=== PATIENT | female | born 1960 | race Caucasian/White ===

== ENCOUNTER 2017-11-06 14:48 | Emergency (ER) | payer MEDICARE, SELFPAY ==
[2017-11-06 14:51] VITALS: BP 127/77; PULSE 80; RESP 20; TEMP 36.5; O2SAT 97; BMI 18.8
--- NOTE | 2017-11-06 14:54 | XR_ITS ---
XR acute abdomen series HISTORY: Severe abdominal pain with nausea ITS.REASON: chronic nausea ORDERING PHYSICIAN: Martha Tinajero MD PATIENT AGE: 57 years COMPARISON: 04/29/2015 FINDINGS: Frontal view of the chest shows hyperinflation. Suture line is present in the left lung base. Normal heart size. No lobar consolidation or collapse. Upright and supine views of the abdomen show nonspecific nonobstructive bowel gas pattern. There is mild amount colonic feces in the rectum. No urolithiasis is. There are pelvic calcifications likely related to phleboliths. IMPRESSION: COPD, nonspecific nonacute findings
--- NOTE | 2017-11-06 14:55 | HMH.EDGENADL ---
ED Disposition Clinical Impression: Hyponatremia, Muscle spasm, Alcohol abuse, Left against medical advice Disposition: Home, Self-Care Condition on Discharge: Fair Additional Instructions: I discussed with the patient the need to be admitted because of her severe hyponatremia. She refused in the presence of her nephew. Said I cannot stay in this hospital. Signed AGAINST MEDICAL ADVICE. Advised to stop drinking alcoholic beverages. Have diet that is high in salt and potassium. To return if she if she changes her mind. Verbalized understanding. Explained to her that muscle relaxants would not help this problem until the sodium was corrected, again she wanted to leave. Referrals: Dmitriy Diaz MD [Primary Care Provider] - - Critical Care Critical Care Time: No Attestation: On , the high probability of a clinically significant, sudden or life threatening deterioration of the following system(s) required my full and direct attention, intervention and personal management. The time I documented below is in addition to time spent performing reported procedures but includes the following listed in this critical care notation. Medical Decision Making - Medical Records Medical records reviewed: Yes: I reviewed the patient's medical records. Vital Signs: 11/06/17 14:51 Temperature 97.7 F Temperature Source Oral Pulse Rate [Right Ulnar] 80 Respiratory Rate 20 Blood Pressure [Right Arm] 127/77 Blood Pressure Mean [Right Arm] 93 Blood Pressure Source [Right Arm] Automatic Cuff Blood Pressure Position [Right Arm] Supine 02 Sat by Pulse Oximetry 97 Oxygen Delivery Method Room Air - Lab Data Lab Results 11/06/17 16:00: WBC 4.5 L, RBC 4.85, Hgb 15.6, Hct 48.0 H, MCV 98.9, MCH 32.1 H, MCHC 32.5, RDW 15.3, Plt Count 246, MPV 7.1 L, Neut % (Auto) 55.7, Lymph % (Auto) 33.6, [place] % (Auto) 8.3, Eos % (Auto) 1.3, Baso % (Auto) 1.1, Neut # (Auto) 2.5, Lymph # (Auto) 1.5, [place] # (Auto) 0.4, Eos # (Auto) 0.1, Baso # (Auto) 0.1 11/06/17 16:00: Sodium 121 L, Potassium 4.2, Chloride 87 L, Carbon Dioxide 28, Anion Gap 10.2, BUN 4 L, Creatinine 0.47 L, Estimated Creat Clear 95, Estimated GFR 136, Est GFR ( Amer) 164, Glucose 88, Calcium 8.3 L, Magnesium 1.5, Total Bilirubin 0.4, AST 35, ALT 30, Alkaline Phosphatase 105, Total Creatine Kinase 39, CK-MB (CK-2) 1.1, CK-MB (CK-2) Rel Index 2.8, Troponin I < 0.02, Total Protein 6.9, Albumin 3.4, Globulin 3.5 H, Albumin/Globulin Ratio 1.0 L, Lipase 314, Plasma/Serum Alcohol 126 H Result diagrams: 11/06/17 16:00 11/06/17 16:00 Orders (Tests/Meds): ED MEDICATIONS Generic Name Dose Route Start Last Admin Trade Name Freq PRN Reason Stop Dose Admin Baclofen 10 mg 11/06/17 17:00 Lioresal 10mg Tablet PO 12/06/17 16:59 QID ROBEL ORDERS Category Date Time Status Acute abdomen XR series [XR acute abdomen series] Stat Exams 11/06/17 14:54 Taken Drug Screen,Urine Stat Lab 11/06/17 15:01 Ordered Folate Stat Lab 11/06/17 16:00 Received Thiamine level [Vitamin B1] Stat Lab 11/06/17 16:00 Received Urinalysis and Microscopic Stat Lab 11/06/17 14:54 Ordered Vitamin B12 Stat Lab 11/06/17 16:00 Received ECG Request by /Samira Stat Y 11/06/17 14:54 Ordered - Radiology Data #1 Image(s): Chest, Abdomen Image Reviewed: Yes I reviewed the patient's radiology image Preliminary Findings: Normal/NAD - ECG Data Tracing #1 Normal sinus rhythm 77/min early lateralization no acute. ECG initial impression date: 11/06/17 - David Inquiry Pt receiving controlled substance: No David was queried for this patient: No General Adult HPI - General Chief complaint: PAIN Stated complaint: PAIN IN LUNGS - History of Present Illness HPI narrative: 57 years old white female with history of tobacco use and pneumothorax that required chest tube. She has chronic back pain and she is scheduled to see a pain specialist in [place]. She is to
--- NOTE | 2017-11-06 14:59 | ED_ITS ---
ED Disposition Clinical Impression: Hyponatremia, Muscle spasm, Alcohol abuse, Left against medical advice Disposition: Home, Self-Care Condition on Discharge: Fair Additional Instructions: I discussed with the patient the need to be admitted because of her severe hyponatremia. She refused in the presence of her nephew. Said I cannot stay in this hospital. Signed AGAINST MEDICAL ADVICE. Advised to stop drinking alcoholic beverages. Have diet that is high in salt and potassium. To return if she if she changes her mind. Verbalized understanding. Explained to her that muscle relaxants would not help this problem until the sodium was corrected, again she wanted to leave. Referrals: Dmitriy Diaz MD [Primary Care Provider] - - Critical Care Critical Care Time: No Attestation: On , the high probability of a clinically significant, sudden or life threatening deterioration of the following system(s) required my full and direct attention, intervention and personal management. The time I documented below is in addition to time spent performing reported procedures but includes the following listed in this critical care notation. Medical Decision Making - Medical Records Medical records reviewed: Yes: I reviewed the patient's medical records. Vital Signs: 11/06/17 14:51 Temperature 97.7 F Temperature Source Oral Pulse Rate [Right Ulnar] 80 Respiratory Rate 20 Blood Pressure [Right Arm] 127/77 Blood Pressure Mean [Right Arm] 93 Blood Pressure Source [Right Arm] Automatic Cuff Blood Pressure Position [Right Arm] Supine 02 Sat by Pulse Oximetry 97 Oxygen Delivery Method Room Air - Lab Data Lab Results 11/06/17 16:00: WBC 4.5 L, RBC 4.85, Hgb 15.6, Hct 48.0 H, MCV 98.9, MCH 32.1 H , MCHC 32.5, RDW 15.3, Plt Count 246, MPV 7.1 L, Neut % (Auto) 55.7, Lymph % ( Auto) 33.6, [place] % (Auto) 8.3, Eos % (Auto) 1.3, Baso % (Auto) 1.1, Neut # (Auto ) 2.5, Lymph # (Auto) 1.5, [place] # (Auto) 0.4, Eos # (Auto) 0.1, Baso # (Auto) 0.1 11/06/17 16:00: Sodium 121 L, Potassium 4.2, Chloride 87 L, Carbon Dioxide 28, Anion Gap 10.2, BUN 4 L, Creatinine 0.47 L, Estimated Creat Clear 95, Estimated GFR 136, Est GFR ( Amer) 164, Glucose 88, Calcium 8.3 L, Magnesium 1.5, Total Bilirubin 0.4, AST 35, ALT 30, Alkaline Phosphatase 105, Total Creatine Kinase 39, CK-MB (CK-2) 1.1, CK-MB (CK-2) Rel Index 2.8, Troponin I < 0.02, Total Protein 6.9, Albumin 3.4, Globulin 3.5 H, Albumin/Globulin Ratio 1.0 L, Lipase 314, Plasma/Serum Alcohol 126 H Result diagrams: 11/06/17 16:00 11/06/17 16:00 Orders (Tests/Meds): ED MEDICATIONS Generic Name Dose Route Start Last Admin Trade Name Freq PRN Reason Stop Dose Admin Baclofen 10 mg 11/06/17 17:00 Lioresal 10mg Tablet PO 12/06/17 16:59 QID ROBEL ORDERS Category Date Time Status Acute abdomen XR series [XR acute abdomen series] Stat Exams 11/06/17 14:54 Taken Drug Screen,Urine Stat Lab 11/06/17 15:01 Ordered Folate Stat Lab 11/06/17 16:00 Received Thiamine level [Vitamin B1] Stat Lab 11/06/17 16:00 Received Urinalysis and Microscopic Stat Lab 11/06/17 14:54 Ordered Vitamin B12 Stat Lab 11/06/17 16:00 Received ECG Request by /Samira Stat Y 11/06/17 14:54 Ordered - Radiology Data #1 Image(s): Chest, Abdomen Image Reviewed: Yes I reviewed the patient's radiology image
[2017-11-06 16:25] LABS: Basophils # 0.1 K/mm3 (0-0.2); Basophils % 1.1 % (0.1-2.0); Eosinophils # 0.1 K/mm3 (0.0-0.4); Eosinophils % 1.3 % (0.1-12.0); Hemoglobin 15.6 g/dL (12.2-16.2); Lymphocytes # 1.5 K/mm3 (0.7-4.5); Lymphocytes % 33.6 K/mm3 (10-50); Mean Corpuscular HGB Conc 32.5 g/dL (31.8-35.4); Mean Corpuscular Hemoglobin 32.1 pg (27.0-31.2); Mean Corpuscular Volume 98.9 fl (81-99); Mean Platelet Volume 7.1 fl (7.4-10.4); Monocytes # 0.4 K/mm3 (0.1-1.0); Monocytes % 8.3 % (1.7-9.3); Neutrophils # 2.5 K/mm3 (1.8-7.8); Neutrophils % 55.7 % (37.0-80.0); Platelet Count 246 K/mm3 (142-424); Red Blood Count 4.85 M/mm3 (4.20-5.40); Red Cell Distribution Width 15.3 % (11.5-17.5); White Blood Count 4.5 K/mm3 (4.8-10.8)
[2017-11-06 16:58] LABS: Alanine Aminotransferase 30 U/L (12-78); Albumin Level 3.4 gm/dL (3.4-5.0); Alkaline Phosphatase 105 U/L (46-116); Anion Gap 10.2 mEq/L (5-15); Aspartate Amino Transferase 35 U/L (15-37); Bilirubin,Total 0.4 mg/dL (0.2-1.0); Blood Urea Nitrogen 4 mg/dL (7-18); CKMB Relative Index 2.8 U/L (0-4.0); Calcium 8.3 mg/dL (8.5-10.1); Carbon Dioxide 28 mmol/L (21.0-32.0); Chloride 87 mmol/L (98-107); Creatine Kinase 39 U/L (26-192); Creatine Kinase MB 1.1 mg/ml (0.0-3.6); Creatinine Clearance Estimated 95 mL/min (0-300); Creatinine,Serum 0.47 mg/dL (0.55-1.02); Estimated Glomerular Filt Rate 136 ml/min (>60); Ethyl Alcohol 126 mg/dL (0-99); GFR (African American) 164 ML/MIN (>60); Globulin 3.5 gm/dl (1.3-3.2); Glucose 88 mg/dL (74-106); Lipase 314 u/L (73-393); Magnesium 1.5 mg/dL (1.4-2.2); Potassium 4.2 mmoL/L (3.5-5.1); Sodium 121 mmol/L (136-145); Total Protein,Serum 6.9 gm/dL (6.4-8.2); Troponin I < 0.02 ng/ml (0.00-0.06)
[2017-11-06 17:40] VITALS: BP 145/74; PULSE 87; RESP 16; TEMP 37; O2SAT 98
[2017-11-06 19:44] LABS: Amphetamine/Metha Screen,Urine Negative ng/mL (<1000); Barbiturates Screen,Urine Negative ng/mL (<200); Benzodiazepines Screen,Urine Negative ng/mL (200); Cannabinoid Screen,Urine Negative ng/mL (<50); Cocaine Screen,Urine Negative ng/g (<300); Methadone Screen,Urine Negative ng/mL (<300); Opiate Screen,Urine Negative ng/mL (<300); Phencyclidine Screen,Urine Negative ng/mL (<25)
[2017-11-06 20:17] LABS: Appearance,Urine CLEAR (Clear); Bilirubin,Urine Negative (Negative); Blood, Urine Negative (Negative); Glucose,Urine (UA) Negative (Negative); Ketones,Urine Negative (Negative); Leukocyte Esterase,Urine Negative (Negative); Microscopic, Urine URINE MICROSCOPIC (MICROSCOPIC); Nitrate,Urine POSITIVE (Negative); Protein,Urine Negative (Negative); Specific Gravity, Urine <= 1.005 (1.005-1.030); Urobilinogen,Urine 0.2 EU/dl (0.2)
[2017-11-06 20:19] LABS: Color,Urine YELLOW (Yellow)
[2017-11-06 20:24] LABS: Bacteria,Urine 4+ /lpf
[2017-11-09 11:07] LABS: Vitamin B12 470 pg/mL (232-1245)
[2017-11-09 11:08] LABS: Folate 9.6 ng/mL (>3.0)
[2017-11-10 19:22] LABS: Vitamin B1 95.2 nmol/L (66.5-200.0)
== END 2017-11-06 17:41 | disposition home or self-care (01) ==
PROVIDERS: Emergency Provider Emergency Medicine; Family Provider Emergency Medicine; PCP Emergency Medicine
DX: E87.1 Hypo-osmolality and hyponatremia (principal); M62.838 Other muscle spasm; F10.10 Alcohol abuse, uncomplicated; Z53.21 Procedure and treatment not carried out due to patient leaving prior to being seen by health care provider
CPT/HCPCS: 74021; 80053; 80305; 81001; 82550; 82553; 82607; 82746; 83690; 83735; 84425; 84484; 85025; 87086; 87088; 87186; 93005; 99283

== ENCOUNTER 2017-12-07 10:11 | Emergency (ER) | payer MEDICARE, SELFPAY ==
[2017-12-07 10:12] VITALS: BP 139/79; PULSE 83; RESP 20; TEMP 36.6; O2SAT 95; BMI 18.4
--- NOTE | 2017-12-07 10:19 | XR_ITS ---
XR hip RT 2-3V w/pelvis HISTORY: Pain following injury ITS.REASON: R hip pain r/t fall today ORDERING PHYSICIAN: Vik Fish MD PATIENT AGE: 57 years COMPARISON: None FINDINGS: There is a nondisplaced fracture oblique in nature involving the base of the greater trochanter medially. No other significant anomalies are evident. IMPRESSION: Nondisplaced transverse fracture at the base of the greater trochanter. Would consider a CT scan to Essure that there is not a component extending through the femoral neck at the base of the femoral neck.
--- NOTE | 2017-12-07 10:38 | HMH.EDANX ---
ED Disposition Clinical Impression: Acute anxiety Closed right hip fracture Qualifiers: Encounter type: initial encounter Qualified Code(s): S72.001A - Fracture of unspecified part of neck of right femur, initial encounter for closed fracture Disposition: Home, Self-Care Condition on Discharge: Fair Instructions: Anxiety Disorders Additional Instructions: advised to use walker to help with ambulation and if any new symptoms develop, return to the ED for new xrays. Also advised to followup with Dr. Fitzpatrick in 10 days for recheck Prescriptions: Ibuprofen [Ibuprofen 600mg Tab] 600 mg PO TID 30 Days #90 tab Referrals: Dmitriy Diaz MD [Primary Care Provider] - Michael Fitzpatrick MD [Staff Physician] - Time of Disposition: 15:01 - Critical Care Critical Care Time: No Attestation: On 12/07/17, the high probability of a clinically significant, sudden or life threatening deterioration of the following system(s) required my full and direct attention, intervention and personal management. The time I documented below is in addition to time spent performing reported procedures but includes the following listed in this critical care notation. Medical Decision Making - Medical Records Medical records reviewed: Yes: I reviewed the patient's medical records. Vital Signs: 12/07/17 10:12 Temperature 97.9 F Temperature Source Oral Pulse Rate [Right Brachial] 83 Respiratory Rate 20 Blood Pressure [Right Arm] 139/79 Blood Pressure Mean [Right Arm] 99 Blood Pressure Source [Right Arm] Automatic Cuff Blood Pressure Position [Right Arm] Sitting 02 Sat by Pulse Oximetry 95 Oxygen Delivery Method Room Air - Lab Data Lab results reviewed: Yes: I reviewed the patient's lab results. Lab Results 12/07/17 10:15: WBC 11.1 H, RBC 5.18, Hgb 16.6 H, Hct 51.2 H, MCV 98.8, MCH 32.0 H, MCHC 32.3, RDW 14.0, Plt Count 331, MPV 7.6, Neut % (Auto) 73.4, Lymph % (Auto) 18.1, [place] % (Auto) 7.6, Eos % (Auto) 0.3, Baso % (Auto) 0.7, Neut # (Auto) 8.2 H, Lymph # (Auto) 2.0, [place] # (Auto) 0.8, Eos # (Auto) 0.0, Baso # (Auto) 0.1 12/07/17 11:00: Sodium 116 L, Potassium 3.8, Chloride 81 L, Carbon Dioxide 28, Anion Gap 10.8, BUN 4 L, Creatinine 0.57, Estimated Creat Clear 77, Estimated GFR 109, Est GFR ( Amer) 131, Glucose 111 H, Calcium 8.7, Total Bilirubin 0.5, AST 25, ALT 35, Alkaline Phosphatase 117 H, Total Protein 7.8, Albumin 4.0, Globulin 3.8 H, Albumin/Globulin Ratio 1.1, Plasma/Serum Alcohol 0 12/07/17 11:00: Lactic Acid 1.3 12/07/17 13:25: Urine Color Yellow, Urine Appearance Clear, Urine pH 5.5, Ur Specific [place] <= 1.005, Urine Protein Negative, Urine Glucose (UA) Negative, Urine Ketones Negative, Urine Blood Negative, Urine Nitrate Negative, Urine Bilirubin Negative, Urine Urobilinogen 0.2, Ur Leukocyte Esterase Negative, Urine RBC None, Urine WBC Occasional, Ur Squamous Epith Cells None, Urine Bacteria 3+ 12/07/17 13:25: Urine Opiates Screen Positive H, Ur Barbituates Screen Negative, Ur Phencyclidine Scrn Negative, Ur Amphetamines Screen Negative, U Methamphetamines Scrn Negative, U Benzodiazepines Scrn Negative, Urine Cocaine Screen Negative, U Marijuana (THC) Screen Negative Result diagrams: 12/07/17 10:15 12/07/17 11:00 Orders (Tests/Meds): ORDERS Category Date Time Status Urine Culture Stat Micro 12/07/17 13:25 Received - Radiology Data #1 Image(s): Hip Image Reviewed: Yes I reviewed the patient's radiology results, Yes I reviewed the patient's radiology image, Yes I discussed the image results w/the radiologist, Yes I have reviewed radiologist's interpretation, Yes I reviewed the patient's radiology image w/the ED provider Preliminary Findings: Abnormal fracture at base of greater trochanter right hip - CT Data Time Received: 14:[address] Reviewed: Yes: I have reviewed the patient's CT results, I discussed the CT results w/the radiologist, I have viewed the radiologist's interpretation Findings Na
[2017-12-07 10:53] LABS: Basophils # 0.1 K/mm3 (0-0.2); Basophils % 0.7 % (0.1-2.0); Eosinophils % 0.3 % (0.1-12.0); Hematocrit 51.2 % (37.0-47.0); Hemoglobin 16.6 g/dL (12.2-16.2); Lymphocytes % 18.1 K/mm3 (10-50); Mean Corpuscular HGB Conc 32.3 g/dL (31.8-35.4); Mean Corpuscular Volume 98.8 fl (81-99); Mean Platelet Volume 7.6 fl (7.4-10.4); Monocytes # 0.8 K/mm3 (0.1-1.0); Monocytes % 7.6 % (1.7-9.3); Neutrophils # 8.2 K/mm3 (1.8-7.8); Neutrophils % 73.4 % (37.0-80.0); Platelet Count 331 K/mm3 (142-424); Red Blood Count 5.18 M/mm3 (4.20-5.40); White Blood Count 11.1 K/mm3 (4.8-10.8)
[2017-12-07 11:27] LABS: Lactic Acid 1.3 mmol/L (0.4-2.0)
[2017-12-07 11:30] LABS: Alanine Aminotransferase 35 U/L (12-78); Albumin/Globulin Ratio 1.1 (1.1-1.8); Alkaline Phosphatase 117 U/L (46-116); Anion Gap 10.8 mEq/L (5-15); Aspartate Amino Transferase 25 U/L (15-37); Bilirubin,Total 0.5 mg/dL (0.2-1.0); Blood Urea Nitrogen 4 mg/dL (7-18); Calcium 8.7 mg/dL (8.5-10.1); Carbon Dioxide 28 mmol/L (21.0-32.0); Chloride 81 mmol/L (98-107); Creatinine Clearance Estimated 77 mL/min (0-300); Creatinine,Serum 0.57 mg/dL (0.55-1.02); Estimated Glomerular Filt Rate 109 ml/min (>60); GFR (African American) 131 ML/MIN (>60); Globulin 3.8 gm/dl (1.3-3.2); Glucose 111 mg/dL (74-106); Potassium 3.8 mmoL/L (3.5-5.1); Sodium 116 mmol/L (136-145); Total Protein,Serum 7.8 gm/dL (6.4-8.2)
[2017-12-07 11:35] LABS: Ethyl Alcohol 0 mg/dL (0-99)
--- NOTE | 2017-12-07 12:48 | CT_ITS ---
CT hip RT wo con HISTORY: Fall with pain, abnormal radiograph ITS.REASON: ? fracture ORDERING PHYSICIAN: Vik Fish MD PATIENT AGE: 57 years COMPARISON: Radiograph of the same day FINDINGS: There is a nondisplaced transverse fracture involving the base of the greater trochanter. This extends through the base of the greater trochanter without displacement. There is a faint oblique linear density at the base of the femoral neck. This does not appear to represent an acute fracture. There is no evidence of dislocation. Increased soft tissue density is present along the posterior aspect of the hip joint consistent with confusion. IMPRESSION: Nondisplaced transverse fracture at the base of the greater trochanter. No definite femoral neck fracture. A thin oblique density is present at the intertrochanteric region of the left femur not felt to represent a fracture. Suggest follow-up radiograph in 7-10 days confirmation.
[2017-12-07 13:30] LABS: Microscopic, Urine URINE MICROSCOPIC (MICROSCOPIC)
[2017-12-07 13:34] LABS: Appearance,Urine CLEAR (Clear); Bilirubin,Urine Negative (Negative); Blood, Urine Negative (Negative); Color,Urine YELLOW (Yellow); Glucose,Urine (UA) Negative (Negative); Ketones,Urine Negative (Negative); Leukocyte Esterase,Urine Negative (Negative); Nitrate,Urine Negative (Negative); PH,Urine 5.5 (5.0-8.5); Protein,Urine Negative (Negative); Specific Gravity, Urine <= 1.005 (1.005-1.030); Urobilinogen,Urine 0.2 EU/dl (0.2)
[2017-12-07 13:41] LABS: Amphetamine/Metha Screen,Urine Negative ng/mL (<1000); Barbiturates Screen,Urine Negative ng/mL (<200); Benzodiazepines Screen,Urine Negative ng/mL (200); Cannabinoid Screen,Urine Negative ng/mL (<50); Cocaine Screen,Urine Negative ng/g (<300); Methadone Screen,Urine Negative ng/mL (<300); Opiate Screen,Urine Positive ng/mL (<300); Phencyclidine Screen,Urine Negative ng/mL (<25)
[2017-12-07 14:03] LABS: Bacteria,Urine 3+ /lpf; WBC,Urine Occasional #/hpf (0-3)
--- NOTE | 2017-12-07 14:30 | PC.NURSE ---
DR SAHU DISCUSSING CASE WITH DR CHERRY.
[2017-12-07 15:29] VITALS: BP 139/73; PULSE 112; RESP 20; TEMP 36.6; O2SAT 100
== END 2017-12-07 15:28 | disposition home or self-care (01) ==
PROVIDERS: Emergency Provider General Practice; Family Provider Emergency Medicine; PCP Emergency Medicine
DX: S72.001A Fracture of unspecified part of neck of right femur, initial encounter for closed fracture (principal); W01.0XXA Fall on same level from slipping, tripping and stumbling without subsequent striking against object, initial encounter; Y92.019 Unspecified place in single-family (private) house as the place of occurrence of the external cause; F10.10 Alcohol abuse, uncomplicated; F17.210 Nicotine dependence, cigarettes, uncomplicated; R06.02 Shortness of breath; E87.1 Hypo-osmolality and hyponatremia; Z79.899 Other long term (current) drug therapy
CPT/HCPCS: 73502; 73700; 80053; 80305; 81001; 83605; 85025; 87086; 87088; 87186; 99282

== ENCOUNTER → 2017-12-19 08:43 | Outpatient (CLI) | payer MEDICARE, SELFPAY ==
--- NOTE | 2017-12-19 08:49 | XR_ITS ---
XR hip RT 2-3V w/pelvis HISTORY: Follow-up right hip fracture ITS.REASON: right hip follow up from ER ORDERING PHYSICIAN: Michael Fitzpatrick MD PATIENT AGE: 57 years COMPARISON: 12-07-17 FINDINGS: Nondisplaced transverse fracture at the base of the greater trochanter once again noted on the right. This is not significant change. No evidence of dislocation or other significant anomalies. Fracture line may be slightly less distinct suggesting early healing. IMPRESSION: Nondisplaced transverse fracture base of right greater trochanter once again noted with the fracture line is somewhat less distinct and may indicate early healing.
== END ==
PROVIDERS: PCP Emergency Medicine; Visit Provider Orthopaedic Surgery
DX: S72.001A Fracture of unspecified part of neck of right femur, initial encounter for closed fracture (principal)
CPT/HCPCS: 73502

== ENCOUNTER → 2017-12-28 09:02 | Outpatient (CLI) | payer MEDICARE, SELFPAY ==
--- NOTE | 2017-12-28 09:04 | XR_ITS ---
XR hip RT 2-3V w/pelvis HISTORY: Follow-up fracture ITS.REASON: RT HIP FX ORDERING PHYSICIAN: Edwin Martinez MD PATIENT AGE: 57 years COMPARISON: 12/19/2017 FINDINGS: Nondisplaced fracture of the base of the greater trochanter once again noted transverse component is slightly less apparent suggesting healing. Cortical irregularity is once again noted base of the greater trochanter medially with femoral neck unchanged. IMPRESSION: Healing nondisplaced fracture at the base of the right greater trochanter
== END ==
PROVIDERS: PCP Emergency Medicine; Visit Provider Orthopaedic Surgery
DX: S72.001A Fracture of unspecified part of neck of right femur, initial encounter for closed fracture (principal)
CPT/HCPCS: 73502

== ENCOUNTER → 2018-01-30 12:46 | Outpatient (CLI) | payer MEDICARE, SELFPAY ==
--- NOTE | 2018-01-30 12:51 | XR_ITS ---
XR hip RT 2-3V w/pelvis HISTORY: Follow-up fracture ITS.REASON: RT hip fracture ORDERING PHYSICIAN: Edwin Martinez MD PATIENT AGE: 57 years COMPARISON: 12/28/2017 FINDINGS: Transverse fracture of the base of the greater trochanter once again noted. The fracture line somewhat less distinct and may be related to early healing. Fracture is nondisplaced. Femoral neck itself appears intact IMPRESSION: Overall no change nondisplaced transverse fracture at the base of the greater trochanter
== END ==
PROVIDERS: PCP Emergency Medicine; Visit Provider Orthopaedic Surgery
DX: S72.001A Fracture of unspecified part of neck of right femur, initial encounter for closed fracture (principal)
CPT/HCPCS: 73502

== ENCOUNTER 2018-03-14 13:47 | Inpatient (IN) ==
[2018-03-14 14:11] LABS: Basophils % 0.2 % (0.1-2.0); Eosinophils # 0.1 K/mm3 (0.0-0.4); Eosinophils % 0.8 % (0.1-12.0); Hematocrit 45.8 % (37.0-47.0); Hemoglobin 15.1 g/dL (12.2-16.2); Lymphocytes % 9.1 K/mm3 (10-50); Mean Corpuscular Hemoglobin 30.7 pg (27.0-31.2); Mean Corpuscular Volume 93.2 fl (81-99); Monocytes # 0.7 K/mm3 (0.1-1.0); Monocytes % 5.8 % (1.7-9.3); Neutrophils # 9.6 K/mm3 (1.8-7.8); Platelet Count 369 K/mm3 (142-424); Red Blood Count 4.92 M/mm3 (4.20-5.40); Red Cell Distribution Width 13.8 % (11.5-17.5); White Blood Count 11.4 K/mm3 (4.8-10.8)
[2018-03-14 14:25] LABS: Albumin Level 3.4 gm/dL (3.4-5.0); Albumin/Globulin Ratio 1.2 (1.1-1.8); Anion Gap 14.3 mEq/L (5-15); Bilirubin,Total 0.5 mg/dL (0.2-1.0); Globulin 2.9 gm/dl (1.3-3.2); Potassium 3.3 mmoL/L (3.5-5.1); Total Protein,Serum 6.3 gm/dL (6.4-8.2)
--- NOTE | 2018-03-14 15:19 | Emergency Department Note ---
ED Disposition Clinical Impression: Hyponatremia, Hypokalemia, Dehydration Change in mental status Qualifiers: Altered mental status type: unspecified Qualified Code(s): R41.82 - Altered mental status, unspecified Fall Qualifiers: Encounter type: initial encounter Qualified Code(s): W19.XXXA - Unspecified fall, initial encounter Disposition: Admitted As Inpatient Condition on Discharge: Serious Time of Disposition: 15:30 - Critical Care Critical Care Time: Yes Attestation: On 03/14/18, the high probability of a clinically significant, sudden or life threatening deterioration of the following system(s) required my full and direct attention, intervention and personal management. The time I documented below is in addition to time spent performing reported procedures but includes the following listed in this critical care notation. Total Critical Care Time: 75 Vital system(s) involved:: Metabolic Failure My critical care processes included: Assessment & monitoring of V/S, Initial and Re-exams, Data Review/Interpretation, Coordinating Care, Medication Orders and management, Documentation Medical Decision Making - Medical Records Medical records reviewed: Yes: I reviewed the patient's medical records. - David Inquiry Pt receiving controlled substance: No Vital Signs: 03/14/18 13:54 03/14/18 14:27 03/14/18 14:50 Temperature 98.1 F 98.4 F 98.6 F Temperature Source Temporal Artery Scan Oral Oral Pulse Rate [Right Brachial] 112 H 95 H 87 Respiratory Rate 18 18 16 Blood Pressure [Right Arm] 156/88 154/87 Blood Pressure Mean [Right Arm] 110 109 Blood Pressure Source [Right Arm] Automatic Cuff Automatic Cuff Blood Pressure Position [Right Arm] Sitting Sitting 02 Sat by Pulse Oximetry 98 94 L 95 Oxygen Delivery Method Room Air Room Air Room Air - Lab Data Lab results reviewed: Yes: I reviewed the patient's lab results. Lab Results 03/14/18 14:00: WBC 11.4 H, RBC 4.92, Hgb 15.1, Hct 45.8, MCV 93.2, MCH 30.7, MCHC 33.0, RDW 13.8, Plt Count 369, MPV 7.0 L, Neut % (Auto) 84.0 H, Lymph % ( Auto) 9.1 L, [place] % (Auto) 5.8, Eos % (Auto) 0.8, Baso % (Auto) 0.2, Neut # ( Auto) 9.6 H, Lymph # (Auto) 1.0, [place] # (Auto) 0.7, Eos # (Auto) 0.1, Baso # ( Auto) 0.0 03/14/18 14:00: Sodium 118 L, Potassium 3.3 L, Chloride 79 L, Carbon Dioxide 28 , Anion Gap 14.3, BUN 5 L, Creatinine 0.47 L, Estimated Creat Clear 88, Estimated GFR 136, Est GFR ( Amer) 164, Glucose 130 H, Calcium 9.0, Total Bilirubin 0.5, AST 23, ALT 26, Alkaline Phosphatase 102, Total Protein 6.3 L, Albumin 3.4, Globulin 2.9, Albumin/Globulin Ratio 1.2 Result diagrams: 03/14/18 14:00 03/14/18 14:00 Orders (Tests/Meds): ED MEDICATIONS Generic Name Dose Route Start Last Admin Trade Name Freq PRN Reason Stop Dose Admin Citalopram Hydrobromide 20 mg 03/14/18 16:24 Celexa 40mg Tablet PO 04/13/18 16:23 DAILY ROBEL Gabapentin 400 mg 03/14/18 16:24 Neurontin 100mg Capsule PO 04/13/18 16:23 DAILY ROBEL Sodium Chloride 1,000 mls @ 75 mls/hr 03/14/18 16:45 Sod Chlor 0.9% 1000ml Bag IV 04/13/18 16:44 .[id number] ROBEL Lorazepam 0.5 mg 03/14/18 16:24 Ativan 2mg/Ml Vial IV 04/13/18 15:44 Q4H PRN Anxiety Ondansetron HCl 4 mg 03/14/18 16:34 Zofran 4mg/2ml Vial IV 04/13/18 16:33 Q6HP PRN Nausea Sodium Chloride 2 ml 03/14/18 16:24 Saline Flush 10ml Syringe IV 04/13/18 15:38 NEEDED PRN to Dilute Lorazepam inj Sodium Chloride 10 ml 03/14/18 16:34 Saline Flush 10ml Syringe IV 04/13/18 16:33 NEEDED PRN Maintain IV Site Discontinued Medications Generic Name Dose Route Start Last Admin Trade Name Freq PRN Reason Stop Dose Admin Sodium Chloride 1,000 mls @ 999 mls/hr 03/14/18 14:00 03/14/18 14:45 Sod Chlor 0.9% 1000ml Bag IV 03/14/18 15:00 999 mls/hr .Q1H1M ROBEL Administration Lorazepam 0.5 mg 03/14/18 15:39 Ativan 2mg/Ml Vial IV 04/13/18 15:44 Q4H PRN Anxiety Ondansetron HCl 4 mg 03/14/18 14:38 03/14/18 14:45 Zofran 4mg/2ml Vial IV 03/14/18 14:39 4 mg ONCE ONE Administration Oxazepam 30 mg 03/14/18 15:34 03/14/18 15:50 Serax 15mg Capsule PO 03/14/18 15:35 30 mg ONCE ONE Administration Sodium Chloride 2 ml 03/14/18 15:39 Saline Flush 10ml Syringe IV 04/13/18 15:38 NEEDED PRN to Dilute Lorazepam inj ORDERS Category Date Time Status Consult to Case Management [CONS] Routine Cons 03/14/18 16:24 Active Osmolality Stat Lab 03/14/18 15:35 Ordered UDS [Drug Screen,Urine] Stat Lab 03/14/18 13:59 Ordered Urinalysis and Microscopic Stat Lab 03/14/18 13:59 Ordered - Physician Consults Physician Consulted: Dr Valero Time: 15:45 Reason -: Admission, Pt condition Comment/Response: Advise of patient's presentation, findings, agreeable with hospitalization. Additional Consult: Toya Felton Time: 15:50 Reason -: Admission, Pt condition Comment/Response: Advise of patient presentation, findings, agreeable with admission. We will also consult care management for hospice. - Reevaluation(s) Time: 16:00 Reevaluation #1: Patient remains shaking, tremulous, requiring assistance in order to ambulate to the bathroom. Decision made to hospitalize patient, due to her hyponatremia and mental status change. Nausea/Vomiting/Diarrhea HPI - General Chief complaint: Nausea/Vomiting/Diarrhea Stated complaint: anxiety attack not eating Time Seen by Provider: 03/14/18 15:30 Mode of Arrival: Wheelchair Limitations: No Limitations Description of Symptoms (Recalled from ER Triage Doc. by RN): "i want to be admitted for observation" with intractible n/v/d - History of Present Illness HPI Narrative: This is a 57-year-old female patient brought to the emergency room by her sister will multiple and vague complaints, including nausea vomiting, poor appetite, inability to hold on any solid food or liquids over the past 4-5 days , lethargy, anxiety/confusion. Patient was seen here just a few days ago after a trip and fall accident, on her way to [place]. The [employer] otr van cdl truck driver returned that was called to drive her to the pain clinic in [place] brought her back to the emergency room, for evaluation. At the time patient appeared stable, and she was asking for refills for her anxiety medications and narcotics. Upon release from the emergency room she was instructed to follow-up with the pain clinic as soon as possible. Patient is advising me today that she has an appointment with Dr. Diaz tomorrow who wants to refer her to hospice. Her sister advised that patient is rarely getting out of the house, and that her health has been steadily declining, can no longer help her or take care of her. MD complaint: nausea, vomiting, diarrhea Onset (ago): day(s) (5) Description of Vomiting: food contents Associated Abdominal Pain: No Severity: moderate Severity scale (1-10): 4 Quality: dull Consistency: intermittent Relieving factors: vomiting Exacerbating factors: eating Associated symptoms: malaise, nausea/vomiting - Related Data Home Medications Medication Instructions Recorded Confirmed gabapentin 400 mg capsule 1 tab PO DAILY 30 Days #120 12/19/17 hydrocodone 7.5 mg-acetaminophen 1 tab PO DAILYP PRN 30 Days #90 12/19/17 325 mg tablet Previous Rx's Medication Instructions Recorded escitalopram 20 mg tablet 20 mg PO DAILY 90 Days #90 tab 01/01/18 hydroxyzine pamoate 25 mg capsule 25 mg PO TID 90 Days #270 cap 01/01/18 melatonin 3 mg tablet 6 mg PO HS PRN #60 tab 01/30/18 Allergies Allergy/AdvReac Type Severity Reaction Status Date / Time NSAIDS (Non-Steroidal Allergy Unknown HURTS Verified 12/28/17 10:29 Anti-Inflamma STOMACH [facility] History I have reviewed the patient's past medical history: Yes Medical History: Reports:: Anxiety Denies:: Cancer, Diabetes Mellitus Type 1, Diabetes Mellitus Type 2, MRSA Other Medical History: Reports: Arthritis, Fibromyalgia Other Surgeries: Yes: Hysterectomy-Total Amputation: No Fractures: Yes Comment: Thorocotomy - Social History Educational Level: Completed High School Smoking Status: Current every day smoker Tobacco Type: cigarettes Alcohol Intake: never Alcohol Intake Frequency:: 0-2 drinks per day - Psychiatric History Expresses thoughts of harming self/others: None Suicide Plan Description: No Plan Pschychiatric History:: Reports:: Anxiety Family Hx:: Heart Attack ROS Obtained: Yes All systems reviewed & no additional complaints, Yes Systems reviewed as appropriate & no additional complaints - Constitutional Constitutional: Reports fatigue, Reports frequent falls, Reports lethargy, Reports malaise - Gastrointestinal Gastrointestingal: Reports: system reviewed and no additional complaints, except as docu, as per HPI, nausea, vomiting Physical Exam - General General appearance: alert, anxious, lethargic, in distress (mild), other ( tremors) - Head Head exam: atraumatic, normocephalic, normal inspection - Eye Eye exam: Present: normal appearance, PERRL, EOMI, other (Bilateral cataracts) - Neck Neck exam: Present: normal inspection, full ROM, trachea midline. Absent: meningismus, lymphadenopathy - Chest Chest inspection: Present: normal inspection, symmetric chest wall rise. Absent : tenderness - Respiratory Respiratory exam: Present: normal lung sounds bilaterally. Absent: respiratory distress - Cardiovascular Cardiovascular exam: Present: regular rate, normal rhythm. Absent: JVD - Abdominal Exam Abdominal exam: Present: soft, normal bowel sounds. Absent: distention, tenderness, guarding - Extremities Exam Extremities exam: Present: normal inspection, full ROM, normal capillary refill. Absent: calf tenderness - Back Exam Back exam: Present: normal inspection. Absent: tenderness - Neurological Exam Neurological exam: Present: alert, oriented X3, CN II-XII intact, other (Tremors ) - Psychiatric Psychiatric exam: Present: depressed, anxious, flat affect - Skin Skin exam: Present: warm, dry, normal color, other (Abrasions right upper lip)
--- NOTE | 2018-03-15 07:30 | Pharmacy Consult Notes ---
[facility] Pharmacy VTE Monitoring - Patient Demographics Admission date: 03/14/18 Report Date: 03/15/18 Time: 07:29 Allergies/Adverse Reactions: Patient Allergies NSAIDS (Non-Steroidal Anti-Inflamma Allergy (Unknown, Verified 12/28/17 10:29) HURTS STOMACH Height: 1.57 m Weight: 44.452 kg Patient Problems: Current Active Problems Hyponatremia (Acute) Change in mental status (Acute) Fall (Acute) Hypokalemia (Acute) Dehydration (Acute) - VTE Risk Labs: VTE Related Lab Results Hgb 15.1 g/dL (12.2-16.2) 03/14/18 14:00 Hct 45.8 % (37.0-47.0) 03/14/18 14:00 Plt Count 369 K/mm3 (142-424) 03/14/18 14:00 BUN 5 mg/dL (7-18) L 03/14/18 14:00 Creatinine 0.47 mg/dL (0.55-1.02) L 03/14/18 14:00 Estimated Creat Clear 88 mL/min (0-300) 03/14/18 14:00 VTE Score: 1 VTE Risk Level: Very Low Risk - Prophylaxis VTE Prophylaxis Ordered?: Yes Types of VTE Prophylaxis: TEDS Knee High Location of Applied Device: Bilateral Lower Extremeties - VTE Diagnosis Confirmed Treatment or plan recommended: Continue Current Treatment
[2018-03-15 08:33] LABS: Microscopic, Urine URINE MICROSCOPIC (MICROSCOPIC)
--- NOTE | 2018-03-15 08:36 | History & Physical Report ---
*Admission Date: 03/14/18 *Chief complaint: weakness *History of present illness: 57-year-old female patient brought to the emergency room by her sister will multiple and vague complaints, including nausea vomiting, poor appetite, inability to hold on any solid food or liquids over the past 4-5 days , lethargy, anxiety/confusion. Patient was seen in er s/p fall. The [employer] pedicab driver returned that was called to drive her to the pain clinic in [place] brought her back to the emergency room, for evaluation. At the time patient appeared stable, and she was asking for refills for her anxiety medications and narcotics. Upon release from the emergency room a few days ago she was instructed to follow-up with the pain clinic as soon as possible. Patient states that she has an appointment with Dr. Diaz today because she wants a to refer her to hospice. Her sister advised that patient is rarely getting out of the house, and that her health has been steadily declining, can no longer help her or take care of her.Pt admitted for low NA and labs monitored. [facility] History I have reviewed the patient's past medical history: Yes Medical History: Reports:: Anxiety, Hypertension Denies:: Cancer, Diabetes Mellitus Type 1, Diabetes Mellitus Type 2, MRSA Other Medical History: Reports: Arthritis, Fibromyalgia Other Surgeries: Yes: Hysterectomy-Total Amputation: No Fractures: Yes - *Social History Educational Level: Completed College Smoking Status: Current every day smoker Tobacco Type: cigarettes Alcohol Intake: current Alcohol Intake Frequency:: a few times a week Occupational Status: disabled Housing: house Household Members: spouse - Psychiatric History Expresses thoughts of harming self/others: None Suicide Plan Description: No Plan Pschychiatric History:: Reports:: Anxiety *Family Hx:: Heart Attack Review of Systems - Constitutional Reports malaise, Reports weakness, Reports weight loss, Denies body ache(s), Denies headache(s) - Eyes Denies change in vision - ENT Denies neck pain - *Cardiovascular Denies chest pain with activity - *Respiratory Denies cough, Denies shortness of breath - *Gastrointestinal Reports nausea, Reports vomiting, Denies change in bowel habits - *Genitourinary Denies urinary urgency - *Musculoskeletal Denies decreased muscle mass - Integumentary/Breasts Denies change in hair, Denies rash - *Neurologic Reports frequent falls, Denies abnormal movements - Psychiatric Reports anxiety - Endocrine Denies flushing - Hematologic/Lymphatic Denies enlarged lymph nodes Meds Home Medications Medication Instructions Recorded Confirmed Type gabapentin 400 mg capsule 1 tab PO DAILY 30 Days #120 12/19/17 03/14/18 History hydrocodone 7.5 mg-acetaminophen 1 tab PO DAILYP PRN 30 Days #90 12/19/17 History 325 mg tablet Ibuprofen [Ibuprofen 600mg Tab] 600 mg PO TIDP PRN 03/15/18 03/15/18 History Allergies Allergy/AdvReac Type Severity Reaction Status Date / Time NSAIDS (Non-Steroidal Allergy Unknown HURTS Verified 12/28/17 10:29 Anti-Inflamma STOMACH Exam Vital signs and Labs for Last 24 Hours: Temp Pulse Resp BP Pulse Ox 98.4 F 122 H 18 144/83 90 L 03/15/18 08:00 03/15/18 08:00 03/15/18 08:00 03/15/18 08:00 03/15/18 08:00 Laboratory Results - last 24 hr 03/14/18 14:00: WBC 11.4 H, RBC 4.92, Hgb 15.1, Hct 45.8, MCV 93.2, MCH 30.7, MCHC 33.0, RDW 13.8, Plt Count 369, MPV 7.0 L, Neut % (Auto) 84.0 H, Lymph % ( Auto) 9.1 L, [place] % (Auto) 5.8, Eos % (Auto) 0.8, Baso % (Auto) 0.2, Neut # ( Auto) 9.6 H, Lymph # (Auto) 1.0, [place] # (Auto) 0.7, Eos # (Auto) 0.1, Baso # ( Auto) 0.0 03/14/18 14:00: Sodium 118 L, Potassium 3.3 L, Chloride 79 L, Carbon Dioxide 28 , Anion Gap 14.3, BUN 5 L, Creatinine 0.47 L, Estimated Creat Clear 88, Estimated GFR 136, Est GFR ( Amer) 164, Glucose 130 H, Calcium 9.0, Total Bilirubin 0.5, AST 23, ALT 26, Alkaline Phosphatase 102, Total Protein 6.3 L, Albumin 3.4, Globulin 2.9, Albumin/Globulin Ratio 1.2 I & O for Last 24 hours: Intake & Output 03/12/18 03/13/18 03/14/18 03/15/18 11:59 11:59 11:59 11:59 Intake Total 1380 / 1380 Balance 1380 / 1380 Weight 98 lb - Constitutional no acute distress - *Routine HEENT Exam Head: Present: normocephalic Eye: Present: PERRL ENT: Present: mucous membranes moist - *Routine Neck Exam Present: supple, full ROM - *Routine Respiratory Exam Present: wheezes - *Routine Cardiovascular Exam Present: RRR - *Routine Abdominal Exam Present: soft, normoactive bowel sounds - *Routine Extremities Exam Present: full ROM - *Routine Skin Exam Present: intact - *Routine Neurological Exam Present: alert, oriented X3, CN II-XII intact - Routine Psychiatric Exam Present: normal affect, normal thought process H&P: Result - Labs Labs: Short CBC 03/14/18 Range/Units 14:00 WBC 11.4 H (4.8-10.8) K/mm3 Hgb 15.1 (12.2-16.2) g/dL Hct 45.8 (37.0-47.0) % Plt Count 369 (142-424) K/mm3 BMP 03/14/18 14:00 Sodium 118 L Potassium 3.3 L Chloride 79 L Carbon Dioxide 28 BUN 5 L Creatinine 0.47 L Glucose 130 H Calcium 9.0 Liver Function 03/14/18 Range/Units 14:00 Total Bilirubin 0.5 (0.2-1.0) mg/dL AST 23 (15-37) U/L ALT 26 (12-78) U/L Alkaline Phosphatase 102 (46-116) U/L Albumin 3.4 (3.4-5.0) gm/dL Assessment and Plan - Assessment and plan all Dx Assessment and Plan for all problems:: Rounded with ora all orders per ora
[2018-03-15 08:39] LABS: Appearance,Urine CLOUDY (Clear); Bilirubin,Urine Negative (Negative); Blood, Urine Negative (Negative); Color,Urine YELLOW (Yellow); Glucose,Urine (UA) Negative (Negative); Ketones,Urine Negative (Negative); Leukocyte Esterase,Urine 1+ (Negative); PH,Urine 5.5 (5.0-8.5); Protein,Urine Negative (Negative); Specific Gravity, Urine <= 1.005 (1.005-1.030); Urobilinogen,Urine 0.2 EU/dl (0.2)
[2018-03-15 08:47] LABS: Amphetamine/Metha Screen,Urine Negative ng/mL (<1000); Barbiturates Screen,Urine Negative ng/mL (<200); Benzodiazepines Screen,Urine Positive ng/mL (200); Cannabinoid Screen,Urine Negative ng/mL (<50); Cocaine Screen,Urine Negative ng/g (<300); Methadone Screen,Urine Negative ng/mL (<300); Opiate Screen,Urine Negative ng/mL (<300); Phencyclidine Screen,Urine Negative ng/mL (<25)
[2018-03-15 08:51] LABS: Anion Gap 8.7 mEq/L (5-15); Potassium 3.7 mmoL/L (3.5-5.1)
[2018-03-15 08:53] LABS: Bacteria,Urine 4+ /lpf; Transitional Epi Cells,Urine OCC #/lpf (0-3)
[2018-03-16 07:25] LABS: Basophils % 0.6 % (0.1-2.0); Eosinophils # 0.1 K/mm3 (0.0-0.4); Eosinophils % 1.4 % (0.1-12.0); Hematocrit 39.2 % (37.0-47.0); Hemoglobin 12.7 g/dL (12.2-16.2); Lymphocytes # 1.7 K/mm3 (0.7-4.5); Lymphocytes % 27.3 K/mm3 (10-50); Mean Corpuscular HGB Conc 32.3 g/dL (31.8-35.4); Mean Corpuscular Volume 95.8 fl (81-99); Mean Platelet Volume 6.8 fl (7.4-10.4); Monocytes # 0.4 K/mm3 (0.1-1.0); Monocytes % 6.1 % (1.7-9.3); Neutrophils # 3.9 K/mm3 (1.8-7.8); Neutrophils % 64.7 % (37.0-80.0); Platelet Count 284 K/mm3 (142-424); Red Blood Count 4.09 M/mm3 (4.20-5.40); Red Cell Distribution Width 13.8 % (11.5-17.5); White Blood Count 6.1 K/mm3 (4.8-10.8)
[2018-03-16 07:44] LABS: Albumin Level 2.8 gm/dL (3.4-5.0); Albumin/Globulin Ratio 1.1 (1.1-1.8); Anion Gap 10.4 mEq/L (5-15); Bilirubin,Total 0.4 mg/dL (0.2-1.0); Calcium 7.9 mg/dL (8.5-10.1); Globulin 2.5 gm/dl (1.3-3.2); Potassium 3.4 mmoL/L (3.5-5.1); Thyroid Stimulating Hormone 1.12 uIU/ml (0.358-3.740); Total Protein,Serum 5.3 gm/dL (6.4-8.2)
--- NOTE | 2018-03-16 09:22 | Discharge Summary ---
General - General Admission date:: 03/14/18 Discharge date: 03/16/18 HPI HPI: 57-year-old female patient brought to the emergency room by her sister will multiple and vague complaints, including nausea vomiting, poor appetite, inability to hold on any solid food or liquids over the past 4-5 days , lethargy, anxiety/confusion. Patient was seen in er s/p fall. The [employer] utility driver returned that was called to drive her to the pain clinic in [place] brought her back to the emergency room, for evaluation. At the time patient appeared stable, and she was asking for refills for her anxiety medications and narcotics. Upon release from the emergency room a few days ago she was instructed to follow-up with the pain clinic as soon as possible. Patient states that she has an appointment with Dr. Diaz today because she wants a to refer her to hospice. Her sister advised that patient is rarely getting out of the house, and that her health has been steadily declining, can no longer help her or take care of her.Pt admitted for low NA and labs monitored. Hospital Course Hospital Course: [id number] sodium in the diet, patient received IV fluids while here. Anxiety-started patient on low-dose antianxiety medication, low potassium-oral potassium. Today patient wishes to be discharged home long discussion with patient on needing to go to a half-way if she is unable to care for herself she states she is okay to go home with home health and would like to try that before being placed in a half-way. Patient states her anxiety and panic attacks make it hard for her to perform her ADLs. Will start back on low-dose antianxiety medicine and monitor closely in the office. Patient will be seen Sunday at 10: 00 by Kathryn. Long discussion with patient on proper ways to take her medication. Discontinue hydrocodone, patient states she is weaning herself off. Instructed patient to increase sodium in her diet and eat potassium rich foods. Objective Vital signs: Temp Pulse Resp BP Pulse Ox 98.5 F 88 18 156/81 96 03/16/18 08:00 03/16/18 08:00 03/16/18 08:00 03/16/18 08:00 03/16/18 08:00 no acute distress - *Routine HEENT Exam Head: Present: normocephalic Eye: Present: PERRL ENT: Present: mucous membranes moist - *Routine Neck Exam Present: supple, full ROM - *Routine Respiratory Exam Present: CTA bilaterally - *Routine Cardiovascular Exam Present: RRR - *Routine Abdominal Exam Present: soft, normoactive bowel sounds - *Routine Extremities Exam Present: full ROM - *Routine Skin Exam Present: intact - *Routine Neurological Exam Present: alert, oriented X3, CN II-XII intact - Routine Psychiatric Exam Present: normal affect, normal thought process Results Labs on day of discharge: Labs from last 24 hours 03/16/18 03/16/18 03/15/18 07:10 07:10 08:10 WBC 6.1 D RBC 4.09 L Hgb 12.7 Hct 39.2 MCV 95.8 MCH 31.0 MCHC 32.3 RDW 13.8 Plt Count 284 MPV 6.8 L Neut % (Auto) 64.7 Lymph % (Auto) 27.3 [place] % (Auto) 6.1 Eos % (Auto) 1.4 Baso % (Auto) 0.6 Neut # (Auto) 3.9 Lymph # (Auto) 1.7 [place] # (Auto) 0.4 Eos # (Auto) 0.1 Baso # (Auto) 0.0 Sodium 126 L Potassium 3.4 L Chloride 91 L Carbon Dioxide 28 Anion Gap 10.4 BUN 3 L Creatinine 0.38 L D Estimated Creat Clear 112 Estimated GFR 173 Est GFR ( Amer) 210 D Glucose 96 D Calcium 7.9 L Total Bilirubin 0.4 AST 25 ALT 25 Alkaline Phosphatase 81 Total Protein 5.3 L Albumin 2.8 L Globulin 2.5 Albumin/Globulin Ratio 1.1 TSH 1.12 Free T4 1.00 Urine Color Yellow Urine Appearance Cloudy Urine pH 5.5 Ur Specific [place] <= 1.005 Urine Protein Negative Urine Glucose (UA) Negative Urine Ketones Negative Urine Blood Negative Urine Nitrate Positive Urine Bilirubin Negative Urine Urobilinogen 0.2 Ur Leukocyte Esterase 1+ A Urine RBC None Urine WBC 3-5 Ur Squamous Epith Cells 10-20 Ur Transition Epith Cell Occ Urine Bacteria 4+ Preliminary micro results at discharge 03/15/18 08:10 Urine Culture - Preliminary Urine,Clean Catch Gram Negative Rods - Additional Comments Dr. Diaz rounded earlier,all orders per Emily Hernandez is unavailable at this time Discharge Plan - Patient Discharge Instructions ACTIVITY: Continue current activity DIET: continue same diet, other Additional Instructions: encourged to eat high sodium and potassium rich foods - Follow up Plan Follow up with: Kathryn Degroot APRN [Nurse Practitioner] - 03/19/18 Disposition: Home Health Service Home Medications: Home Medications Medication Instructions Recorded Confirmed Type gabapentin 400 mg capsule 1 tab PO QID 30 Days #120 12/19/17 03/15/18 History hydrocodone 7.5 mg-acetaminophen 1 tab PO Q6H 30 Days #90 12/19/17 03/15/18 History 325 mg tablet Ibuprofen [Ibuprofen 600mg Tab] 600 mg PO TIDP PRN 03/15/18 03/15/18 History Prescriptions/Medication Reconciliation: New ALPRAZolam [Xanax 0.25mg tab] 0.25 mg PO BIDP PRN 3 Days #6 tab PRN Reason: Anxiety Continue escitalopram 20 mg tablet 20 mg PO DAILY 90 Days #90 tab hydroxyzine pamoate 25 mg capsule 25 mg PO TID 90 Days #270 cap Ibuprofen [Ibuprofen 600mg Tab] 600 mg PO TIDP PRN PRN Reason: PAIN Discontinued gabapentin 400 mg capsule 1 tab PO QID 30 Days #120 hydrocodone 7.5 mg-acetaminophen 325 mg tablet 1 tab PO Q6H 30 Days #90 melatonin 3 mg tablet 6 mg PO HS PRN #60 tab PRN Reason: sleep
== END 2018-03-16 10:25 | disposition home health service (06) ==
LOC: ER 13:47 → 2ND 16:06
PROVIDERS: ADMIT Family Medicine; ATTEND Emergency Medicine
CPT/HCPCS: 36415; 71010; 71045; 80048; 80053; 80305; 81001; 83930; 83935; 84439; 84443; 85025; 87086; 87088; 87186; 96365; 96375; 97163; 99281; 99284; J2405

== ENCOUNTER → 2018-03-19 11:20 | Outpatient (REF) | payer MEDICARE, SELFPAY ==
[2018-03-19 14:42] LABS: Amphetamine/Metha Screen,Urine Negative ng/mL (<1000); Barbiturates Screen,Urine Negative ng/mL (<200); Benzodiazepines Screen,Urine Positive ng/mL (200); Cannabinoid Screen,Urine Negative ng/mL (<50); Cocaine Screen,Urine Negative ng/g (<300); Methadone Screen,Urine Negative ng/mL (<300); Opiate Screen,Urine Negative ng/mL (<300); Phencyclidine Screen,Urine Negative ng/mL (<25)
== END ==
LOC: LAB 11:20
PROVIDERS: Visit Provider Nurse Practitioner Family
DX: G89.29 Other chronic pain (principal)
CPT/HCPCS: 80305

== ENCOUNTER 2018-03-30 13:26 | Observation (INO) ==
--- NOTE | 2018-03-30 13:51 | Emergency Department Note ---
ED Disposition Clinical Impression: Hyponatremia, Alcohol abuse Disposition: Admitted as Observation Condition on Discharge: Fair Instructions: Anxiety Disorders, Anxiety and Panic Attacks (Alternative Therapy ) Referrals: Dmitriy Diaz MD [Primary Care Provider] - Time of Disposition: 15:49 - Critical Care Critical Care Time: No Attestation: On 03/30/18, the high probability of a clinically significant, sudden or life threatening deterioration of the following system(s) required my full and direct attention, intervention and personal management. The time I documented below is in addition to time spent performing reported procedures but includes the following listed in this critical care notation. Medical Decision Making - Medical Records Medical records reviewed: Yes: I reviewed the patient's medical records. - David Inquiry Pt receiving controlled substance: Yes David was queried for this patient: Yes Reference #:: [id number] Risks and benefits of using a controlled substance: were discussed with pt by me Vital Signs: 03/30/18 13:26 03/30/18 14:24 Temperature 98.5 F Temperature Source Oral Pulse Rate [Right Brachial] 66 70 Respiratory Rate 22 22 Blood Pressure [Right Arm] 113/75 126/53 Blood Pressure Mean [Right Arm] 87 77 Blood Pressure Source [Right Arm] Automatic Cuff Automatic Cuff Blood Pressure Position [Right Arm] Sitting Sitting 02 Sat by Pulse Oximetry 96 97 Oxygen Delivery Method Room Air Room Air - Lab Data Lab results reviewed: Yes: I reviewed the patient's lab results. Lab Results 03/30/18 14:00: WBC 9.0, RBC 3.94 L, Hgb 14.0, Hct 37.2, MCV 94.5, MCH 35.4 H, MCHC 37.5 H, RDW 14.1, Plt Count 336, MPV 6.6 L, Neut % (Auto) 63.2, Lymph % ( Auto) 31.1, [place] % (Auto) 4.4, Eos % (Auto) 0.5, Baso % (Auto) 0.8, Neut # (Auto ) 5.7, Lymph # (Auto) 2.8, [place] # (Auto) 0.4, Eos # (Auto) 0.1, Baso # (Auto) 0.1 03/30/18 14:00: Sodium 118 L, Potassium 4.2, Chloride 85 L, Carbon Dioxide 25, Anion Gap 12.2, BUN 5 L, Creatinine 0.57, Estimated Creat Clear 76, Estimated GFR 109, Est GFR ( Amer) 131, Glucose 91, Calcium 8.6, Total Bilirubin 0.3, AST 21, ALT 23, Alkaline Phosphatase 81, Total Protein 6.9 D, Albumin 3.7 , Globulin 3.2, Albumin/Globulin Ratio 1.2, TSH 1.74 D, Free T4 Index 3.0 L, Thyroxine (T4) 8.6, T3 Uptake 35, Plasma/Serum Alcohol 102 H 03/30/18 14:00: Lactic Acid 1.8 03/30/18 14:45: Urine Color Yellow, Urine Appearance Sl cloudy, Urine pH 5.5, Ur Specific [place] 1.010, Urine Protein Negative, Urine Glucose (UA) Negative, Urine Ketones Negative, Urine Blood Negative, Urine Nitrate Negative, Urine Bilirubin Negative, Urine Urobilinogen 0.2, Ur Leukocyte Esterase Negative, Urine WBC 3-5, Ur Squamous Epith Cells 3-5, Urine Bacteria 4+ 03/30/18 14:45: Urine Opiates Screen Negative, Ur Barbituates Screen Negative, Ur Phencyclidine Scrn Negative, Ur Amphetamines Screen Negative, U Methamphetamines Scrn Negative, U Benzodiazepines Scrn Negative, Urine Cocaine Screen Negative, U Marijuana (THC) Screen Negative Result diagrams: 03/30/18 14:00 03/30/18 14:00 Orders (Tests/Meds): ORDERS Category Date Time Status Urine Culture Stat Micro 03/30/18 14:45 Received - Radiology Data #1 Image(s): Chest Image Reviewed: Yes I reviewed the patient's radiology results, Yes I reviewed the patient's radiology image severe COPD - CT Data CT Scan: Head Time Received: 15:[address] Reviewed: Yes: I have reviewed the patient's CT results, I discussed the CT results w/the radiologist, I have viewed the radiologist's interpretation Preliminary Findings: Normal/NAD Anxiety HPI - General Chief Complaint: Anxiety Stated Complaint: anxiety Time Seen by Provider: 03/30/18 13:33 Mode of Arrival: EMS Limitations: No Limitations Description of Symptoms (Recalled from ER Triage Doc. by RN): Pt reports "I've got to have something for my anxiety". Pt smells of ETOH, reports she has drank 2 beers today. Reports she has not been sleeping - History of Present Illness HPI narrative: Pt comes to the ED with history of severe anxiety since about 2008. At that time she had what sounds like some sort of eating disorder as well. She also has history of COPD and still smokes about s1/2 ppd, has history of chronic pain and has seen a Psychiatrist and a Neurologist as well. She does smell of ETOH and admits to drinking some beer today but she is rambling from one thought process to another and is moving all over the bed too. She goes to a pain clinic but says the pain medicine does not do anything for her and she says she used to do well when she took Xanax 1 mg TID and now is on Xanax 0.25 mg BID and it does not help her at all. MD complaint: anxiety, heart racing, shortness of breath - Related Data Home Medications: Home Medications Medication Instructions Recorded Confirmed Melatonin 3 mg PO HS 03/25/18 03/25/18 Previous Rx's Medication Instructions Recorded escitalopram 20 mg tablet 20 mg PO DAILY 90 Days #90 tab 01/01/18 hydroxyzine pamoate 25 mg capsule 25 mg PO TID 90 Days #270 cap 01/01/18 Allergies/Adverse Reactions: Allergies Allergy/AdvReac Type Severity Reaction Status Date / Time NSAIDS (Non-Steroidal Allergy Unknown HURTS Verified 03/30/18 13:35 Anti-Inflamma STOMACH [facility] History I have reviewed the patient's past medical history: Yes Medical History: Reports:: Anxiety, Hypertension Denies:: Cancer, Diabetes Mellitus Type 1, Diabetes Mellitus Type 2, MRSA Other Medical History: Reports: Arthritis, Fibromyalgia Other Surgeries: Yes: Hysterectomy-Total Amputation: No Fractures: Yes Comment: Thorocotomy - Social History Smoking Status: Current every day smoker Tobacco Type: cigarettes # Packs/Day (cigarettes): 1 Alcohol Intake: current Alcohol Intake Frequency:: 0-2 drinks per day Substance Use Type: denies use Occupational Status: retired Housing: house Household Members: spouse - Psychiatric History Expresses thoughts of harming self/others: None Suicide Plan Description: No Plan Pschychiatric History:: Reports:: Anxiety Family Hx:: Heart Attack ROS Obtained: Yes All systems reviewed & no additional complaints Physical Exam - General General appearance: alert, anxious - Head Head exam: atraumatic - Eye Eye exam: Present: normal appearance - ENT ENT exam: Present: normal exam - Neck Neck exam: Present: normal inspection - Respiratory Respiratory exam: Present: normal lung sounds bilaterally - Cardiovascular Cardiovascular exam: Present: regular rate, tachycardia - Abdominal Exam Abdominal exam: Present: soft - Back Exam Back exam: Present: normal inspection - Neurological Exam Neurological exam: Present: alert, oriented X3, other (very agitated and ? Psychomotor activity is extreme) - Psychiatric Psychiatric exam: Present: agitated, anxious
[2018-03-30 14:16] LABS: Basophils # 0.1 K/mm3 (0-0.2); Basophils % 0.8 % (0.1-2.0); Eosinophils # 0.1 K/mm3 (0.0-0.4); Eosinophils % 0.5 % (0.1-12.0); Hematocrit 37.2 % (37.0-47.0); Lymphocytes # 2.8 K/mm3 (0.7-4.5); Lymphocytes % 31.1 K/mm3 (10-50); Mean Corpuscular HGB Conc 37.5 g/dL (31.8-35.4); Mean Corpuscular Hemoglobin 35.4 pg (27.0-31.2); Mean Corpuscular Volume 94.5 fl (81-99); Mean Platelet Volume 6.6 fl (7.4-10.4); Monocytes # 0.4 K/mm3 (0.1-1.0); Monocytes % 4.4 % (1.7-9.3); Neutrophils # 5.7 K/mm3 (1.8-7.8); Neutrophils % 63.2 % (37.0-80.0); Platelet Count 336 K/mm3 (142-424); Red Blood Count 3.94 M/mm3 (4.20-5.40); Red Cell Distribution Width 14.1 % (11.5-17.5)
[2018-03-30 14:31] LABS: Albumin Level 3.7 gm/dL (3.4-5.0); Albumin/Globulin Ratio 1.2 (1.1-1.8); Anion Gap 12.2 mEq/L (5-15); Bilirubin,Total 0.3 mg/dL (0.2-1.0); Calcium 8.6 mg/dL (8.5-10.1); Globulin 3.2 gm/dl (1.3-3.2); Potassium 4.2 mmoL/L (3.5-5.1); T4 (Thyroxine) 8.6 ug/dl (4.7-13.3); Thyroid Stimulating Hormone 1.74 uIU/ml (0.358-3.740); Total Protein,Serum 6.9 gm/dL (6.4-8.2)
[2018-03-30 14:52] LABS: Microscopic, Urine URINE MICROSCOPIC (MICROSCOPIC)
[2018-03-30 14:53] LABS: Appearance,Urine SL CLOUDY (Clear); Bilirubin,Urine Negative (Negative); Blood, Urine Negative (Negative); Color,Urine YELLOW (Yellow); Glucose,Urine (UA) Negative (Negative); Ketones,Urine Negative (Negative); Leukocyte Esterase,Urine Negative (Negative); PH,Urine 5.5 (5.0-8.5); Protein,Urine Negative (Negative); Urobilinogen,Urine 0.2 EU/dl (0.2)
[2018-03-30 15:01] LABS: Bacteria,Urine 4+ /lpf
[2018-03-30 15:02] LABS: Amphetamine/Metha Screen,Urine Negative ng/mL (<1000); Barbiturates Screen,Urine Negative ng/mL (<200); Benzodiazepines Screen,Urine Negative ng/mL (200); Cannabinoid Screen,Urine Negative ng/mL (<50); Cocaine Screen,Urine Negative ng/g (<300); Methadone Screen,Urine Negative ng/mL (<300); Opiate Screen,Urine Negative ng/mL (<300); Phencyclidine Screen,Urine Negative ng/mL (<25)
--- NOTE | 2018-03-30 20:51 | History & Physical Report ---
*Admission Date: 03/30/18 *Chief complaint: Weakness and anxiety *History of present illness: 57-year-old white female with long history of depression, anxiety and history of hyponatremia, previously admitted at [facility]. She has recently had problems with increased anxiety, has been on tapering doses of Xanax but this has been going poorly. Came to the emergency department with significant fatigue and anxiety symptoms. Was found to have significant hyponatremia as well as alcohol intoxication with high serum alcohol level. She informs me that she had 2 servings of beer at her lunch today before admission but denies daily drinking. Regardless she was admitted to hospital for IV fluids and further diagnostic testing. [facility] History I have reviewed the patient's past medical history: Yes Medical History: Reports:: Anxiety, Hypertension Denies:: Cancer, Diabetes Mellitus Type 1, Diabetes Mellitus Type 2, MRSA Other Medical History: Reports: Arthritis, Fibromyalgia Other Surgeries: Yes: Hysterectomy-Total, Other (thoroctomy) Amputation: No Fractures: Yes - *Social History Smoking Status: Current every day smoker Tobacco Type: cigarettes # Packs/Day (cigarettes): 1 #Yrs smoked (if former smoker): 30 Alcohol Intake: current Alcohol Intake Frequency:: 3 or more drinks per day Substance Use Type: denies use Occupational Status: retired Housing: house Household Members: spouse - Psychiatric History Expresses thoughts of harming self/others: None Suicide Plan Description: No Plan Pschychiatric History:: Reports:: Anxiety *Family Hx:: Heart Attack Review of Systems - Review of Systems Review of systems:: pertinent systems reviewed and negative unless documented below Patient denies chest pain or shortness of air, states that she is feeling better than she did when she came in. Otherwise is really unwilling to volunteer for further details of her symptoms. Meds Home Medications Medication Instructions Recorded Confirmed Type Melatonin 3 mg PO HS 03/25/18 03/30/18 History Allergies Allergy/AdvReac Type Severity Reaction Status Date / Time NSAIDS (Non-Steroidal Allergy Unknown HURTS Verified 03/30/18 13:35 Anti-Inflamma STOMACH Exam Vital signs and Labs for Last 24 Hours: Temp Pulse Resp BP Pulse Ox 98.3 F 79 26 H 140/68 93 L 03/30/18 19:56 03/30/18 19:56 03/30/18 19:56 03/30/18 19:56 03/30/18 19:56 Laboratory Results - last 24 hr 03/30/18 14:00: WBC 9.0, RBC 3.94 L, Hgb 14.0, Hct 37.2, MCV 94.5, MCH 35.4 H, MCHC 37.5 H, RDW 14.1, Plt Count 336, MPV 6.6 L, Neut % (Auto) 63.2, Lymph % ( Auto) 31.1, [place] % (Auto) 4.4, Eos % (Auto) 0.5, Baso % (Auto) 0.8, Neut # (Auto ) 5.7, Lymph # (Auto) 2.8, [place] # (Auto) 0.4, Eos # (Auto) 0.1, Baso # (Auto) 0.1 03/30/18 14:00: Sodium 118 L, Potassium 4.2, Chloride 85 L, Carbon Dioxide 25, Anion Gap 12.2, BUN 5 L, Creatinine 0.57, Estimated Creat Clear 76, Estimated GFR 109, Est GFR ( Amer) 131, Glucose 91, Calcium 8.6, Total Bilirubin 0.3, AST 21, ALT 23, Alkaline Phosphatase 81, Total Protein 6.9 D, Albumin 3.7 , Globulin 3.2, Albumin/Globulin Ratio 1.2, TSH 1.74 D, Free T4 Index 3.0 L, Thyroxine (T4) 8.6, T3 Uptake 35, Plasma/Serum Alcohol 102 H 03/30/18 14:00: Lactic Acid 1.8 03/30/18 14:00: Uric Acid 4.0 03/30/18 14:45: Urine Color Yellow, Urine Appearance Sl cloudy, Urine pH 5.5, Ur Specific [place] 1.010, Urine Protein Negative, Urine Glucose (UA) Negative, Urine Ketones Negative, Urine Blood Negative, Urine Nitrate Negative, Urine Bilirubin Negative, Urine Urobilinogen 0.2, Ur Leukocyte Esterase Negative, Urine WBC 3-5, Ur Squamous Epith Cells 3-5, Urine Bacteria 4+ 03/30/18 14:45: Urine Opiates Screen Negative, Ur Barbituates Screen Negative, Ur Phencyclidine Scrn Negative, Ur Amphetamines Screen Negative, U Methamphetamines Scrn Negative, U Benzodiazepines Scrn Negative, Urine Cocaine Screen Negative, U Marijuana (THC) Screen Negative I & O for Last 24 hours: Intake & Output 03/28/18 03/29/18 03/30/18 03/31/18 11:59 11:59 11:59 11:59 Intake Total 778 / 778 Balance 778 / 778 Weight 104 lb 15.993 oz Narrative: Patient is awake. No cranial nerve deficits. Heart rate regular. Lungs have smoker's rhonchi but otherwise clear. Abdomen soft, appears older than her stated age. Very dry skin. Poor dentition. Able to move all of her extremities. H&P: Result - Labs Labs: Short CBC 03/30/18 Range/Units 14:00 WBC 9.0 (4.8-10.8) K/mm3 Hgb 14.0 (12.2-16.2) g/dL Hct 37.2 (37.0-47.0) % Plt Count 336 (142-424) K/mm3 BMP 03/30/18 14:00 Sodium 118 L Potassium 4.2 Chloride 85 L Carbon Dioxide 25 BUN 5 L Creatinine 0.57 Glucose 91 Calcium 8.6 Liver Function 03/30/18 Range/Units 14:00 Total Bilirubin 0.3 (0.2-1.0) mg/dL AST 21 (15-37) U/L ALT 23 (12-78) U/L Alkaline Phosphatase 81 (46-116) U/L Albumin 3.7 (3.4-5.0) gm/dL Urine 03/30/18 Range/Units 14:45 Urine Color Yellow (Yellow) Urine Appearance Sl cloudy (Clear) Urine pH 5.5 (5.0-8.5) Ur Specific [place] 1.010 (1.005-1.030) Urine Protein Negative (Negative) Urine Glucose (UA) Negative (Negative) Assessment and Plan (1) Alcohol abuse Current visit: Yes Status: Acute Category: Social Hx Code(s): F10.10 - Alcohol abuse, uncomplicated (2) Hyponatremia Current visit: Yes Status: Acute Category: Medical Code(s): E87.1 - Hypo- osmolality and hyponatremia Multiple possible etiologies for hyponatremia including dehydration, also patient has a history of taking Lexapro although it is not in her current medication list. SSRIs have been known to cause hyponatremia. Hold this for now. (3) Acute anxiety Current visit: No Status: Acute Category: Medical Code(s): F41.9 - Anxiety disorder, unspecified (4) Dehydration Current visit: No Status: Acute Category: Medical Code(s): E86.0 - Dehydration (5) Urinary tract infection Current visit: Yes Status: Acute Category: Medical Code(s): N39.0 - Urinary tract infection, site not specified Positive bacteria in urinalysis. Cover with ceftriaxone. Check culture - Assessment and plan all Dx Assessment and Plan for all problems:: Patient feels better after fluids and rally pack. Follow repeat sodium level tonight and tomorrow morning. Patient on alcohol withdrawal protocol. Anticipate discharge when sodium levels are improving.
[2018-03-30 21:22] LABS: Anion Gap 9.7 mEq/L (5-15); Potassium 3.7 mmoL/L (3.5-5.1)
[2018-03-30 21:48] LABS: Calcium 7.2 mg/dL (8.5-10.1)
[2018-03-31 07:23] LABS: Albumin Level 2.7 gm/dL (3.4-5.0); Albumin/Globulin Ratio 1.1 (1.1-1.8); Anion Gap 14.4 mEq/L (5-15); Bilirubin,Total 0.4 mg/dL (0.2-1.0); Calcium 7.3 mg/dL (8.5-10.1); Globulin 2.5 gm/dl (1.3-3.2); Potassium 3.4 mmoL/L (3.5-5.1); Total Protein,Serum 5.2 gm/dL (6.4-8.2)
--- NOTE | 2018-03-31 14:30 | Pharmacy Consult Notes ---
[facility] Pharmacy VTE Monitoring - Patient Demographics Admission date: 03/31/18 Report Date: 03/31/18 Time: 14:30 Allergies/Adverse Reactions: Patient Allergies NSAIDS (Non-Steroidal Anti-Inflamma Allergy (Unknown, Verified 03/30/18 13:35) HURTS STOMACH Height: 1.57 m Weight: 47.627 kg Patient Problems: Current Active Problems Hyponatremia (Acute) Alcohol abuse (Acute) Urinary tract infection (Acute) - VTE Risk Labs: VTE Related Lab Results Hgb 14.0 g/dL (12.2-16.2) 03/30/18 14:00 Hct 37.2 % (37.0-47.0) 03/30/18 14:00 Plt Count 336 K/mm3 (142-424) 03/30/18 14:00 BUN 6 mg/dL (7-18) L 03/31/18 07:00 Creatinine 0.36 mg/dL (0.55-1.02) L 03/31/18 07:00 Estimated Creat Clear 127 mL/min (0-300) 03/31/18 07:00 Was VTE Risk Assessment Performed: Yes VTE Score: 3 VTE Risk Level: Low Risk - Prophylaxis Location of Applied Device: Bilateral Lower Extremeties - VTE Diagnosis Confirmed Comment: DREW CABRERA ORDERED
[2018-03-31 15:38] VITALS: BP 129/66
--- NOTE | 2018-03-31 16:38 | Discharge Summary ---
General - General Admission date:: 03/30/18 Discharge date: 03/31/18 HPI HPI: 57-year-old white female with long history of depression, anxiety and history of hyponatremia, previously admitted at [facility]. She has recently had problems with increased anxiety, has been on tapering doses of Xanax but this has been going poorly. Came to the emergency department with significant fatigue and anxiety symptoms. Was found to have significant hyponatremia as well as alcohol intoxication with high serum alcohol level. She informs me that she had 2 servings of beer at her lunch today before admission but denies daily drinking. Regardless she was admitted to hospital for IV fluids and further diagnostic testing. Hospital Course Hospital Course: She was admitted, she was given IV fluids. Home medications were held. Her sodium improved very nicely. Up to 136 this morning. Apparently she takes an SSRI at home. She has a long history of anxiety disorder and recently has been on Xanax and other substances. This afternoon she was doing much better, alert, awake. Somewhat anxious but better than baseline according to her. She will be discharged home. She is already scheduled appointment as a new patient in my office. I have informed her we will not do benzodiazepines given her alcohol history. Plan will be to do BuSpar. Close follow-up tomorrow. Objective Vital signs: Temp Pulse Resp BP Pulse Ox 97.0 F L 84 18 129/66 90 L 03/31/18 15:37 03/31/18 15:37 03/31/18 15:37 03/31/18 15:37 03/31/18 15:37 Narrative: Alert, vital signs normal, heart rate regular. Abdomen soft. No edema. Results Labs on day of discharge: Labs from last 24 hours 03/31/18 03/30/18 03/30/18 07:00 21:05 14:45 Sodium 136 128 L Potassium 3.4 L 3.7 Chloride 101 98 Carbon Dioxide 24 24 Anion Gap 14.4 9.7 BUN 6 L 6 L Creatinine 0.36 L 0.33 L D Estimated Creat Clear 127 138 Estimated GFR 184 204 Est GFR ( Amer) 223 247 D Glucose 66 L 82 Uric Acid Calcium 7.3 L 7.2 L D Total Bilirubin 0.4 AST 16 ALT 15 D Alkaline Phosphatase 64 Total Protein 5.2 L Albumin 2.7 L D Globulin 2.5 Albumin/Globulin Ratio 1.1 Urine Color Yellow Urine Appearance Sl cloudy Urine pH 5.5 Ur Specific [place] 1.010 Urine Protein Negative Urine Glucose (UA) Negative Urine Ketones Negative Urine Blood Negative Urine Nitrate Negative Urine Bilirubin Negative Urine Urobilinogen 0.2 Ur Leukocyte Esterase Negative Urine WBC 3-5 Ur Squamous Epith Cells 3-5 Urine Bacteria 4+ 03/30/18 14:00 Sodium Potassium Chloride Carbon Dioxide Anion Gap BUN Creatinine Estimated Creat Clear Estimated GFR Est GFR ( Amer) Glucose Uric Acid 4.0 Calcium Total Bilirubin AST ALT Alkaline Phosphatase Total Protein Albumin Globulin Albumin/Globulin Ratio Urine Color Urine Appearance Urine pH Ur Specific [place] Urine Protein Urine Glucose (UA) Urine Ketones Urine Blood Urine Nitrate Urine Bilirubin Urine Urobilinogen Ur Leukocyte Esterase Urine WBC Ur Squamous Epith Cells Urine Bacteria Preliminary micro results at discharge 03/30/18 14:45 Urine Culture - Preliminary Urine,Clean Catch Gram Negative Rods DS: Diagnosis - Discharge Diagnosis (1) Alcohol abuse Status: Acute (2) Hyponatremia Status: Acute (3) Acute anxiety Status: Acute (4) Dehydration Status: Acute (5) Urinary tract infection Status: Acute Discharge Plan - Patient Discharge Instructions ACTIVITY: Continue current activity DIET: continue same diet - Follow up Plan Follow up with: Zari Cooley APRN [Nurse Practitioner] - 1 day Disposition: Home, Self-Mcc Medications: Home Medications Medication Instructions Recorded Confirmed Type Melatonin 3 mg PO HS 03/25/18 03/30/18 History Prescriptions/Medication Reconciliation: New Buspirone HCl [Buspar 10mg tablet] 10 mg PO TID PRN #30 tab PRN Reason: Anxiety Continue hydroxyzine pamoate 25 mg capsule 25 mg PO TID 90 Days #270 cap Melatonin 3 mg PO HS Discontinued escitalopram 20 mg tablet 20 mg PO DAILY 90 Days #90 tab
== END 2018-03-31 17:50 | disposition home or self-care (01) ==
LOC: ER 13:26 → 2ND 13:26 → OBSVTOIN 16:06 → INTOOBSV 16:55 → 2ND 17:00
PROVIDERS: ADMIT Internal Medicine Adolescent Medicine; ATTEND Internal Medicine Adolescent Medicine
CPT/HCPCS: 36415; 70450; 80048; 80053; 80305; 81001; 82533; 83605; 83930; 83935; 84436; 84443; 84479; 84550; 85025; 87086; 87088; 87186; 96365; 99284; G0378

== ENCOUNTER 2018-08-27 11:28 | Observation (INO) ==
[2018-08-27 11:52] LABS: Basophils % 0.5 % (0.1-2.0); Eosinophils # 0.1 K/mm3 (0.0-0.4); Eosinophils % 0.9 % (0.1-12.0); Hematocrit 43.3 % (37.0-47.0); Hemoglobin 14.2 g/dL (12.2-16.2); Lymphocytes # 2.5 K/mm3 (0.7-4.5); Mean Corpuscular HGB Conc 32.9 g/dL (31.8-35.4); Mean Corpuscular Hemoglobin 31.4 pg (27.0-31.2); Mean Corpuscular Volume 95.3 fl (81-99); Mean Platelet Volume 7.3 fl (7.4-10.4); Monocytes # 0.5 K/mm3 (0.1-1.0); Monocytes % 6.5 % (1.7-9.3); Neutrophils # 4.2 K/mm3 (1.8-7.8); Platelet Count 370 K/mm3 (142-424); Red Blood Count 4.54 M/mm3 (4.20-5.40); Red Cell Distribution Width 17.9 % (11.5-17.5); White Blood Count 7.2 K/mm3 (4.8-10.8)
[2018-08-27 12:21] LABS: Albumin Level 3.8 gm/dL (3.4-5.0); Albumin/Globulin Ratio 1.1 (1.1-1.8); Anion Gap 14.8 mEq/L (5-15); Bilirubin,Total 0.3 mg/dL (0.2-1.0); Calcium 9.6 mg/dL (8.5-10.1); Globulin 3.5 gm/dl (1.3-3.2); Potassium 4.8 mmoL/L (3.5-5.1); Total Protein,Serum 7.3 gm/dL (6.4-8.2)
--- NOTE | 2018-08-27 12:26 | Emergency Department Note ---
ED Disposition Instructions: DI for Nausea -- Adult, DI for Nausea -- Child, DI for Diarrhea and Traveler's Diarrhea -- Adult, DI for Diarrhea and Traveler's Diarrhea -- Child Referrals: Luis Valero MD [Primary Care Provider] - Attestation: On 08/27/18, the high probability of a clinically significant, sudden or life threatening deterioration of the following system(s) required my full and direct attention, intervention and personal management. The time I documented below is in addition to time spent performing reported procedures but includes the following listed in this critical care notation. Medical Decision Making Vital Signs: 08/27/18 11:32 08/27/18 11:41 08/27/18 12:00 Temperature 97.7 F Temperature Source Oral Pulse Rate [Right Brachial] 114 H 113 H 101 H Respiratory Rate 20 20 Blood Pressure [Right Arm] 115/74 115/74 122/70 Blood Pressure Mean [Right Arm] 87 87 87 Blood Pressure Source [Right Arm] Automatic Cuff Automatic Cuff Automatic Cuff Blood Pressure Position [Right Arm] Sitting Sitting Sitting 02 Sat by Pulse Oximetry 96 96 98 Oxygen Delivery Method Room Air Room Air Room Air - Lab Data Lab Results 08/27/18 11:35: WBC 7.2, RBC 4.54, Hgb 14.2, Hct 43.3, MCV 95.3, MCH 31.4 H, MCHC 32.9, RDW 17.9 H, Plt Count 370, MPV 7.3 L, Neut % (Auto) 58.0, Lymph % (Auto) 34.0, [place] % (Auto) 6.5, Eos % (Auto) 0.9, Baso % (Auto) 0.5, Neut # (Auto) 4.2, Lymph # (Auto) 2.5, [place] # (Auto) 0.5, Eos # (Auto) 0.1, Baso # (Auto) 0.0 08/27/18 11:35: Lipase 165 08/27/18 11:45: Stool Occult Blood Negative 08/27/18 : Sodium 116 L, Potassium 4.8, Chloride 82 L, Carbon Dioxide 24, Anion Gap 14.8, BUN 19 H, Creatinine 0.78, Estimated Creat Clear 51, Estimated GFR 75, Est GFR ( Amer) 91, Glucose 110 H, Calcium 9.6, Total Bilirubin 0.3, AST 21, ALT 25, Alkaline Phosphatase 110, Total Protein 7.3, Albumin 3.8, Globulin 3.5 H, Albumin/Globulin Ratio 1.1 Result diagrams: 08/27/18 11:35 08/27/18 Unknown Orders (Tests/Meds): ED MEDICATIONS Discontinued Medications Generic Name Dose Route Start Last Admin Trade Name Freq PRN Reason Stop Dose Admin Ondansetron HCl 4 mg 08/27/18 11:44 08/27/18 11:51 Zofran 4mg/2ml Vial IV 08/27/18 11:45 4 mg ONCE ONE Administration ORDERS Category Date Time Status Activated Partial Thrombo Time Stat Lab 08/27/18 11:54 Ordered Occult Blood,Stool Stat Lab 08/27/18 11:45 Ordered PT/INR [Prothrombin Time INR] Stat Lab 08/27/18 11:54 Ordered General Adult HPI - General Chief complaint: Nausea/Vomiting/Diarrhea Stated complaint: C/O NAUSEA/VOMITING Mode of Arrival: EMS Source of Information: Patient Limitations: No Limitations Description of Symptoms (Recalled from ER Triage Doc. by RN): C/O NAUSEA OF AM AND VOMITING OFF AND ON FOR 5 MONTHS. VOMITING BLOOD PER PATIENT REPORT - History of Present Illness HPI narrative: Patient says she has had nausea and vomiting for several years also has diffuse pain all over for many years that she was throwing up more today noticed some dark stool might have thrown up blood but per EMS report it was all food is 5 pounds over the last year and she has had a sac for vomiting he did not do much good no fever, no dysuria Location: abdomen Radiation: other (Hurts all over) Consistency: constant Relieving factors: none Exacerbating factors: none Associated symptoms: denies other symptoms, malaise, nausea/vomiting. negative: shortness of breath Treatments prior to arrival: none - Related Data Home Medications Medication Instructions Recorded Confirmed Melatonin 3 mg PO HS 03/25/18 03/30/18 Previous Rx's Medication Instructions Recorded Buspirone HCl [Buspar 10mg tablet] 10 mg PO TID PRN #30 tab 03/31/18 Doxycycline Monohydrate 100 mg PO Q12 #14 cap 04/02/18 [Doxycycline 100mg Capsule] hydrOXYzine HCl [Hydroxyzine HCl] 10 mg PO Q8HP PRN #21 solution 04/02/18 Ondansetron HCl [Zofran 4mg Tab] 4 mg PO TID #30 tab 06/03/18 Allergies Allergy/AdvReac Type Severity Reaction Status Date / Time NSAIDS (Non-Steroidal Allergy Unknown HURTS Verified 03/30/18 13:35 Anti-Inflamma STOMACH [facility] History I have reviewed the patient's past medical history: Yes Medical History: Reports:: Anxiety, Hypertension Denies:: Cancer, Diabetes Mellitus Type 1, Diabetes Mellitus Type 2, MRSA Other Medical History: Reports: Arthritis, Fibromyalgia Other Surgeries: Yes: Hysterectomy-Total, Other (thoroctomy) Amputation: No Fractures: Yes Comment: Thorocotomy - Social History Smoking Status: Current every day smoker Tobacco Type: cigarettes # Packs/Day (cigarettes): 1 #Yrs smoked (if former smoker): 30 Alcohol Intake: current Alcohol Intake Frequency:: 3 or more drinks per day Substance Use Type: denies use Occupational Status: retired Housing: house Household Members: spouse - Psychiatric History Expresses thoughts of harming self/others: None Suicide Plan Description: No Plan Pschychiatric History:: Reports:: Anxiety Family Hx:: Heart Attack ROS Obtained: Yes All systems reviewed & no additional complaints - Constitutional Constitutional: Reports body ache, Reports malaise - Eyes Eyes: Reports system reviewed and no additional complaints, except as docu - ENT Ears, Nose, Mouth, and Throat: Reports system reviewed and no additional complaints, except as docu - Cardiovascular Cardiovascular: Reports system reviewed and no additional complaints, except as docu - Respiratory Respiratory: Yes system reviewed and no additional complaints, except as docu - Gastrointestinal Gastrointestingal: Reports: bloating, loose stools, black, tarry stools, nausea, vomiting - Genitourinary Female Genitourinary: Reports system reviewed and no additional complaints, except as docu - Musculoskeletal Musculoskeletal: Reports joint pain, Reports back pain, Reports joint stiffness, Reports muscle cramps, Reports muscle aches, Reports neck pain - Integumentary/Breasts Skin/Breast: Reports system reviewed and no additional complaints, except as docu - Neurologic Neurologic: Reports weakness - Endocrine Endocrine: Reports system reviewed and no additional complaints, except as docu Physical Exam - General General appearance: alert, in no apparent distress - Head Head exam: atraumatic, normocephalic, normal inspection - Eye Eye exam: Present: normal appearance, PERRL, EOMI. Absent: scleral icterus, conjunctival redness, jaundice, conjunctival injection, nystagmus, miosis, mydriasis - ENT ENT exam: Present: normal exam, normal oropharynx, mucous membranes moist - Neck Neck exam: Present: normal inspection, full ROM. Absent: tenderness, meningismus, lymphadenopathy, thyromegaly - Respiratory Respiratory exam: Present: normal lung sounds bilaterally. Absent: respiratory distress - Cardiovascular Cardiovascular exam: Present: regular rate, normal rhythm. Absent: normal heart sounds - Abdominal Exam Abdominal exam: Present: soft, normal bowel sounds. Absent: distention, tenderness, guarding, rebound, rigidity, organomegaly - Extremities Exam Extremities exam: Present: normal inspection, full ROM, normal capillary refill. Absent: tenderness, pedal edema, joint swelling, calf tenderness - Back Exam Back exam: Present: normal inspection, full ROM. Absent: tenderness - Neurological Exam Neurological exam: Present: alert, oriented X3, CN II-XII intact. Absent: motor sensory deficit - Psychiatric Psychiatric exam: Present: anxious - Skin Skin exam: Present: warm, intact, normal color. Absent: cyanosis, diaphoresis - Lymphatic Lymphatic Findings: no adenopathy
[2018-08-27 12:34] LABS: Activated Partial Thrombo Time 33.2 seconds (23.6-34.0); INR 0.94 (0.9-1.1); Prothrombin Time 9.7 seconds (9.4-11.8)
--- NOTE | 2018-08-27 16:28 | History & Physical Report ---
*Admission Date: 08/27/18 *Chief complaint: Pain/vomiting/anxiety/weakness *History of present illness: 58-year-old female with cardiomyopathy, bipolar disorder, COPD and history of hyponatremia with an admission at the [facility] in July 2018 presented to the emergency department with multiple, seemingly unrelated complaints. When questioned as to the reason for her visit the patient tells me she was having pain all over. Primarily pain occurs in the upper chest. She had vomited this morning about an hour after eating yogurt for breakfast. She also had 2-3 small loose black/green stools. She did not have any fevers or chills. She denies any significant shortness of breath. On evaluation in the emergency department the only significant finding was a sodium level of 116. 4 weeks ago patient sodium was 123 on labs in my office. When she was admitted to in July her sodium ranged from 123-136. She was treated with both normal saline and hypotonic saline while hospitalized [facility] History I have reviewed the patient's past medical history: Yes Medical History: Reports:: Anxiety, Congenital Heart Disease, Hypertension Denies:: Cancer, Diabetes Mellitus Type 1, Diabetes Mellitus Type 2, MRSA Other Medical History: Reports: Arthritis, Fibromyalgia Other Surgeries: Yes: Hysterectomy-Total, Other (thoroctomy) Amputation: No Fractures: Yes - *Social History Educational Level: Completed Graduate School Smoking Status: Current every day smoker Tobacco Type: cigarettes # Packs/Day (cigarettes): 1 #Yrs smoked (if former smoker): 40 Alcohol Intake: former Alcohol Intake Frequency:: a few times a week Substance Use Type: denies use Occupational Status: retired Housing: house Household Members: spouse - Psychiatric History Expresses thoughts of harming self/others: None Suicide Plan Description: No Plan Pschychiatric History:: Reports:: Anxiety *Family Hx:: Heart Attack Review of Systems - Review of Systems Review of systems:: pertinent systems reviewed and negative unless documented below - Constitutional Reports body ache(s), Denies chills - *Cardiovascular Reports shortness of breath with activity, Denies chest pain, Denies chest pain at rest, Denies chest pain with activity - *Respiratory Reports chest congestion, Reports cough, Reports shortness of breath, Reports shortness of breath with activity, Denies change in phlegm color, Denies exces sive phlegm production, Denies coughing up blood - *Gastrointestinal Reports vomiting, Denies abdominal pain, Denies belching, Denies bloating - *Musculoskeletal Reports joint pain, Denies abnormal walking - *Neurologic Reports weakness Meds Home Medications Medication Instructions Recorded Confirmed Type Methocarbamol [Methocarbamol 750mg 750 mg PO DAILY 08/27/18 08/27/18 History Tab] RX: Albuterol Sulfate [Albuterol 2 puffs PO Q4H PRN 08/27/18 08/27/18 History HFA Inhaler] RX: Famotidine [Pepcid 20mg Tablet] 20 mg PO BID 08/27/18 08/27/18 History RX: Furosemide [Furosemide 20mg 20 mg PO DAILY 08/27/18 08/27/18 History Tab] RX: Lisinopril [Lisinopril 5mg 5 mg PO DAILY 08/27/18 08/27/18 History Tablet] RX: Metoprolol Succinate 25 mg PO DAILY 08/27/18 08/27/18 History Spironolactone 25 mg PO DAILY 08/27/18 08/27/18 History hydrOXYzine HCl [Hydroxyzine HCl] 25 mg PO Q8H PRN 08/27/18 08/27/18 History Allergies Allergy/AdvReac Type Severity Reaction Status Date / Time NSAIDS (Non-Steroidal Allergy Unknown HURTS Verified 03/30/18 13:35 Anti-Inflamma STOMACH Exam Vital signs and Labs for Last 24 Hours: Temp Pulse Resp BP Pulse Ox 97.7 F 83 15 115/64 97 08/27/18 15:48 08/27/18 15:48 08/27/18 15:48 08/27/18 15:48 08/27/18 15:48 Laboratory Results - last 24 hr 08/27/18 11:35: WBC 7.2, RBC 4.54, Hgb 14.2, Hct 43.3, MCV 95.3, MCH 31.4 H, MCHC 32.9, RDW 17.9 H, Plt Count 370, MPV 7.3 L, Neut % (Auto) 58.0, Lymph % (Auto) 34.0, [place] % (Auto) 6.5, Eos % (Auto) 0.9, Baso % (Auto) 0.5, Neut # (Auto) 4.2, Lymph # (Auto) 2.5, [place] # (Auto) 0.5, Eos # (Auto) 0.1, Baso # (Auto) 0.0 08/27/18 11:35: Lipase 165 08/27/18 11:45: Stool Occult Blood Negative 08/27/18 12:20: PT 9.7, INR 0.94, APTT 33.2 08/27/18 : Sodium 116 L, Potassium 4.8, Chloride 82 L, Carbon Dioxide 24, Anion Gap 14.8, BUN 19 H, Creatinine 0.78, Estimated Creat Clear 51, Estimated GFR 75, Est GFR ( Amer) 91, Glucose 110 H, Calcium 9.6, Total Bilirubin 0.3, AST 21, ALT 25, Alkaline Phosphatase 110, Total Protein 7.3, Albumin 3.8, Globulin 3.5 H, Albumin/Globulin Ratio 1.1 I & O for Last 24 hours: Intake & Output 08/25/18 08/26/18 08/27/18 08/28/18 11:59 11:59 11:59 11:59 Intake Total 420 / 420 Balance 420 / 420 Weight 93 lb 93 lb Narrative: It is awake and alert sitting up in bed. She is quite talkative. HEENT exam is grossly normal. The oropharynx is moist. The lungs have some coarse rhonchi bilaterally. No rales are heard. Heart has a regular rate and rhythm. Abdomen is soft. Extremities did not have any edema. Neurologically her speech is pressured and she has a short attention span Assessment and Plan (1) Chronic anxiety Current visit: Yes Status: Acute Category: Medical Code(s): F41.9 - Anxiety disorder, unspecified (2) Recurrent vomiting Current visit: Yes Status: Acute Category: Medical Code(s): R11.10 - Vomiting, unspecified (3) Chronic left ventricular systolic dysfunction Current visit: Yes Status: Acute Category: Medical Code(s): I51.9 - Heart disease, unspecified (4) COPD (chronic obstructive pulmonary disease) Current visit: Yes Status: Acute Category: Medical Code(s): J44.9 - Chronic obstructive pulmonary disease, unspecified (5) Hyponatremia Current visit: Yes Status: Acute Category: Medical Code(s): E87.1 - Hypo- osmolality and hyponatremia (6) Chronic pain Current visit: No Status: Acute Qualifiers: Chronic pain type: other chronic pain Qualified Code(s): G89.29 - Other chronic pain Category: Medical Code(s): G89.29 - Other chronic pain - Assessment and plan all Dx Assessment and Plan for all problems:: I believe her hyponatremia may be related to her diuretics. When reviewing records from the [facility] patient's hyponatremia improved when diuretics were held but because of her cardiomyopathy with an ejection fraction of 20-30% her diuretics were restarted at discharge. I suspect patient's sodium ranges somewhere between the mid 120s to low 130s on average day. Her sodium of 116 is lower than normal. She remains asymptomatic from this. She has been admitted and placed on normal saline and a repeat BMP has been ordered for 6 PM. Adjustments will be made after that. Patient has a long history of bipolar disorder and anxiety. She perseverates on a need for benzodiazepine which she has been on in the past and she believe overall benefits her health. While hospitalized she will be given Xanax 1 mg 3 times daily. Spironolactone and Lasix will be held. Lisinopril and metoprolol extended release will be continued. Repeat BMP in the a.m. as well
[2018-08-27 18:41] LABS: Anion Gap 10.9 mEq/L (5-15); Potassium 3.9 mmoL/L (3.5-5.1)
[2018-08-27 19:09] LABS: Calcium 8.3 mg/dL (8.5-10.1)
--- NOTE | 2018-08-27 19:20 | Pharmacy Consult Notes ---
[facility] Pharmacy VTE Monitoring - Patient Demographics Admission date: 08/27/18 Report Date: 08/27/18 Time: 19:20 Allergies/Adverse Reactions: Patient Allergies NSAIDS (Non-Steroidal Anti-Inflamma Allergy (Unknown, Verified 03/30/18 13:35) HURTS STOMACH Height: 1.59 m Weight: 42.184 kg Patient Problems: Current Active Problems Hyponatremia (Acute) Chronic anxiety (Acute) Recurrent vomiting (Acute) Chronic left ventricular systolic dysfunction (Acute) COPD (chronic obstructive pulmonary disease) (Acute) - VTE Risk Labs: VTE Related Lab Results Hgb 14.2 g/dL (12.2-16.2) 08/27/18 11:35 Hct 43.3 % (37.0-47.0) 08/27/18 11:35 Plt Count 370 K/mm3 (142-424) 08/27/18 11:35 PT 9.7 seconds (9.4-11.8) 08/27/18 12:20 INR 0.94 (0.9-1.1) 08/27/18 12:20 APTT 33.2 seconds (23.6-34.0) 08/27/18 12:20 BUN 19 mg/dL (7-18) H 08/27/18 Unknown Creatinine 0.78 mg/dL (0.55-1.02) 08/27/18 Unknown Estimated Creat Clear 51 mL/min (50-200) 08/27/18 Unknown Was VTE Risk Assessment Performed: Yes VTE Score: 4 VTE Risk Level: Low Risk Clinical Trial Participant: No - Prophylaxis VTE Prophylaxis Ordered?: Yes Types of VTE Prophylaxis: TEDS Knee High
[2018-08-28 06:52] LABS: Anion Gap 10.9 mEq/L (5-15); Calcium 8.2 mg/dL (8.5-10.1); Potassium 3.9 mmoL/L (3.5-5.1)
--- NOTE | 2018-08-28 07:18 | Discharge Summary ---
General - General Admission date:: 08/27/18 Discharge date: 08/28/18 HPI HPI: 58-year-old female with cardiomyopathy, bipolar disorder, COPD and history of hyponatremia with an admission at the [facility] in July 2018 presented to the emergency department with multiple, seemingly unrelated complaints. When questioned as to the reason for her visit the patient tells me she was having pain all over. Primarily pain occurs in the upper chest. She had vomited this morning about an hour after eating yogurt for breakfast. She also had 2-3 small loose black/green stools. She did not have any fevers or chills. She denies any significant shortness of breath. On evaluation in the emergency department the only significant finding was a sodium level of 116. 4 weeks ago patient sodium was 123 on labs in my office. When she was admitted to in July her sodium ranged from 123-136. She was treated with both normal saline and hypotonic saline while hospitalized Hospital Course Hospital Course: Patient was admitted and placed on normal saline. Repeat sodium on the evening of admission was unchanged at 116. By the following morning sodium had risen to 123 which was the same sodium level she had 4 weeks ago. Patient was lucid and oriented. She did not have any neurologic symptoms from her hyponatremia. I suspect spironolactone may be the source of her hyponatremia and this will be discontinued along with her Lasix. Patient will be placed on Entresto for her cardiomyopathy. Patient will be placed on Spiriva for her underlying COPD. Patient was discharged home and will follow up with me in 48 hours. Objective Vital signs: Temp Pulse Resp BP Pulse Ox 97.6 F 99 H 17 117/66 95 08/28/18 04:00 08/28/18 04:00 08/28/18 04:00 08/28/18 04:00 08/28/18 04:00 Results Labs on day of discharge: Labs from last 24 hours 08/28/18 08/27/18 08/27/18 06:10 Unknown 18:16 WBC RBC Hgb Hct MCV MCH MCHC RDW Plt Count MPV Neut % (Auto) Lymph % (Auto) [place] % (Auto) Eos % (Auto) Baso % (Auto) Neut # (Auto) Lymph # (Auto) [place] # (Auto) Eos # (Auto) Baso # (Auto) PT INR APTT Sodium 123 L 116 L 116 L Potassium 3.9 4.8 3.9 Chloride 90 L 82 L 83 L Carbon Dioxide 26 24 26 Anion Gap 10.9 14.8 10.9 BUN 10 D 19 H 15 Creatinine 0.54 L D 0.78 0.70 Estimated Creat Clear 74 51 57 Estimated GFR 115 75 85 Est GFR ( Amer) 139 D 91 103 Glucose 94 D 110 H 205 H D Calcium 8.2 L 9.6 8.3 L D Total Bilirubin 0.3 AST 21 ALT 25 Alkaline Phosphatase 110 Total Protein 7.3 Albumin 3.8 Globulin 3.5 H Albumin/Globulin Ratio 1.1 Lipase Stool Occult Blood 08/27/18 08/27/18 08/27/18 12:20 11:45 11:35 WBC RBC Hgb Hct MCV MCH MCHC RDW Plt Count MPV Neut % (Auto) Lymph % (Auto) [place] % (Auto) Eos % (Auto) Baso % (Auto) Neut # (Auto) Lymph # (Auto) [place] # (Auto) Eos # (Auto) Baso # (Auto) PT 9.7 INR 0.94 APTT 33.2 Sodium Potassium Chloride Carbon Dioxide Anion Gap BUN Creatinine Estimated Creat Clear Estimated GFR Est GFR ( Amer) Glucose Calcium Total Bilirubin AST ALT Alkaline Phosphatase Total Protein Albumin Globulin Albumin/Globulin Ratio Lipase 165 Stool Occult Blood Negative 08/27/18 11:35 WBC 7.2 RBC 4.54 Hgb 14.2 Hct 43.3 MCV 95.3 MCH 31.4 H MCHC 32.9 RDW 17.9 H Plt Count 370 MPV 7.3 L Neut % (Auto) 58.0 Lymph % (Auto) 34.0 [place] % (Auto) 6.5 Eos % (Auto) 0.9 Baso % (Auto) 0.5 Neut # (Auto) 4.2 Lymph # (Auto) 2.5 [place] # (Auto) 0.5 Eos # (Auto) 0.1 Baso # (Auto) 0.0 PT INR APTT Sodium Potassium Chloride Carbon Dioxide Anion Gap BUN Creatinine Estimated Creat Clear Estimated GFR Est GFR ( Amer) Glucose Calcium Total Bilirubin AST ALT Alkaline Phosphatase Total Protein Albumin Globulin Albumin/Globulin Ratio Lipase Stool Occult Blood DS: Diagnosis - Discharge Diagnosis (1) Hyponatremia Status: Acute (2) Chronic anxiety Status: Acute (3) Recurrent vomiting Status: Acute (4) Chronic left ventricular systolic dysfunction Status: Acute (5) COPD (chronic obstructive pulmonary disease) Status: Acute (6) Chronic pain Status: Acute Discharge Plan - Patient Discharge Instructions ACTIVITY: Continue current activity DIET: continue same diet Patient Instructions: DI for Hyponatremia - Follow up Plan Follow up with: Luis Valero MD [Primary Care Provider] - 2 days Disposition: Home, Self-Usp Medications: Home Medications Medication Instructions Recorded Confirmed Type Albuterol Sulfate [Albuterol HFA 2 puffs PO Q4HP PRN 08/27/18 08/27/18 History Inhaler] Famotidine [Pepcid 20mg Tablet] 20 mg PO BID 08/27/18 08/27/18 History Furosemide [Furosemide 20mg Tab] 20 mg PO DAILY 08/27/18 08/27/18 History Lisinopril [Lisinopril 5mg Tablet] 5 mg PO DAILY 08/27/18 08/27/18 History Methocarbamol [Methocarbamol 750mg 750 mg PO DAILY 08/27/18 08/27/18 History Tab] Metoprolol Succinate 25 mg PO DAILY 08/27/18 08/27/18 History PARoxetine HCl [Paxil 20mg Tablet] 20 mg PO DAILY 08/27/18 08/27/18 History Spironolactone 25 mg PO DAILY 08/27/18 08/27/18 History hydrOXYzine HCl [Hydroxyzine HCl] 25 mg PO Q8H PRN 08/27/18 08/27/18 History Prescriptions/Medication Reconciliation: New ALPRAZolam [Xanax 1mg tab] 1 mg PO TIDP PRN #6 tab PRN Reason: Anxiety Tiotropium [place] [Spiriva Respimat] 4 gm IH DAILY #1 mist.inhal Quetiapine Fumarate [Seroquel] 25 mg PO HS #30 tablet Sacubitril/Valsartan [Entresto 49 mg-51 mg Tablet] 1 each PO DAILY #14 tablet Continue Methocarbamol [Methocarbamol 750mg Tab] 750 mg PO DAILY Metoprolol Succinate 25 mg PO DAILY Famotidine [Pepcid 20mg Tablet] 20 mg PO BID Albuterol Sulfate [Albuterol HFA Inhaler] 2 puffs PO Q4HP PRN PRN Reason: Shortness Of Breath hydrOXYzine HCl [Hydroxyzine HCl] 25 mg PO Q8H PRN PRN Reason: Anxiety PARoxetine HCl [Paxil 20mg Tablet] 20 mg PO DAILY Discontinued Spironolactone 25 mg PO DAILY Lisinopril [Lisinopril 5mg Tablet] 5 mg PO DAILY Furosemide [Furosemide 20mg Tab] 20 mg PO DAILY
== END 2018-08-28 08:45 | disposition home or self-care (01) ==
LOC: ER 11:28 → 2ND 13:21 → INTOOBSV 13:21 → 2ND 14:00
PROVIDERS: ADMIT Family Medicine; ATTEND Family Medicine

== ENCOUNTER → 2018-10-09 09:04 | Outpatient (CLI) | payer MEDICARE, SELFPAY ==
[2018-10-09 10:07] VITALS: BP 115/70; BP 138/85; PULSE 77; PULSE 85; RESP 18; RESP 20; O2SAT 94; O2SAT 97
== END ==
PROVIDERS: PCP Family Medicine; Visit Provider Family Medicine
DX: R09.02 Hypoxemia (principal); I50.9 Heart failure, unspecified
CPT/HCPCS: 94618

== ENCOUNTER 2018-11-04 11:16 | Observation (INO) ==
[2018-11-04 11:54] LABS: Basophils % 0.7 % (0.1-2.0); Eosinophils # 0.1 K/mm3 (0.0-0.4); Eosinophils % 1.4 % (0.1-12.0); Hematocrit 41.7 % (37.0-47.0); Lymphocytes # 2.6 K/mm3 (0.7-4.5); Lymphocytes % 43.5 % (10-50); Mean Corpuscular HGB Conc 31.2 g/dL (31.8-35.4); Mean Corpuscular Hemoglobin 35.5 pg (27.0-31.2); Mean Corpuscular Volume 113.7 fl (81-99); Mean Platelet Volume 7.3 fl (7.4-10.4); Monocytes # 0.3 K/mm3 (0.1-1.0); Monocytes % 5.4 % (1.7-9.3); Neutrophils % 49.1 % (37.0-80.0); Platelet Count 274 K/mm3 (142-424); Red Blood Count 3.66 M/mm3 (4.20-5.40); Red Cell Distribution Width 17.9 % (11.5-17.5); White Blood Count 6.1 K/mm3 (4.8-10.8)
[2018-11-04 12:04] LABS: Albumin Level 3.6 gm/dL (3.4-5.0); Albumin/Globulin Ratio 1.1 (1.1-1.8); Anion Gap 14.2 mEq/L (5-15); Bilirubin,Total 0.4 mg/dL (0.2-1.0); Calcium 9.2 mg/dL (8.5-10.1); Globulin 3.4 gm/dl (1.3-3.2); Potassium 4.2 mmoL/L (3.5-5.1)
--- NOTE | 2018-11-04 16:04 | Emergency Department Note ---
ED Disposition Clinical Impression: Alcohol withdrawal delirium, Benzodiazepine (tranquilizer) overdose, Hyponatremia, Dehydration, Benzodiazepine abuse, Chronic anxiety Disposition: Home, Self-Care Condition on Discharge: Fair Referrals: Provider,Referral, [Primary Care Provider] - Time of Disposition: 16:20 - Critical Care Critical Care Time: No Attestation: On 11/04/18, the high probability of a clinically significant, sudden or life threatening deterioration of the following system(s) required my full and direct attention, intervention and personal management. The time I documented below is in addition to time spent performing reported procedures but includes the following listed in this critical care notation. Medical Decision Making - Medical Records Medical records reviewed: Yes: I reviewed the patient's medical records. - David Inquiry Pt receiving controlled substance: No David was queried for this patient: No Vital Signs: 11/04/18 11:17 11/04/18 12:12 11/04/18 14:00 Temperature 98.4 F Temperature Source Oral Pulse Rate [Left] 75 71 70 Respiratory Rate 18 Blood Pressure [Right Arm] 130/60 108/62 L 130/67 Blood Pressure Mean [Right Arm] 83 77 88 Blood Pressure Source [Right Arm] Automatic Cuff Automatic Cuff Automatic Cuff Blood Pressure Position [Right Arm] Supine Supine Supine 02 Sat by Pulse Oximetry 96 99 92 L Oxygen Delivery Method Room Air Room Air Room Air 11/04/18 14:49 11/04/18 15:09 Temperature Temperature Source Pulse Rate [Left] 70 65 Respiratory Rate Blood Pressure [Right Arm] 105/62 L 102/60 L Blood Pressure Mean [Right Arm] 76 74 Blood Pressure Source [Right Arm] Automatic Cuff Automatic Cuff Blood Pressure Position [Right Arm] Sitting Supine 02 Sat by Pulse Oximetry 92 L 96 Oxygen Delivery Method Room Air Room Air - Lab Data Lab results reviewed: Yes: I reviewed the patient's lab results. Lab Results 11/04/18 11:49: WBC 6.1, RBC 3.66 L, Hgb 13.0, Hct 41.7, MCV 113.7 H, MCH 35.5 H , MCHC 31.2 L, RDW 17.9 H, Plt Count 274, MPV 7.3 L, Neut % (Auto) 49.1, Lymph % (Auto) 43.5, [place] % (Auto) 5.4, Eos % (Auto) 1.4, Baso % (Auto) 0.7, Neut # (Auto) 3.0, Lymph # (Auto) 2.6, [place] # (Auto) 0.3, Eos # (Auto) 0.1, Baso # (Auto) 0.0 11/04/18 11:49: Sodium 131 L, Potassium 4.2, Chloride 97 L, Carbon Dioxide 24, Anion Gap 14.2, BUN 11, Creatinine 0.91, Estimated Creat Clear 82, Estimated GFR 63, Est GFR ( Amer) 76, Glucose 99, Calcium 9.2, Total Bilirubin 0.4, AST 40 H, ALT 33, Alkaline Phosphatase 103, Total Protein 7.0, Albumin 3.6, Globulin 3.4 H, Albumin/Globulin Ratio 1.1, Plasma/Serum Alcohol 6 Result diagrams: 11/04/18 11:49 11/04/18 11:49 Orders (Tests/Meds): ED MEDICATIONS Generic Name Dose Route Start Last Admin Trade Name Freq PRN Reason Stop Dose Admin Lactated Ringer's 1,000 mls @ 999 mls/hr 11/04/18 15:15 11/04/18 15:08 Lactated Ringer's 1000 Ml Bag IV 11/04/18 16:15 999 mls/hr .Q1H1M ROBEL Administration Discontinued Medications Generic Name Dose Route Start Last Admin Trade Name Freq PRN Reason Stop Dose Admin Diphenhydramine HCl 25 mg 11/04/18 11:45 11/04/18 11:51 Benadryl 50mg/1ml Vial IV 11/04/18 11:46 25 mg ONCE ONE Administration Folic Acid 1 mg 11/04/18 11:45 11/04/18 11:54 Folic Acid 1mg Tablet PO 11/04/18 11:46 1 mg ONCE ONE Administration Haloperidol Lactate 5 mg 11/04/18 11:44 11/04/18 11:52 Haldol 5mg/Ml Vial IM 11/04/18 11:45 5 mg ONCE ONE Administration Multivitamins 10 ml/ Thiamine 1,016 mls @ 508 mls/hr 11/04/18 11:45 11/04/18 11:53 HCl 200 mg/ Magnesium Sulfate IV 11/04/18 13:44 508 mls/hr 2 gm/ Lactated Ringer's .Q2H ROBEL Administration Medical Decision Narrative: Patient appears somewhat dehydrated and overdosed on benzodiazepines alcohol level 6 she is going to be treated with multivitamins thiamine and folic acid she will be hydrated and observed. Patient was given 5 mg of Haldol and 25 mill grams of Benadryl as she would not remain in her bed and there was a risk of falling while being treated. At 1600 hrs. patient is significantly improved receiving almost 2000 cc of fluid including multivitamins family was called and she will be discharged home General Adult HPI - General Chief complaint: Alcohol Stated complaint: ETOH, possible xanax OD Time Seen by Provider: 11/04/18 11:20 Mode of Arrival: EMS Limitations: No Limitations Description of Symptoms (Recalled from ER Triage Doc. by RN): ETOH, possible overdose on Xanax - History of Present Illness HPI narrative: Patient well-known to this emergency room with history of alcohol and benzodiazepine abuse has been brought by ambulance after social work did a home visit and found the patient intoxicated and confused. Patient arrives awake but somewhat slurring speech oral mucosa dry no acute complaints - Related Data Home Medications Medication Instructions Recorded Confirmed RX: Albuterol Sulfate [Albuterol 2 puffs PO Q4HP PRN 08/27/18 08/27/18 HFA Inhaler] RX: Famotidine [Pepcid 20mg Tablet] 20 mg PO BID 08/27/18 08/27/18 RX: Methocarbamol [Methocarbamol 750 mg PO DAILY 08/27/18 08/27/18 750mg Tab] RX: Metoprolol Succinate 25 mg PO DAILY 08/27/18 08/27/18 RX: PARoxetine HCl [Paxil 20mg 20 mg PO DAILY 08/27/18 08/27/18 Tablet] RX: hydrOXYzine HCl [Hydroxyzine 25 mg PO Q8H PRN 08/27/18 08/27/18 HCl] Previous Rx's Medication Instructions Recorded Quetiapine Fumarate [Seroquel] 25 mg PO HS #30 tablet 08/28/18 RX: ALPRAZolam [Xanax 1mg tab] 1 mg PO TIDP PRN #6 tab 08/28/18 Sacubitril/Valsartan [Entresto 49 1 each PO DAILY #14 tablet 08/28/18 mg-51 mg Tablet] Tiotropium [place] [Spiriva 4 gm IH DAILY #1 mist.inhal 08/28/18 Respimat] Allergies Allergy/AdvReac Type Severity Reaction Status Date / Time NSAIDS (Non-Steroidal Allergy Unknown HURTS Verified 03/30/18 13:35 Anti-Inflamma STOMACH [facility] History - Hepatitis A Screen Drug use history?: No High risk sexual behaviors?: No History of sexually transmitted infection?: No Currently employed?: No Childcare worker?: No Do you have indoor plumbing?: Yes Do you have electricity?: Yes Attestation statement:: This patient has been screened for Hepatitis A risk factors. I have reviewed the patient's past medical history: Yes Medical History: Reports:: Anxiety, Congenital Heart Disease, Hypertension Denies:: Cancer, Diabetes Mellitus Type 1, Diabetes Mellitus Type 2, MRSA Other Medical History: Reports: Arthritis, Fibromyalgia Other Surgeries: Yes: Hysterectomy-Total, Other (thoroctomy) Amputation: No Fractures: Yes Comment: Thorocotomy - Social History Smoking Status: Current every day smoker Tobacco Type: cigarettes # Packs/Day (cigarettes): 1 #Yrs smoked (if former smoker): 40 Alcohol Intake: current Alcohol Intake Frequency:: 3 or more drinks per day Substance Use Type: denies use Occupational Status: retired Housing: house Household Members: spouse - Psychiatric History Expresses thoughts of harming self/others: None Suicide Plan Description: No Plan Pschychiatric History:: Reports:: Anxiety Family Hx:: Heart Attack ROS Obtained: Yes All systems reviewed & no additional complaints Patient states she has a history of anxiety was found with a bunch of Xanax around her bedside by EMS Physical Exam - General General appearance: in no apparent distress, appears intoxicated - Head Head exam: atraumatic, normocephalic, normal inspection - Eye Eye exam: Present: normal appearance, PERRL, EOMI - ENT ENT exam: Present: normal exam, normal oropharynx, TM's normal bilaterally, normal external ear exam. Absent: mucous membranes moist (oral mucosa dry) - Neck Neck exam: Present: normal inspection, full ROM, trachea midline. Absent: meningismus, lymphadenopathy - Chest Chest inspection: Present: normal inspection, symmetric chest wall rise. Absent: tenderness - Respiratory Respiratory exam: Present: normal lung sounds bilaterally. Absent: respiratory distress - Cardiovascular Cardiovascular exam: Present: regular rate, normal rhythm. Absent: JVD - Abdominal Exam Abdominal exam: Present: soft, normal bowel sounds. Absent: distention, tenderness, guarding - Extremities Exam Extremities exam: Present: normal inspection, full ROM, normal capillary refill. Absent: calf tenderness - Back Exam Back exam: Present: normal inspection. Absent: tenderness - Neurological Exam Neurological exam: Present: alert, oriented X3 - Psychiatric Psychiatric exam: Present: normal affect, normal mood - Skin Skin exam: Present: warm, dry, intact, normal color - Lymphatic Lymphatic Findings: no adenopathy
--- NOTE | 2018-11-04 17:49 | History & Physical Report ---
*Admission Date: 11/04/18 *Chief complaint: Confusion *History of present illness: 58-year-old female brought to the emergency department by EMS after she was found confused at home by a visiting social group worker. This part of the history is taken from the ER note. 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 She contacted my office trying to get assistance with this task. At some point during the day she was visited at home by someone who found the patient to be confused and having an altered level of consciousness. EMS was contacted and patient was bro ught to the emergency department. Please see ER note for further details. Patient was hydrated in the ER and there was discussion about her returning home. I happened to be in the hospital and was contacted in regards to the patient and as I am her primary care provider I assessed her in the emergency department. Patient's level of consciousness was depressed compared to baseline. It was suspected that she had either overdosed on some of her alprazolam or had been drinking alcohol. Patient could not confirm nor could she deny overdose as a possibility. Her thought processes were very di sorganized and patient could not tell me how she arrived at the emergency department from home. On her exam I felt like she has some right basilar rales and while the patient denies vomiting I am spacious of pneumonia. Patient will be admitted for observation and be given IV clindamycin overnight. She is already been given IV fluids in the emergency department and patient does have depressed left ventricular systolic dysfunction with an EF of 25-30% found on echocardiogram at an admission at the [facility] in June. [facility] History I have reviewed the patient's past medical history: Yes Medical History: Reports:: Anxiety, Congestive Heart Failure, Congenital Heart Disease, Hypertension Denies:: Cancer, Diabetes Mellitus Type 1, Diabetes Mellitus Type 2, MRSA Have you ever received a pneumonia vaccine?: No Have you received a flu vaccine this season?: No Other Medical History: Reports: Arthritis, Fibromyalgia Other Surgeries: Yes: Hysterectomy-Total, Other (thoroctomy) Amputation: No Fractures: Yes - *Social History Smoking Status: Current every day smoker Tobacco Type: cigarettes # Packs/Day (cigarettes): 1 #Yrs smoked (if former smoker): 40 Alcohol Intake: current Alcohol Intake Frequency:: 3 or more drinks per day Substance Use Type: denies use Occupational Status: retired Housing: house Household Members: spouse Travel in the last 8 weeks: None - Psychiatric History Expresses thoughts of harming self/others: None Suicide Plan Description: No Plan Pschychiatric History:: Reports:: Anxiety *Family Hx:: Heart Attack Review of Systems - Review of Systems Review of systems:: pertinent systems reviewed and negative unless documented below - Constitutional Denies body ache(s), Denies chills - *Cardiovascular Denies chest pain, Denies chest pain at rest - *Respiratory Denies change in phlegm color, Denies chest congestion, Denies cough, Denies shortness of breath - *Gastrointestinal Denies abdominal pain, Denies belching Meds Home Medications Medication Instructions Recorded Confirmed Type Albuterol Sulfate [Albuterol HFA 2 puffs PO Q4HP PRN 08/27/18 08/27/18 History Inhaler] Famotidine [Pepcid 20mg Tablet] 20 mg PO BID 08/27/18 08/27/18 History Methocarbamol [Methocarbamol 750mg 750 mg PO DAILY 08/27/18 08/27/18 History Tab] Metoprolol Succinate 25 mg PO DAILY 08/27/18 08/27/18 History PARoxetine HCl [Paxil 20mg Tablet] 20 mg PO DAILY 08/27/18 08/27/18 History hydrOXYzine HCl [Hydroxyzine HCl] 25 mg PO Q8H PRN 08/27/18 08/27/18 History ALPRAZolam [Xanax 1mg tab] 1 mg PO TIDP PRN #6 tab 08/28/18 Rx Quetiapine Fumarate [Seroquel] 25 mg PO HS #30 tablet 08/28/18 Rx Sacubitril/Valsartan [Entresto 49 1 each PO DAILY #14 tablet 08/28/18 Rx mg-51 mg Tablet] Tiotropium [place] [Spiriva 4 gm IH DAILY #1 mist.inhal 08/28/18 Rx Respimat] Allergies Allergy/AdvReac Type Severity Reaction Status Date / Time NSAIDS (Non-Steroidal Allergy Unknown HURTS Verified 03/30/18 13:35 Anti-Inflamma STOMACH Exam Vital signs and Labs for Last 24 Hours: Temp Pulse Resp BP Pulse Ox 98.4 F 100 H 20 170/102 H 94 L 11/04/18 11:17 11/04/18 17:00 11/04/18 17:00 11/04/18 17:00 11/04/18 17:00 Laboratory Results - last 24 hr 11/04/18 11:49: WBC 6.1, RBC 3.66 L, Hgb 13.0, Hct 41.7, MCV 113.7 H, MCH 35.5 H , MCHC 31.2 L, RDW 17.9 H, Plt Count 274, MPV 7.3 L, Neut % (Auto) 49.1, Lymph % (Auto) 43.5, [place] % (Auto) 5.4, Eos % (Auto) 1.4, Baso % (Auto) 0.7, Neut # (Auto) 3.0, Lymph # (Auto) 2.6, [place] # (Auto) 0.3, Eos # (Auto) 0.1, Baso # (Auto) 0.0 11/04/18 11:49: Sodium 131 L, Potassium 4.2, Chloride 97 L, Carbon Dioxide 24, Anion Gap 14.2, BUN 11, Creatinine 0.91, Estimated Creat Clear 82, Estimated GFR 63, Est GFR ( Amer) 76, Glucose 99, Calcium 9.2, Total Bilirubin 0.4, AST 40 H, ALT 33, Alkaline Phosphatase 103, Total Protein 7.0, Albumin 3.6, Globulin 3.4 H, Albumin/Globulin Ratio 1.1, Plasma/Serum Alcohol 6 I & O for Last 24 hours: Intake & Output 11/02/18 11/03/18 11/04/18 11/05/18 11:59 11:59 11:59 11:59 Weight 175 lb Narrative: Patient is laying in bed. She does make eye contact and her speech is clear. Thought processes are disorganized and patient's level of consciousness is depressed compared to baseline. Usually the patient is quite animated with pressured speech. The oropharynx is moist at this time. The neck is without carotid bruits. Lungs have right basilar rales. The heart has a regular rate and rhythm. Abdomen is soft, nontender, nondistended. Extremities did not have any edema Assessment and Plan (1) Benzodiazepine (tranquilizer) overdose Current visit: Yes Status: Acute Category: Medical Code(s): T42.4X1A - Poisoning by benzodiazepines, accidental (unintentional), initial encounter (2) Chronic anxiety Current visit: Yes Status: Acute Category: Medical Code(s): F41.9 - Anxiety disorder, unspecified (3) Alcoholism Current visit: No Status: Acute Category: Medical Code(s): F10.20 - Alcohol dependence, uncomplicated (4) Chronic left ventricular systolic dysfunction Current visit: No Status: Acute Category: Medical Code(s): I51.9 - Heart disease, unspecified (5) Aspiration pneumonia Current visit: Yes Status: Suspected Qualifiers: Aspiration pneumonia type: due to vomit Laterality: right Lung location: lower lobe of lung Qualified Code(s): J69.0 - Pneumonitis due to inhalation of food and vomit Category: Medical Code(s): J69.0 - Pneumonitis due to inhalation of food and vomit - Assessment and plan all Dx Assessment and Plan for all problems:: 1. Admit for observation. The patient's depressed level of consciousness is likely due to illicit substance use such as alcohol or inappropriate use of her alprazolam. Nursing staff in the emergency department reported to me that patient admitted to taking for 5 extra Xanax. Patient would not confirm that with me. She could not recall when her last drink of alcohol was either 2. Patient will have a 2 view chest x-ray and will be started on IV clindamycin for possible aspiration 3. During overnight admission patient will not have any benzodiazepines ordered. Zofran will be ordered for nausea. Patient's essential home medicines such as her metoprolol ER and Entresto can be held until the morning
--- NOTE | 2018-11-05 07:05 | Discharge Summary ---
General - General Admission date:: 11/04/18 Discharge date: 11/05/18 HPI HPI: 58-year-old female brought to the emergency department by EMS after she was found confused at home by a visiting social professionals. This part of the history is taken from the ER note. 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 She contacted my office trying to get assistance with this task. At some point during the day she was visited at home by someone who found the patient to be confused and having an altered level of consciousness. EMS was contacted and patient was brought to the emergency department. Please see ER note for further details. Patient was hydrated in the ER and there was discussion about her returning home. I happened to be in the hospital and was contacted in regards to the patient and as I am her primary care provider I assessed her in the emergency department. Patient's level of consciousness was depressed compared to baseline. It was suspected that she had either overdosed on some of her alprazolam or had been drinking alcohol. Patient could not confirm nor could she deny overdose as a possibility. Her thought processes were very disorganized and patient could not tell me how she arrived at the emergency department from home. On her exam I felt like she has some right basilar rales and while the patient denies vomiting I am spacious of pneumonia. Patient will be admitted for observation and be given IV clindamycin overnight. She is already been given IV fluids in the emergency department and patient does have depressed left ventricular systolic dysfunction with an EF of 25-30% found on echocardiogram at an admission at the [facility] in June. Hospital Course Hospital Course: Patient was admitted overnight for observation. She was consistently oriented to person and could be reoriented to place and time. By the following morning (November 05) patient's mental status had returned to her baseline. She still can provide additional history on how she actually ended up at the emergency department. Her exam had improved and rales that were present at the right base had resolved. Patient was discharged to home and she will up in my office as previously scheduled. Objective Vital signs: Temp Pulse Resp BP Pulse Ox 98.2 F 67 18 109/57 L 95 11/05/18 04:00 11/05/18 04:00 11/05/18 04:00 11/05/18 04:00 11/05/18 04:00 Results Labs on day of discharge: Labs from last 24 hours 11/04/18 11/04/18 11:49 11:49 WBC 6.1 RBC 3.66 L Hgb 13.0 Hct 41.7 MCV 113.7 H MCH 35.5 H MCHC 31.2 L RDW 17.9 H Plt Count 274 MPV 7.3 L Neut % (Auto) 49.1 Lymph % (Auto) 43.5 [place] % (Auto) 5.4 Eos % (Auto) 1.4 Baso % (Auto) 0.7 Neut # (Auto) 3.0 Lymph # (Auto) 2.6 [place] # (Auto) 0.3 Eos # (Auto) 0.1 Baso # (Auto) 0.0 Sodium 131 L Potassium 4.2 Chloride 97 L Carbon Dioxide 24 Anion Gap 14.2 BUN 11 Creatinine 0.91 Estimated Creat Clear 82 Estimated GFR 63 Est GFR ( Amer) 76 Glucose 99 Calcium 9.2 Total Bilirubin 0.4 AST 40 H ALT 33 Alkaline Phosphatase 103 Total Protein 7.0 Albumin 3.6 Globulin 3.4 H Albumin/Globulin Ratio 1.1 Plasma/Serum Alcohol 6 DS: Diagnosis - Discharge Diagnosis (1) Benzodiazepine (tranquilizer) overdose Status: Acute (2) Chronic anxiety Status: Acute (3) Alcoholism Status: Acute (4) Chronic left ventricular systolic dysfunction Status: Acute (5) Aspiration pneumonia Status: Ruled-out Discharge Plan - Patient Discharge Instructions ACTIVITY: Continue current activity DIET: continue same diet - Follow up Plan Follow up with: Luis Valero MD [Primary Care Provider] - Disposition: Home, Self-Fdc Medications: Home Medications Medication Instructions Recorded Confirmed Type Albuterol Sulfate [Albuterol HFA 2 puffs PO Q4HP PRN 08/27/18 08/27/18 History Inhaler] Famotidine [Pepcid 20mg Tablet] 20 mg PO BID 08/27/18 08/27/18 History Methocarbamol [Methocarbamol 750mg 750 mg PO DAILY 08/27/18 08/27/18 History Tab] Metoprolol Succinate 25 mg PO DAILY 08/27/18 08/27/18 History PARoxetine HCl [Paxil 20mg Tablet] 20 mg PO DAILY 08/27/18 08/27/18 History hydrOXYzine HCl [Hydroxyzine HCl] 25 mg PO Q8H PRN 08/27/18 08/27/18 History ALPRAZolam [Xanax 1mg tab] 1 mg PO TIDP PRN #6 tab 08/28/18 Rx Quetiapine Fumarate [Seroquel] 25 mg PO HS #30 tablet 08/28/18 Rx Sacubitril/Valsartan [Entresto 49 1 each PO DAILY #14 tablet 08/28/18 Rx mg-51 mg Tablet] Tiotropium [place] [Spiriva 4 gm IH DAILY #1 mist.inhal 08/28/18 Rx Respimat] Prescriptions/Medication Reconciliation: Continue Methocarbamol [Methocarbamol 750mg Tab] 750 mg PO DAILY Metoprolol Succinate 25 mg PO DAILY Famotidine [Pepcid 20mg Tablet] 20 mg PO BID Albuterol Sulfate [Albuterol HFA Inhaler] 2 puffs PO Q4HP PRN PRN Reason: Shortness Of Breath hydrOXYzine HCl [Hydroxyzine HCl] 25 mg PO Q8H PRN PRN Reason: Anxiety ALPRAZolam [Xanax 1mg tab] 1 mg PO TIDP PRN #6 tab PRN Reason: Anxiety Tiotropium [place] [Spiriva Respimat] 4 gm IH DAILY #1 mist.inhal Quetiapine Fumarate [Seroquel] 25 mg PO HS #30 tablet PARoxetine HCl [Paxil 20mg Tablet] 20 mg PO DAILY Sacubitril/Valsartan [Entresto 49 mg-51 mg Tablet] 1 each PO DAILY #14 tablet
--- NOTE | 2018-11-05 07:25 | Pharmacy Consult Notes ---
[facility] Pharmacy VTE Monitoring - Patient Demographics Admission date: 11/04/18 Report Date: 11/05/18 Time: 07:25 Allergies/Adverse Reactions: Patient Allergies NSAIDS (Non-Steroidal Anti-Inflamma Allergy (Unknown, Verified 03/30/18 13:35) HURTS STOMACH Height: 1.6 m Weight: 47.826 kg Patient Problems: Current Active Problems Dehydration (Acute) Benzodiazepine abuse (Acute) Hyponatremia (Acute) Chronic anxiety (Acute) Alcohol withdrawal delirium (Acute) Benzodiazepine (tranquilizer) overdose (Acute) - VTE Risk Labs: VTE Related Lab Results Hgb 13.0 g/dL (12.2-16.2) 11/04/18 11:49 Hct 41.7 % (37.0-47.0) 11/04/18 11:49 Plt Count 274 K/mm3 (142-424) 11/04/18 11:49 BUN 11 mg/dL (7-18) 11/04/18 11:49 Creatinine 0.91 mg/dL (0.55-1.02) 11/04/18 11:49 Estimated Creat Clear 82 mL/min (50-200) 11/04/18 11:49 Was VTE Risk Assessment Performed: Yes VTE Score: 3 VTE Risk Level: Low Risk Clinical Trial Participant: No - Prophylaxis VTE Prophylaxis Ordered?: Yes Types of VTE Prophylaxis: TEDS Knee High
== END 2018-11-05 09:50 | disposition home or self-care (01) ==
LOC: ER 11:16 → 2ND 11:16
PROVIDERS: ADMIT Family Medicine; ATTEND Family Medicine
CPT/HCPCS: 70450; 80053; 85025; 96365; 96367; 96372; 96375; 99283; G0378

== ENCOUNTER → 2019-02-10 10:24 | Outpatient (CLI) | payer MEDICARE, SELFPAY ==
--- NOTE | 2019-02-10 10:28 | XR_ITS ---
XR DEXA axial skeleton HISTORY: ITS.REASON: POST MENOPAUSAL ORDERING PHYSICIAN: Luis Valero MD PATIENT AGE: 58 years COMPARISON: None FINDINGS: The BMD measured at the AP Spine L1-L4 is 0.506 g/cm squared with a T score of -5.6. This is considered Osteoporotic according to the World Health Organization criteria. Fracture risk is High. Treatment is advised. The mean density has a T score of -4.1 IMPRESSION: Osteoporosis with high fracture risk. Treatment is advised. Suggest follow-up exam in one year
--- NOTE | 2019-02-10 10:49 | MR_ITS ---
MR cervical spine wo con, MR 3-d myelogram/MRCP HISTORY: Neck and back pain X years. Pain getting worse. Bilateral arm, legs, and feet numbness. Pain anterior chest. ITS.REASON: CERVICALGIA ORDERING PHYSICIAN: Luis Valero MD PATIENT AGE: 58 years Comparison: MRI 09/14/16 TECHNIQUE: Standard multiplanar multiecho sequences are performed without contrast. 3-D MIP and myelographic images are also rendered and reviewed FINDINGS: Motion artifact is present on axial images with degraded fine detail. Normal alignment. Craniocervical junction has an unremarkable appearance.. C2-C3: Unremarkable. C3-C4: Unremarkable. C4-C5: Degenerative disc disease with mild bulging disc slightly eccentric toward the right causing right lateral recess and foraminal narrowing. Canal narrowing noted at 10 mm. C5-C6: Degenerative disc disease with bulging disc with bilateral foraminal narrowing and canal stenosis of 10 mm. There is minimal flattening of the cord anteriorly. C6-C7: Degenerative disc disease with mild concentric bulging disc. C7-T1: Unremarkable. T1-T2: Unremarkable. Severe wedge compression changes are present at T4 and had increased since the previous exam with greater than 50% wedge compression changes anteriorly. Severe wedge compression changes are present at T5 which have developed in the interval with nearly complete collapse of the mid and anterior aspect of T5 suggesting vertebra plana. This has developed since the previous exam. Kyphosis is present at the T4-T5 level with narrowing of the canal at approximately 9 mm in minimal indentation upon the cord anteriorly. IMPRESSION: 1. C4-C5: Degenerative disc disease with mild bulging disc slightly eccentric toward the right causing right lateral recess and foraminal narrowing. Canal narrowing noted at 10 mm. 2. C5-C6: Degenerative disc disease with bulging disc with bilateral foraminal narrowing and canal stenosis of 10 mm. There is minimal flattening of the cord anteriorly. 3. Severe wedge compression changes are present at T4 and had increased since the previous exam with greater than 50% wedge compression changes anteriorly. 4. Severe wedge compression changes are present at T5 which have developed in the interval with nearly complete collapse of the mid and anterior aspect of T5 suggesting vertebra plana. This has developed since the previous exam. Kyphosis is present at the T4-T5 level with narrowing of the canal at approximately 9 mm with minimal indentation upon the cord anteriorly.
== END ==
PROVIDERS: PCP Family Medicine; Visit Provider Family Medicine
DX: Z78.0 Asymptomatic menopausal state (principal); M54.2 Cervicalgia
CPT/HCPCS: 72141; 76376; 77080

== ENCOUNTER → 2019-09-09 12:55 | Outpatient (CLI) | payer MEDICARE, SELFPAY ==
--- NOTE | 2019-09-09 12:56 | CT_ITS ---
PROCEDURE: CT LUNG SCREENING CLINICAL INDICATION: CURRENT TOBACCO USE Forty pack-year smoking history, asymptomatic for lung cancer COMPARISON: CXR2V XR chest 2V from 04/02/2018 TECHNIQUE: The exam was performed on a GE Light Speed [address] scanner using 2.90 mGy CTDI. A low dose helical CT CHEST was performed on a multi-detector scanner. All CT scans at the facility use one or more dose reduction, viz: automated exposure control, ma/kV adjustment per patient size (including targeted exams where dose is matched to indication, i.e. head), or iterative reconstruction technique. The LDCT was performed in a facility that meets the criteria for the screening program. Data regarding this exam was submitted to ACR which is an approved registry. The order for this exam indicates that it came as a result of a lung cancer screening counseling shard decision-making visit that included all the elements required of such a visit including smoking cessation. The radiologist interpreting this exam meets the CMS criteria for the LDCT lung cancer screening program. The exam is reported using the Lung-RADS classification scale and reported to the ACR registry. NOTE: This study was performed for the specific purposes of lung cancer screening and is not an alternative to diagnostic chest CT. RADIATION DOSE: CTDI vol(CT dose Index-volume) = 2.90mG DLP (Dose Length Product) = 101.60 mGcm FINDINGS: Changes of COPD with some mild scarring. Postsurgical changes are present in the left lung base posteriorly a suture line at that area. There is some minimal scarring in the left lung base laterally. There is a 5 mm irregular opacity in the right middle lobe laterally in the subpleural region. This is nonspecific and six-month follow-up is suggested. May be due to an area of scarring. Margins are however slightly irregular. OTHER FINDINGS: The a severe compression fracture involves the T5 vertebral body with loss of height greater than 50 percent with vertebra plana. There is minimal retropulsion of the mid aspect of the vertebral body of 3 mm. In addition, there is moderate to severe wedge compression changes involving the anterior aspect of T4 with greater than 50 percent compression fracture of the anterior aspect of T4. These findings were present on a previous MRI of the cervical spine of 02/10/2019. Upper abdominal images demonstrates a hyperdense right renal nodule at 1.8 cm. Ultrasound is suggested to determine if this is a hyperdense cyst or solid nodule. The average density is at 72 Hounsfield units. IMPRESSION: Lung rads category 3 probably benign findings regarding right middle lobe nodule. Recommend six-month CT chest follow-up without and with contrast. Indeterminate hyperdense right renal nodule. Recommend ultrasound to determine if this is a cystic or solid lesion Dictated by: Gildardo Orlando MD 09/10/2019 07:01 Electronically signed by Gildardo Orlando MD in [place] 09/17/2019 09:57
== END ==
PROVIDERS: PCP Family Medicine; Visit Provider Family Medicine
DX: Z87.891 Personal history of nicotine dependence (principal); Z12.2 Encounter for screening for malignant neoplasm of respiratory organs

== ENCOUNTER 2020-01-19 12:03 | Emergency (ER) | payer MEDICARE, SELFPAY ==
[2020-01-19 12:04] VITALS: BP 117/81; PULSE 100; RESP 24; TEMP 36.7; O2SAT 97; BMI 24.0
--- NOTE | 2020-01-19 12:11 | XR_ITS ---
PROCEDURE: XR RIBS RT 2V CLINICAL INDICATION: FALL Posttraumatic pain, right-sided rib and chest pain following injury COMPARISON: CXR2V XR chest 2V from 04/02/2018 CT LUNG SCREENING from 09/09/2019 FINDINGS: Unremarkable cardiovascular structures. Suture line is present in the left lung base. There are multiple old right-sided rib fractures involving the right 7th 8th 9th and 10th ribs. Minimally displaced fracture involves the right 10th rib laterally which appears more acute and was not present on a previous chest CT. There is no evidence of pneumothorax. There are old left-sided rib fractures as well. There is a 8 mm parenchymal opacity in the left upper lobe and may correspond to a old rib fracture. IMPRESSION: Multiple old bilateral rib fractures with an acute mildly displaced appearing right 10th rib fracture Dictated by: Gildardo Orlando MD 01/19/2020 13:03 Electronically signed by Gildardo Orlando MD in [facility] 01/19/2020 13:03
--- NOTE | 2020-01-19 12:14 | XR_ITS ---
PROCEDURE: XR HIP RT 2-3V W/PELVIS CLINICAL INDICATION: FALL Posttraumatic pain COMPARISON: HIPCMRT XR hip RT 2-3V w/pelvis from 01/30/2018 FINDINGS: There is an old fracture of the greater trochanter of the right hip. On the frog-leg view there is a faint lucency in the lower inner trochanteric region which could be due to a nondisplaced fracture. Consider CT for further evaluation. No other significant anomalies are evident. IMPRESSION: Possible nondisplaced intertrochanteric fracture. Consider CT for further evaluation Dictated by: Gildardo Orlando MD 01/19/2020 13:05 Electronically signed by Gildardo Orlando MD in [place] 01/19/2020 13:05
--- NOTE | 2020-01-19 12:14 | XR_ITS ---
PROCEDURE: XR LUMBAR SPINE 2-3V CLINICAL INDICATION: FALL Posttraumatic pain COMPARISON: LS5 LUMBAR SPINE 5 VIEWS from 01/01/2015 FINDINGS: There is normal alignment. No acute fractures evident. Old minimal wedge changes are present at, L4, L2, and T11.. There is generalized vascular calcification. IMPRESSION: No acute finding. Old mild compressive changes of T11, L2, and L4 Dictated by: Gildardo Orlando MD 01/19/2020 13:07 Electronically signed by Gildardo Orlando MD in [place] 01/19/2020 13:07
[2020-01-19 12:15] VITALS: BP 117/81; PULSE 100; RESP 24; TEMP 36.7; O2SAT 97; BMI 24.2
--- NOTE | 2020-01-19 12:22 | HMH.EDUTC ---
[facility] – [place] Disposition Clinical Impression: Fall Qualifiers: Encounter type: initial encounter Qualified Code(s): W19.XXXA - Unspecified fall, initial encounter Rib fracture Qualifiers: Encounter type: initial encounter Rib fracture type: single rib Fracture type: closed Laterality: right Qualified Code(s): S22.31XA - Fracture of one rib, right side, initial encounter for closed fracture Hip injury Qualifiers: Encounter type: initial encounter Laterality: right Qualified Code(s): S79.911A - Unspecified injury of right hip, initial encounter Disposition: Still a Patient Condition on Discharge: Good Referrals: Luis Valero MD [Primary Care Provider] - As needed Medical Decision Making - David Inquiry Pt receiving controlled substance: No David was queried for this patient: No Vital Signs: 01/19/20 12:04 01/19/20 12:15 Temperature 98.1 F 98.1 F Temperature Source Oral Oral Pulse Rate [Left Radial] 100 H 100 H Respiratory Rate 24 24 Blood Pressure [Right Arm] 117/81 117/81 Blood Pressure Mean [Right Arm] 93 93 Blood Pressure Source [Right Arm] Automatic Cuff Automatic Cuff Blood Pressure Position [Right Arm] Sitting Sitting 02 Sat by Pulse Oximetry 97 97 Oxygen Delivery Method Room Air Room Air Orders (Tests/Meds): ORDERS Category Date Time Status CT hip RT wo con Stat Cat Scan 01/19/20 13:20 Ordered - Radiology Data #1 Image(s): Other (Right ribs/with chest) Image Reviewed: Yes I have reviewed radiologist's interpretation IMPRESSION: Multiple old bilateral rib fractures with an acute mildly displaced appearing right 10th rib fracture #2 Image(s): Hip Image Reviewed: Yes I have reviewed radiologist's interpretation IMPRESSION: Possible nondisplaced intertrochanteric fracture. Consider CT for further evaluation #3 Image(s): L-Spine Image Reviewed: Yes I have reviewed radiologist's interpretation IMPRESSION: No acute finding. Old mild compressive changes of T11, L2, and L4 - Reevaluation(s) Time: 13:23 Reevaluation #1: Radiologist read xray and read hip as possible nondisplaced intertrochanteric fracture and recommended ct scan for further examination and evaluation. CT not done in [facility] therefore patient to be transferred to ED for further evaluation and treatment, Called ER physician unavailable at this time to take report, report given to Tasneem JEAN and patient was placed in bed 11 for further testing and evaluation via wheelchair [facility] [place] HPI - General Stated complaint: AO [id number] ride side rib pain,home fall Time Seen by Provider: 01/19/20 12:22 Mode of Arrival: Ambulatory Source of Information: Patient Limitations: No Limitations Description of Symptoms (Recalled from Triage Doc. by RN): PATIENT STATES SHE FELL AT HOME ON SUNDAY. SHE DENIES HITTING HER HEAD OR LOC. C/O PAIN TO RIGHT RIB AREA THAT RADIATES DOWN TO LUMBAR AREA HEENT Symptoms (Recalled from RN notes): No Resp Symptoms (Recalled from RN notes): No Skin Symptoms (Recalled from RN notes): No MS Symptoms (Recalled from RN notes): Yes Functional Status (Recalled from RN notes): WNL - History of Present Illness Provider Complaint: Patient states that she was getting up in the middle of the night on when she got her feet tangled and fell and hit her right side on a table and landed on a walker on her right side. States that she has been having pain in her right ribs, right hip and lower back area. State that she has chronic back pain and it has made it worse where she is trying to keep from moving so much because of rib pain. States that pain seems to start in her right ribs/lower back and goes into her hip and hurts when she walks. States that she has been able to ambulate but it hurts Denies hitting her head denies LOC State that pain is worse at times with movement or deep breath States that she spoke with her PCP and they told her she needed to come in and get checked. States that she is an
--- NOTE | 2020-01-19 13:19 | PC.NURSE ---
PATIENT SENT TO ER PER ARTEMIO BENZ APRN FOR CT OF RIGHT HIP RECOMMENDED BY RADIOLOGIST
--- NOTE | 2020-01-19 13:20 | CT_ITS ---
PROCEDURE: CT HIP RT WO CON CLINICAL HISTORY: fall Posttraumatic pain, possible fracture noted on radiograph. COMPARISON: ABDPELW/O CT ABD PELVIS W/O CONTRAST from 03/29/[address] hip RT wo con from 12/07/2017 TECHNIQUE: Axial images obtained with sagittal and coronal reformats. All CT scans at the facility use one or more dose reduction, viz: automated exposure control, ma/kV adjustment per patient size (including targeted exams where dose is matched to indication, i.e. head), or iterative reconstruction technique. FINDINGS: No acute fractures evident. The faint lucency noted in the intertrochanteric region on the radiograph is not duplicated on the CT scan there is an old fracture at the base of the greater trochanter. There is some mild haziness of the soft tissues in the posterior hip and may be due to mild soft tissue contusion. IMPRESSION: No acute fracture. Dictated by: Gildardo Orlando MD 01/19/2020 13:58 Electronically signed by Gildardo Orlando MD in [place] 01/19/2020 13:58
--- NOTE | 2020-01-19 13:40 | PC.NURSE ---
PT TO RAD
--- NOTE | 2020-01-19 13:45 | HMH.EDGENADL ---
ED Disposition Clinical Impression: Fall Qualifiers: Encounter type: initial encounter Qualified Code(s): W19.XXXA - Unspecified fall, initial encounter Rib fracture Qualifiers: Encounter type: initial encounter Rib fracture type: single rib Fracture type: closed Laterality: right Qualified Code(s): S22.31XA - Fracture of one rib, right side, initial encounter for closed fracture Hip injury Qualifiers: Encounter type: initial encounter Laterality: right Qualified Code(s): S79.911A - Unspecified injury of right hip, initial encounter Disposition: Home, Self-Care Condition on Discharge: Good Instructions: DI for Rib Fracture, How to Prevent Falls Additional Instructions: You have been evaluated for fall, diagnosed with a right-sided rib fracture. Please use your incentive spirometer every 2 hours while at home to prevent pneumonia. Take Tylenol and ibuprofen for pain. Follow-up with your primary care doctor 1 to 2 days for symptom recheck. Use care when standing and walking, use your cane or walker. Return to the emergency department if you have any new or worsening symptoms, pain, cough, fever, other concerns Referrals: Luis Valero MD [Primary Care Provider] - As needed Time of Disposition: 14:18 - Critical Care Critical Care Time: No Attestation: On 01/19/20, the high probability of a clinically significant, sudden or life threatening deterioration of the following system(s) required my full and direct attention, intervention and personal management. The time I documented below is in addition to time spent performing reported procedures but includes the following listed in this critical care notation. Medical Decision Making - David Inquiry Pt receiving controlled substance: No Vital Signs: 01/19/20 12:04 01/19/20 12:15 Temperature 98.1 F 98.1 F Temperature Source Oral Oral Pulse Rate [Left Radial] 100 H 100 H Respiratory Rate 24 24 Blood Pressure [Right Arm] 117/81 117/81 Blood Pressure Mean [Right Arm] 93 93 Blood Pressure Source [Right Arm] Automatic Cuff Automatic Cuff Blood Pressure Position [Right Arm] Sitting Sitting 02 Sat by Pulse Oximetry 97 97 Oxygen Delivery Method Room Air Room Air - CT Data CT Scan: Pelvis Time Received: 14:[address] Reviewed: Yes: I have reviewed the patient's CT results, I have viewed the radiologist's interpretation Findings Narrative: FINDINGS: No acute fractures evident. The faint lucency noted in the intertrochanteric region on the radiograph is not duplicated on the CT scan there is an old fracture at the base of the greater trochanter. There is some mild haziness of the soft tissues in the posterior hip and may be due to mild soft tissue contusion. IMPRESSION: No acute fracture Medical Decision Narrative: In summary this is a 59-year-old female presenting to the emergency department with right flank pain and right hip pain after a fall 3 days ago. Patient is in no acute distress on arrival to the emergency department. She is resting comfortably in bed. Differential diagnoses for hip pain include renal neck fracture, femur fracture, pelvic fracture, contusion, soft tissue injury, sprain, strain. Plan to obtain CT scan of the pelvis and reassess. CT scan of the pelvis does not show a fracture, specifically no intertrochanteric femur fracture. Patient has been ambulating at home. I believe she is stable to continue walking at this time. She has one 10th rib fracture from her fall 4 days ago. No new or acute findings. Patient recommended to take Tylenol and ibuprofen for pain. Patient was given an incentive spirometer. Stable for discharge. General Adult HPI - General Chief complaint: Fall Stated complaint: AO [phone] ride side rib pain,home fall Time Seen by Provider: 01/19/20 12:22 Mode of Arrival: Ambulatory Source of Information: Patient Limitations: No Limitations Description of Symptoms (Recalled from ER Triage Doc. by RN): NORA
[2020-01-19 14:26] VITALS: BP 117/81; PULSE 100; RESP 24; TEMP 36.7; O2SAT 97
== END 2020-01-19 14:27 | disposition home or self-care (01) ==
LOC: UTC 13:13 → ER 13:15
PROVIDERS: Emergency Provider Emergency Medicine; PCP Family Medicine
DX: S22.31XA Fracture of one rib, right side, initial encounter for closed fracture (principal); S79.911A Unspecified injury of right hip, initial encounter; M54.5 Low back pain; W19.XXXA Unspecified fall, initial encounter; Z79.51 Long term (current) use of inhaled steroids; Z79.899 Other long term (current) drug therapy; Z88.6 Allergy status to analgesic agent; F41.9 Anxiety disorder, unspecified; I10 Essential (primary) hypertension; I50.9 Heart failure, unspecified; M19.90 Unspecified osteoarthritis, unspecified site; M79.7 Fibromyalgia; Z72.0 Tobacco use
CPT/HCPCS: 71100; 72100; 73502; 73700; 99282

== ENCOUNTER 2020-01-20 20:10 | Emergency (ER) | payer MEDICARE, SELFPAY ==
--- NOTE | 2020-01-20 20:08 | ECG_ITS ---
APPROVED REPORT Exam: Resting ECG HR:133 bpm ECG Measurements Heart Rate 133 AXES ND 144 P 71 QRSd 64 QRS 68 QT 274 T 77 QTc 407 <Conclusion> Sinus tachycardia Poor R wave progression and early repolarization changes as previously noted Abnormal ECG Electronically signed by : Luis Plummer, 01/23/2020 08:07:49
[2020-01-20 20:13] VITALS: BMI 18.3
--- NOTE | 2020-01-20 20:13 | XR_ITS ---
PROCEDURE: XR CHEST 2V CLINICAL HISTORY: right side chest pain, fall with injury and pain Right-sided chest pain with shortness of breath, smoker COMPARISON: CXR1 CHEST-PORTABLE from 08/15/2017 CXR1VP XR chest portable from 03/14/2018 CXR2V XR chest 2V from 04/02/2018 CT CHEST WO CON from 01/20/2020 FINDINGS: The heart size is smaller than expected which may be seen with COPD. COPD with chronic interstitial changes. There are postsurgical changes in the left lung base with pleural thickening. No lobar consolidation or collapse. There are old bilateral rib fractures. Nondisplaced fractures are present involving the right 10th and 11th rib which are seen on the CT but are below limits of resolution on the radiograph. No evidence of pneumothorax. There are compression deformities of T5 and T4 not readily apparent on the previous radiograph. IMPRESSION: COPD with chronic changes with old bilateral rib fractures and nondisplaced fractures of the right 10th and 11th ribs Compression fractures of T5 and T4. MRI or CT may provide further evaluation. Dictated by: Gildardo Orlando MD 01/21/2020 05:48 Electronically signed by Gildardo Orlando MD in [place] 01/21/2020 05:48
[2020-01-20 20:15] VITALS: BP 152/65; PULSE 138; RESP 22; TEMP 36.9; O2SAT 93; BMI 18.3
--- NOTE | 2020-01-20 20:17 | PC.NURSE ---
RT at the bedside to obtain ABG
[2020-01-20 20:25] LABS: Basophils # 0.1 K/mm3 (0-0.2); Basophils % 1.4 % (0.1-2.0); Eosinophils % 0.5 % (0.1-12.0); Hematocrit 47.1 % (37.0-47.0); Hemoglobin 14.8 g/dL (12.2-16.2); Mean Corpuscular HGB Conc 31.4 g/dL (31.8-35.4); Mean Corpuscular Hemoglobin 31.1 pg (27.0-31.2); Mean Platelet Volume 7.1 fl (7.4-10.4); Monocytes # 0.3 K/mm3 (0.1-1.0); Monocytes % 4.3 % (1.7-9.3); Neutrophils # 3.4 K/mm3 (1.8-7.8); Neutrophils % 42.9 % (37.0-80.0); Platelet Count 449 K/mm3 (142-424); Red Blood Count 4.76 M/mm3 (4.20-5.40); Red Cell Distribution Width 14.7 % (11.5-17.5); White Blood Count 7.9 K/mm3 (4.8-10.8)
[2020-01-20 20:27] LABS: Chloride 94 mmol/L (98-107); Potassium 4.4 mmoL/L (3.5-5.1); Sodium 127 mmol/L (136-145)
[2020-01-20 20:29] LABS: Alanine Aminotransferase 14 U/L (12-78); Alkaline Phosphatase 66 U/L (38-126); Aspartate Amino Transferase 37 U/L (14-36); Bilirubin,Total 0.3 mg/dl (0.2-1.3); Blood Urea Nitrogen 10 mg/dl (7-17); Creatinine Clearance Estimated 42 mL/min (50-200); Estimated Glomerular Filt Rate 162 ml/min (>60); GFR (African American) 196 ML/MIN (>60)
[2020-01-20 20:30] LABS: Albumin Level 4.2 g/dl (3.5-5.0); Albumin/Globulin Ratio 1.6 (1.1-1.8); Anion Gap 15.4 mEq/L (5-15); Calcium 8.8 mg/dl (8.4-10.2); Carbon Dioxide 22 mmol/L (22.0-30.0); Globulin 2.6 g/dL (1.3-3.2); Glucose 115 mg/dl (74-100); Total Protein,Serum 6.8 g/dl (6.3-8.2)
[2020-01-20 20:31] LABS: MANUAL DIFFERENTIAL MANUAL DIFFERENTIAL (MANUAL DIFF)
[2020-01-20 20:33] LABS: ABG Base Excess -3.1 mmol/L (-2.4-2.3); ABG HCO3 22.4 mmhg (22.0-26.0); ABG Oxygen Saturation 97 % (90-100); ABG PCO2 41.1 mmhg (35.0-45.0); ABG PH 7.36 mmol/L (7.35-7.45); ABG PO2 95.3 mmhg (80-100); ABG TCO2 23.7 mmhg (23-27)
[2020-01-20 20:35] LABS: Source Right Brachial
--- NOTE | 2020-01-20 20:42 | PC.NURSE ---
pt to xray via stretcher per rad staff
[2020-01-20 20:43] LABS: Troponin I < 0.01 ng/ml (0.00-0.034)
--- NOTE | 2020-01-20 20:55 | HMH.EDSOB ---
ED Disposition Clinical Impression: Acute exacerbation of chronic obstructive airways disease, Low body mass index (BMI) Rib fracture Qualifiers: Encounter type: subsequent encounter Rib fracture type: multiple ribs Fracture type: closed Laterality: right Fracture healing: with routine healing Qualified Code(s): S22.41XD - Multiple fractures of ribs, right side, subsequent encounter for fracture with routine healing Disposition: Home, Self-Care Condition on Discharge: Good Instructions: DI for Chronic Obstructive Pulmonary Disease Additional Instructions: see pcp for follow up Referrals: Luis Valero MD [Primary Care Provider] - - Critical Care Critical Care Time: No Attestation: On 01/20/20, the high probability of a clinically significant, sudden or life threatening deterioration of the following system(s) required my full and direct attention, intervention and personal management. The time I documented below is in addition to time spent performing reported procedures but includes the following listed in this critical care notation. Medical Decision Making - Medical Records Medical records reviewed: Yes: I reviewed the patient's medical records. - David Inquiry Pt receiving controlled substance: No Vital Signs: 01/20/20 20:15 01/20/20 21:53 Temperature 98.4 F Temperature Source Oral Pulse Rate [Right Brachial] 138 H 115 H Respiratory Rate 22 20 Blood Pressure [Right Arm] 152/65 H 140/62 Blood Pressure Mean [Right Arm] 94 88 Blood Pressure Source [Right Arm] Automatic Cuff Blood Pressure Position [Right Arm] Sitting 02 Sat by Pulse Oximetry 93 L 95 Oxygen Delivery Method Room Air Nasal Cannula Oxygen Flow Rate (LPM) 2 - Lab Data Lab results reviewed: Yes: I reviewed the patient's lab results. Lab Results 01/20/20 20:12: WBC 7.9, RBC 4.76, Hgb 14.8, Hct 47.1 H, MCV 99.0, MCH 31.1, MCHC 31.4 L, RDW 14.7, Plt Count 449 H, MPV 7.1 L, Neut % (Auto) 42.9, Lymph % (Auto) 51.0 H, Coal % (Auto) 4.3, Eos % (Auto) 0.5, Baso % (Auto) 1.4, Neut # (Auto) 3.4, Lymph # (Auto) 4.0, Coal # (Auto) 0.3, Eos # (Auto) 0.0, Baso # (Auto) 0.1, Total Counted 100, Neutrophils % (Manual) 35 L, Lymphocytes % (Manual) 62 H, Monocytes % (Manual) 2, Basophils % (Manual) 1.0, Platelet Estimate Normal, Macrocytosis 1+, Target Cells 1+ 01/20/20 20:12: Sodium 127 L, Potassium 4.4, Chloride 94 L, Carbon Dioxide 22, Anion Gap 15.4 H, BUN 10, Creatinine 0.40 L, Estimated Creat Clear 42, Estimated GFR 162, Est GFR ( Amer) 196, Glucose 115 H, Calcium 8.8, Total Bilirubin 0.3, AST 37 H, ALT 14, Alkaline Phosphatase 66, Troponin I < 0.01, Total Protein 6.8, Albumin 4.2, Globulin 2.6, Albumin/Globulin Ratio 1.6 01/20/20 20:18: Influenza Type A Ag Negative, Influenza Type B Ag Negative 01/20/20 20:27: Specimen Source Right brachial, ABG pH 7.36, ABG pCO2 41.1, ABG pO2 95.3, ABG HCO3 22.4, ABG Total CO2 23.7, ABG O2 Saturation 97, ABG Base Excess -3.1 L Result diagrams: 01/20/20 20:12 01/20/20 20:12 Orders (Tests/Meds): ED MEDICATIONS Discontinued Medications Generic Name Dose Route Start Last Admin Trade Name Freq PRN Reason Stop Dose Admin Methylprednisolone Sodium Succinate 125 mg 01/20/20 21:12 01/20/20 21:13 Solu-Medrol 125mg/2ml Vial IV 01/20/20 21:13 125 mg ONCE ONE Administration ORDERS Category Date Time Status CT chest wo con Stat Cat Scan 01/20/20 21:09 Taken Chest XR 2 view (NOT portable) [XR chest 2V] Stat Exams 01/20/20 20:13 Taken Troponin I Q3H Lab 01/20/20 23:15 Ordered Troponin I Q3H Lab 01/21/20 02:15 Ordered - Radiology Data #1 Image(s): Chest Image Reviewed: Yes I reviewed the patient's radiology image Preliminary Findings: Abnormal (copd) - CT Data CT Scan: Chest Time Received: 22:[address] Reviewed: Yes: I have viewed the radiologist's interpretation Preliminary Findings: Abnormal (copd/rib fx ) - ECG Data Tracing #1 Arrhythmias present: sinus ta
--- NOTE | 2020-01-20 21:07 | PC.NURSE ---
with patients permission, was updated about patients condition.
--- NOTE | 2020-01-20 21:09 | CT_ITS ---
PROCEDURE: CT CHEST WO CON CLINICAL INDICATION: SOB Shortness of breath, right rib pain, rib fractures, injury with pain, COMPARISON: CXR2V XR chest 2V from 04/02/2018 CT LUNG SCREENING from 09/09/2019 XR RIBS RT 2V from 01/19/2020 TECHNIQUE: Axial images obtained with sagittal and coronal reformats. All CT scans at the facility use one or more dose reduction, viz: automated exposure control, ma/kV adjustment per patient size (including targeted exams where dose is matched to indication, i.e. head), or iterative reconstruction technique. FINDINGS: HEART AND MEDIASTINAL STRUCTURES: The heart appears small which may be seen with COPD. No mediastinal or hilar mass. LUNGS AND PLEURAL SPACES: COPD. Atelectatic changes are present in the lung bases with postsurgical changes in the left lower lobe. There is mild diffuse bronchial thickening. There are a few subcentimeter opacities which are nonspecific including a subpleural opacity in the left lung base laterally image 63 at 5 mm, subpleural opacity left lung base laterally image 56 at 6 mm, 3 mm opacity left lower lobe posteriorly image 38, nonspecific small fissural nodules, and a subpleural linear opacity in the right middle lobe at 5 mm. No effusions. BONY STRUCTURES: Recent right 10th and 11th rib fracture posteriorly multiple old bilateral rib fractures. There is severe wedge deformity of T5 with mild retropulsion of the posterior fracture fragments by 3-4 mm. Greater than 50 percent wedge compression fracture involves T4. There is also mild wedging of T6, T7, T10, and T11. These are age indeterminate. There wedge deformity at T4 and T5 has developed or progressed since older radiograph of 04/02/2018 UPPER ABDOMEN: There is a hyperdense nodule in the right kidney superiorly measuring 17 mm. Consider nonemergent ultrasound for further evaluation. ADDITIONAL FINDINGS: No other significant abnormalities. IMPRESSION: 1. Acute appearing 10th and 11th rib fractures on the right with multiple additional chronic bilateral rib fractures. 2. Severe wedge compression changes of T5 and moderate to severe wedge compression changes of T4 new or worsening compared to 04/02/2018 with other less severe compression changes also noted. Consider MRI of the thoracic spine for more thorough evaluation and to better date the fractures and evaluate for cord impingement as there is some mild retropulsion at T5. 3. COPD with small bilateral parenchymal opacities. Recommend six-month follow-up with CT chest with contrast. 4. Hyperdense right renal nodule. Suggest ultrasound for further evaluation Dictated by: Gildardo Orlando MD 01/21/2020 06:22 Electronically signed by Gildardo Orlando MD in [facility] 01/21/2020 06:22
--- NOTE | 2020-01-20 21:20 | PC.NURSE ---
pt back to rad for ct
--- NOTE | 2020-01-20 21:33 | PC.NURSE ---
pt back from radiology
[2020-01-20 21:53] VITALS: BP 140/62; PULSE 115; RESP 20; O2SAT 95
[2020-01-20 21:53] LABS: Lymphocytes % 62 % (10-50); Macrocytosis 1+; Monocytes % 2 % (2-9); Neutrophils % 35 % (42-76); Platelet Estimate Normal; Target Cells 1+; Total Cells Counted 100
--- NOTE | 2020-01-20 22:29 | PC.NURSE ---
per patient request, pt's friend renata was contacted to pick pt up from the hospital.
[2020-01-20 22:43] VITALS: BP 123/90; PULSE 118; RESP 20; O2SAT 93
[2020-01-20 22:59] VITALS: BP 123/90; PULSE 118; RESP 20; TEMP 36.9; O2SAT 93
== END 2020-01-20 23:01 | disposition home or self-care (01) ==
PROVIDERS: Emergency Provider Emergency Medicine; PCP Family Medicine
DX: J44.1 Chronic obstructive pulmonary disease with (acute) exacerbation (principal); S22.41XA Multiple fractures of ribs, right side, initial encounter for closed fracture; W01.0XXA Fall on same level from slipping, tripping and stumbling without subsequent striking against object, initial encounter; Y92.019 Unspecified place in single-family (private) house as the place of occurrence of the external cause; F41.9 Anxiety disorder, unspecified; Z68.1 Body mass index [BMI] 19.9 or less, adult
CPT/HCPCS: 71046; 71250; 80053; 82803; 84484; 85007; 85025; 87275; 87276; 93005; 96374; 99284

== ENCOUNTER 2020-08-14 14:08 | Observation (INO) | payer MEDICARE, SELFPAY ==
[2020-08-14] VITALS (7 sets, daily range): BP systolic 89–123; BP diastolic 56–71; PULSE 91–121; RESP 14–22; TEMP 36.4–36.6; O2SAT 95–100; BMI 16.9; BMI 18.3
--- NOTE | 2020-08-14 14:02 | ECG_ITS ---
APPROVED REPORT Exam: Resting ECG HR:95 bpm ECG Measurements Heart Rate 95 AXES SC 156 P 65 QRSd 70 QRS 65 QT 324 T 74 QTc 407 Conclusion Normal sinus rhythm Early Repolarization,otherwise a normal ECG Electronically signed by : Ozzie Cuadra, 08/15/2020 16:59:11
--- NOTE | 2020-08-14 14:13 | XR_ITS ---
PROCEDURE: XR CHEST PORTABLE CLINICAL HISTORY: CHEST PAIN COMPARISON: CR CXR1VP XR chest portable from 03/14/2018 CR CXR2V XR chest 2V from 04/02/2018 CR XR CHEST 2V from 01/20/[address] CHEST WO CON from 01/20/2020 FINDINGS: The cardiomediastinal silhouette and pulmonary vascularity are within normal limits. There is COPD changes. Suture line is present in the left lung base. There is a nodular opacity overlying the right lower lobe and may be due to nipple shadow. No acute bony abnormalities. IMPRESSION: COPD with chronic changes with right lower lobe nodule versus nipple shadow Dictated by: Gildardo Orlando MD 08/14/2020 17:50 Gildardo Orlando MD in [facility] 08/14/2020 17:50
[2020-08-14 14:27] LABS: Chloride 88 mmol/L (98-107); Potassium 3.8 mmoL/L (3.5-5.1); Sodium 118 mmol/L (136-145)
[2020-08-14 14:30] LABS: Anion Gap 19.8 mEq/L (5-15); Blood Urea Nitrogen 16 mg/dl (7-17); Carbon Dioxide 14 mmol/L (22.0-30.0); Creatinine Clearance Estimated 38 mL/min (50-200); Estimated Glomerular Filt Rate 85 ml/min (>60); GFR (African American) 103 ML/MIN (>60)
[2020-08-14 14:31] LABS: Calcium 8.3 mg/dl (8.4-10.2); Glucose 129 mg/dl (74-100)
[2020-08-14 14:40] LABS: Basophils # 0.1 K/mm3 (0-0.2); Basophils % 1.2 % (0.1-2.0); Eosinophils % 0.5 % (0.1-12.0); Hematocrit 37.1 % (37.0-47.0); Hemoglobin 11.8 g/dL (12.2-16.2); Lymphocytes # 2.8 K/mm3 (0.7-4.5); Mean Corpuscular HGB Conc 31.9 g/dL (31.8-35.4); Mean Corpuscular Hemoglobin 32.8 pg (27.0-31.2); Monocytes # 0.2 K/mm3 (0.1-1.0); Monocytes % 2.9 % (1.7-9.3); Neutrophils # 3.1 K/mm3 (1.8-7.8); Neutrophils % 50.4 % (37.0-80.0); Platelet Count 468 K/mm3 (142-424); Red Cell Distribution Width 14.7 % (11.5-17.5); White Blood Count 6.2 K/mm3 (4.8-10.8)
[2020-08-14 14:43] LABS: Troponin I < 0.01 ng/ml (0.00-0.034)
[2020-08-14 15:30] LABS: D-Dimer < 0.25 ug/mL (0.15-8.0)
--- NOTE | 2020-08-14 16:04 | CT_ITS ---
PROCEDURE: CT CHEST WO CON Referring Doctor: Josesito Hines Patient Age:60Y CLINICAL INDICATION: chest pain short of breath. Smoker. Centralized chest pain COMPARISON: CT ABDPELW/O CT ABD PELVIS W/O CONTRAST from 03/29/2015 US ABD US ABD(COMPLETE-MULTI ORGANS from 04/02/[address] LUNG SCREENING from 09/09/[address] CHEST WO CON from 01/20/2020 TECHNIQUE: No IV contrast Helical axial images obtained with sagittal and coronal reformats. All CT scans at the facility use one or more dose reduction, viz: automated exposure control, ma/kV adjustment per patient size (including targeted exams where dose is matched to indication, i.e. head), or iterative reconstruction technique. FINDINGS: LUNGS:Underlying hyperexpansion is and emphysematous changes upper lobe predominately centrilobar emphysema both lungs. Linear opacities throughout both lungs likely reflecting scarring and/or subsegmental atelectasis.. Postsurgical changes posterior sulcus left base with suture/staple line here. Just less than 5 mm linear opacity on mL laterally subpleural region which was seen on previous screening CT chest.. Rather linear appearance favors related to scarring. In either case is stable in can be followed. As a small subpleural rather linear density at the left base axial image 63 which is stable-and most likely due to scarring as well. No new pulmonary findings or masses. No active disease HEART: .. Normal heart size. No pericardial effusion. MEDIASTINAL AND HILAR STRUCTURES: No mediastinal or hilar mass evident. No dominant adenopathy.. Minimal calcification of tracheobronchial tree at hilar regions with perhaps some small calcified hilar nodes A question perhaps some mild wall thickening the distal esophagus but nonspecific but could reflect esophagitis but PULMONARY ARTERIES: Normal caliber and unremarkable on this noncontrast study AORTA: Normal caliber no significant findings noncontrast study. Minimal atherosclerotic calcification ascending aorta and origin of great vessels PLEURAL SPACES: No significant effusion. No evidence of pneumothorax. BONY STRUCTURES: No acute bony abnormalities apparent. Old healed posterior right 10th rib fracture and possibly posterior 9th rib as well but no acute LYMPH NODES: No enlarged lymph nodes evident. UPPER ABDOMEN 19 mm hyperdense area at upper pole right kidney appears fairly stable since 2019 of but I would note there is subtle incremental progression compared back to 2014. Initially suspected is a hemorrhagic cyst,. However a prior ultrasound 2015 did not reveal as cyst.-Thus recommend follow-up ultrasound kidneys with attention right kidney to further evaluate such . IMPRESSION: 1.. Stable CT chest with no acute findings . Chronic changes/emphysematous changes.. . Stable tiny densities and stable areas of scarring 2.. Old healing posterior right 10th rib fracture noted 3.. Longstanding hyperdense superior right renal mass 19 mm. Initially favored hyperdense cyst but no cyst seen on 2015 ultrasound-thus would suggest follow-up renal ultrasound since noting the subtle incremental progression since 2015 Dictated by: Jac Hansen MD 08/16/2020 11:06 Jac Hansen MD in [place] 08/16/2020 11:06
--- NOTE | 2020-08-14 16:30 | PC.NURSE ---
PT UP TO BATHROOM AMBULATORY WITHOUT ASSIST
--- NOTE | 2020-08-14 16:41 | [facility].EDCP ---
ED Disposition Clinical Impression: Hyponatremia Disposition: Admitted As Inpatient Condition on Discharge: Good Referrals: Luis Valero MD [Primary Care Provider] - - Critical Care Critical Care Time: No Attestation: On 08/14/20, the high probability of a clinically significant, sudden or life threatening deterioration of the following system(s) required my full and direct attention, intervention and personal management. The time I documented below is in addition to time spent performing reported procedures but includes the following listed in this critical care notation. Medical Decision Making - Medical Records Medical records reviewed: Yes: I reviewed the patient's medical records. - David Inquiry Pt receiving controlled substance: No Vital Signs: 08/14/20 14:09 08/14/20 15:00 08/14/20 16:09 Temperature 98 F Temperature Source Oral Pulse Rate [Radial] 95 H 94 H 105 H Respiratory Rate 18 22 20 Blood Pressure [Right Arm] 96/59 L 89/61 L 119/67 Blood Pressure Mean [Right Arm] 71 70 84 Blood Pressure Source [Right Arm] Automatic Cuff Automatic Cuff Blood Pressure Position [Right Arm] Sitting Sitting Sitting 02 Sat by Pulse Oximetry 96 97 98 Oxygen Delivery Method Room Air Room Air - Lab Data Lab results reviewed: Yes: I reviewed the patient's lab results. Lab Results 08/14/20 14:10: WBC 6.2, RBC 3.60 L, Hgb 11.8 L, Hct 37.1, MCV 103.0 H, MCH 32.8 H, MCHC 31.9, RDW 14.7, Plt Count 468 H, MPV 7.0 L, Neut % (Auto) 50.4, Lymph % (Auto) 45.0, [place] % (Auto) 2.9, Eos % (Auto) 0.5, Baso % (Auto) 1.2, Neut # (Auto) 3.1, Lymph # (Auto) 2.8, [place] # (Auto) 0.2, Eos # (Auto) 0.0, Baso # (Auto) 0.1 08/14/20 14:10: Sodium 118 L, Potassium 3.8, Chloride 88 L, Carbon Dioxide 14 L, Anion Gap 19.8 H, BUN 16, Creatinine 0.70, Estimated Creat Clear 38, Estimated GFR 85, Est GFR ( Amer) 103, Glucose 129 H, Calcium 8.3 L, Troponin I < 0.01 08/14/20 14:10: D-Dimer < 0.25 Result diagrams: 08/14/20 14:10 08/14/20 14:10 Orders (Tests/Meds): ED MEDICATIONS Generic Name Dose Route Start Last Admin Trade Name Freq PRN Reason Stop Dose Admin Sodium Chloride 500 mls @ 999 mls/hr 08/14/20 15:15 08/14/20 15:26 Sod Chlor 0.9% 1000ml Bag IV 08/14/20 15:45 999 mls/hr .Q31M ROBEL Administration Sodium Chloride 500 mls @ 999 mls/hr 08/14/20 16:30 Sod Chlor 0.9% 1000ml Bag IV 08/14/20 17:00 .Q31M ROBEL Sodium Chloride 8 ml 08/14/20 15:12 08/14/20 15:26 Sodium Chloride 0.9% 10ml Vial IV 09/13/20 15:11 8 ml NEEDED PRN Administration dilute pepcid Discontinued Medications Generic Name Dose Route Start Last Admin Trade Name Freq PRN Reason Stop Dose Admin Belladonna Alkaloids 60 ml 08/14/20 15:20 08/14/20 15:25 Gi Cocktail 60ml Udc PO 08/14/20 15:21 60 ml ONCE ONE Administration Famotidine 20 mg 08/14/20 15:12 08/14/20 15:25 Famotidine 20mg/2ml Vial IV 08/14/20 15:13 20 mg ONCE ONE Administration ORDERS Category Date Time Status CT chest wo con Stat Cat Scan 08/14/20 16:04 Taken XR chest portable Stat Exams 08/14/20 14:13 Taken Covid-19 IgG/IgM ([facility]) Stat Lab 08/14/20 14:10 Received Ethanol [Ethyl Alcohol] Stat Lab 08/14/20 16:36 Ordered Troponin I Q3H Lab 08/14/20 17:15 Ordered Troponin I Q3H Lab 08/14/20 20:15 Ordered Medical Decision Narrative: 60-year-old female with a history of alcoholism presenting with chest pain. Nontoxic, afebrile, hemodynamically stable, oxygenating well on room air. EKG is nonischemic without arrhythmia. Chest x-ray showed evidence of fibrosis so I ordered a CT chest which is pending. Of note, patient has a hyponatremia with a sodium down to 118 which is likely secondary to beer [place]oto oleg[place]. The remainder of her electrolytes are nonactionable. She has not seized. White blood cell count and glucose are nonactionable. Spoke to Dr. Diaz who will admit the patient for hyponatremia for further
[2020-08-14 16:49] LABS: Coronavirus 19 IgG Antibody Negative (Negative); Coronavirus 19 IgM Antibody Negative (Negative); Ethyl Alcohol 137 mg/dl (0-10)
--- NOTE | 2020-08-14 17:24 | PC.NURSE ---
REPORT CALLED TO FLOOR
[2020-08-14 17:55] LABS: Troponin I < 0.01 ng/ml (0.00-0.034)
[2020-08-14 19:02] LABS: POC Glucose,Bedside 117 (70-110)
--- NOTE | 2020-08-14 19:53 | PC.NURSE ---
Pt to floor at 1830.
--- NOTE | 2020-08-14 19:54 | PC.NURSE ---
Report given to Salinas Abdullahi RN.
[2020-08-14 21:45] LABS: Troponin I < 0.01 ng/ml (0.00-0.034)
[2020-08-14 21:51] LABS: Sodium 119 mmol/L (136-145)
[2020-08-14 22:11] LABS: POC Glucose,Bedside 129 (70-110)
[2020-08-15] VITALS (12 sets, daily range): BP systolic 101–135; BP diastolic 52–75; PULSE 100–120; RESP 16–20; TEMP 36.3–37.1; O2SAT 93–100; BMI 17.9
[2020-08-15 04:14] LABS: POC Glucose,Bedside 103 (70-110)
--- NOTE | 2020-08-15 04:17 | PC.NURSE ---
Pt A&OX4 wheezes throughout lungs. Pt denies SOA or pain. CIWA Q2. pt received one dose of Ativan for agitation @ beginning of shift. Sinus tach in tele Pt ambulates to BR x 1 assistance. pt has rested quietly this shift. bed alarm activated
[2020-08-15 06:44] LABS: Basophils # 0.1 K/mm3 (0-0.2); Basophils % 0.3 % (0.1-2.0); Eosinophils # 0.1 K/mm3 (0.0-0.4); Eosinophils % 0.6 % (0.1-12.0); Hemoglobin 11.3 g/dL (12.2-16.2); Lymphocytes # 2.2 K/mm3 (0.7-4.5); Lymphocytes % 16.3 % (10-50); Mean Corpuscular HGB Conc 33.2 g/dL (31.8-35.4); Mean Corpuscular Hemoglobin 34.2 pg (27.0-31.2); Mean Platelet Volume 7.6 fl (7.4-10.4); Monocytes # 0.4 K/mm3 (0.1-1.0); Monocytes % 2.7 % (1.7-9.3); Neutrophils # 10.9 K/mm3 (1.8-7.8); Neutrophils % 80.1 % (37.0-80.0); Platelet Count 406 K/mm3 (142-424); Red Cell Distribution Width 15.3 % (11.5-17.5); White Blood Count 13.7 K/mm3 (4.8-10.8)
[2020-08-15 07:02] LABS: Chloride 97 mmol/L (98-107); Potassium 3.7 mmoL/L (3.5-5.1); Sodium 122 mmol/L (136-145)
[2020-08-15 07:04] LABS: Blood Urea Nitrogen 15 mg/dl (7-17); Creatinine Clearance Estimated 42 mL/min (50-200); Estimated Glomerular Filt Rate 101 ml/min (>60); GFR (African American) 123 ML/MIN (>60)
[2020-08-15 07:05] LABS: Alanine Aminotransferase 18 U/L (12-78); Albumin Level 3.1 g/dl (3.5-5.0); Alkaline Phosphatase 69 U/L (38-126); Anion Gap 11.7 mEq/L (5-15); Aspartate Amino Transferase 47 U/L (14-36); Bilirubin,Direct 0.1 mg/dl (0.0-0.4); Bilirubin,Indirect 0.4 mg/dL (0.0-0.9); Bilirubin,Total 0.5 mg/dl (0.2-1.3); Bilirubin,Unconjugated 0.4 mg/dL (0.0-1.1); Calcium 7.8 mg/dl (8.4-10.2); Carbon Dioxide 17 mmol/L (22.0-30.0); Magnesium 1.8 mg/dl (1.6-2.3); Phosphorous 3.5 mg/dl (2.5-4.5); Total Protein,Serum 5.2 g/dl (6.3-8.2)
[2020-08-15 07:06] LABS: Glucose 92 mg/dl (74-100)
[2020-08-15 07:10] LABS: Activated Partial Thrombo Time 29.3 seconds (23.6-34.0); INR 1.03 (0.9-1.1); Prothrombin Time 11.4 seconds (9.4-11.8)
--- NOTE | 2020-08-15 08:27 | [facility].HP ---
*Admission Date: 08/14/20 *Chief complaint: Chest pain *History of present illness: 60-year-old recently female presented to the emergency department with complaint of chest pain. During work-up patient was found to be hyponatremic with a sodium of 118. Patient also had an elevated blood alcohol level. She admits to drinking more frequently and more heavily since the passing of her . Patient has a personal history of alcoholism. Patient was admitted for rule out of [place] and was started on IV normal saline for her hyponatremia. This morning she reports no chest pain. She denies any generalized weakness. Sodium level has risen overnight. [facility] History I have reviewed the patient's past medical history: Yes Medical History: Reports:: Anxiety, Congestive Heart Failure, Congenital Heart Disease, Hypertension Denies:: Cancer, Diabetes Mellitus Type 1, Diabetes Mellitus Type 2, MRSA *Have you ever received a pneumonia vaccine?: No *Have you received a flu vaccine this season?: No Other Medical History: Reports: Arthritis, Fibromyalgia Comment:: Alcoholism Other Surgeries: Yes: Hysterectomy-Total, Other (thorocotomy) Amputation: No Fractures: No - *Social History Smoking Status: Current every day smoker Tobacco Type: cigarettes # Packs/Day (cigarettes): 1 #Yrs smoked (if former smoker): 40 Alcohol Intake: current Alcohol Intake Frequency:: 3 or more drinks per day Substance Use Type: denies use *Occupational Status:: retired, disabled Housing: house Household Members: other *Travel in the last 8 weeks: None - Psychiatric History Pschychiatric History:: Reports:: Anxiety Family Hx:: Heart Attack Review of Systems - Constitutional Reports lack of energy, Denies anorexia, Denies body ache(s), Denies chills - ENT Denies abnormal hearing, Denies bleeding gums - *Cardiovascular Denies chest pain, Denies chest pain at rest - *Respiratory Denies change in phlegm color, Denies chest congestion, Denies cough - *Gastrointestinal Denies abdominal pain, Denies bloating, Denies heartburn - *Musculoskeletal Denies abnormal walking, Denies joint pain, Denies decreased muscle mass - *Neurologic Denies abnormal walking, Denies abnormal movements Meds Home Medications Medication Instructions Recorded Confirmed Type Metoprolol Succinate 25 mg PO DAILY 08/27/18 08/14/20 History Sacubitril/Valsartan [Entresto 49 1 each PO DAILY 01/20/20 08/14/20 History mg-51 mg Tablet] Allergies Allergy/AdvReac Type Severity Reaction Status Date / Time NSAIDS (Non-Steroidal Allergy Unknown HURTS Verified 03/30/18 13:35 Anti-Inflamma STOMACH Exam Vital signs and Labs for Last 24 Hours: Temp Pulse Resp BP Pulse Ox 98.8 F 118 H 17 101/58 L 93 L 08/15/20 07:56 08/15/20 07:56 08/15/20 07:56 08/15/20 07:56 08/15/20 07:56 Laboratory Results - last 24 hr 08/14/20 14:10: WBC 6.2, RBC 3.60 L, Hgb 11.8 L, Hct 37.1, MCV 103.0 H, MCH 32.8 H, MCHC 31.9, RDW 14.7, Plt Count 468 H, MPV 7.0 L, Neut % (Auto) 50.4, Lymph % (Auto) 45.0, [place] % (Auto) 2.9, Eos % (Auto) 0.5, Baso % (Auto) 1.2, Neut # (Auto) 3.1, Lymph # (Auto) 2.8, [place] # (Auto) 0.2, Eos # (Auto) 0.0, Baso # (Auto) 0.1 08/14/20 14:10: Sodium 118 L, Potassium 3.8, Chloride 88 L, Carbon Dioxide 14 L, Anion Gap 19.8 H, BUN 16, Creatinine 0.70, Estimated Creat Clear 38, Estimated GFR 85, Est GFR ( Amer) 103, Glucose 129 H, Calcium 8.3 L, Troponin I < 0.01 08/14/20 14:10: D-Dimer < 0.25 08/14/20 14:10: SARS-CoV-2 IgG Ab (Rapid) Negative, SARS-CoV-2 IgM Ab (Rapid) Negative 08/14/20 14:10: Plasma/Serum Alcohol 137 H 08/14/20 17:10: Troponin I < 0.01 08/14/20 18:36: POC Glucose 117 H 08/14/20 21:00: Troponin I < 0.01 08/14/20 21:00: Sodium 119 L 08/14/20 22:04: POC Glucose 129 H 08/15/20 04:05: POC Glucose 103 08/15/20 06:10: WBC 13.7 H D, RBC 3.30 L, Hgb 11.3 L, Hct 34.0 L, MCV 103.0 H, MCH 34.2 H, MCHC 33.2, RDW 15.3, Plt Count 406, MPV 7.6, Neut % (Aut
--- NOTE | 2020-08-15 09:16 | HMH.PHAVTE ---
[facility] Pharmacy VTE Monitoring - Patient Demographics Admission date: 08/15/20 Report Date: 08/15/20 Time: 09:16 Allergies/Adverse Reactions: Patient Allergies NSAIDS (Non-Steroidal Anti-Inflamma Allergy (Unknown, Verified 03/30/18 13:35) HURTS STOMACH Height: 1.6 m Weight: 45.904 kg Patient Problems: Current Active Problems Alcoholism (Acute) Hyponatremia (Acute) Chronic left ventricular systolic dysfunction (Acute) - VTE Risk Labs: VTE Related Lab Results Hgb 11.3 g/dL (12.2-16.2) L 08/15/20 06:10 Hct 34.0 % (37.0-47.0) L 08/15/20 06:10 Plt Count 406 K/mm3 (142-424) 08/15/20 06:10 PT 11.4 seconds (9.4-11.8) 08/15/20 06:10 INR 1.03 (0.9-1.1) 08/15/20 06:10 APTT 29.3 seconds (23.6-34.0) 08/15/20 06:10 BUN 15 mg/dl (7-17) 08/15/20 06:10 Creatinine 0.60 mg/dl (0.52-1.04) 08/15/20 06:10 Estimated Creat Clear 42 mL/min (50-200) 08/15/20 06:10 - Prophylaxis VTE Prophylaxis Ordered?: Yes Types of VTE Prophylaxis: TEDS Knee High Location of Applied Device: Bilateral Lower Extremeties
[2020-08-15 11:34] LABS: POC Glucose,Bedside 105 (70-110)
[2020-08-15 16:27] LABS: POC Glucose,Bedside 159 (70-110)
--- NOTE | 2020-08-15 16:42 | PC.NURSE ---
Pt alert and oriented x 4 and able to make needs known. Has had several loose stools this shift. have educated if it continues we will send a sample to lab. CB in reach. Meds per dec. NAD at this time. Sinus tach. VSS. Blood sugars checked as ordered. BS active. Lungs exp wheezes. Remains safe. Have educated pt not to ambulate without assistance at this time. IVF's infusing at 40 ML/HR.
--- NOTE | 2020-08-15 18:02 | PC.NURSE ---
1754 Report received from Silvana Mackenzie RN. Pt will be transported to room 280 at this time for continued care.
--- NOTE | 2020-08-15 18:03 | PC.NURSE ---
Called report to Leandra Angulo RN
--- NOTE | 2020-08-15 18:09 | PC.NURSE ---
1809 Pt transported to room 280 at this time via wheelchair by staff. Pt oriented to room, bed locked and in lowest position with side rails up x2. Pt denies any needs/concerns.
--- NOTE | 2020-08-15 18:41 | PC.NURSE ---
Made Dr. Valero aware that pt was having dairrhea this shift and he oakyed to send a diarrhea panel.
--- NOTE | 2020-08-15 23:04 | PC.NURSE ---
OXAZEPAM 30 MG PO GIVEN ORDERED.
[2020-08-15 23:17] LABS: POC Glucose,Bedside 109 (70-110)
[2020-08-16] VITALS: PULSE 110
[2020-08-16 00:15] VITALS: BP 101/51; PULSE 120; RESP 18; TEMP 36.7; O2SAT 99
--- NOTE | 2020-08-16 01:45 | PC.NURSE ---
PT HAS JUST RETURNED FROM BATHROOM AND VOIDING 300 CLEAR YELLOW URINE.SHE REQ.SOME TYLENOL FOR ACHINESS,TYLENOL 650MG PO GIVEN.PT DOES NOT WANT O2 BACK ON AT THIS TIME.PT AT ROOM AIR NOW.LUNGS DIMINISHED ON LEFT,EXPIROTORY WHEEZING NOTED ON RIGHT,WILL CONTINUE TO MONITOR,NO OTHER NEEDS OR CONCERNS VOICED
[2020-08-16 04:00] VITALS: BP 98/51; PULSE 109; PULSE 110; RESP 16; TEMP 36.6; O2SAT 97
--- NOTE | 2020-08-16 04:33 | PC.NURSE ---
PT HAS SLEPT WELL TONIGHT,LUNGS DIMINISHED ON LEFT SIDE AND EXPIRATORY WHEEZING ON RIGHT.B/P 98/51,P-109,T-97.8,R- 16,SAT LEVEL 97 % ON RA.PT HAS BEEN USING O2 THROUGHTOUT THE NIGHT OFF AND ON.PT HAS VOIDED SEVERAL TIMES TONIGHT-CLEAR YELLOW URINE,NO DIARREHEA THIS SHIFT.NORMAL BOWEL SOUNDS X4 QUADS,FRONT DESK AGENT SHOWING SINUS TACH.
[2020-08-16 05:07] VITALS: BMI 17.4
--- NOTE | 2020-08-16 05:37 | PC.NURSE ---
OXAZEPAM 30MG PO GIVEN ORDERED,PT FSBS WAS 128 THIS MORNING.
[2020-08-16 05:39] LABS: POC Glucose,Bedside 128 (70-110)
--- NOTE | 2020-08-16 06:40 | PC.NURSE ---
MAKING AM ROUNDS
--- NOTE | 2020-08-16 06:55 | PC.NURSE ---
LAB HERE TO DRAW BLOOD.
[2020-08-16 07:14] LABS: Chloride 103 mmol/L (98-107); Potassium 3.5 mmoL/L (3.5-5.1); Sodium 129 mmol/L (136-145)
[2020-08-16 07:17] LABS: Anion Gap 8.5 mEq/L (5-15); Blood Urea Nitrogen 7 mg/dl (7-17); Calcium 8.2 mg/dl (8.4-10.2); Carbon Dioxide 21 mmol/L (22.0-30.0); Creatinine Clearance Estimated 41 mL/min (50-200); Estimated Glomerular Filt Rate 162 ml/min (>60); GFR (African American) 196 ML/MIN (>60); Glucose 115 mg/dl (74-100)
--- NOTE | 2020-08-16 07:29 | [facility].DCSUM ---
General - General Admission date:: 08/14/20 Discharge date: 08/16/20 HPI HPI: 60-year-old recently female presented to the emergency department with complaint of chest pain. During work-up patient was found to be hyponatremic with a sodium of 118. Patient also had an elevated blood alcohol level. She admits to drinking more frequently and more heavily since the passing of her . Patient has a personal history of alcoholism. Patient was admitted for rule out of [place] and was started on IV normal saline for her hyponatremia. This morning she reports no chest pain. She denies any generalized weakness. Sodium level has risen overnight. Hospital Course Hospital Course: Patient was admitted and given IV normal saline and serial sodiums were drawn. Sodium gradually increased throughout the remainder of the hospitalization. Patient was given fluids at a low rate to avoid hypervolemia. On August 16 patient sodium had risen to 129. Patient was discharged home. Because of hyponatremia is suspected to be related to alcohol use. Urine studies are pending at discharge. Objective Vital signs: Temp Pulse Resp BP Pulse Ox 97.8 F 109 H 16 98/51 L 97 08/16/20 04:00 08/16/20 04:00 08/16/20 04:00 08/16/20 04:00 08/16/20 04:00 no acute distress - *Routine Respiratory Exam Present: rhonchi - *Routine Cardiovascular Exam Present: RRR Results Labs on day of discharge: Labs from last 24 hours 08/16/20 08/16/20 08/15/20 06:55 05:24 23:03 Sodium 129 L Potassium 3.5 Chloride 103 Carbon Dioxide 21 L D Anion Gap 8.5 BUN 7 D Creatinine 0.40 L D Estimated Creat Clear 41 Estimated GFR 162 Est GFR ( Amer) 196 D Glucose 115 H POC Glucose 128 H 109 Calcium 8.2 L 08/15/20 08/15/20 15:58 11:03 Sodium Potassium Chloride Carbon Dioxide Anion Gap BUN Creatinine Estimated Creat Clear Estimated GFR Est GFR ( Amer) Glucose POC Glucose 159 H 105 Calcium DS: Diagnosis - Discharge Diagnosis (1) Hyponatremia Status: Acute (2) Alcoholism Status: Acute (3) Chronic left ventricular systolic dysfunction Status: Acute (4) Acute exacerbation of chronic obstructive airways disease Status: Acute Discharge Plan - Patient Discharge Instructions ACTIVITY: Continue current activity DIET: continue same diet Patient Instructions: DI for Alcohol Abuse, DI for Hyponatremia, Hyponatremia-Adult - Follow up Plan Disposition: Home, Self-[facility] Medications: Home Medications Medication Instructions Recorded Confirmed Type Sacubitril/Valsartan [Entresto 49 1 each PO DAILY 01/20/20 08/14/20 History mg-51 mg Tablet] Metoprolol Succinate [Metoprolol 25 mg PO DAILY 08/15/20 08/15/20 History Succinate 25mg Tablet*] guaiFENesin [Mucinex] 600 mg PO BID #30 tab.er.12h 08/16/20 Rx methylPREDNISolone [Medrol 4mg 4 mg PO DIRECTED #21 tab 08/16/20 Rx tab] Prescriptions/Medication Reconciliation: New methylPREDNISolone [Medrol 4mg tab] 4 mg PO DIRECTED #21 tab guaiFENesin [Mucinex] 600 mg PO BID #30 tab.er.12h Continued Metoprolol Succinate [Metoprolol Succinate 25mg Tablet*] 25 mg PO DAILY Sacubitril/Valsartan [Entresto 49 mg-51 mg Tablet] 1 each PO DAILY - Problem Reconciliation Problems Reviewed?: Yes
[2020-08-16 07:45] VITALS: BP 133/70; PULSE 115; RESP 20; TEMP 36.6; O2SAT 97
--- NOTE | 2020-08-16 09:29 | PC.NURSE ---
0846 Discharge education provided to pt at this time, questions encouraged and answered. Pt is aware of follow up appointment with Dr. Valero.
--- NOTE | 2020-08-16 09:40 | PC.NURSE ---
0940 Pt escorted out of department via wheelchair to private vehicle at this time for discharge home. Mask worn per COVID-19 policy.
== END 2020-08-16 09:40 | disposition home or self-care (01) ==
LOC: ER 16:54 → 2ND 19:23 → OB 08-15 17:47
PROVIDERS: Admitting Provider Emergency Medicine; Emergency Provider Physician Assistant; PCP Family Medicine; Visit Provider Family Medicine
DX: E87.1 Hypo-osmolality and hyponatremia (principal); F10.20 Alcohol dependence, uncomplicated; Y90.6 Blood alcohol level of 120-199 mg/100 ml; I11.0 Hypertensive heart disease with heart failure; I50.9 Heart failure, unspecified; Z72.0 Tobacco use; J44.1 Chronic obstructive pulmonary disease with (acute) exacerbation
CPT/HCPCS: 36415; 71045; 71250; 80048; 80076; 82962; 83735; 84100; 84295; 84484; 85025; 85378; 85610; 85730; 86328; 93005; 96365; 96367; 96375; 99284; G0378; J2405

== ENCOUNTER 2020-09-09 12:30 | Inpatient (IN) | payer MEDICARE, SELFPAY ==
[2020-09-09] VITALS (8 sets, daily range): BP systolic 96–121; BP diastolic 50–77; PULSE 84–127; RESP 18–20; TEMP 36.4–36.7; O2SAT 91–100; BMI 16.5; BMI 17.6
--- NOTE | 2020-09-09 12:32 | XR_ITS ---
PROCEDURE: XR HIP LT 2-3V W/PELVIS CLINICAL INDICATION: FALL Posttraumatic pain COMPARISON: CR XR HIP RT 2-3V W/PELVIS from 01/19/2020 FINDINGS: There is a comminuted left-sided intertrochanteric fracture with mild impaction of the fracture fragments. There is 2 cm medial displacement of the distal fracture fragment with medial angulation of the distal fracture fragment. IMPRESSION: Comminuted and displaced left intertrochanteric fracture Dictated by: Gildardo Orlando MD 09/09/2020 15:47 Gildardo Orlando MD in [facility] 09/09/2020 15:47
--- NOTE | 2020-09-09 12:32 | XR_ITS ---
PROCEDURE: XR CHEST PORTABLE CLINICAL HISTORY: FALL posttraumatic pain COMPARISON: 08/14/2020 FINDINGS: The cardiomediastinal silhouette and pulmonary vascularity are within normal limits. Postsurgical changes are present in the left lung base. Nodularity noted overlying the right lower lobe which may be due to nipple shadow. There is an old left 4th rib fracture posteriorly. No acute bony abnormalities. IMPRESSION: No acute findings. Dictated by: Gildardo Orlando MD 09/09/2020 15:43 Gildardo Orlando MD in [place] 09/09/2020 15:43
--- NOTE | 2020-09-09 12:43 | ECG_ITS ---
APPROVED REPORT Exam: Resting ECG HR:108 bpm ECG Measurements Heart Rate 108 AXES NV 150 P 84 QRSd 62 QRS 70 QT 312 T 84 QTc 418 Conclusion Sinus tachycardia Possible Left atrial enlargement ST elevation, consider early repolarization, pericarditis, or injury Abnormal ECG Electronically signed by : Luis Plummer, 09/10/2020 10:19:25
--- NOTE | 2020-09-09 12:50 | PC.NURSE ---
rad at bedside
--- NOTE | 2020-09-09 12:52 | HMH.EDGENADL ---
ED Disposition Clinical Impression: Hyponatremia, Alcoholism Closed left hip fracture Qualifiers: Encounter type: initial encounter Qualified Code(s): S72.002A - Fracture of unspecified part of neck of left femur, initial encounter for closed fracture Rhabdomyolysis Qualifiers: Rhabdomyolysis type: traumatic Encounter type: initial encounter Qualified Code(s): T79.6XXA - Traumatic ischemia of muscle, initial encounter Disposition: Admitted As Inpatient Condition on Discharge: Fair - Critical Care Critical Care Time: No Attestation: On , the high probability of a clinically significant, sudden or life threatening deterioration of the following system(s) required my full and direct attention, intervention and personal management. The time I documented below is in addition to time spent performing reported procedures but includes the following listed in this critical care notation. Medical Decision Making - Medical Records Medical records reviewed: Yes: I reviewed the patient's medical records. MR Angel: Has a history of alcoholism and admissions for withdrawal. Patient states to me that she drinks 2-3 drinks a day, last drank last night. - David Inquiry Pt receiving controlled substance: Yes David was queried for this patient: No Reason not queried -: Emergent pt cond-no time Risks and benefits of using a controlled substance: were not discussed with pt by me Vital Signs: 09/09/20 12:30 09/09/20 13:28 09/09/20 14:04 Temperature 98 F Temperature Source Oral Pulse Rate [Radial] 125 H 109 H 107 H Respiratory Rate 20 Blood Pressure [Right Arm] 100/77 L 108/57 L 121/71 Blood Pressure Mean [Right Arm] 84 74 87 Blood Pressure Source [Right Arm] Automatic Cuff Automatic Cuff Blood Pressure Position [Right Arm] Sitting Sitting Sitting 02 Sat by Pulse Oximetry 91 L 100 100 Oxygen Delivery Method Room Air Room Air Room Air 09/09/20 15:08 Temperature Temperature Source Pulse Rate [Radial] 112 H Respiratory Rate Blood Pressure [Right Arm] 114/58 L Blood Pressure Mean [Right Arm] 76 Blood Pressure Source [Right Arm] Automatic Cuff Blood Pressure Position [Right Arm] Sitting 02 Sat by Pulse Oximetry 94 L Oxygen Delivery Method Room Air - Lab Data Lab Results 09/09/20 12:50: SARS-CoV-2 IgG Ab (Rapid) Negative, SARS-CoV-2 IgM Ab (Rapid) Negative 09/09/20 13:06: WBC 17.6 H, RBC 3.41 L, Hgb 11.4 L, Hct 35.4 L, MCV 103.6 H, MCH 33.4 H, MCHC 32.2, RDW 14.7, Plt Count 465 H, MPV 8.5, Neut % (Auto) 90.5 H, Lymph % (Auto) 5.8 L, [place] % (Auto) 3.6, Eos % (Auto) 0.0 L, Baso % (Auto) 0.2, Neut # (Auto) 16.0 H, Lymph # (Auto) 1.0, [place] # (Auto) 0.6, Eos # (Auto) 0.0, Baso # (Auto) 0.0, Total Counted 100, Neutrophils % (Manual) 92 H, Lymphocytes % (Manual) 4 L, Monocytes % (Manual) 1 L, Eosinophils % (Manual) 3, Platelet Estimate Slight increase, Anisocytosis 1+, Macrocytosis 1+, Stomatocytes 1+ 09/09/20 13:06: Sodium 116 L, Potassium 4.6, Chloride 81 L, Carbon Dioxide 29, Anion Gap 10.6, BUN 14, Creatinine 1.00, Estimated Creat Clear 39, Estimated GFR 56 L, Est GFR ( Amer) 68, Glucose 135 H, Calcium 9.4, Total Bilirubin 0.4, AST 87 H, ALT 44, Alkaline Phosphatase 157 H, Total Creatine Kinase 1374 H*, CK-MB (CK-2) 23.3 H*, CK-MB (CK-2) Rel Index 1.7, Troponin I < 0.01, Total Protein 6.7 D, Albumin 4.2, Globulin 2.5, Albumin/Globulin Ratio 1.7 09/09/20 13:06: PT 10.0, INR 0.90 09/09/20 13:06: Plasma/Serum Alcohol < 10 09/09/20 13:06: Magnesium 1.5 L 09/09/20 14:00: Urine Color Yellow, Urine Appearance Clear, Urine pH 5.5, Ur Specific [place] <= 1.005, Urine Protein Negative, Urine Glucose (UA) Negative, Urine Ketones Negative, Urine Blood Negative, Urine Nitrate Negative, Urine Bilirubin Negative, Urine Urobilinogen 0.2, Ur Leukocyte Esterase Negative, Urine RBC None, Urine WBC None, Ur Squamous Epith Cells None, Urine Bacteria None Result diagrams: 09/09/20 13:06 12/03/20 13:06 Orders (Tests/Meds): ED MEDICA
[2020-09-09 13:22] LABS: Basophils % 0.2 % (0.1-2.0); Hematocrit 35.4 % (37.0-47.0); Hemoglobin 11.4 g/dL (12.2-16.2); Lymphocytes % 5.8 % (10-50); Mean Corpuscular HGB Conc 32.2 g/dL (31.8-35.4); Mean Corpuscular Hemoglobin 33.4 pg (27.0-31.2); Mean Corpuscular Volume 103.6 fl (81-99); Mean Platelet Volume 8.5 fl (7.4-10.4); Monocytes # 0.6 K/mm3 (0.1-1.0); Monocytes % 3.6 % (1.7-9.3); Neutrophils % 90.5 % (37.0-80.0); Platelet Count 465 K/mm3 (142-424); Red Blood Count 3.41 M/mm3 (4.20-5.40); Red Cell Distribution Width 14.7 % (11.5-17.5); White Blood Count 17.6 K/mm3 (4.8-10.8)
[2020-09-09 13:24] LABS: MANUAL DIFFERENTIAL MANUAL DIFFERENTIAL (MANUAL DIFF)
[2020-09-09 13:25] LABS: Chloride 81 mmol/L (98-107); Potassium 4.6 mmoL/L (3.5-5.1); Sodium 116 mmol/L (136-145)
[2020-09-09 13:28] LABS: Alanine Aminotransferase 44 U/L (12-78); Albumin Level 4.2 g/dl (3.5-5.0); Albumin/Globulin Ratio 1.7 (1.1-1.8); Alkaline Phosphatase 157 U/L (38-126); Anion Gap 10.6 mEq/L (5-15); Aspartate Amino Transferase 87 U/L (14-36); Bilirubin,Total 0.4 mg/dl (0.2-1.3); Blood Urea Nitrogen 14 mg/dl (7-17); Calcium 9.4 mg/dl (8.4-10.2); Carbon Dioxide 29 mmol/L (22.0-30.0); Creatine Kinase 1374 U/L (30-135); Creatinine Clearance Estimated 39 mL/min (50-200); Estimated Glomerular Filt Rate 56 ml/min (>60); GFR (African American) 68 ML/MIN (>60); Globulin 2.5 g/dL (1.3-3.2); Glucose 135 mg/dl (74-100); Total Protein,Serum 6.7 g/dl (6.3-8.2)
[2020-09-09 13:32] LABS: Ethyl Alcohol < 10 mg/dl (0-10)
[2020-09-09 13:35] LABS: Anisocytosis 1+; Eosinophils % 3 % (0-3); Lymphocytes % 4 % (10-50); Macrocytosis 1+; Monocytes % 1 % (2-9); Neutrophils % 92 % (42-76); Platelet Estimate Slight Increase; Stomatocytes 1+; Total Cells Counted 100
[2020-09-09 13:37] LABS: CKMB Relative Index 1.7 U/L (0-4.0)
[2020-09-09 13:42] LABS: Creatine Kinase MB 23.3 ng/ml (0.0-2.03); Troponin I < 0.01 ng/ml (0.00-0.034)
--- NOTE | 2020-09-09 13:57 | PC.NURSE ---
speaking with Dr. Scott.
--- NOTE | 2020-09-09 14:01 | PC.NURSE ---
dr duggan speaking with elliot
[2020-09-09 14:07] LABS: Magnesium 1.5 mg/dl (1.6-2.3)
[2020-09-09 14:31] LABS: Microscopic, Urine URINE MICROSCOPIC (MICROSCOPIC)
[2020-09-09 14:34] LABS: Appearance,Urine CLEAR (Clear); Bilirubin,Urine Negative (Negative); Blood, Urine Negative (Negative); Color,Urine YELLOW (Yellow); Glucose,Urine (UA) Negative (Negative); Ketones,Urine Negative (Negative); Leukocyte Esterase,Urine Negative (Negative); Nitrate,Urine Negative (Negative); PH,Urine 5.5 (5.0-8.5); Protein,Urine Negative (Negative); Specific Gravity, Urine <= 1.005 (1.005-1.030); Urobilinogen,Urine 0.2 EU/dl (0.2)
[2020-09-09 14:50] LABS: Coronavirus 19 IgG Antibody Negative (Negative); Coronavirus 19 IgM Antibody Negative (Negative)
--- NOTE | 2020-09-09 15:22 | P.CONPHA_ITS ---
[facility] Pharmacy VTE Monitoring - Patient Demographics Admission date: 09/09/20 Report Date: 09/09/20 Time: 15:22 Allergies/Adverse Reactions: Patient Allergies NSAIDS (Non-Steroidal Anti-Inflamma Allergy (Unknown, Verified 09/06/20 14:15) HURTS STOMACH Height: 1.6 m Weight: 42.184 kg Patient Problems: Current Active Problems Closed left hip fracture (Acute) Rhabdomyolysis (Acute) Alcoholism (Acute) Hyponatremia (Acute) - VTE Risk Labs: VTE Related Lab Results Hgb 11.4 g/dL (12.2-16.2) L 09/09/20 13:06 Hct 35.4 % (37.0-47.0) L 09/09/20 13:06 Plt Count 465 K/mm3 (142-424) H 09/09/20 13:06 PT 10.0 seconds (9.4-11.8) 09/09/20 13:06 INR 0.90 (0.9-1.1) 09/09/20 13:06 BUN 14 mg/dl (7-17) 09/09/20 13:06 Creatinine 1.00 mg/dl (0.52-1.04) 09/09/20 13:06 Estimated Creat Clear 39 mL/min (50-200) 09/09/20 13:06 Clinical Trial Participant: No - Prophylaxis VTE Prophylaxis Ordered?: Yes Types of VTE Prophylaxis: TEDS Knee High
[2020-09-09 16:13] LABS: Activated Partial Thrombo Time 26.8 seconds (23.6-34.0)
[2020-09-09 16:34] LABS: Amphetamine/Metha Screen,Urine Negative ng/ml (<1000); Barbiturates Screen,Urine Negative ng/ml (<200)
[2020-09-09 16:35] LABS: Benzodiazepines Screen,Urine Negative ng/ml (<200)
[2020-09-09 16:36] LABS: Cannabinoid Screen,Urine Negative ng/ml (<50); Cocaine Screen,Urine Negative ng/ml (<300)
[2020-09-09 16:37] LABS: Methadone Screen,Urine Negative ng/ml (<300); Opiate Screen,Urine Positive ng/ml (<300)
[2020-09-09 16:38] LABS: Phencyclidine Screen,Urine Negative ng/ml (<25)
[2020-09-09 16:39] LABS: Chloride 87 mmol/L (98-107); Potassium 4.7 mmoL/L (3.5-5.1); Sodium 119 mmol/L (136-145)
[2020-09-09 16:42] LABS: Alanine Aminotransferase 36 U/L (12-78); Albumin Level 3.6 g/dl (3.5-5.0); Albumin/Globulin Ratio 1.4 (1.1-1.8); Alkaline Phosphatase 139 U/L (38-126); Anion Gap 8.7 mEq/L (5-15); Aspartate Amino Transferase 70 U/L (14-36); Bilirubin,Total 0.3 mg/dl (0.2-1.3); Blood Urea Nitrogen 12 mg/dl (7-17); Carbon Dioxide 28 mmol/L (22.0-30.0); Creatinine Clearance Estimated 40 mL/min (50-200); Estimated Glomerular Filt Rate 63 ml/min (>60); GFR (African American) 77 ML/MIN (>60); Globulin 2.5 g/dL (1.3-3.2); Phosphorous 4.8 mg/dl (2.5-4.5); Total Protein,Serum 6.1 g/dl (6.3-8.2)
[2020-09-09 16:43] LABS: Calcium 8.7 mg/dl (8.4-10.2); Glucose 131 mg/dl (74-100)
--- NOTE | 2020-09-09 17:11 | HMH.ORTHOCON ---
*Admission Date: 09/09/20 *Reason for consult:: L intertrochanteric femur fracture *History of present illness: 60-year-old female admitted through the emergency room this afternoon after a fall at home. She got out of bed around 1 AM this morning to use the restroom when she fell, landing on her left side. She had immediate pain in that hip and was unable to ambulate, so she laid in the floor for several hours. She arrived via EMS and found to be in rhabdomyolysis in the ER. Total CK is 1374. She is being slowly hydrated. Sodium is also 116; she is chronically hyponatremic but generally runs around 129. She has a history of chronic alcohol abuse and has been admitted for withdrawals in the past. White blood cell count of 17.6, hemoglobin 11.4. No open wounds or bruising over the left hip. She has a medical history of CHF, COPD, hypertension, fibromyalgia. She smokes 1 pack/day for the last 40 years and is disabled. She reports chronic neuropathy in the legs and has baseline numbness and tingling. She believes she has broken her right hip before, but has never injured the left hip. She lives alone; her around a month ago. [facility] History I have reviewed the patient's past medical history: Yes Medical History: Reports:: Anxiety, Congestive Heart Failure, Chronic Obstructive Pulmonary Disease (COPD), Congenital Heart Disease, Hypertension Denies:: Cancer, Diabetes Mellitus Type 1, Diabetes Mellitus Type 2, MRSA *Have you ever received a pneumonia vaccine?: Yes *Have you received a flu vaccine this season?: No Other Medical History: Reports: Arthritis, Fibromyalgia Other Surgeries: Yes: Hysterectomy-Total, Other (thorocotomy) Amputation: No Fractures: No - *Social History Last grade of school completed: Advanced degree Smoking Status: Current every day smoker Tobacco Type: cigarettes # Packs/Day (cigarettes): 1 #Yrs smoked (if former smoker): 40 Alcohol Intake: current Alcohol Intake Frequency:: 0-2 drinks per day Substance Use Type: denies use *Occupational Status:: disabled Housing: house Household Members: other *Travel in the last 8 weeks: None - Psychiatric History Pschychiatric History:: Reports:: Anxiety Family Hx:: Asthma, Cancer, Diabetes, Heart Attack, Hyperlipidemia, Hypertension Review of Systems - Review of Systems Review of systems:: pertinent systems reviewed and negative unless documented below - *Neurologic Denies headache(s), Denies numbness, Denies weakness Meds Home Medications Medication Instructions Recorded Confirmed Type Alendronate Sodium [Fosamax 70mg 70 mg PO WEEKLY 09/09/20 09/09/20 History Tablet] Cyclobenzaprine HCl 10 mg PO HSP PRN 09/09/20 09/09/20 History [Cyclobenzaprine 10mg Tab*] Famotidine [Pepcid 20mg Tablet] 20 mg PO BID 09/09/20 09/09/20 History Hydrocod/Acet 5/325 mg [[place] 1 tab PO TIDP PRN 09/09/20 09/09/20 History 5/325mg tablet] Metoprolol Succinate [Toprol XL 50 mg PO DAILY 09/09/20 09/09/20 History 50mg Tablet] Sacubitril/Valsartan [Entresto 49 1 each PO BID 09/09/20 09/09/20 History mg-51 mg Tablet] methylPREDNISolone See Rx Instructions PO DIRECTED 09/09/20 09/09/20 History [Methylprednisolone] Allergies Allergy/AdvReac Type Severity Reaction Status Date / Time NSAIDS (Non-Steroidal Allergy Unknown HURTS Verified 09/06/20 14:15 Anti-Inflamma STOMACH Exam Vital signs and Labs for Last 24 Hours: Temp Pulse Resp BP Pulse Ox 98 F 84 18 112/74 93 L 09/09/20 16:13 09/09/20 16:13 09/09/20 16:13 09/09/20 16:13 09/09/20 16:11 Laboratory Results - last 24 hr 09/09/20 12:50: SARS-CoV-2 IgG Ab (Rapid) Negative, SARS-CoV-2 IgM Ab (Rapid) Negative 09/09/20 13:06: WBC 17.6 H, RBC 3.41 L, Hgb 11.4 L, Hct 35.4 L, MCV 103.6 H, MCH 33.4 H, MCHC 32.2, RDW 14.7, Plt Count 465 H, MPV 8.5, Neut % (Auto) 90.5 H, Lymph % (Auto) 5.8 L, [place] % (Auto) 3.6, Eos % (Auto) 0.0 L, Baso % (Auto) 0.2, Neut # (Auto
--- NOTE | 2020-09-09 19:21 | HMH.HP ---
*Admission Date: 09/09/20 *Chief complaint: fractured left hip *History of present illness: Brought in by ambulance for left hip pain after a fall. States that she fell while getting up to go to the commode at 1 AM. She hurt her left hip, unable to get up after that and laid in the floor until being brought here. Denies injuring her head. Says that she covered her head when she fell and did not strike it. Denies neck injury, chest injury, abdominal injury, or back injury. She does have chronic back pain. Denies numbness or weakness. Patient has a history of alcohol and benzo intake. She is followed by a pain clinic in [place], is treated for chronic back pain. She is on long-term opiates per them. We saw her recently in the office for an exacerbation of her back pain. She was noted to be grossly osteopenic, and had a very low DEXA score. She reports that over the last 3 days she has been drinking a lot of water. On admission through the emergency room her sodium was markedly low at 116. We had seen a previous sodium of 129 about a month ago. Mention work-up included a chest x-ray which was unremarkable. X-ray of the left hip showed a comminuted intertrochanteric fracture. The orthopedic service has seen and evaluated the patient. She will not go to the operating room until hyponatremia is improved. Will initially approach this with normal saline infusion and fluid restriction. I discussed this with her. As the fall happened around 1 AM patient lied on the floor for several hours before notifying EMS. Her creatine kinase was elevated, suggesting an element of rhabdomyolysis. I also spoke with one of the RNs who has cared for Ms. Padilla in the past. She is prone to market agitation. The RN did not think that the current dose of oral Serax would be sufficient to mitigate her agitation. She suggested Ativan 1 mg IV every 4 as needed. Patient is getting morphine for pain control. Patient has comorbid COPD and is oxygen dependent. She is generally frail, anxious, and recently lost her . [facility] History Medical History: Reports:: Anxiety, Congestive Heart Failure, Chronic Obstructive Pulmonary Disease (COPD), Congenital Heart Disease, Hypertension Denies:: Cancer, Diabetes Mellitus Type 1, Diabetes Mellitus Type 2, MRSA *Have you ever received a pneumonia vaccine?: Yes *Have you received a flu vaccine this season?: No Other Medical History: Reports: Arthritis, Fibromyalgia Other Surgeries: Yes: Hysterectomy-Total, Other (thorocotomy) Amputation: No Fractures: No - *Social History Last grade of school completed: Advanced degree Smoking Status: Current every day smoker Tobacco Type: cigarettes # Packs/Day (cigarettes): 1 #Yrs smoked (if former smoker): 40 Alcohol Intake: current Alcohol Intake Frequency:: 0-2 drinks per day Substance Use Type: denies use *Occupational Status:: disabled Housing: house Household Members: other *Travel in the last 8 weeks: None - Psychiatric History Pschychiatric History:: Reports:: Anxiety Family Hx:: Asthma, Cancer, Diabetes, Heart Attack, Hyperlipidemia, Hypertension Review of Systems - Constitutional Reports fatigue, Reports weakness - Eyes Denies change in vision - ENT Denies abnormal hearing - *Cardiovascular Denies chest pain - *Respiratory Reports shortness of breath - *Gastrointestinal Denies abdominal pain - *Genitourinary Denies difficulty starting urination - *Musculoskeletal Reports abnormal walking, Reports joint pain, Reports decreased muscle mass, Reports back pain, Reports limited joint movement, Reports stiffness - Integumentary/Breasts Denies new lesions - *Neurologic Reports abnormal walking, Denies headache(s), Denies numbness, Denies weakness - Psychiatric Reports lack of enjoyment, Reports anxiety, Reports difficulty concentrating, Reports panic attacks - Endocrine Reports cold intolerance - Hematologic/Lymphatic Denies easy bleeding
[2020-09-10] VITALS (22 sets, daily range): BP systolic 92–120; BP diastolic 42–66; PULSE 100–133; RESP 16–22; TEMP 36.4–43; O2SAT 92–100; BMI 17.8
--- NOTE | 2020-09-10 | XR_ITS ---
PROCEDURE: XR FEMUR LT 2V CLINICAL INDICATION: GAMMA NAIL Left hip repair COMPARISON: CR XR HIP LT 2-3V W/PELVIS from 09/10/2020 FINDINGS: Fluoroscopy time: 5 minutes and 1 second Multiple images submitted with the C-arm demonstrating interval placement a gamma nail within the left femoral neck long intramedullary jesus. Good alignment IMPRESSION: Good alignment status post left hip gamma nail and intramedullary jesus insertion stabilizing left intertrochanteric fracture Dictated by: Gildardo Orlando MD 09/13/2020 07:24 Gildardo Orlanod MD in OV 09/13/2020 07:24
--- NOTE | 2020-09-10 03:37 | PC.NURSE ---
pt is able to state name, birthdate, and year but doesn't know where she is. lungs CTA. pt O2 sats 94-97 % on 2L. CIWA scores have been 6,1,8. pt has been medicated for pain and agitation per MAR. While giving pt bath and bed changed bruising on Rt hip and knee was found since prior assessment. borders were outlined. bed alarm activated.
--- NOTE | 2020-09-10 05:52 | PC.WOUNDNOTE ---
Wound Location: Rt Hip Length:4mm Width:2mm Depth: Undermining Y/N: Tunneling cm: Granulation %: Slough/necrotic tissue %: Inflammation/swelling Y/N: Pain and/or tenderness Y/N:Y Exudate: Serosanguinous Sanguinous Serosanguinous Seropurulent Purulent Color: Clear Mami Cloudy/milky Winside y Red Y Green Yellow Brown Dewey Blue Consistency: Thick Thin Amount: None Y Scant Small Moderate Large Odor Y/N: Y
--- NOTE | 2020-09-10 05:54 | PC.WOUNDNOTE ---
Wound Location: Rt knee Length:4mm Width:3mm Depth: Undermining Y/N: Tunneling cm: Granulation %: Slough/necrotic tissue %: Inflammation/swelling Y/N: Pain and/or tenderness Y/N: Exudate: Serosanguinous Sanguinous Serosanguinous Seropurulent Purulent Color: Clear Mami Cloudy/milky Greasy y Red Y Green Yellow Brown Dewey Blue Consistency: Thick Thin Amount: None Y Scant Small Moderate Large Odor Y/N
[2020-09-10 07:36] LABS: Basophils % 0.3 % (0.1-2.0); Hematocrit 29.1 % (37.0-47.0); Lymphocytes # 1.2 K/mm3 (0.7-4.5); Monocytes # 0.4 K/mm3 (0.1-1.0); Neutrophils # 6.5 K/mm3 (1.8-7.8)
[2020-09-10 07:40] LABS: Chloride 93 mmol/L (98-107); Potassium 4.1 mmoL/L (3.5-5.1); Sodium 123 mmol/L (136-145)
[2020-09-10 07:42] LABS: Blood Urea Nitrogen 12 mg/dl (7-17); Creatinine Clearance Estimated 40 mL/min (50-200); Estimated Glomerular Filt Rate 73 ml/min (>60); GFR (African American) 88 ML/MIN (>60)
[2020-09-10 07:43] LABS: Alanine Aminotransferase 31 U/L (12-78); Albumin Level 3.1 g/dl (3.5-5.0); Albumin/Globulin Ratio 1.3 (1.1-1.8); Alkaline Phosphatase 119 U/L (38-126); Anion Gap 7.1 mEq/L (5-15); Aspartate Amino Transferase 59 U/L (14-36); Bilirubin,Total 0.3 mg/dl (0.2-1.3); Carbon Dioxide 27 mmol/L (22.0-30.0); Globulin 2.4 g/dL (1.3-3.2); Total Protein,Serum 5.5 g/dl (6.3-8.2)
[2020-09-10 07:44] LABS: Calcium 8.7 mg/dl (8.4-10.2); Glucose 102 mg/dl (74-100)
[2020-09-10 07:49] LABS: Eosinophils % 0.1 % (0.1-12.0); Lymphocytes % 15.3 % (10-50); Mean Corpuscular HGB Conc 32.6 g/dL (31.8-35.4); Mean Corpuscular Hemoglobin 33.5 pg (27.0-31.2); Mean Corpuscular Volume 102.8 fl (81-99); Mean Platelet Volume 7.6 fl (7.4-10.4); Monocytes % 4.7 % (1.7-9.3); Neutrophils % 79.7 % (37.0-80.0); Platelet Count 349 K/mm3 (142-424); Red Blood Count 2.83 M/mm3 (4.20-5.40); Red Cell Distribution Width 14.3 % (11.5-17.5); White Blood Count 8.1 K/mm3 (4.8-10.8)
[2020-09-10 08:03] LABS: Hemoglobin 9.5 g/dL (12.2-16.2)
--- NOTE | 2020-09-10 08:38 | HMH.ACPN2 ---
Internal Medicine - PN: Subj *Date: 09/10/20 *Time: 08:42 Interval history: pt laying in bed states no c/o Exam Vital signs and Labs for Last 24 Hours: Temp Pulse Resp BP Pulse Ox 98.0 F 109 H 16 106/55 L 92 L 09/10/20 04:00 09/10/20 04:00 09/10/20 04:00 09/10/20 04:00 09/10/20 04:00 Laboratory Results - last 24 hr 09/09/20 12:50: SARS-CoV-2 IgG Ab (Rapid) Negative, SARS-CoV-2 IgM Ab (Rapid) Negative 09/09/20 13:06: WBC 17.6 H, RBC 3.41 L, Hgb 11.4 L, Hct 35.4 L, MCV 103.6 H, MCH 33.4 H, MCHC 32.2, RDW 14.7, Plt Count 465 H, MPV 8.5, Neut % (Auto) 90.5 H, Lymph % (Auto) 5.8 L, [place] % (Auto) 3.6, Eos % (Auto) 0.0 L, Baso % (Auto) 0.2, Neut # (Auto) 16.0 H, Lymph # (Auto) 1.0, [place] # (Auto) 0.6, Eos # (Auto) 0.0, Baso # (Auto) 0.0, Total Counted 100, Neutrophils % (Manual) 92 H, Lymphocytes % (Manual) 4 L, Monocytes % (Manual) 1 L, Eosinophils % (Manual) 3, Platelet Estimate Slight increase, Anisocytosis 1+, Macrocytosis 1+, Stomatocytes 1+ 09/09/20 13:06: Sodium 116 L, Potassium 4.6, Chloride 81 L, Carbon Dioxide 29, Anion Gap 10.6, BUN 14, Creatinine 1.00, Estimated Creat Clear 39, Estimated GFR 56 L, Est GFR ( Amer) 68, Glucose 135 H, Calcium 9.4, Total Bilirubin 0.4, AST 87 H, ALT 44, Alkaline Phosphatase 157 H, Total Creatine Kinase 1374 H*, CK-MB (CK-2) 23.3 H*, CK-MB (CK-2) Rel Index 1.7, Troponin I < 0.01, Total Protein 6.7 D, Albumin 4.2, Globulin 2.5, Albumin/Globulin Ratio 1.7 09/09/20 13:06: PT 10.0, INR 0.90 09/09/20 13:06: Plasma/Serum Alcohol < 10 09/09/20 13:06: Magnesium 1.5 L 09/09/20 13:06: APTT 26.8 09/09/20 14:00: Urine Color Yellow, Urine Appearance Clear, Urine pH 5.5, Ur Specific [place] <= 1.005, Urine Protein Negative, Urine Glucose (UA) Negative, Urine Ketones Negative, Urine Blood Negative, Urine Nitrate Negative, Urine Bilirubin Negative, Urine Urobilinogen 0.2, Ur Leukocyte Esterase Negative, Urine RBC None, Urine WBC None, Ur Squamous Epith Cells None, Urine Bacteria None 09/09/20 14:00: Urine Opiates Screen Positive H, Urine Methadone Screen Negative, Ur Barbituates Screen Negative, Ur Phencyclidine Scrn Negative, Ur Amphetamines Screen Negative, U Benzodiazepines Scrn Negative, Urine Cocaine Screen Negative, U Marijuana (THC) Screen Negative 09/09/20 16:15: Sodium 119 L, Potassium 4.7, Chloride 87 L, Carbon Dioxide 28, Anion Gap 8.7, BUN 12, Creatinine 0.90, Estimated Creat Clear 40, Estimated GFR 63, Est GFR ( Amer) 77, Glucose 131 H, Calcium 8.7, Phosphorus 4.8 H, Total Bilirubin 0.3, AST 70 H, ALT 36, Alkaline Phosphatase 139 H, Total Protein 6.1 L, Albumin 3.6 D, Globulin 2.5, Albumin/Globulin Ratio 1.4 09/10/20 07:18: WBC 8.1 D, RBC 2.83 L, Hgb 9.5 L D, Hct 29.1 L, MCV 102.8 H, MCH 33.5 H, MCHC 32.6, RDW 14.3, Plt Count 349, MPV 7.6, Neut % (Auto) 79.7, Lymph % (Auto) 15.3, [place] % (Auto) 4.7, Eos % (Auto) 0.1, Baso % (Auto) 0.3, Neut # (Auto) 6.5, Lymph # (Auto) 1.2, [place] # (Auto) 0.4, Eos # (Auto) 0.0, Baso # (Auto) 0.0 09/10/20 07:18: Sodium 123 L, Potassium 4.1, Chloride 93 L, Carbon Dioxide 27, Anion Gap 7.1, BUN 12, Creatinine 0.80, Estimated Creat Clear 40, Estimated GFR 73, Est GFR ( Amer) 88, Glucose 102 H D, Calcium 8.7, Total Bilirubin 0.3, AST 59 H, ALT 31, Alkaline Phosphatase 119, Total Protein 5.5 L, Albumin 3.1 L D, Globulin 2.4, Albumin/Globulin Ratio 1.3 I & O for Last 24 hours: Intake & Output 09/07/20 09/08/20 09/09/20 09/10/20 11:59 11:59 11:59 11:59 Intake Total 1157 / 1157 Output Total 800 / 800 Balance 357 / 357 Weight 96 lb 6 oz - Constitutional no acute distress - *Routine HEENT Exam Head: Present: normocephalic Eye: Present: PERRL ENT: Present: mucous membranes moist - *Routine Neck Exam Present: supple. Absent: lymphadenopathy - *Routine Respiratory Exam Present: CTA bilaterally, diminished air movement - *Routine Cardiovascular Exam Present: RRR - *Routine Abdominal Exam Present: soft, normoactive bowel sounds
--- NOTE | 2020-09-10 09:25 | CA_ITS ---
APPROVED REPORT EXAM: Comprehensive 2D, Doppler, and color-flow Echocardiogram [employer] Teacher: Tejal Fair RVT Ht: 5 ft 2 in Wt: 96lbs BSA: 1.40 BP: 106/55 mmHg Indications: PRE-OP LT HIP FX,COPD,SMOKER,ALCOHOLISM,CHF TDS-PT FLAT ON BACK 2D Dimensions LVOT 2.05 cm (M/F) 1.5-2.5 M-Mode Dimensions LA Diam 2.58 cm (1.9-4.0) LVDd 2.91 cm (3.5-5.7) Ao Diam 2.70 cm (2.0-3.7) LVDs 1.28 cm (3.5-5.7) IVSd 0.91 cm (0.6-1.1) PWd 0.72 cm (0.6-1.1) EF (Teich) 87.70% FS 56.00% EDV (Teich) 32.50 mL ESV (Teich) 4.00 mL LV Diastology MED E' 7.50 (< 7 cm/sec) LAT E' 7.10 (<10 cm/sec) Pulmonary Valve PV Peak Velocity 97.00 (50-150 cm/s) Tricuspid Valve TR P. Velocity 278.00 cm/s Left Ventricle Left atrium is mildly enlarged, left ventricle is normal size, mild concentric left ventricular hypertrophy, visually estimated ejection fraction 55% with no regional wall motion abnormality, endocardial surfaces are poorly visualized, grade 1 diastolic dysfunction seen without tissue Doppler evidence of raise left atrial pressure. Right Ventricle Right atrium and right ventricular normal size and contractility. Aortic Valve Aortic valve is minimally thickened and fibrosed, there is no aortic stenosis or aortic insufficiency. Mitral Valve Mitral valve is minimally thickened, there is mild mitral regurgitation. Tricuspid Valve Tricuspid valve is grossly normal, there is mild tricuspid regurgitation, tricuspid regurgitation jet velocity is inadequate for calculation of the right ventricular systolic pressure. Pulmonic Valve Pulmonic valve is poorly visualized. Great Vessels Aortic root is normal size. Pericardium No significant pericardial effusion noted Conclusion 1. Mildly enlarged left atrium, normal left ventricular size, mild concentric left ventricular hypertrophy, visually estimated ejection fraction 55% with no regional wall motion abnormality grade 1 diastolic dysfunction seen without tissue Doppler evidence of raise left atrial pressure. 2. Mild mitral and tricuspid regurgitation. 3. No significant pericardial effusion noted. Electronically signed by : Yaakov Edmond, 09/10/2020 11:18:26
--- NOTE | 2020-09-10 09:28 | HMH.CNCARD ---
History of Present Illness Consult date: 09/10/20 Requesting physician: Dmitriy Diaz Consult reason: pre-op evaluation Chief complaint: Fall with left hip fracture Additional Medical History:: 1. Hypertension 2. Tobacco use, 1/2 to 1 pack/day for 20 years A. COPD 3. Anxiety with chronic antianxiety medication use 4. History of alcohol use 5. Hyponatremia, chronic with history of sodium in the 120-130 range. 6. Fall with left hip fracture and rhabdomyolysis with CPK 1374, 09/2020 7. History of congestive heart failure, previous work-up unavailable 8. Chronic anemia, likely related to alcohol use. History of present illness: Brought in by ambulance for left hip pain after a fall. States that she fell while getting up to go to the commode at 1 AM. She hurt her left hip, unable to get up after that and laid in the floor until being brought here. Denies injuring her head. Says that she covered her head when she fell and did not strike it. Denies neck injury, chest injury, abdominal injury, or back injury. She does have chronic back pain. Denies numbness or weakness. Patient has a history of alcohol and benzo intake. She is followed by a pain clinic in [place], is treated for chronic back pain. She is on long-term opiates per them. We saw her recently in the office for an exacerbation of her back pain. She was noted to be grossly osteopenic, and had a very low DEXA score. She reports that over the last 3 days she has been drinking a lot of water. On admission through the emergency room her sodium was markedly low at 116. We had seen a previous sodium of 129 about a month ago. Mention work-up included a chest x-ray which was unremarkable. X-ray of the left hip showed a comminuted intertrochanteric fracture. The orthopedic service has seen and evaluated the patient. She will not go to the operating room until hyponatremia is improved. Will initially approach this with normal saline infusion and fluid restriction. I discussed this with her. As the fall happened around 1 AM patient lied on the floor for several hours before notifying EMS. Her creatine kinase was elevated, suggesting an element of rhabdomyolysis. I also spoke with one of the RNs who has cared for Ms. Padilla in the past. She is prone to market agitation. The RN did not think that the current dose of oral Serax would be sufficient to mitigate her agitation. She suggested Ativan 1 mg IV every 4 as needed. Patient is getting morphine for pain control. Patient has comorbid COPD and is oxygen dependent. She is generally frail, anxious, and recently lost her . The above per Dr. Scott Patient confirms events as noted above. She denies any chest pain, pressure, tightness or arrhythmias prior to falling. There is a history of congestive heart failure but patient does not endorse this history. Cardiology has been consulted for preop evaluation. EKG is sinus tachycardia at 108 bpm with early repolarization abnormalities and poor R wave progression anteriorly. Repeat EKG this a.m. shows sinus tachycardia at 121 bpm otherwise unchanged. Troponin is normal x1. Hyponatremia has improved from 116-123 with measures noted above. [facility] History Medical History: Reports:: Anxiety, Congestive Heart Failure, Chronic Obstructive Pulmonary Disease (COPD), Congenital Heart Disease, Hypertension Denies:: Cancer, Diabetes Mellitus Type 1, Diabetes Mellitus Type 2, MRSA *Have you ever received a pneumonia vaccine?: Yes *Have you received a flu vaccine this season?: No Other Medical History: Reports: Arthritis, Fibromyalgia Other Surgeries: Yes: Hysterectomy-Total, Other (thorocotomy) Amputation: No Fractures: No - *Social History Last grade of school completed: Advanced degree Smoking Status: Current every day smoker Tobacco Type: cigarettes # Packs/Day (cigarettes): 1 #Yrs smoked (if former smoker): 40 Alcohol Intake: current Alcohol Intake Frequency:: 0-2 drinks per day S
--- NOTE | 2020-09-10 09:31 | ECG_ITS ---
APPROVED REPORT Exam: Resting ECG HR:121 bpm ECG Measurements Heart Rate 121 AXES MO 156 P 73 QRSd 58 QRS 61 QT 288 T 73 QTc 408 Conclusion Sinus tachycardia Late R-wave progression, unchanged from prior Nonspecific diffuse ST-T wave elevation Abnormal ECG Electronically signed by : Luis Plummer, 09/10/2020 10:15:42
--- NOTE | 2020-09-10 14:09 | SW/DCPLANNER ---
I have spoke with this patient regarding discharge plans. Patient stated that she resides at home but has family/friend that check on her daily. Patient is admitted for hip fx and will have surgery. I have explained discharge options: placement (preferred) and explained how this can be covered under [employer] benefit and it would be short term vs home health (not preferred) and would be important to have someone with patient 30/04. Patient stated that she prefers to discharge home. I did explain that placement is more preferred and she would need to have someone with her 30/04. Patient stated that she was going to speak with family/friends over the weekend to arrange a sitter for herself. I will follow up with this patient on Sunday morning.
--- NOTE | 2020-09-10 14:23 | HMH.ANESCL ---
[facility] Anesthesia Checklist - Patient Identification Patient Identification: Arm Band - Structural Data Admitted From: Inpatient Planned Operative Procedure/s: Left Hip Gamma Nail Consent for Planned Operative Procedure(s) Verified: Yes Verified Documents: Surgical Consent, History and Physical - NPO Status Verified Time NPO: 00:00 - Additional verifications Anesthesia Reactions: No - Airway Assessment C-Spine Mobility Assessed: Yes TMJ Mobility Assessed: Yes Dentition: Edentulous (upper dentures) - Neurological Assessment Level of Consciousness: Awake, Alert - Anesthesia Plan Anesthesia Risk discussed: Yes Anesthesia Plan: Verified ASA Class: III Anesthesia Type: MAC w/Spinal (Discussed at length risks/benefits of SAB vs GA. Pt verbalizes understanding of MAC/SAB and agrees with this plan of care) - Preoperative Comments Pre-Operative Comments: Discussed plan of care with patient along with risks involved. Pt verbalizes understanding that she is at an increased risk of perioperative event d/t her comorbidities. [facility] History I have reviewed the patient's past medical history: Yes Medical History: Reports:: Anxiety, Congestive Heart Failure, Chronic Obstructive Pulmonary Disease (COPD), Congenital Heart Disease, Hypertension Denies:: Cancer, Diabetes Mellitus Type 1, Diabetes Mellitus Type 2, MRSA *Have you ever received a pneumonia vaccine?: Yes *Have you received a flu vaccine this season?: No Other Medical History: Reports: Arthritis, Fibromyalgia Anesthesia experience/problems:: nac Other Surgeries: Yes: Hysterectomy-Total, Other (thorocotomy) Amputation: No Fractures: No - *Social History Last grade of school completed: Advanced degree Smoking Status: Current every day smoker Tobacco Type: cigarettes # Packs/Day (cigarettes): 1 #Yrs smoked (if former smoker): 40 Alcohol Intake: current Alcohol Intake Frequency:: 3 or more drinks per day Substance Use Type: denies use *Occupational Status:: disabled Housing: house Household Members: other *Travel in the last 8 weeks: None - Psychiatric History Pschychiatric History:: Reports:: Anxiety Family Hx:: Asthma, Cancer, Diabetes, Heart Attack, Hyperlipidemia, Hypertension
[2020-09-10 15:02] LABS: Sodium 122 mmol/L (136-145)
--- NOTE | 2020-09-10 16:08 | PC.NURSE ---
PATIENT A&O X4, LUNGS DIMINISHED, PULSES EQUAL. PATIENT OFF FLOOR VIA BED FOR SURGERY. THIS RN ADMINISTERED PAIN MEDICATION WHEN REQUESTED. PATIENT STATES THAT THE PAIN MEDICATION DOES NOT GIVE HER RELIEF. THIS RN RE POSITIONED PATIENT 2X AND PATIENT STATED THAT SHE FELT BETTER. THIS RN EDUCATED PATIENT IN REGARDS TO PRN MEDICATIONS. PATIENT VERBALIZED AN UNDERSTANDING. THIS RN EMPTIED GAMBOA, URINE HAD A STRONG FOUL SMELL. NO OTHER CONCERNS AT THIS MOMENT.
--- NOTE | 2020-09-10 20:02 | P.PN_ITS ---
[facility] Anesthesia Record Part I Intake, IV Amount: 2,000 Estimated blood loss (mL): 50 Urine output (mL): 100 Blood Products used (#): none Blood Pressure: 92/62 SaO2: 97 Pulse Rate: 100 Respiratory Rate: 20 Temperature: 97.5 F Patient is:: Awake, Nasal O2, Stable Stable to PACU at:: 19:58
--- NOTE | 2020-09-10 20:18 | HMH.OPNOTE ---
Date of procedure: 09/10/20 Pre-op Diagnosis:: L intertrochanteric femur fracture Post-op Diagnosis:: L intertrochanteric femur fracture Procedure performed:: intramedullary nail L femur Surgeon:: Karen Li MD Weeder(s):: Montserrat Mccoy [employer] OPERATING ENGINEER:: Luis Bradford Anesthesia: MAC, spinal Estimated blood loss (mL): 100 Clinical Note:: 60-year-old female admitted through the emergency room this afternoon after a fall at home. She got out of bed around 1 AM this morning to use the restroom when she fell, landing on her left side. She had immediate pain in that hip and was unable to ambulate, so she laid in the floor for several hours. She arrived via EMS and found to be in rhabdomyolysis in the ER. Total CK is 1374. She is being slowly hydrated. Sodium is also 116; she is chronically hyponatremic but generally runs around 129. She has a history of chronic alcohol abuse and has been admitted for withdrawals in the past. White blood cell count of 17.6, hemoglobin 11.4. No open wounds or bruising over the left hip. She has a medical history of CHF, COPD, hypertension, fibromyalgia. She smokes 1 pack/day for the last 40 years and is disabled. She reports chronic neuropathy in the legs and has baseline numbness and tingling. She believes she has broken her right hip before, but has never injured the left hip. She lives alone; her around a month ago. I discussed treatment options with the patient, both operative and non-operative, with their associated risks and benefits. She has several significant underlying medical issues at baseline, with acute rhabdomyolysis and hyponatremia. Both have improved overnight with hydration, and she was cleared medically this morning by her primary care physician and the cardiology team. I recommend intramedullary nail of the L femur, and this procedure, the expected perioperative course and recovery period were discussed with the patient in detail. We discussed the risks of surgery, including but not limited to: bleeding, infection, neurovascular damage, intraoperative fracture, hardware failure, loss of reduction, malunion, nonunion, leg length discrepancy, persistent pain/weakness/limp despite surgery, possible need for cane/walker use after surgery, and the possibility of further surgery in the future. The patient vocalized understanding and provided informed consent. Operative findings:: [place] gamma nail 11 x 360mm, 130 degree 10.5 x 100mm lag screw 5 x 45mm, 5 x 55mm distal interlocking screws (2) Operative note:: The patient was identified in preoperative holding and the L hip signed by myself. The patient was then taken to the operating room where spinal anesthetic administered and 1g cefazolin was infused. The patient was then transferred to the fracture table and sedated intravenously for the procedure. The L leg was secured to the foot plate of the fracture table and the R leg placed in an extended/lowered position, scissoring the legs so that the R leg was well protected but out of the way of both the L hip and C-arm. Timeout was performed, identifying the correct patient, correct procedure and correct site. Next the L hip fracture was visualized under fluoro and closed reduction performed using the fracture table and a combination of hip adduction, internal rotation and longitudinal traction. The L comminuted intertrochanteric femur fracture was reduced into acceptable alignment and then the hip prepped and draped in the usual sterile fashion for a femoral intramedullary nail procedure. The procedure was begun by using a free guide pin held over the L hip to localize the level of the greater trochanter. Approximately 3cm proximal to this, a longitudinal incision was made on the lateral aspect of the hip approximately 3 cm long. The guidepin was placed over the tip of the greater trochanter and fluoroscopy used to confirm the appropriate starting point on both AP and lateral views.
--- NOTE | 2020-09-10 20:18 | HMH.ORTHPN ---
Subjective Date: 09/10/20 Time: 20:15 Principal diagnosis: intertrochanteric fracture L femur Interval history: The patient underwent IMN L femur this evening without complication. She had 100cc EBL and 100cc UOP. 2L lactated ringer's was given. PN: Obj Ex Vital signs: Temp Pulse Resp BP Pulse Ox 97.5 F L 100 H 20 92/62 L 99 09/10/20 20:05 09/10/20 20:05 09/10/20 20:05 09/10/20 20:05 09/10/20 16:00 - Constitutional no acute distress - Routine HEENT Exam Head: Present: normocephalic Eye: Present: EOMI ENT: Present: mucous membranes moist - Routine Neck Exam Present: supple, trachea midline - Routine Respiratory Exam Absent: respiratory distress - Routine Cardiovascular Exam Present: RRR - Routine Abdominal Exam Present: soft. Absent: tenderness - Routine Exam Comments: alejo in place - Routine Extremities Exam Comments: L hip dressings c/d/i, no strikethrough +DF/PF/EHL LLE SILT distally LLE in all distributions L calf soft, non-tender; negative Pooja's palpable pedal pulses LLE, L foot pink/warm - Routine Skin Exam Present: warm - Urinary Catheter Management Alejo Cath placed during this visit: no Progress Note: A&P (1) Intertrochanteric fracture of left femur Status: Acute (2) Alcoholism Status: Acute (3) Hyponatremia Status: Acute (4) Rhabdomyolysis Status: Acute (5) COPD (chronic obstructive pulmonary disease) Status: Acute (6) Chronic anxiety Status: Acute (7) Chronic pain Status: Acute (8) Low body mass index (BMI) Status: Acute (9) Osteoporosis Status: Acute Assessment and Plan for All Diagnoses:: 60yo F POD 0 s/p IMN L femur for IT fx -- WBAT LLE, up with assist -- PT/OT to eval -- ice pack L hip as needed -- d/c alejo POD 1 -- finish 24hr prophy antibiotics -- DVT prophy: SCDs, lovenox -- encourage incentive spirometer 10x/hr while awake -- dispo planning: anticipate d/c SNF when medically stable
--- NOTE | 2020-09-10 20:42 | XR_ITS ---
PROCEDURE: XR HIP LT 2-3V W/PELVIS CLINICAL INDICATION: s/p IMN L femur Follow-up fracture COMPARISON: CR XR HIP LT 2-3V W/PELVIS from 09/09/2020 CR XR FEMUR LT 2V from 09/10/2020 FINDINGS: Status post gamma nail with intramedullary jesus placement with good alignment of the intertrochanteric/subtrochanteric fracture.. Postsurgical gas and skin clips are noted. IMPRESSION: Good alignment status post ORIF left intertrochanteric/sub troch fracture Dictated by: Gildardo Orlando MD 09/11/2020 05:39 Gildardo Orlando MD in OV 09/11/2020 05:39
--- NOTE | 2020-09-10 21:01 | PC.NURSE ---
PT ARRIVED VIA BED WITH OR STAFF AT 2100
[2020-09-11] VITALS (30 sets, daily range): BP systolic 92–130; BP diastolic 44–72; PULSE 79–120; RESP 16–19; TEMP 36.4–37; O2SAT 91–100; BMI 20.2
--- NOTE | 2020-09-11 06:02 | PC.NURSE ---
no acute changes since assessment performed when patient came back from surgery, IS at bedside, thigh high scud to right leg, ice on the left hip, pt has complained of pain twice this shift and has been treated per MAR, pt educated on the importance of IS use and verbalizes understanding, HR has been tachy with a rate of 102-115, lung sounds CTA, remains on 2L NC with O2 sats 96-99%, pt has questioned several times this shift what is going to happen when she is discharged
[2020-09-11 09:08] LABS: Anion Gap 7.9 mEq/L (5-15); Blood Urea Nitrogen 7 mg/dl (7-17); Calcium 8.2 mg/dl (8.4-10.2); Carbon Dioxide 25 mmol/L (22.0-30.0); Chloride 94 mmol/L (98-107); Creatinine Clearance Estimated 46 mL/min (50-200); Estimated Glomerular Filt Rate 125 ml/min (>60); GFR (African American) 151 ML/MIN (>60); Glucose 134 mg/dl (74-100); Potassium 3.9 mmoL/L (3.5-5.1); Sodium 123 mmol/L (136-145)
[2020-09-11 09:13] LABS: Basophils % 0.3 % (0.1-2.0); Eosinophils % 0.3 % (0.1-12.0); Lymphocytes # 0.9 K/mm3 (0.7-4.5); Lymphocytes % 14.6 % (10-50); Mean Corpuscular Hemoglobin 33.7 pg (27.0-31.2); Mean Corpuscular Volume 102.1 fl (81-99); Mean Platelet Volume 8.4 fl (7.4-10.4); Monocytes # 0.3 K/mm3 (0.1-1.0); Monocytes % 5.4 % (1.7-9.3); Neutrophils # 4.9 K/mm3 (1.8-7.8); Neutrophils % 79.3 % (37.0-80.0); Platelet Count 311 K/mm3 (142-424); Red Cell Distribution Width 15.4 % (11.5-17.5); White Blood Count 6.1 K/mm3 (4.8-10.8)
[2020-09-11 09:16] LABS: Hematocrit 20.5 % (37.0-47.0); Hemoglobin 6.8 g/dL (12.2-16.2)
--- NOTE | 2020-09-11 09:30 | P.PN_ITS ---
[facility] Anesthesia Record Part II Discharge Time: 20:28 Destination: Medical Surgical Department PACU nurse assessment reviewed?: Yes Patient Condition:: Good Anesthesia Complications:: None Swallowing reflex intact?: Yes Cyanosis?: No Blood Pressure: 110/64 Pulse Rate: 85 Temperature: 97.5 F Mental Status: Alert & Oriented Pain level:: 0 Nausea and/or vomitting:: None Intake, IV Amount: 25
--- NOTE | 2020-09-11 11:02 | HMH.PTEV ---
Physical Therapy Evaluation Rehab PT IP Evaluation Start: 09/10/20 20:43 Freq: ONCE Status: Active Protocol: Document 09/11/20 10:56 ROLA (Rec: 09/11/20 11:02 ROLA [id number]) Subjective/History History History PT ADMITTED TO [facility] 60 YO FEMALE S/P FALL-FX'D L HIP-S/P ORIF IMN WBAT Subjective Subjective PT REPORTS SEVERE L HIP PAIN THIS AM Rehab PT IP Eval Objective Appearance Patient Behavior Appropriate,Anxious,Guarded, Fearful Patient Orientation Person,Place,Name,Age,Birthday Difficulty following instructions none Speech Pattern Appropriate Ambulation Patient Able to Ambulate Yes Ambulation Observation IP General Gait Pattern Observation Antalgic Gait,Wide Based Gait, Decrease Weight Bear (L), Decrease Stride Lngth (L) Ambulation Distance (feet) 5 Ambulation Assistive Device Rolling Walker Ambulation Ability Moderate x 2 (50% assist) Balance Ability to Arise Able, uses arms to help Sitting Balance Steady, safe Standing Balance Unsteady Transfers Bed Transfer Ability Moderate x 2 (50% assist) Chair Transfer Ability Moderate x 2 (50% assist) Sit to Stand Bed Transfer Ability Moderate x 2 (50% assist) Sit to Stand Chair Transfer Ability Moderate x 2 (50% assist) ROM RUE PT ROM Status WFL RLE PT ROM Status WFL LUE PT ROM Status WFL LLE PT ROM Status ABN Abnormal ROM Comment LIMITED D/T PAIN MMT RUE PT MMT WFL RLE PT MMT WFL LUE PT MMT WFL LLE PT MMT ABN Abnormal MMT Grade 3/5-LIMITED D/T PAIN Rehab PT IP prob,goals,plan Problems Date of Evaluation: 09/11/20 PT IP Problems Bed Mobility,Transfers,Gait, Balance,Self care,Safety Rehab Potential Rehab Potential Good Equipment Needs Assistive Devices Rolling / Wheeled Walker Plan PT Intervention Plan Bed Mobility,Transfers,Gait, Balance,Self care,Safety, Therapeutic Exercise PT Plan Frequency BID Duration LOS Discharge Goals Bed Transfer Ability Minimal x 1 (25% assist) Sit to Stand Chair Transfer Ability Minimal x 1 (25% assist) Ambulation Assistive Device Rolling Walker Ambulation Distance (feet) 20 Discharge Plan PT Dischar
--- NOTE | 2020-09-11 11:06 | HMH.OTEV ---
OT Inpatient Evaluation Rehab OT IP Evaluation Start: 09/11/20 09:44 Freq: ONCE Status: Complete Protocol: Document 09/11/20 10:59 [facility] (Rec: 09/11/20 11:06 [facility] [id number]) Rehab OT IP Assessment Subjective History Pt oriented x 3 on arrival. Pt is a 60 year old female who was admitted via ED due to a fall at home resulting in a L hip fx. Pt has a past medical history of anxiety, CHF, COPD , HTN, Congenital heart disease. Pt had a left intramedullary nailing on 09/10. Pt reports prior to her fall she lived at home alone; her ~1 month ago. Pt claims she was independent with all ADL's and IADL's. Pt did use a walker at times at home. Subjective I can't do this, I'm not doing it. Objective Patient Orientation Person,Place,Birthday Upper Extremity Gross ROM WFL Bed Mobility bed mobility-scooting,bed mobility - supine/sit,bed mobility - rolling Assist Level Minimal x 1 (25% assist) Transfer Training Sit/Stand Transfer Assist Level Minimal x 1 (25% assist) Chair Transfer Ability Minimal x 1 (25% assist) Chair Transfer Technique Sit to/from Ambulatory Chair Transfer Assistive Devices Rolling Walker Rehab OT IP prob,goals,plan Problems Date of Evaluation: 09/11/20 OT IP Problems Bed Mobility,Transfers,Gait, Balance,Self care,Safety Rehab Potential Rehab Potential Good Equipment Needs Assistive Devices Rolling / Wheeled Walker Plan OT intervention Plan Bed Mobility,Transfers,Gait, Balance,Self care,Safety, Therapeutic Exercise OT Plan Frequency Daily Duration LOS Discharge Goals Bed Mobility Ability Standby Assistance Sit to Stand Chair Transfer Ability Contact Guard/Hand Hold Chair Transfer Ability Contact Guard/Hand Hold Chair Transfer Technique Sit to/from Ambulatory Chair Transfer Assistive Devices Rolling Walker Feeding Ability Independent Lower Body Dressing Ability Assistance X1 Upper Body Dressing Ability Standby Assistance Bathing Ability Assistanc
--- NOTE | 2020-09-11 14:02 | HMH.ORTHPN ---
Subjective Date: 09/11/20 Time: 13:30 Principal diagnosis: intertrochanteric fracture L femur Interval history: Patient is a 60-year-old female, status post cephalo-medullary nailing LEFT femur, post op day #1. She is sitting out in a chair and appears comfortable; says she is doing well and is eating and drinking well. She says her pain is well controlled with medication. No history of any fevers, chills or rigors. No history of any nausea, vomiting, chest pain or SOB. She is receiving 2 units of PRBC for low H&H. PN: Obj Ex Vital signs: Temp Pulse Resp BP Pulse Ox 98.6 F 110 H 18 99/46 L 91 L 09/11/20 12:27 09/11/20 12:27 09/11/20 12:27 09/11/20 12:27 09/11/20 12:27 Narrative: Laboratory Results - last 24 hr 09/10/20 13:45: Sodium 122 L 09/11/20 08:25: WBC 6.1, RBC 2.00 L D, Hgb 6.8 L*, Hct 20.5 L*, MCV 102.1 H, MCH 33.7 H, MCHC 33.0, RDW 15.4, Plt Count 311, MPV 8.4, Neut % (Auto) 79.3, Lymph % (Auto) 14.6, [place] % (Auto) 5.4, Eos % (Auto) 0.3, Baso % (Auto) 0.3, Neut # (Auto) 4.9, Lymph # (Auto) 0.9, [place] # (Auto) 0.3, Eos # (Auto) 0.0, Baso # (Auto) 0.0 09/11/20 08:25: Sodium 123 L, Potassium 3.9, Chloride 94 L, Carbon Dioxide 25, Anion Gap 7.9, BUN 7 D, Creatinine 0.50 L D, Estimated Creat Clear 46, Estimated GFR 125, Est GFR ( Amer) 151 D, Glucose 134 H, Calcium 8.2 L 09/11/20 08:25: Blood Type Confirm O Positive 09/11/20 10:10: Blood Type O Positive, Antibody Screen Negative, Crossmatch (AHG) See Detail Intake & Output 09/11/20 09/11/20 09/11/20 03:59 11:59 19:59 Intake Total 2120 / 3005 885 / 3005 0 / 0 Output Total 350 / 1250 Balance 2120 / 1755 535 / 1755 0 / 0 Weight 110 lb 6 oz Exam General appearance: Alert, awake, no acute distress Cardiovascular: regular rate & rhythm Respiratory: no respiratory distress; speaks in full sentences ABD: soft and nontender. Neuro: alert, awake oriented x 3 Psych: Appropriate mood and affect On examination of the LEFT lower extremity, the limb lengths are equal. The alignment is neutral. The dressings over the hip/thigh are clean, dry and intact. Attempted movements of the hip are painful. Distal neurovascular status is intact. Distal pulses are 1+. Distal sensation is intact to light touch throughout. No motor deficits noted distally. Calf is soft and nontender. No clinical signs of DVT noted. - Urinary Catheter Management Barron Cath placed during this visit: no Progress Note: A&P (1) Intertrochanteric fracture of left femur Status: Acute (2) Alcoholism Status: Acute (3) Hyponatremia Status: Acute (4) Rhabdomyolysis Status: Acute (5) COPD (chronic obstructive pulmonary disease) Status: Acute (6) Chronic anxiety Status: Acute (7) Chronic pain Status: Acute (8) Low body mass index (BMI) Status: Acute (9) Osteoporosis Status: Acute Assessment and Plan for All Diagnoses:: I have reviewed the clinical findings and progress with the patient. Patient is doing well and advised her to continue mobilization weight bearing as tolerated. Discontinue IV fluids when eating and drinking well. Continue PT/OT, pain management with as needed narcotic analgesics. Care management to look into discharge planning. Recommend DVT prophylaxis for 6 weeks postop-continue medical management as per Dr. Scott.
--- NOTE | 2020-09-11 16:46 | HMH.ACPN2 ---
Internal Medicine - PN: Subj *Date: 09/11/20 *Time: 08:00 Interval history: pt sitting up in chair stats no c/o Exam Vital signs and Labs for Last 24 Hours: Temp Pulse Resp BP Pulse Ox 98.5 F 103 H 18 98/65 L 93 L 09/11/20 15:20 09/11/20 15:20 09/11/20 15:20 09/11/20 15:20 09/11/20 15:20 Laboratory Results - last 24 hr 09/11/20 08:25: WBC 6.1, RBC 2.00 L D, Hgb 6.8 L*, Hct 20.5 L*, MCV 102.1 H, MCH 33.7 H, MCHC 33.0, RDW 15.4, Plt Count 311, MPV 8.4, Neut % (Auto) 79.3, Lymph % (Auto) 14.6, [place] % (Auto) 5.4, Eos % (Auto) 0.3, Baso % (Auto) 0.3, Neut # (Auto) 4.9, Lymph # (Auto) 0.9, [place] # (Auto) 0.3, Eos # (Auto) 0.0, Baso # (Auto) 0.0 09/11/20 08:25: Sodium 123 L, Potassium 3.9, Chloride 94 L, Carbon Dioxide 25, Anion Gap 7.9, BUN 7 D, Creatinine 0.50 L D, Estimated Creat Clear 46, Estimated GFR 125, Est GFR ( Amer) 151 D, Glucose 134 H, Calcium 8.2 L 09/11/20 08:25: Blood Type Confirm O Positive 09/11/20 10:10: Blood Type O Positive, Antibody Screen Negative, Crossmatch (AHG) See Detail I & O for Last 24 hours: Intake & Output 09/09/20 09/10/20 09/11/20 09/12/20 11:59 11:59 11:59 11:59 Intake Total 1157 / 1157 3005 / 3005 435 / 435 Output Total 800 / 800 1250 / 1250 Balance 357 / 357 1755 / 1755 435 / 435 Weight 97 lb 0.054 oz 110 lb 6 oz - Constitutional no acute distress, thin - *Routine HEENT Exam Head: Present: normocephalic Eye: Present: PERRL ENT: Present: mucous membranes moist - *Routine Neck Exam Present: supple. Absent: lymphadenopathy - *Routine Respiratory Exam Present: CTA bilaterally - *Routine Cardiovascular Exam Present: RRR - *Routine Abdominal Exam Present: soft, normoactive bowel sounds. Absent: tenderness - *Routine Extremities Exam Present: normal capillary refill. Absent: cyanosis, clubbing, edema - *Routine Skin Exam Present: warm. Absent: rash Comments: dressing c/d/i - *Routine Neurological Exam Present: alert, oriented X3 - Routine Psychiatric Exam Present: normal affect Assessment and Plan (1) Intertrochanteric fracture of left femur Status: Acute Category: Medical Code(s): S72.142A - Displaced intertrochanteric fracture of left femur, initial encounter for closed fracture (2) Alcoholism Status: Acute Category: Medical Code(s): F10.20 - Alcohol dependence, uncomplicated (3) Hyponatremia Status: Acute Category: Medical Code(s): E87.1 - Hypo-osmolality and hyponatremia (4) Rhabdomyolysis Status: Acute Qualifiers: Rhabdomyolysis type: traumatic Encounter type: initial encounter Qualified Code(s): T79.6XXA - Traumatic ischemia of muscle, initial encounter Category: Medical Code(s): M62.82 - Rhabdomyolysis (5) COPD (chronic obstructive pulmonary disease) Status: Acute Qualifiers: COPD type: unspecified COPD Qualified Code(s): J44.9 - Chronic obstructive pulmonary disease, unspecified Category: Medical Code(s): J44.9 - Chronic obstructive pulmonary disease, unspecified (6) Chronic anxiety Status: Acute Category: Medical Code(s): F41.9 - Anxiety disorder, unspecified (7) Chronic pain Status: Acute Qualifiers: Chronic pain type: other chronic pain Qualified Code(s): G89.29 - Other chronic pain Category: Medical Code(s): G89.29 - Other chronic pain (8) Low body mass index (BMI) Status: Acute Category: Medical (9) Osteoporosis Status: Acute Qualifiers: Osteoporosis type: age-related Presence of current pathological fracture: unspecified Qualified Code(s): M81.0 - Age-related osteoporosis without current pathological fracture Category: Medical Code(s): M81.0 - Age-related osteoporosis without current pathological fracture - Assessment and plan all Dx Assessment and Plan for all problems:: rounded with dr payan all orders per dr payan transfuse 2 units prbc
--- NOTE | 2020-09-11 17:34 | PC.NURSE ---
1730 Report received from Lucas Webb RN 1736 Pt transported to department at this time via bed, tolerated transport well. Bed locked and in lowest position, side rails up x2, call light within reach.
--- NOTE | 2020-09-11 19:30 | PC.NURSE ---
Pt sitting up in recliner chair with legs elevated. Pt extremely confused. A & O to name and birthday only. Pt also experiencing hallucinations, seeing people and stating that man over there pee'd on me . Pt had voided in chair and on sheet that was under her. Staff x2 attempted to assist pt with standing in order to clean her up, however, this was not an easy task. Pt was yelling out in pain and not cooperating. Brief placed on pt in case there were any further accidents.
--- NOTE | 2020-09-11 19:37 | PC.NURSE ---
1924 Pt moved to room 276 at this time. Pt appears more confused, alert and oriented to name and birthday only. Pt trying repeatedly to get out of chair on her own, chair alarm on. Pt tolerated transport to room 276 well.
--- NOTE | 2020-09-11 20:15 | PC.NURSE ---
Pt refusing to stay in room (276) by herself (even with door open and nurse sitting in hallway outside the door) stating that it's scary and there are people around. Pt's recliner positioned at doorway of room beside nurse in hallway.
[2020-09-11 21:39] LABS: Hematocrit 31.7 % (37.0-47.0)
--- NOTE | 2020-09-11 22:00 | PC.NURSE ---
Pt stating that she needs to void. BSC obtained and this nurse assisted by hothouse worker with getting pt up. Pt once again yelling in pain and reluctant to stand. Once pt on BSC, she then states that she does not need to void. Pt assisted back to recliner chair.
--- NOTE | 2020-09-11 23:58 | PC.NURSE ---
Pt confused and trying to get up. Has taken off her gown and refusing to put it back on stating Maria Antonia brought me that real pretty winter thing to wear . Pt remains in recliner chair with staff at side and several blankets over her.
--- NOTE | 2020-09-12 00:18 | PC.NURSE ---
Pt remains one on one with nurse at side. Continues to try to get out of the chair on her own and remains very confused as well as having hallucinations. Pt still refusing to put gown back on, therefore, safety alarm is not on at this time.
--- NOTE | 2020-09-12 01:55 | PC.NURSE ---
Pt confused and restless, will not leave O2 on at this time. Saturation 92-94% on RA. Pt medicated with Haldol 5mg po for anxiety / agitation. Obtained a long sleeve shirt from [facility] for pt to put on since she would not allow me to put a gown back on her.
--- NOTE | 2020-09-12 02:07 | PC.NURSE ---
Pt currently asleep, snoring loudly.
--- NOTE | 2020-09-12 03:34 | PC.NURSE ---
Remains at nurse's side asleep in recliner chair.
--- NOTE | 2020-09-12 05:41 | PC.NURSE ---
Remains soundly asleep in recliner. Nurse remains at side.
[2020-09-12 07:45] VITALS: RESP 20; O2SAT 93
[2020-09-12 08:00] VITALS: BP 113/76; PULSE 116; RESP 20; TEMP 36.7; O2SAT 93
[2020-09-12 08:43] LABS: Basophils % 0.4 % (0.1-2.0); Eosinophils # 0.1 K/mm3 (0.0-0.4); Eosinophils % 0.8 % (0.1-12.0); Hematocrit 32.7 % (37.0-47.0); Hemoglobin 10.4 g/dL (12.2-16.2); Lymphocytes # 1.3 K/mm3 (0.7-4.5); Lymphocytes % 18.2 % (10-50); Mean Corpuscular HGB Conc 31.9 g/dL (31.8-35.4); Mean Corpuscular Hemoglobin 30.7 pg (27.0-31.2); Mean Corpuscular Volume 96.1 fl (81-99); Mean Platelet Volume 6.8 fl (7.4-10.4); Monocytes # 0.5 K/mm3 (0.1-1.0); Monocytes % 6.5 % (1.7-9.3); Neutrophils # 5.2 K/mm3 (1.8-7.8); Neutrophils % 74.1 % (37.0-80.0); Platelet Count 292 K/mm3 (142-424); Red Cell Distribution Width 15.8 % (11.5-17.5)
[2020-09-12 09:00] LABS: Chloride 95 mmol/L (98-107); Potassium 3.5 mmoL/L (3.5-5.1); Sodium 125 mmol/L (136-145)
[2020-09-12 09:03] LABS: Anion Gap 6.5 mEq/L (5-15); Blood Urea Nitrogen 5 mg/dl (7-17); Calcium 8.5 mg/dl (8.4-10.2); Carbon Dioxide 27 mmol/L (22.0-30.0); Creatinine Clearance Estimated 46 mL/min (50-200); Estimated Glomerular Filt Rate 162 ml/min (>60); GFR (African American) 196 ML/MIN (>60); Glucose 99 mg/dl (74-100)
--- NOTE | 2020-09-12 10:41 | PC.NURSE ---
PHYSICAL THERAPY AT BEDSIDE.
--- NOTE | 2020-09-12 15:45 | PC.NURSE ---
Reassessment completed at this time. No changes noted. Lungs are clear on reassessment and bowel sounds active x4. patient has not had a bowel movement on my shift. Patient has been up a few times to use the restroom ( voided in brief twice). Encouraged to get up to restroom. Walks well with walker and assist. dressing to left hip/leg with yellow drainage on top one. no warmth noted. slight redness noted to outer left leg. swelling to the leg and knee cap noted. no changed since previous assessment. ice pack on and off today. remains on oxygen at 2l since this afternoon. pulses 2+ and cap refill <3 seconds. no concerns voiced per pATIENT. confused on and off today. Alert to name place and . alarm has been in place
[2020-09-12 16:00] VITALS: BP 140/63; PULSE 115; RESP 20; TEMP 37; O2SAT 98
--- NOTE | 2020-09-12 16:05 | PC.NURSE ---
Kapil in room changing dressing. MD states dressing looks good- new dressing applied. no new orders. pt tolerated well.
--- NOTE | 2020-09-12 17:29 | HMH.ORTHPN ---
Subjective Date: 09/12/20 Time: 15:45 Principal diagnosis: intertrochanteric fracture L femur Interval history: Patient is a 60-year-old female, status post cephalo-medullary nailing LEFT femur, post op day 2. She is sitting out in a chair and appears comfortable; she says she is doing well and is eating and drinking well. She reports very little pain and says her pain is well controlled with medication. No history of any fevers, chills or rigors. No history of any nausea, vomiting, chest pain or SOB. PN: Obj Ex Vital signs: Temp Pulse Resp BP Pulse Ox 98.1 F 116 H 20 113/76 93 L 09/12/20 08:00 09/12/20 08:00 09/12/20 08:00 09/12/20 08:00 09/12/20 08:00 Narrative: Laboratory Results - last 24 hr 09/11/20 10:10: Crossmatch (AHG) See Detail 09/11/20 21:32: Hgb 10.0 L D, Hct 31.7 L 09/12/20 07:47: WBC 7.0, RBC 3.40 L D, Hgb 10.4 L, Hct 32.7 L, MCV 96.1, MCH 30.7, MCHC 31.9, RDW 15.8, Plt Count 292, MPV 6.8 L, Neut % (Auto) 74.1, Lymph % (Auto) 18.2, [place] % (Auto) 6.5, Eos % (Auto) 0.8, Baso % (Auto) 0.4, Neut # (Auto) 5.2, Lymph # (Auto) 1.3, [place] # (Auto) 0.5, Eos # (Auto) 0.1, Baso # (Auto) 0.0 09/12/20 07:47: Sodium 125 L, Potassium 3.5, Chloride 95 L, Carbon Dioxide 27, Anion Gap 6.5, BUN 5 L D, Creatinine 0.40 L, Estimated Creat Clear 46, Estimated GFR 162, Est GFR ( Amer) 196 D, Glucose 99 D, Calcium 8.5 Exam General appearance: Alert, awake, no acute distress Cardiovascular: regular rate & rhythm Respiratory: no respiratory distress; speaks in full sentences ABD: soft and nontender. Skin: no gross abnormalities Neuro: alert, awake oriented x 3 Psych: Appropriate mood and affect On examination of the LEFT lower extremity, the limb lengths are equal. The alignment is neutral. The dressings over the hip/thigh are clean and intact. I have changed the dressings today and there is minimal soakage of the dressings. All the incisions appear healthy and no signs of infection noted. Attempted movements of the hip are painful. Distal neurovascular status is intact. Distal pulses are 1+. Distal sensation is intact to light touch throughout. No motor deficits noted distally. Calf is soft and nontender. No clinical signs of DVT noted. - Urinary Catheter Management Barron Cath placed during this visit: no Progress Note: A&P (1) Intertrochanteric fracture of left femur Status: Acute (2) Alcoholism Status: Acute (3) Hyponatremia Status: Acute (4) Rhabdomyolysis Status: Acute (5) COPD (chronic obstructive pulmonary disease) Status: Acute (6) Chronic anxiety Status: Acute (7) Chronic pain Status: Acute (8) Low body mass index (BMI) Status: Acute (9) Osteoporosis Status: Acute Assessment and Plan for All Diagnoses:: I have reviewed the clinical findings and progress with the patient. Patient is doing well and advised her to continue mobilization weight bearing on the left lower extremity as tolerated. Continue PT/OT, pain management with as needed narcotic analgesics. Care management to look into discharge planning. Continue medical management as per Dr. Scott/Emily.
--- NOTE | 2020-09-12 17:34 | HMH.ACPN2 ---
Internal Medicine - PN: Subj *Date: 09/12/20 *Time: 17:35 Interval history: pt sitting up in chair states no issues Exam Vital signs and Labs for Last 24 Hours: Temp Pulse Resp BP Pulse Ox 98.1 F 116 H 20 113/76 93 L 09/12/20 08:00 09/12/20 08:00 09/12/20 08:00 09/12/20 08:00 09/12/20 08:00 Laboratory Results - last 24 hr 09/11/20 10:10: Crossmatch (AHG) See Detail 09/11/20 21:32: Hgb 10.0 L D, Hct 31.7 L 09/12/20 07:47: WBC 7.0, RBC 3.40 L D, Hgb 10.4 L, Hct 32.7 L, MCV 96.1, MCH 30.7, MCHC 31.9, RDW 15.8, Plt Count 292, MPV 6.8 L, Neut % (Auto) 74.1, Lymph % (Auto) 18.2, [place] % (Auto) 6.5, Eos % (Auto) 0.8, Baso % (Auto) 0.4, Neut # (Auto) 5.2, Lymph # (Auto) 1.3, [place] # (Auto) 0.5, Eos # (Auto) 0.1, Baso # (Auto) 0.0 09/12/20 07:47: Sodium 125 L, Potassium 3.5, Chloride 95 L, Carbon Dioxide 27, Anion Gap 6.5, BUN 5 L D, Creatinine 0.40 L, Estimated Creat Clear 46, Estimated GFR 162, Est GFR ( Amer) 196 D, Glucose 99 D, Calcium 8.5 I & O for Last 24 hours: Intake & Output 09/10/20 09/11/20 09/12/20 09/13/20 11:59 11:59 11:59 11:59 Intake Total 1157 / 1157 3005 / 3005 749 / 749 Output Total 800 / 800 1250 / 1250 150 / 150 Balance 357 / 357 1755 / 1755 749 / 749 -150 / -150 Weight 97 lb 0.054 oz 110 lb 6 oz - Constitutional no acute distress, thin - *Routine HEENT Exam Head: Present: normocephalic Eye: Present: PERRL ENT: Present: mucous membranes moist - *Routine Neck Exam Present: supple. Absent: lymphadenopathy - *Routine Respiratory Exam Present: wheezes - *Routine Cardiovascular Exam Present: RRR - *Routine Abdominal Exam Present: soft, normoactive bowel sounds. Absent: tenderness - *Routine Extremities Exam Present: normal capillary refill. Absent: cyanosis, clubbing, edema - *Routine Skin Exam Present: warm. Absent: rash Comments: dsg c/d/i - *Routine Neurological Exam Present: alert, oriented X3 Assessment and Plan (1) Intertrochanteric fracture of left femur Status: Acute Category: Medical Code(s): S72.142A - Displaced intertrochanteric fracture of left femur, initial encounter for closed fracture (2) Alcoholism Status: Acute Category: Medical Code(s): F10.20 - Alcohol dependence, uncomplicated (3) Hyponatremia Status: Acute Category: Medical Code(s): E87.1 - Hypo-osmolality and hyponatremia (4) Rhabdomyolysis Status: Acute Qualifiers: Qualified Code(s): T79.6XXA - Traumatic ischemia of muscle, initial encounter Category: Medical Code(s): M62.82 - Rhabdomyolysis (5) COPD (chronic obstructive pulmonary disease) Status: Acute Qualifiers: Qualified Code(s): J44.9 - Chronic obstructive pulmonary disease, unspecified Category: Medical Code(s): J44.9 - Chronic obstructive pulmonary disease, unspecified (6) Chronic anxiety Status: Acute Category: Medical Code(s): F41.9 - Anxiety disorder, unspecified (7) Chronic pain Status: Acute Qualifiers: Qualified Code(s): G89.29 - Other chronic pain Category: Medical Code(s): G89.29 - Other chronic pain (8) Low body mass index (BMI) Status: Acute Category: Medical (9) Osteoporosis Status: Acute Qualifiers: Qualified Code(s): M81.0 - Age-related osteoporosis without current pathological fracture Category: Medical Code(s): M81.0 - Age-related osteoporosis without current pathological fracture - Assessment and plan all Dx Assessment and Plan for all problems:: ora rounded earlier all order per ora
[2020-09-12 20:00] VITALS: BP 118/68; PULSE 100; RESP 20; TEMP 36.7; O2SAT 100
[2020-09-13] VITALS: BP 124/74; PULSE 100; RESP 18; TEMP 36.6; O2SAT 100
[2020-09-13 04:00] VITALS: BP 120/72; PULSE 110; RESP 20; TEMP 36.6; O2SAT 99
--- NOTE | 2020-09-13 04:02 | PC.NURSE ---
PT HAS RESTED INTERMITTENTLY THIS SHIFT, PAIN CONTROLLED. PT REMAINS UP IN RECLINER, OFFERED MULTIPLE TIMES TO ASSIST PT TO BED, STATES SHE IS COMFORTABLE. A&O X 4 VITAL SIGNS STABLE, LUNGS DIMINISHED, UNCHANGED. USES IS APPROPRIATELY WHILE AWAKE. PT ASSISTED TO BSC EARLIER THIS SHIFT, ATTENDS DRY, PT DID NOT VOID. STAFFED OFFERED PT ASSISTANCE TO BSC MULTIPLE TIMES, STATES SHE DOES NOT NEED TO VOID. PARTIAL BATH GIVEN EARLIER. ENCOURAGED PT TO AMBULATE, REFUSES. DRESSING TO LEFT HIP WITH YELLOW/SEROSANG DRAINAGE. SWELLING NOTED TO LEFT LEG AND KNEE. NO REDNESS, PULSES PALPABLE. ICE PACK OFF AT THIS TIME. PT WEARING 02 THIS SHIFT, SATS 98-100% ABD SOFT AND NON TENDER WTIH BOWEL SOUNDS X 4 QUADS, NO BM THIS SHIFT. PT WITHOUT NEEDS OR CONCERNS, USES CALL LIGHT APPROPRIATELY. BED ALARM IN PLACE
[2020-09-13 05:58] LABS: Basophils % 0.7 % (0.1-2.0); Eosinophils # 0.1 K/mm3 (0.0-0.4); Hematocrit 33.7 % (37.0-47.0); Lymphocytes # 1.6 K/mm3 (0.7-4.5); Mean Corpuscular HGB Conc 32.6 g/dL (31.8-35.4); Mean Corpuscular Hemoglobin 31.6 pg (27.0-31.2); Mean Corpuscular Volume 96.9 fl (81-99); Mean Platelet Volume 7.4 fl (7.4-10.4); Monocytes # 0.6 K/mm3 (0.1-1.0); Monocytes % 9.6 % (1.7-9.3); Neutrophils % 62.8 % (37.0-80.0); Platelet Count 355 K/mm3 (142-424); Red Blood Count 3.48 M/mm3 (4.20-5.40); Red Cell Distribution Width 15.8 % (11.5-17.5); White Blood Count 6.3 K/mm3 (4.8-10.8)
[2020-09-13 06:00] LABS: Chloride 94 mmol/L (98-107); Sodium 124 mmol/L (136-145)
[2020-09-13 06:01] LABS: Potassium 3.7 mmoL/L (3.5-5.1)
[2020-09-13 06:03] LABS: Blood Urea Nitrogen 7 mg/dl (7-17); Creatinine Clearance Estimated 46 mL/min (50-200); Estimated Glomerular Filt Rate 162 ml/min (>60); GFR (African American) 196 ML/MIN (>60)
[2020-09-13 06:04] LABS: Anion Gap 7.7 mEq/L (5-15); Calcium 8.6 mg/dl (8.4-10.2); Carbon Dioxide 26 mmol/L (22.0-30.0); Glucose 101 mg/dl (74-100)
[2020-09-13 08:00] VITALS: BP 127/71; PULSE 103; RESP 18; TEMP 36.6; O2SAT 98
--- NOTE | 2020-09-13 08:32 | PC.NURSE ---
Dr. Diaz at to see pt. Verbal order received for CT for PE Protocol. Repeated / Verified.
--- NOTE | 2020-09-13 08:34 | CT_ITS ---
PROCEDURE: CT ANGIO CHEST CLINCIAL INDICATION: Shortness of air, recent hip surgery with shortness of air and chest pain COMPARISON: No exams were available for comparison TECHNIQUE: IV Contrast: 70ML Isovue 370 Axial images obtained with sagittal and coronal reformats. All CT scans at the facility use one or more dose reduction, viz: automated exposure control, ma/kV adjustment per patient size (including targeted exams where dose is matched to indication, i.e. head), or iterative reconstruction technique. FINDINGS: HEART AND MEDIASTINAL STRUCTURES: No evidence of aortic aneurysm or dissection. No evidence of pulmonary embolus. No mediastinal or hilar mass or adenopathy. There is a small hiatal hernia. LUNGS AND PLEURAL SPACES: COPD with centrilobular emphysema with a few scattered areas of scarring. There is bronchial thickening in the perihilar region and right lower lobe. There are atelectatic changes in the lower lobes with trace bilateral effusions. There is some pleural calcification in the left lung base posteriorly. There is faint ground-glass density in the left perihilar region. BONY STRUCTURES: There is mild wedge compression changes of T11 age indeterminate.. There is severe wedge compression changes of T5 with vertebra plana and minimal bowing of the posterior cortex. Severe wedge compression changes noted also of T4 with greater than 50 percent wedge compression changes anteriorly age indeterminate. UPPER ABDOMEN: Hiatal hernia. There is mild stranding of the perinephric renal fat on both sides nonspecific and there is mild diffuse subcutaneous edema of the torso. ADDITIONAL FINDINGS: No other significant abnormalities. IMPRESSION: 1. No evidence of pulmonary embolus or aortic aneurysm or dissection. 2. Centrilobular emphysema with bronchial thickening, bibasilar atelectasis, and trace bilateral effusions with faint ground-glass attenuation left perihilar region nonspecific and could be inflammatory or infectious. 3. Severe wedge compression changes of T5 with vertebral plana which may be old. Mild wedge compression changes of T11 and 50 percent wedge compression changes of T4 age indeterminate. MRI may better evaluate the age of these fractures if clinically warranted. No retropulsion. Dictated by: Gildardo Orlando MD 09/14/2020 08:47 Gildardo Orlando MD in OV 09/14/2020 08:47
--- NOTE | 2020-09-13 08:46 | PC.NURSE ---
2ND IV STARTED IN LEFT AC X1 STICK. TOLERATED WELL.
--- NOTE | 2020-09-13 09:22 | PC.NURSE ---
Remains in recliner chair. Currently talking on phone with family.
--- NOTE | 2020-09-13 09:40 | PC.NURSE ---
2 Ice Packs applied to left leg for swelling.
--- NOTE | 2020-09-13 11:13 | PC.NURSE ---
Physical Therapy here to see pt. States will return to work with her after she has CT Scan.
--- NOTE | 2020-09-13 12:00 | PC.NURSE ---
Dr. Li here to see pt.
--- NOTE | 2020-09-13 12:07 | PC.NURSE ---
Taken to CT Scan via w/c with radiology staff.
--- NOTE | 2020-09-13 12:30 | PC.NURSE ---
Pt back from CT Scan. Tolerated procedure well.
--- NOTE | 2020-09-13 13:44 | SW/DCPLANNER ---
Addendum entered by [facility] 09/15/20 14:34: Yeecnia with [facility] has accepted this patient pending precert and negative COVID results. I will inform patient and patients sister. Addendum entered by [facility] 09/15/20 14:21: Patient information has also been faxed to [facility] in [place]. Patient stated that she was fine with any [place] facilities. [facility] has also stated that they can have a negative COVID swab up to 72 hours prior to discharge. COVID swab has been ordered. Addendum entered by [facility] 09/15/20 13:50: [facility] has denied this patient due to bed availability. However Yecenia has requested that patient information be faxed to their sister facility at [facility]. I have faxed patient information to [facility] [phone] at this time. Patient has refused referral to [facility] at this time. Addendum entered by [facility] 09/15/20 09:43: Yecenia with [facility] is currently reviewing patient information at this time. Yecenia will follow up with me once she speaks with Admissions. Addendum entered by [facility] 09/14/20 13:41: Rebeka from [facility] has stated due to patient being out of network and not meeting her deductible she would be charged 30% of all charge which would total about $3500.00. Patient stated that she can not afford this valladares. Patient is now agreeable to [facility] and patient information has been faxed to [facility] to Yecenia at [phone]. I will follow up with Yecenia once patient information is reviewed. I have explained to patient and sister that at this point patient is medically stable for discharge and we must go to facility that is willing to accept. Addendum entered by [facility] 09/14/20 12:46: [facility] does NOT have a bed available at this time. Family is agreeable to [facility] at this time. Information has been faxed at this time. Addendum entered by [facility] 09/14/20 10:49: Patient is NOT interested in [facility] and does not recall our conversation yesterday. Patients sister (POA) Mercy was present at time of my visit this morning and stated they prefer [facility]: informed family again of denial then chose [facility]. Patient information has been faxed to [facility]. I will follow up with [facility] once patient information is reviewed. Patient expressed an interest in [facility] but POA stated that she feels patient is not a candidate and to go thru [facility] first. Addendum entered by Anum Schmidt 09/14/20 09:20: SENT REFERRAL TO [facility] TO SEE IF THEY HAVE A SKILLED HUMANA/MCR BED... WAITING FOR A CALL BACK... Addendum entered by Dana Cordova 09/13/20 16:17: [facility] has denied this patient. [facility] is currently reviewing this patients information. Original Note: SENT REFERRAL TO [facility] AND [facility] TO SEE IF [facility]ITHER PLACE HAS BED AVAILABILITY.....PATIENT HAS A HUMANA/MCR AND WILL REQUIRE A PRECERTIFICATION...PATIENT WAS AGREEABLE TO GO WITH [facility] HER FIRST AND [facility] A SECOND CHOICE. WAITING TO HEAR BACK....ONCE WE GET CONFIRMATION SHE WILL DISCHARGE....WILL LET PATIENT KNOW ONCE I HEAR BACK.....
--- NOTE | 2020-09-13 14:37 | DIET.NUTRFU ---
PO intakes 75%, weight stable, 124 Na this am. Pt with moderate malnutrition with loss 5% body weight in the past month, also with increased protein needs dt postop status from hip fracture. Diet education/counseling given for high protein diet and nutritional concerns with alcohol abuse. Protein supplements on diet order TID. Continuing to monitor.
--- NOTE | 2020-09-13 15:35 | PC.NURSE ---
Physical Therapy at [facility] to see pt.
--- NOTE | 2020-09-13 15:36 | HMH.ACPN2 ---
Internal Medicine - PN: Subj *Date: 09/14/20 *Time: 06:38 Interval history: doing better but has lt sided pleuritic pain Exam Vital signs and Labs for Last 24 Hours: Temp Pulse Resp BP Pulse Ox 97.9 F 103 H 18 127/71 98 09/13/20 08:00 09/13/20 08:00 09/13/20 08:00 09/13/20 08:00 09/13/20 08:00 Laboratory Results - last 24 hr 09/13/20 05:10: WBC 6.3, RBC 3.48 L, Hgb 11.0 L, Hct 33.7 L, MCV 96.9, MCH 31.6 H, MCHC 32.6, RDW 15.8, Plt Count 355, MPV 7.4, Neut % (Auto) 62.8, Lymph % (Auto) 25.0, [place] % (Auto) 9.6 H, Eos % (Auto) 2.0, Baso % (Auto) 0.7, Neut # (Auto) 4.0, Lymph # (Auto) 1.6, [place] # (Auto) 0.6, Eos # (Auto) 0.1, Baso # (Auto) 0.0 09/13/20 05:10: Sodium 124 L, Potassium 3.7, Chloride 94 L, Carbon Dioxide 26, Anion Gap 7.7, BUN 7 D, Creatinine 0.40 L, Estimated Creat Clear 46, Estimated GFR 162, Est GFR ( Amer) 196, Glucose 101 H, Calcium 8.6 I & O for Last 24 hours: Intake & Output 09/11/20 09/12/20 09/13/20 09/14/20 11:59 11:59 11:59 11:59 Intake Total 3005 / 3005 749 / 749 120 / 120 Output Total 1250 / 1250 550 / 550 Balance 1755 / 1755 749 / 749 -430 / -430 Weight 110 lb 6 oz - Constitutional no acute distress, thin - *Routine HEENT Exam Head: Present: normocephalic Eye: Present: EOMI, PERRL ENT: Present: mucous membranes dry - *Routine Neck Exam Present: supple. Absent: JVD - *Routine Respiratory Exam Present: decreased breath sounds - *Routine Cardiovascular Exam Present: RRR - *Routine Abdominal Exam Present: soft - *Routine Extremities Exam Absent: calf tenderness - *Routine Skin Exam Present: intact - *Routine Neurological Exam Present: alert, CN II-XII intact - Routine Psychiatric Exam Present: normal affect Assessment and Plan (1) Intertrochanteric fracture of left femur Status: Acute Category: Medical Code(s): S72.142A - Displaced intertrochanteric fracture of left femur, initial encounter for closed fracture (2) Alcoholism Status: Acute Category: Medical Code(s): F10.20 - Alcohol dependence, uncomplicated (3) Hyponatremia Status: Acute Category: Medical Code(s): E87.1 - Hypo-osmolality and hyponatremia (4) Rhabdomyolysis Status: Acute Qualifiers: Rhabdomyolysis type: traumatic Encounter type: initial encounter Qualified Code(s): T79.6XXA - Traumatic ischemia of muscle, initial encounter Category: Medical Code(s): M62.82 - Rhabdomyolysis (5) COPD (chronic obstructive pulmonary disease) Status: Acute Qualifiers: COPD type: unspecified COPD Qualified Code(s): J44.9 - Chronic obstructive pulmonary disease, unspecified Category: Medical Code(s): J44.9 - Chronic obstructive pulmonary disease, unspecified (6) Chronic anxiety Status: Acute Category: Medical Code(s): F41.9 - Anxiety disorder, unspecified (7) Chronic pain Status: Acute Qualifiers: Chronic pain type: other chronic pain Qualified Code(s): G89.29 - Other chronic pain Category: Medical Code(s): G89.29 - Other chronic pain (8) Low body mass index (BMI) Status: Acute Category: Medical (9) Osteoporosis Status: Acute Qualifiers: Osteoporosis type: age-related Presence of current pathological fracture: unspecified Qualified Code(s): M81.0 - Age-related osteoporosis without current pathological fracture Category: Medical Code(s): M81.0 - Age-related osteoporosis without current pathological fracture
[2020-09-13 16:00] VITALS: PULSE 108; RESP 18; TEMP 36.6; O2SAT 100
--- NOTE | 2020-09-13 17:15 | HMH.ORTHPN ---
Subjective Date: 09/13/20 Time: 12:30 Principal diagnosis: intertrochanteric fracture L femur Interval history: The patient is doing well, just returned from radiology where CTA chest w/PE protocol was done. She reports discomfort in the L hip with mild drainage through her dressings. No numbness/tingling in the LLE. PN: Obj Ex Vital signs: Temp Pulse Resp BP Pulse Ox 97.9 F 103 H 18 127/71 98 09/13/20 08:00 09/13/20 08:00 09/13/20 08:00 09/13/20 08:00 09/13/20 08:00 - Constitutional no acute distress - Routine HEENT Exam Head: Present: normocephalic Eye: Present: EOMI ENT: Present: mucous membranes moist - Routine Neck Exam Present: trachea midline - Routine Respiratory Exam Absent: patient mechanically ventilated, respiratory distress - Routine Cardiovascular Exam Present: RRR - Routine Abdominal Exam Present: soft - Routine Extremities Exam Comments: L hip dressings c/d/i, minimal strikethrough +DF/PF/EHL LLE SILT distally LLE in all distributions L calf soft, non-tender; negative Pooja's palpable pedal pulses LLE, L foot pink/warm - Routine Skin Exam Present: warm - Routine Neurological Exam Present: alert, oriented X3, moving all extremities, normal tone, vision grossly intact, hearing grossly intact. Absent: sensory deficit, motor deficit, altered mental status - Urinary Catheter Management Barron Cath placed during this visit: no Progress Note: A&P (1) Intertrochanteric fracture of left femur Status: Acute (2) Alcoholism Status: Acute (3) Hyponatremia Status: Acute (4) Rhabdomyolysis Status: Acute (5) COPD (chronic obstructive pulmonary disease) Status: Acute (6) Chronic anxiety Status: Acute (7) Chronic pain Status: Acute (8) Low body mass index (BMI) Status: Acute (9) Osteoporosis Status: Acute Assessment and Plan for All Diagnoses:: 60yo F POD 3s/p IMN L femur for IT fx -- WBAT LLE, up with assist -- PT/OT to continue -- ice pack L hip as needed -- will f/u CT chest results -- DVT prophy: SCDs, lovenox -- encourage incentive spirometer 10x/hr while awake -- dispo planning: anticipate d/c SNF when medically stable
--- NOTE | 2020-09-13 17:40 | PC.NURSE ---
Dressings x2 changed (most proximal to hip) , serosang / purulent drainage noted, no odor.
--- NOTE | 2020-09-13 19:18 | PC.NURSE ---
Report given to MIRANDA Morton.
[2020-09-13 19:58] VITALS: O2SAT 99
[2020-09-13 20:00] VITALS: BP 106/71; PULSE 113; RESP 18; TEMP 36.6; O2SAT 99
--- NOTE | 2020-09-14 01:04 | PC.NURSE ---
Pt's dressings to the Lt hip changed r/t weaping of the incision, Incision well approximated and intact
[2020-09-14 03:48] VITALS: BP 119/70; PULSE 123; RESP 18; TEMP 36.5; O2SAT 95
--- NOTE | 2020-09-14 04:02 | PC.NURSE ---
Pt has not slept this shift, A&O x4 with some confusion, BLT lung sounds are diminished with some rhonchi throughout, Bowel sounds present in all 4 quadrants, Pt's Lt hip dressings has purulent drainage noted, dressings have been changed, Pt on 2L NC, IV in place and saline locked, Pt denies SOA, headache, N/V. Pt reports sharp pain to Lt hip 10/10 on pain scale. Pt medicated per MAR
--- NOTE | 2020-09-14 05:08 | PC.NURSE ---
Lt hip dressings changed at this time for continuous purulent drainage from surgical incision
--- NOTE | 2020-09-14 07:34 | PC.NURSE ---
Lab personnel at to draw blood.
[2020-09-14 08:00] VITALS: BP 107/61; PULSE 130; RESP 20; TEMP 36.6; O2SAT 98; O2SAT 99
[2020-09-14 08:10] LABS: Basophils % 0.6 % (0.1-2.0); Eosinophils # 0.1 K/mm3 (0.0-0.4); Eosinophils % 1.9 % (0.1-12.0); Hematocrit 38.3 % (37.0-47.0); Hemoglobin 12.5 g/dL (12.2-16.2); Lymphocytes # 1.6 K/mm3 (0.7-4.5); Lymphocytes % 21.3 % (10-50); Mean Corpuscular HGB Conc 32.6 g/dL (31.8-35.4); Mean Corpuscular Hemoglobin 31.9 pg (27.0-31.2); Mean Corpuscular Volume 97.8 fl (81-99); Mean Platelet Volume 7.5 fl (7.4-10.4); Monocytes # 0.6 K/mm3 (0.1-1.0); Monocytes % 7.7 % (1.7-9.3); Neutrophils % 68.6 % (37.0-80.0); Platelet Count 473 K/mm3 (142-424); Red Blood Count 3.91 M/mm3 (4.20-5.40); Red Cell Distribution Width 15.4 % (11.5-17.5); White Blood Count 7.3 K/mm3 (4.8-10.8)
[2020-09-14 08:16] LABS: Chloride 92 mmol/L (98-107)
[2020-09-14 08:17] LABS: Potassium 3.9 mmoL/L (3.5-5.1); Sodium 125 mmol/L (136-145)
[2020-09-14 08:20] LABS: Anion Gap 7.9 mEq/L (5-15); Blood Urea Nitrogen 7 mg/dl (7-17); Calcium 9.1 mg/dl (8.4-10.2); Carbon Dioxide 29 mmol/L (22.0-30.0); Creatinine Clearance Estimated 46 mL/min (50-200); Estimated Glomerular Filt Rate 125 ml/min (>60); GFR (African American) 151 ML/MIN (>60); Glucose 137 mg/dl (74-100)
--- NOTE | 2020-09-14 08:30 | PC.NURSE ---
Dr. Diaz here to see pt.
--- NOTE | 2020-09-14 09:00 | PC.NURSE ---
Partial bath given to pt. Dressings removed from incisions (saturated with serum and scant amt of blood). Incision cleansed with 1/2 strength peroxide. New dressings applied to incision sites. Tolerated well.
--- NOTE | 2020-09-14 09:58 | HMH.ACPN2 ---
Internal Medicine - PN: Subj *Date: 09/14/20 *Time: 09:58 Interval history: 60-year-old female patient sitting up in chair, family member in room. Patient reports she is feeling better and doing a little bit more in physical therapy each day. Informed her of possible discharge to prison patient states she is not going to that prison and request other alternative facilities for placement. Case management involved and is actively searching for retirement home placement. Patient is stable for discharge per Ortho's standpoint. Exam Vital signs and Labs for Last 24 Hours: Temp Pulse Resp BP Pulse Ox 97.9 F 132 H 21 140/65 94 L 09/14/20 08:00 09/14/20 15:24 09/14/20 15:24 09/14/20 15:24 09/14/20 15:24 Laboratory Results - last 24 hr 09/14/20 07:43: WBC 7.3, RBC 3.91 L, Hgb 12.5, Hct 38.3, MCV 97.8, MCH 31.9 H, MCHC 32.6, RDW 15.4, Plt Count 473 H D, MPV 7.5, Neut % (Auto) 68.6, Lymph % (Auto) 21.3, [place] % (Auto) 7.7, Eos % (Auto) 1.9, Baso % (Auto) 0.6, Neut # (Auto) 5.0, Lymph # (Auto) 1.6, [place] # (Auto) 0.6, Eos # (Auto) 0.1, Baso # (Auto) 0.0 09/14/20 07:43: Sodium 125 L, Potassium 3.9, Chloride 92 L, Carbon Dioxide 29, Anion Gap 7.9, BUN 7, Creatinine 0.50 L D, Estimated Creat Clear 46, Estimated GFR 125, Est GFR ( Amer) 151 D, Glucose 137 H, Calcium 9.1 I & O for Last 24 hours: Intake & Output 09/11/20 09/12/20 09/13/20 09/14/20 23:59 23:59 23:59 23:59 Intake Total 1754 / 1754 120 / 120 Output Total 350 / 350 150 / 150 400 / 400 Balance 1404 / 1404 -150 / -150 -280 / -280 Weight 110 lb 6 oz - Constitutional no acute distress, cooperative - *Routine HEENT Exam Head: Present: normocephalic Eye: Present: EOMI ENT: Present: mucous membranes moist - *Routine Neck Exam Present: trachea midline. Absent: tracheal deviation - *Routine Respiratory Exam Present: decreased breath sounds, wheezes - *Routine Cardiovascular Exam Present: RRR - *Routine Abdominal Exam Present: soft, normoactive bowel sounds. Absent: tenderness, obese - *Routine Extremities Exam Present: pulses intact, DREW stockings. Absent: cyanosis, calf tenderness - *Routine Skin Exam Present: dry, wounds, rash. Absent: cyanosis Comments: Drsg to L Hip C/D/I - *Routine Neurological Exam Present: alert, oriented X3. Absent: motor deficit, altered mental status - Routine Psychiatric Exam Present: normal affect, normal thought process. Absent: homicidal ideation, auditory hallucinations Assessment and Plan (1) Intertrochanteric fracture of left femur Status: Acute Category: Medical Code(s): S72.142A - Displaced intertrochanteric fracture of left femur, initial encounter for closed fracture (2) Alcoholism Status: Acute Category: Medical Code(s): F10.20 - Alcohol dependence, uncomplicated (3) Hyponatremia Status: Acute Category: Medical Code(s): E87.1 - Hypo-osmolality and hyponatremia (4) Rhabdomyolysis Status: Acute Qualifiers: Rhabdomyolysis type: traumatic Encounter type: initial encounter Qualified Code(s): T79.6XXA - Traumatic ischemia of muscle, initial encounter Category: Medical Code(s): M62.82 - Rhabdomyolysis (5) COPD (chronic obstructive pulmonary disease) Status: Acute Qualifiers: COPD type: unspecified COPD Qualified Code(s): J44.9 - Chronic obstructive pulmonary disease, unspecified Category: Medical Code(s): J44.9 - Chronic obstructive pulmonary disease, unspecified (6) Chronic anxiety Status: Acute Category: Medical Code(s): F41.9 - Anxiety disorder, unspecified (7) Chronic pain Status: Acute Qualifiers: Chronic pain type: other chronic pain Qualified Code(s): G89.29 - Other chronic pain Category: Medical Code(s): G89.29 - Other chronic pain (8) Low body mass index (BMI) Status: Acute Category: Medical (9) Osteoporosis Status: Acute Qualifiers: Osteoporosis type: ag
--- NOTE | 2020-09-14 10:00 | PC.NURSE ---
Case Management at discussing possible locations for rehab.
--- NOTE | 2020-09-14 10:03 | PC.NURSE ---
Physical Therapy here to see pt.
--- NOTE | 2020-09-14 10:50 | PC.NURSE ---
Dr. Larios at discussing POC with patient. MD shown the amt and color of drainage on previous dressings and chux. States that pt has a Seroma causing the drainage. Ice pack applied above areas of drainage.
--- NOTE | 2020-09-14 10:57 | HMH.ORTHPN ---
Subjective Date: 09/14/20 Time: 10:00 Principal diagnosis: intertrochanteric fracture L femur Interval history: The patient is sitting in bedside chair this morning, doing well. Some bruising around one superior L hip incision with serous drainage. Otherwise well without complaint, awaiting dispo. PN: Obj Ex Vital signs: Temp Pulse Resp BP Pulse Ox 97.9 F 130 H 20 107/61 L 99 09/14/20 08:00 09/14/20 08:00 09/14/20 08:00 09/14/20 08:00 09/14/20 08:00 - Constitutional no acute distress - Routine HEENT Exam Head: Present: normocephalic Eye: Present: EOMI ENT: Present: mucous membranes moist - Routine Neck Exam Present: trachea midline - Routine Respiratory Exam Absent: respiratory distress, wheezes - Routine Cardiovascular Exam Present: RRR - Routine Abdominal Exam Present: soft - Routine Extremities Exam Comments: L hip dressings removed, incisions/joshua intact w/o active drainage no periwound erythema, moderate ecchymosis posterior to second-most proximal incision serous drainage on prior dressing, no purulence or maris blood +DF/PF/EHL LLE SILT distally LLE in all distributions L calf soft, non-tender; negative Pooja's palpable pedal pulses LLE, L foot pink/warm - Routine Skin Exam Present: warm - Routine Neurological Exam Present: alert, oriented X3, moving all extremities, normal tone, vision grossly intact, hearing grossly intact, normal speech. Absent: sensory deficit, motor deficit - Urinary Catheter Management Barron Cath placed during this visit: no Progress Note: A&P (1) Intertrochanteric fracture of left femur Status: Acute (2) Alcoholism Status: Acute (3) Hyponatremia Status: Acute (4) Rhabdomyolysis Status: Acute (5) COPD (chronic obstructive pulmonary disease) Status: Acute (6) Chronic anxiety Status: Acute (7) Chronic pain Status: Acute (8) Low body mass index (BMI) Status: Acute (9) Osteoporosis Status: Acute Assessment and Plan for All Diagnoses:: 60yo F POD 4 s/p IMN L femur for IT fx -- WBAT LLE, up with assist -- PT/OT to continue -- ice pack L hip as needed -- new dressings applied by myself, compression added to incision with drainage; believe this is a seroma and will heal well -- DVT prophy per primary physician -- encourage incentive spirometer 10x/hr while awake -- dispo planning: SNF referral made, awaiting placement
--- NOTE | 2020-09-14 12:27 | PC.NURSE ---
Sitting up in recliner chair eating lunch. Voices no complaints when asked. Recently medicated with Morphine 4mg IV for left side chest pain.
--- NOTE | 2020-09-14 12:50 | PC.NURSE ---
Physical Therapy at .
--- NOTE | 2020-09-14 13:19 | PC.NURSE ---
Dana DEVINE) at discussing facility opportunities for therapy with patient.
--- NOTE | 2020-09-14 15:23 | PC.NURSE ---
Jennie Cordova, (CM) at discussing further discharge planning.
[2020-09-14 15:24] VITALS: BP 140/65; PULSE 132; RESP 21; O2SAT 94
--- NOTE | 2020-09-14 16:56 | PC.NURSE ---
Pt has tolerated physical therapy and ambulating from chair to c better than yesturday. (+) bs x 4 quads. Large amts of serum fluid leaking from uppermost incision area. [place] remain intact in all incisions with no S/S of infection. V/S stable. Lung sounds (rhonchi/wheezes). Is using incentive spirometer when reminded to. Is passing flatus, no bm yet. Voiding w/o difficulty. Family member has remained at bs most of the day awaiting news for placement for therapy. HR remains tachy. Afebrile. Tolerating regular diet well.
[2020-09-14 20:30] VITALS: BP 128/81; PULSE 122; RESP 20; TEMP 36.6; O2SAT 99
[2020-09-15 04:00] VITALS: BP 113/69; PULSE 124; RESP 20; TEMP 36.4; O2SAT 97
--- NOTE | 2020-09-15 04:00 | PC.NURSE ---
PT HAS RESTED INTERMITTENTLY THIS SHIFT, PAIN CONTROLLED NEEDED. A&O X 4. PT IN RECLINER AT THIS TIME PER REQUEST. LUNGS WITH SCATTERED WHEEZES, DIMINISHED. USING INCENTIVE SPIROMETER. HAS AMBULATED WELL WITH ASSIST AND WALKER. AFEBRILE, VITAL SIGNS STABLE, HEART RATE REMAINS ELEVATED. INCISION TO LEFT HIP COVERED, LARGE AMOUNTS OF SEROUS DRAINAGE NOTED, UNCHANGED ALL SHIFT. BOWEL SOUNDS ACTIVE X 4 QUADS, VOIDING WITHOUT DIFFICULTY. SCATTERED BRUISES NOTED. CALL LIGHT WITHIN REACH. PT WITHOUT NEEDS AT THIS TIME. WILL CONTINUE TO MONITOR
[2020-09-15 08:00] VITALS: BP 121/68; PULSE 108; RESP 20; TEMP 36.6; O2SAT 100
--- NOTE | 2020-09-15 08:52 | PC.NURSE ---
Dr. Diaz at discussing POC.
--- NOTE | 2020-09-15 09:00 | PC.NURSE ---
Report to RN
--- NOTE | 2020-09-15 09:30 | PC.NURSE ---
Physical Therapy x2 with pt. Pt has walked farther today than any other (to and from chair around the room)
--- NOTE | 2020-09-15 12:49 | HMH.ORTHPN ---
Subjective Date: 09/15/20 Time: 11:00 Principal diagnosis: intertrochanteric fracture L femur Interval history: The patient is doing well this morning and looks more alert, mental status has significantly clarified since admission. She had a sponge bath this morning and is feeling well. She has pain in the hip that is controlled with medication. She has been out of bed with physical therapy and has ambulated to the door and back, which she says she tolerated well. Awaiting disposition, referral sent to SNF and review pending. PN: Obj Ex Vital signs: Temp Pulse Resp BP Pulse Ox 97.9 F 108 H 20 121/68 100 09/15/20 08:00 09/15/20 08:00 09/15/20 08:00 09/15/20 08:00 09/15/20 08:00 - Constitutional no acute distress - Routine HEENT Exam Head: Present: normocephalic Eye: Present: EOMI ENT: Present: mucous membranes moist - Routine Neck Exam Present: trachea midline - Routine Respiratory Exam Absent: respiratory distress, wheezes - Routine Cardiovascular Exam Present: RRR - Routine Abdominal Exam Present: soft. Absent: tenderness - Routine Extremities Exam Comments: L hip dressings c/d/i +DF/PF/EHL LLE SILT distally LLE in all distributions L calf soft, non-tender; negative Pooja's palpable pedal pulses LLE, L foot pink/warm - Routine Skin Exam Present: warm - Routine Neurological Exam Present: alert, oriented X3, moving all extremities, normal tone, vision grossly intact, hearing grossly intact, normal speech. Absent: sensory deficit, motor deficit, altered mental status - Routine Psychiatric Exam Present: normal affect - Urinary Catheter Management Barron Cath placed during this visit: no Progress Note: A&P (1) Intertrochanteric fracture of left femur Status: Acute (2) Alcoholism Status: Acute (3) Hyponatremia Status: Acute (4) Rhabdomyolysis Status: Acute (5) COPD (chronic obstructive pulmonary disease) Status: Acute (6) Chronic anxiety Status: Acute (7) Chronic pain Status: Acute (8) Low body mass index (BMI) Status: Acute (9) Osteoporosis Status: Acute Assessment and Plan for All Diagnoses:: 60yo F POD 5 s/p IMN L femur for IT fx -- WBAT LLE, up with assist -- PT/OT to continue -- ice pack L hip as needed -- DVT prophy per primary physician -- encourage incentive spirometer 10x/hr while awake -- dispo planning: SNF referral made, awaiting placement -- f/u with me in clinic 09/24/20 at 1:15pm; d/c instructions and pain Rx placed on chart today
--- NOTE | 2020-09-15 13:30 | PC.NURSE ---
Angela Roa and Annabel Otto at bs talking to pt.
--- NOTE | 2020-09-15 14:11 | HMH.ACPN2 ---
Internal Medicine - PN: Subj *Date: 09/15/20 *Time: 09:11 Interval history: 60-year-old female patient sitting up in chair, discussed with patient that she needs to ask for pain medication when she first starts having pain and before therapy sessions. Patient believes that she received medicine [id number], informed her she needs to ask for it she verbalizes understanding. Discussed assisted placement with patient there is a facility in [place] that is reviewing her case, she reports if refused or unable to go to nursing facility in [place] she agrees to go to [facility] for therapy. Case management involved and is actively searching for assisted home placement. Patient is stable for discharge per Ortho's standpoint. Exam Vital signs and Labs for Last 24 Hours: Temp Pulse Resp BP Pulse Ox 97.9 F 108 H 20 121/68 100 09/15/20 08:00 09/15/20 08:00 09/15/20 08:00 09/15/20 08:00 09/15/20 08:00 I & O for Last 24 hours: Intake & Output 09/12/20 09/13/20 09/14/20 09/15/20 23:59 23:59 23:59 23:59 Intake Total 120 / 120 30 / 30 Output Total 150 / 150 400 / 400 Balance -150 / -150 -280 / -280 30 / 30 - Constitutional no acute distress, chronically ill appearing - *Routine HEENT Exam Head: Present: normocephalic Eye: Present: EOMI ENT: Present: mucous membranes moist - *Routine Neck Exam Present: trachea midline. Absent: tracheal deviation - *Routine Respiratory Exam Present: wheezes, diminished air movement. Absent: accessory muscle use - *Routine Cardiovascular Exam Present: RRR, bradycardia - *Routine Abdominal Exam Present: soft, normoactive bowel sounds. Absent: tenderness, firm - *Routine Extremities Exam Present: pulses intact. Absent: cyanosis, clubbing, calf tenderness - *Routine Skin Exam Present: dry, warm, wounds. Absent: cyanosis, jaundice Comments: Viral L Hip C/D/I - *Routine Neurological Exam Present: alert, hearing grossly intact, normal speech. Absent: tremors - Routine Psychiatric Exam Present: normal affect, normal thought process. Absent: suicidal ideation, visual hallucinations Assessment and Plan (1) Intertrochanteric fracture of left femur Status: Acute Category: Medical Code(s): S72.142A - Displaced intertrochanteric fracture of left femur, initial encounter for closed fracture (2) Alcoholism Status: Acute Category: Medical Code(s): F10.20 - Alcohol dependence, uncomplicated (3) Hyponatremia Status: Acute Category: Medical Code(s): E87.1 - Hypo-osmolality and hyponatremia (4) Rhabdomyolysis Status: Acute Qualifiers: Rhabdomyolysis type: traumatic Encounter type: initial encounter Qualified Code(s): T79.6XXA - Traumatic ischemia of muscle, initial encounter Category: Medical Code(s): M62.82 - Rhabdomyolysis (5) COPD (chronic obstructive pulmonary disease) Status: Acute Qualifiers: COPD type: unspecified COPD Qualified Code(s): J44.9 - Chronic obstructive pulmonary disease, unspecified Category: Medical Code(s): J44.9 - Chronic obstructive pulmonary disease, unspecified (6) Chronic anxiety Status: Acute Category: Medical Code(s): F41.9 - Anxiety disorder, unspecified (7) Chronic pain Status: Acute Qualifiers: Chronic pain type: other chronic pain Qualified Code(s): G89.29 - Other chronic pain Category: Medical Code(s): G89.29 - Other chronic pain (8) Low body mass index (BMI) Status: Acute Category: Medical (9) Osteoporosis Status: Acute Qualifiers: Osteoporosis type: age-related Presence of current pathological fracture: unspecified Qualified Code(s): M81.0 - Age-related osteoporosis without current pathological fracture Category: Medical Code(s): M81.0 - Age-related osteoporosis without current pathological fracture - Assessment and plan all Dx Assessment and Plan for all problems:: Round
[2020-09-15 14:47] LABS: Adenovirus,PCR Not Detected (NotDetected); Bordetella Pertussis Not Detected (NotDetected); Chlamydophila Pneumoniae, PCR Not Detected (NotDetected); Coronavirus 19, PCR Not Detected (NotDetected); Coronavirus 229E Not Detected (NotDetected); Coronavirus NL63 Not Detected (NotDetected); Coronavirus OC43 Not Detected (NotDetected); Coronovirus HKU1,PCR Not Detected (NotDetected); Human Metapneumovirus Not Detected (NotDetected); Influenza A, PCR Not Detected (NotDetected); Influenza AH1, 2009 Not Detected (NotDetected); Influenza AH1, PCR Not Detected (NotDetected); Influenza AH3,PCR Not Detected (NotDetected); Influenza B, PCR Not Detected (NotDetected); Mycoplasma Pneumoniae, PCR Not Detected (NotDetected); Parainfluenza 1, PCR Not Detected (NotDetected); Parainfluenza 2, PCR Not Detected (NotDetected); Parainfluenza 3, PCR Not Detected (NotDetected); Parainfluenza 4, PCR Not Detected (NotDetected); Respiratory Syncytial Virus Not Detected (NotDetected); Rhinovirus/Enterovirus Not Detected (NotDetected)
--- NOTE | 2020-09-15 15:21 | PC.NURSE ---
1345- Pt requesting to speak with corazon- Bisi Otto and Alexandra Roa visited pt bedside. Pt states she was satisfied after talking with them, she felt reassured about her correction placement issues and questions were answered. [id number]- Dana - social sciences research scientist talking with pt and pt agreeable with placement at [facility]. [place] -social service manager also spoke with pts sister Mercy and inst on need to transport pt to [facility] tomorrow.
[2020-09-15 16:00] VITALS: BP 136/81; PULSE 107; RESP 16; TEMP 36.8; O2SAT 100
--- NOTE | 2020-09-15 19:05 | PC.NURSE ---
REPORT RECEIVED FROM Leandra BUNDY RN
[2020-09-15 20:00] VITALS: O2SAT 100
[2020-09-16 00:43] VITALS: BP 123/59; PULSE 101; RESP 18; TEMP 36.9; O2SAT 98
--- NOTE | 2020-09-16 05:24 | PC.NURSE ---
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 and advises nurse to watch this pointing at tv, this nurse asked if she was having a nightmare pt yells no , when pt asked the orientation questions pt able to answer questions correctly, pt has constantly been on light throughout night slept only approx 2 hours and when pt has not been ringing she has been yelling out, pt was redirected at beginning of shift to use call light that it is the quickest way to get a nurse in the room and pt verbalized understanding at that time, but then called back out and states no one ever told me not to yell I just think the hospital knows I have money and they want it so they tell me its ok to yell this nurse spoke again with pt and advised her the hospital is not after her money however she has other people on both sides of her room and with it being night time she may wake them up, pt verbalized understanding and states thank you for telling me no one ever has , then pt continues to yell out if help is needed. pt has been medicated several times with prn medication for pain pt rates a 10/10 on pain scale that was not relieved until this am, pt currently states she has no pain, inspiratory and expiratory wheezes noted, pt using incentive spirometer correctly, bs x 4, pt passing flatus which she denies but nurse in room when flatus was passed, no bowel movement this shift, drsg to left hip changed x 2 times d/t serous drainage. call light within reach, phone within reach, will continue to monitor
[2020-09-16 05:30] VITALS: BP 118/67; PULSE 108; RESP 18; TEMP 36.6; O2SAT 97
--- NOTE | 2020-09-16 07:12 | PC.NURSE ---
report given to Korina Verma RN
[2020-09-16 07:45] VITALS: PULSE 78; RESP 20; O2SAT 92
--- NOTE | 2020-09-16 07:45 | PC.NURSE ---
Patient is alert and oriented x4. Up to chair this am. Does well x1 assist. Lungs cta and bowels active x4. patient has not had a bowel movement since admit, but has been passing gas. Bruising to left back/flank area noted. also bruise to right hip/knee. Left Knee swollen, left foot swollen as well. pulses 2+ and cap refill <3 second. Bruising noted to left hip area. top dressing is draining yellow drainage. (md aware). Oxygen in use PRN. Reports intermittent cough. no needs voiced to nurse this am. will change dressing when patient gets back to bed. safety measures in place.
[2020-09-16 08:00] VITALS: BP 102/62; PULSE 118; RESP 20; TEMP 36.8; O2SAT 92
--- NOTE | 2020-09-16 08:04 | HMH.DCSUM ---
General - General Admission date:: 09/09/20 Discharge date: 09/16/20 HPI HPI: Brought in by ambulance for left hip pain after a fall. States that she fell while getting up to go to the commode at 1 AM. She hurt her left hip, unable to get up after that and laid in the floor until being brought here. Denies injuring her head. Says that she covered her head when she fell and did not strike it. Denies neck injury, chest injury, abdominal injury, or back injury. She does have chronic back pain. Denies numbness or weakness. Patient has a history of alcohol and benzo intake. She is followed by a pain clinic in [place], is treated for chronic back pain. She is on long-term opiates per them. We saw her recently in the office for an exacerbation of her back pain. She was noted to be grossly osteopenic, and had a very low DEXA score. She reports that over the last 3 days she has been drinking a lot of water. On admission through the emergency room her sodium was markedly low at 116. We had seen a previous sodium of 129 about a month ago. Mention work-up included a chest x-ray which was unremarkable. X-ray of the left hip showed a comminuted intertrochanteric fracture. The orthopedic service has seen and evaluated the patient. She will not go to the operating room until hyponatremia is improved. Will initially approach this with normal saline infusion and fluid restriction. I discussed this with her. As the fall happened around 1 AM patient lied on the floor for several hours before notifying EMS. Her creatine kinase was elevated, suggesting an element of rhabdomyolysis. I also spoke with one of the RNs who has cared for Ms. Padilla in the past. She is prone to market agitation. The RN did not think that the current dose of oral Serax would be sufficient to mitigate her agitation. She suggested Ativan 1 mg IV every 4 as needed. Patient is getting morphine for pain control. Patient has comorbid COPD and is oxygen dependent. She is generally frail, anxious, and recently lost her . Hospital Course Hospital Course: 60-year-old female patient brought in the emergency department for ambulance from home after a fall while getting up to go to the bathroom. She reports falling, injuring her left hip, and unable to get up after that. She denies hitting her head and denies further injuries. She does have a history of chronic back pain and has seen by a pain clinic in [place] and has been prescribed opiates long-term for this condition by the pain clinic. She has been seen by primary care recently and was noted to be grossly osteopenic and having a very low DEXA score. She also has a history of COPD and is on home oxygen, her is recently She reports drinking an excessive amount of water last 3 days, and on admission her sodium was low at 116, and had been 129 in the office 1 month previous Orthopedic surgeon was consulted and evaluated patient and held surgery until hyponatremia was improved. After IV fluids sodium was 122 and surgery was performed Toxicology screen was appropriate with positive opiates 09/09/20 L Hip XR: FINDINGS: There is a comminuted left-sided intertrochanteric fracture with mild impaction of the fracture fragments. There is 2 cm medial displacement of the distal fracture fragment with medial angulation of the distal fracture fragment. IMPRESSION: Comminuted and displaced left intertrochanteric fracture Dictated by: Gildardo Orlando 09/10/20 L Femur XR: FINDINGS: Multiple images submitted with the C-arm demonstrating interval placement a gamma nail within the left femoral neck long intramedullary jesus. Good alignment IMPRESSION: Good alignment status post left hip gamma nail and intramedullary jesus insertion stabilizing left intertrochanteric fracture Dictated by: Darion 09/13/20Chest CT: FINDINGS: HEART AND MEDIASTINAL STRUCTURES: No evidence of ao
--- NOTE | 2020-09-16 08:20 | PC.NURSE ---
dressing change completed at this time to left hip. 4x4 and medipore tap reapplied. joshua intact. top draining yellow drainage. patient tolerated well. education provided.
--- NOTE | 2020-09-16 09:38 | SW/DCPLANNER ---
This patient has been accepted to [facility] level of care per Yecenia. Patient information including discharge summary and COVID negative results have been faxed to [phone]. I have relayed to patients nurse (Clarita) to call report to [phone]. Patient is ready for discharge today. Patient has transportation to [facility] today.
--- NOTE | 2020-09-16 09:50 | PC.NURSE ---
REPORT CALLED TO KELLY JEAN FROM [facility].
--- NOTE | 2020-09-16 10:00 | PC.NURSE ---
Education provided at this time, and pt v/u. packet given to her sister and she is to give to [employer].
== END 2020-09-16 10:13 | DRG 956 ==
LOC: ER 13:59 → 2ND 14:53 → OB 09-11 17:06
PROVIDERS: Nurse Practitioner Family; Orthopaedic Surgery; Physician Assistant; Admitting Provider Family Medicine; Emergency Provider Emergency Medicine; PCP Emergency Medicine; Visit Provider Emergency Medicine
PROC: 0QS736Z Reposition Left Upper Femur with Intramedullary Internal Fixation Device, Percutaneous Approach (ICD-10-PCS; CPT 27245; principal; 2020-09-10 16:30)
DX: S72.142A Displaced intertrochanteric fracture of left femur, initial encounter for closed fracture (principal); T79.6XXA Traumatic ischemia of muscle, initial encounter; E87.1 Hypo-osmolality and hyponatremia; J44.9 Chronic obstructive pulmonary disease, unspecified; Z99.81 Dependence on supplemental oxygen; I11.0 Hypertensive heart disease with heart failure; I50.9 Heart failure, unspecified; Z72.0 Tobacco use; F10.20 Alcohol dependence, uncomplicated; G89.29 Other chronic pain; M81.0 Age-related osteoporosis without current pathological fracture; Z79.899 Other long term (current) drug therapy; W01.0XXA Fall on same level from slipping, tripping and stumbling without subsequent striking against object, initial encounter; Y92.013 Bedroom of single-family (private) house as the place of occurrence of the external cause
CPT/HCPCS: 27245; 36415; 71045; 71275; 73502; 73552; 76000; 80048; 80053; 80305; 81001; 82550; 82553; 83735; 84100; 84295; 84484; 85007; 85014; 85018; 85025; 85610; 85730; 86328; 86850; 87581; 87633; 87798; 93005; 93306; 94761; 96365; 96375; 96376; 97110; 97116; 97161; 97166; 97530; 99284; C1713; C1769; C1776; J2405; P9016; P9047; Q9967

== ENCOUNTER → 2020-09-24 13:02 | Outpatient (CLI) | payer MEDICARE, SELFPAY ==
--- NOTE | 2020-09-24 13:16 | XR_ITS ---
PROCEDURE: XR FEMUR LT 2V CLINICAL INDICATION: intramedullary nail L femur Follow-up fracture/ORIF COMPARISON: CR XR HIP LT 2-3V W/PELVIS from 09/10/2020 CR XR FEMUR LT 2V from 09/10/2020 FINDINGS: Status post gamma nail with long intramedullary jesus placement stabilizing the comminuted subtrochanteric fracture with involvement of the lesser trochanter. There is good alignment. Skin clips are present at the hip and at the distal thigh laterally. IMPRESSION: Good alignment status post ORIF proximal femoral fracture Dictated by: Gildardo Orlando MD 09/24/2020 14:38 Gildardo Orlando MD in [place] 09/24/2020 14:38
== END ==
PROVIDERS: PCP Emergency Medicine; Visit Provider Orthopaedic Surgery
DX: S72.142A Displaced intertrochanteric fracture of left femur, initial encounter for closed fracture (principal)
CPT/HCPCS: 73552

== ENCOUNTER → 2020-10-18 14:01 | Outpatient (CLI) | payer MEDICARE, SELFPAY ==
--- NOTE | 2020-10-18 14:05 | XR_ITS ---
PROCEDURE: XR KNEE LT 4V CLINICAL INDICATION: Left knee pain COMPARISON: No exams were available for comparison FINDINGS: No fracture or dislocation. No lytic or blastic change. There is normal mineralization. The joint spaces are well-preserved. No significant degenerative/arthritic changes. No erosive changes evident. Other findings:There is an intramedullary jesus present in the distal femur. No hardware malfunction evident. IMPRESSION: Intramedullary jesus and distal femur otherwise negative left knee Dictated by: Gildardo Orlando MD 10/18/2020 16:02 Gildardo Orlando MD in [place] 10/18/2020 16:02
--- NOTE | 2020-10-18 14:05 | XR_ITS ---
PROCEDURE: XR HIP LT 2-3V W/PELVIS CLINICAL INDICATION: s/p IMN L femur (dx: IT fx); DOS 09/10/20 COMPARISON: CR XR HIP LT 2-3V W/PELVIS from 09/09/2020 CR XR HIP LT 2-3V W/PELVIS from 09/10/2020 XA XR FEMUR LT 2V from 09/10/2020 CR XR FEMUR LT 2V from 09/24/2020 FINDINGS: Gamma nail with intramedullary jesus is present stabilizing comminuted subtrochanteric fracture on the left. There is medial displacement of the lesser trochanter by approximately 1.3 cm. There is a healing left superior pubic ramus fracture at the lateral aspect of the pubic ramus and a healing left inferior pubic ramus fracture centrally. Sclerosis is also noted at the medial aspect of the right pubic rami and could be related to healing injury. IMPRESSION: Status post ORIF left subtrochanteric fracture with good alignment. There are healing fractures of the left superior and inferior pubic ramus and of the right symphysis pubis. Dictated by: Gildardo Orlando MD 10/18/2020 16:05 Gildardo Orlando MD in [place] 10/18/2020 16:05
--- NOTE | 2020-10-18 14:05 | XR_ITS ---
PROCEDURE: XR FEMUR LT 2V CLINICAL INDICATION: s/p IMN L femur (dx: IT fx); DOS 09/10/20 Follow-up fracture COMPARISON: CR XR FEMUR LT 2V from 09/24/2020 FINDINGS: Status post left gamma nail with long intramedullary jesus placement stabilizing subtrochanteric fracture with good alignment of the main fracture fragments and medial displacement of the lesser trochanter. Along the anterior aspect of the distal femur there is a faint area periosteal calcification with the lucency deep to this region within the femur and may be due to a previous screw hole from the previous ORIF IMPRESSION: Good alignment status post ORIF proximal femur fracture Dictated by: Gildardo Orlando MD 10/18/2020 16:07 Gildardo Orlando MD in [place] 10/18/2020 16:07
== END ==
PROVIDERS: PCP Emergency Medicine; Visit Provider Orthopaedic Surgery
DX: S72.142A Displaced intertrochanteric fracture of left femur, initial encounter for closed fracture (principal)
CPT/HCPCS: 73502; 73552; 73564

== ENCOUNTER 2020-10-24 09:26 | Emergency (ER) | payer MEDICARE, SELFPAY ==
[2020-10-24 09:27] VITALS: BP 128/85; PULSE 101; RESP 22; TEMP 36.8; O2SAT 98; BMI 19.5
[2020-10-24 09:48] VITALS: BP 149/84; PULSE 93; RESP 18; O2SAT 97
[2020-10-24 10:25] VITALS: BP 171/92; PULSE 102; RESP 18; O2SAT 98
--- NOTE | 2020-10-24 10:32 | XR_ITS ---
PROCEDURE: XR CHEST PORTABLE Referring Doctor: Manuel Aleman Patient Age:60Y CLINICAL HISTORY: cough. Dyspnea In COMPARISON: CR XR CHEST 2V from 01/20/2020 CR XR CHEST PORTABLE from 08/14/2020 CR XR CHEST PORTABLE from 09/09/[address] ANGIO CHEST from 09/13/2020 FINDINGS: Upright AP portable CXR COPD hyperexpansion. Right chest appears similar, stable with recurrence nipple shadow at right lung base accounting for the nodular density here. Minimal chronic changes with minimal scarring and atelectasis at right lung base but left chest but no discrete new findings the minimal density associated with the rib ends reflects costochondral calcification. The postsurgical changes enroll with stable material just above left hemidiaphragm and posterior left lung base again noted The heart is normal in size alfredo and mediastinal structures appear stable in satisfactory. Chest wall unremarkable. No pleural effusion or pneumothorax. IMPRESSION: . Nothing definitely acute. Chronic changes with emphysema changes/COPD suggested Postsurgical changes left lung base Dictated by: Jac Hansen MD 10/24/2020 16:01 Jac Hansen MD in [place] 10/24/2020 16:01
--- NOTE | 2020-10-24 10:33 | XR_ITS ---
PROCEDURE: XR HIP LT 2-3V W/PELVIS Referring Doctor: Manuel Aleman Patient Age:60Y CLINICAL INDICATION: pain pelvic and left hip pain Injury. The the COMPARISON: CR XR HIP LT 2-3V W/PELVIS from 10/18/2020 FINDINGS: Left hip with AP pelvis Stable left ORIF-gamma nail with long intramedullary jesus is present stabilizing comminuted subtrochanteric fracture on the left. There is medial displacement of the lesser trochanter again seen and stable over 1 cm medial displacement There is a healing fracture at lateral base of left superior pubic ramus. Subtle fracture line remains evident here superiorly with sclerotic margins. Also healing left inferior pubic ramus fracture again noted and stable position... Also noted sclerosis at right pubic bone suggests some healing fracture. Healing injury. The entire left femur images are included today to view the long medullary jesus. This jesus passes through length of the femur down to its distal aspect. Two screws transverse distal metaphysis of the femur to secure the medullary jesus here distally. This area remains satisfactory. With only no some subtle loosening about the more superior of the screws but overall appear stable. Right hip appears satisfactory and stable.. Remainder osseous pelvis appears stable and satisfactory with no new findings. Diffuse demineralization noted. IMPRESSION: No new or acute findings status post ORIF left subtrochanteric fracture with stable, satisfactory position of fracture and fixation elements... Stable appearance of gamma nail as well as along medullary jesus at the left femur . No significant change since 10/18/2020 Healing fractures of the left superior and inferior pubic ramus as well as right pubis, again noted and the stable.. Dictated by: Jac Hansen MD 10/24/2020 17:03 Jac Hansen MD in [place] 10/24/2020 17:03
--- NOTE | 2020-10-24 10:41 | HMH.EDGENADL ---
ED Disposition Clinical Impression: Chronic hip pain Qualifiers: Laterality: left Qualified Code(s): M25.552 - Pain in left hip; G89.29 - Other chronic pain Disposition: Home, Self-Care Condition on Discharge: Good Instructions: DI for Chronic Pain -- Adult Referrals: PCP,No [Primary Care Provider] - Dmitriy Diaz MD [Staff Physician] - - Critical Care Critical Care Time: No Attestation: On 10/24/20, the high probability of a clinically significant, sudden or life threatening deterioration of the following system(s) required my full and direct attention, intervention and personal management. The time I documented below is in addition to time spent performing reported procedures but includes the following listed in this critical care notation. Medical Decision Making - Medical Records Medical records reviewed: Yes: I reviewed the patient's medical records. - David Inquiry Pt receiving controlled substance: Yes David was queried for this patient: No Reason not queried -: David login issues Risks and benefits of using a controlled substance: were discussed with pt by me Vital Signs: 10/24/20 09:27 10/24/20 09:48 10/24/20 10:25 Temperature 98.2 F Temperature Source Oral Pulse Rate [Radial] 101 H 93 H 102 H Respiratory Rate 22 18 18 Blood Pressure [Right Arm] 128/85 149/84 H 171/92 H Blood Pressure Mean [Right Arm] 99 105 118 Blood Pressure Position [Right Arm] Sitting 02 Sat by Pulse Oximetry 98 97 98 Oxygen Delivery Method Room Air 10/24/20 11:19 Temperature Temperature Source Pulse Rate [Radial] 93 H Respiratory Rate 18 Blood Pressure [Right Arm] 140/85 Blood Pressure Mean [Right Arm] 103 Blood Pressure Position [Right Arm] 02 Sat by Pulse Oximetry 96 Oxygen Delivery Method Orders (Tests/Meds): ED MEDICATIONS Discontinued Medications Generic Name Dose Route Start Last Admin Trade Name Freq PRN Reason Stop Dose Admin Morphine Sulfate 4 mg 10/24/20 10:33 10/24/20 10:36 Morphine 2mg/Ml Syringe IM 10/24/20 10:34 4 mg ONCE ONE Administration ORDERS Category Date Time Status XR chest portable Stat Exams 10/24/20 10:32 Taken XR hip LT 2-3V w/pelvis Stat Exams 10/24/20 10:33 Taken - Radiology Data #1 Image(s): Chest, Hip Image Reviewed: Yes I reviewed the patient's radiology results, Yes I reviewed the patient's radiology image Preliminary Findings: Normal/NAD, No Fracture Seen, No Infiltrates Seen - Reevaluation(s) Time: 11:42 Reevaluation #1: On reevaluation, patient's pain is improved. There is no obvious deformity. 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 I did instruct her that as she is enrolled in pain management, we would not provide her narcotic medications upon discharge. Patient given strict return precautions. Verbalized understanding. Medical Decision Narrative: 60-year-old female presenting with an exacerbation of chronic pain. Patient has no obvious deformity on examination. Work-up initiated. General Adult HPI - General Chief complaint: PAIN Stated complaint: pain Time Seen by Provider: 10/24/20 09:30 Mode of Arrival: EMS Limitations: No Limitations Description of Symptoms (Recalled from ER Triage Doc. by RN): to ed per squad with c/o chronic pain out of lortabs. states I just can't stand it anymore - History of Present Illness HPI narrative: This is a 60-year-old female presented to the emergency department with generalized pain. The patient states that she is a longstanding history of chronic pain. She ran out of her Lortabs. She is currently enrolled in the pain clinic and states that she has appointment on to get refills of her medications. However she states that the pain got so bad she could not take it anymore. She is mainly complaining of pain in her left hip and upper shoulders. She denies any falls or trauma. She is not having any chest pain or shortness of br
[2020-10-24 11:19] VITALS: BP 140/85; PULSE 93; RESP 18; O2SAT 96
[2020-10-24 12:08] VITALS: BP 142/84; PULSE 76; RESP 16; TEMP 36.8; O2SAT 98
== END 2020-10-24 12:09 | disposition home or self-care (01) ==
PROVIDERS: Emergency Provider Emergency Medicine
DX: M25.552 Pain in left hip (principal); G89.29 Other chronic pain; J44.9 Chronic obstructive pulmonary disease, unspecified; I10 Essential (primary) hypertension; M79.7 Fibromyalgia; F41.9 Anxiety disorder, unspecified; F17.210 Nicotine dependence, cigarettes, uncomplicated; Z88.6 Allergy status to analgesic agent; Z79.899 Other long term (current) drug therapy
CPT/HCPCS: 71045; 73502; 96372; 99283

== ENCOUNTER 2022-05-24 10:21 | Emergency (ER) | payer MEDICARE, SELFPAY ==
[2022-05-24] VITALS (7 sets, daily range): BP systolic 123–145; BP diastolic 76–92; PULSE 95–133; RESP 17–22; TEMP 36.7–36.9; O2SAT 95–100; BMI 18.8
--- NOTE | 2022-05-24 10:25 | XR_ITS ---
FINAL REPORT CLINICAL HISTORY: soa COMPARISON: 10/24/2020 FINDINGS: SINGLE-VIEW CHEST The heart size is normal. The mediastinum is normal. There are mild bibasilar opacities, may represent atelectasis or scar. There are postoperative changes in the left lower thorax. There is no pneumothorax. IMPRESSION: Mild bibasilar opacities, may represent atelectasis or scar. Reviewed, Interpreted and Dictated by Gama Arnold III, MD Transcribed by Jammie Rucker Authenticated and [facility]
--- NOTE | 2022-05-24 10:26 | ECG_ITS ---
APPROVED REPORT Exam: Resting ECG HR:116 bpm ECG Measurements Heart Rate 116 AXES NH 140 P 53 QRSd 72 QRS 57 QT 283 T 56 QTc 352 Conclusion SINUS TACHYCARDIA ABNORMAL RHYTHM ECG UNCONFIRMED REPORT Electronically signed by : Luis Plummer MD 05/24/2022 17:36:25
--- NOTE | 2022-05-24 10:32 | PC.NURSE ---
notified RT of neb treatment order
--- NOTE | 2022-05-24 10:41 | HMH.EDGENADL ---
ED Disposition Clinical Impression: COPD exacerbation Disposition: Home, Self-Care Condition on Discharge: Good Instructions: Chronic Obstructive Pulmonary Disease Additional Instructions: Please follow-up with your PCP in the next couple of days in order to work-up your anemia. Return for any new or worsening symptoms. Prescriptions: predniSONE [Prednisone 20mg Tab] 20 mg PO DAILY #5 tab Transmission Status: Received by [facility] Azithromycin [Z-Dario 250mg Tab*] 250 mg PO UD DOSE PK #6 tab Transmission Status: Received by [facility] Referrals: Dmitriy Diaz MD [Primary Care Provider] - - Critical Care Critical Care Time: No Attestation: On , the high probability of a clinically significant, sudden or life threatening deterioration of the following system(s) required my full and direct attention, intervention and personal management. The time I documented below is in addition to time spent performing reported procedures but includes the following listed in this critical care notation. Medical Decision Making - David Inquiry Pt receiving controlled substance: No Vital Signs: 05/24/22 10:22 05/24/22 10:32 05/24/22 11:00 Temperature 98.1 F Temperature Source Oral Pulse Rate 113 H 117 H Pulse Rate [Right Radial] 120 H Respiratory Rate 22 Blood Pressure 140/82 144/92 H Blood Pressure [Right Arm] 132/78 Blood Pressure Mean 113 Blood Pressure Mean [Right Arm] 96 Blood Pressure Source Blood Pressure Source [Right Arm] Automatic Cuff Blood Pressure Position Blood Pressure Position [Right Arm] Sitting 02 Sat by Pulse Oximetry 100 100 100 Oxygen Delivery Method Nasal Cannula Room Air Nasal Cannula Oxygen Flow Rate (LPM) 2 2 05/24/22 11:35 05/24/22 15:30 05/24/22 16:30 Temperature Temperature Source Pulse Rate 115 H 133 H 118 H Pulse Rate [Right Radial] Respiratory Rate Blood Pressure 145/80 H 127/78 Blood Pressure [Right Arm] Blood Pressure Mean Blood Pressure Mean [Right Arm] Blood Pressure Source Automatic Cuff Automatic Cuff Blood Pressure Source [Right Arm] Blood Pressure Position Sitting Sitting Blood Pressure Position [Right Arm] 02 Sat by Pulse Oximetry 95 95 Oxygen Delivery Method Nasal Cannula Room Air Oxygen Flow Rate (LPM) 05/24/22 17:18 Temperature 98.4 F Temperature Source Pulse Rate 95 H Pulse Rate [Right Radial] Respiratory Rate 17 Blood Pressure 123/76 Blood Pressure [Right Arm] Blood Pressure Mean Blood Pressure Mean [Right Arm] Blood Pressure Source Blood Pressure Source [Right Arm] Blood Pressure Position Blood Pressure Position [Right Arm] 02 Sat by Pulse Oximetry Oxygen Delivery Method Room Air Oxygen Flow Rate (LPM) - Lab Data Lab Results 05/24/22 10:45: WBC 7.7, RBC 2.50 L, Hgb 7.9 L, Hct 25.8 L, MCV 103.1 H, MCH 31.6 H, MCHC 30.7 L, RDW 18.3 H, Plt Count 530 H, MPV 8.0, Neut % (Auto) 73.6, Lymph % (Auto) 20.8, Barron % (Auto) 4.6, Eos % (Auto) 0.4, Baso % (Auto) 0.6, Neut # (Auto) 5.7, Lymph # (Auto) 1.6, Barron # (Auto) 0.4, Eos # (Auto) 0.0, Baso # (Auto) 0.1 05/24/22 10:45: Sodium 128 L, Potassium 4.2, Chloride 94 L, Carbon Dioxide 31 H, Anion Gap 7.2, BUN 10, Creatinine 0.40 L, Estimated Creat Clear 42, Estimated GFR 161, Est GFR ( Amer) 194, Glucose 120 H, Calcium 9.2, Total Bilirubin < 0.1 L, AST 48 H, ALT 34, Alkaline Phosphatase 139 H, Troponin I < 0.01, C-Reactive Protein 2.3, Total Protein 6.2 L, Albumin 3.7, Globulin 2.5, Albumin/Globulin Ratio 1.5, Procalcitonin 0.886 05/24/22 10:45: D-Dimer 0.61 H 05/24/22 11:04: SARS-CoV-2 (PCR) Not detected, Influenza A Untype (PCR) Not detected, Influenza Type B (PCR) Not detected Result diagrams: 05/24/22 10:45 05/24/22 10:45 Orders (Tests/Meds): ED MEDICATIONS Discontinued Medications Generic Name Dose Route Start Last Admin Trade Name Freq PRN Reason Stop Dose Admin Acetaminoph
--- NOTE | 2022-05-24 10:45 | PC.NURSE ---
IV established at this time
[2022-05-24 11:00] LABS: Basophils # 0.1 K/mm3 (0-0.2); Basophils % 0.6 % (0.1-2.0); Eosinophils % 0.4 % (0.1-12.0); Hematocrit 25.8 % (37.0-47.0); Hemoglobin 7.9 g/dL (12.2-16.2); Lymphocytes # 1.6 K/mm3 (0.7-4.5); Lymphocytes % 20.8 % (10-50); Mean Corpuscular HGB Conc 30.7 g/dL (31.8-35.4); Mean Corpuscular Hemoglobin 31.6 pg (27.0-31.2); Mean Corpuscular Volume 103.1 fl (81-99); Monocytes # 0.4 K/mm3 (0.1-1.0); Monocytes % 4.6 % (1.7-9.3); Neutrophils # 5.7 K/mm3 (1.8-7.8); Neutrophils % 73.6 % (37.0-80.0); Platelet Count 530 K/mm3 (142-424); Red Cell Distribution Width 18.3 % (11.5-17.5); White Blood Count 7.7 K/mm3 (4.8-10.8)
--- NOTE | 2022-05-24 11:02 | PC.NURSE ---
Called pharmacy for Mag.
--- NOTE | 2022-05-24 11:03 | PC.NURSE ---
called pharmacy for mag infusion
[2022-05-24 11:04] LABS: Chloride 94 mmol/L (98-107); Potassium 4.2 mmoL/L (3.5-5.1); Sodium 128 mmol/L (136-145)
[2022-05-24 11:06] LABS: Alanine Aminotransferase 34 U/L (12-78); Aspartate Amino Transferase 48 U/L (14-36); Blood Urea Nitrogen 10 mg/dl (7-17); Creatinine Clearance Estimated 42 mL/min (50-200); Estimated Glomerular Filt Rate 161 ml/min (>60); GFR (African American) 194 ML/MIN (>60)
[2022-05-24 11:07] LABS: Albumin Level 3.7 g/dl (3.5-5.0); Albumin/Globulin Ratio 1.5 (1.1-1.8); Alkaline Phosphatase 139 U/L (38-126); Anion Gap 7.2 mEq/L (5-15); Calcium 9.2 mg/dl (8.4-10.2); Carbon Dioxide 31 mmol/L (22.0-30.0); Globulin 2.5 g/dL (1.3-3.2); Glucose 120 mg/dl (74-100); Total Protein,Serum 6.2 g/dl (6.3-8.2)
--- NOTE | 2022-05-24 11:07 | PC.NURSE ---
COVID swab sent to lab
[2022-05-24 11:08] LABS: Bilirubin,Total < 0.1 mg/dl (0.2-1.3)
[2022-05-24 11:12] LABS: Coronavirus 19, PCR Not Detected (NotDetected); Influenza A, PCR Not Detected (NotDetected); Influenza B, PCR Not Detected (NotDetected)
[2022-05-24 11:13] LABS: C-Reactive Protein 2.3 mg/L (0-4)
[2022-05-24 11:28] LABS: Procalcitonin 0.886 ng/mL (0.0-2.0)
[2022-05-24 11:33] LABS: Troponin I < 0.01 ng/ml (0.00-0.034)
[2022-05-24 15:07] LABS: D-Dimer 0.61 ug/mL (0.0-0.5)
--- NOTE | 2022-05-24 15:20 | PC.NURSE ---
pt ambulatory to restroom with assistance of mechanical technologist; no complications
--- NOTE | 2022-05-24 15:39 | PC.NURSE ---
pt given a lunch tray from [employer] and is sitting up on side of the bed at this time eating; friend at BS
--- NOTE | 2022-05-24 15:47 | PC.NURSE ---
ER MD at speaking with patient regarding update on POC
== END 2022-05-24 17:19 | disposition home or self-care (01) ==
PROVIDERS: Emergency Provider Student in an Organized Health Care Education/Training Program; PCP Emergency Medicine
DX: J44.1 Chronic obstructive pulmonary disease with (acute) exacerbation (principal); D53.9 Nutritional anemia, unspecified; Z79.899 Other long term (current) drug therapy; Z88.8 Allergy status to other drugs, medicaments and biological substances; F41.9 Anxiety disorder, unspecified; I11.0 Hypertensive heart disease with heart failure; I50.9 Heart failure, unspecified; M19.90 Unspecified osteoarthritis, unspecified site; M79.7 Fibromyalgia; F10.20 Alcohol dependence, uncomplicated; Z72.0 Tobacco use
CPT/HCPCS: 71045; 80053; 84145; 84484; 85025; 85378; 86140; 93005; 96365; 96375; 99284; C9803; J3475; U0003; U0005

== ENCOUNTER 2023-03-11 15:45 | Inpatient (IN) | payer MEDICARE, SELFPAY ==
[2023-03-11] VITALS (10 sets, daily range): BP systolic 143–198; BP diastolic 90–122; PULSE 71–86; RESP 16–20; TEMP 36.6–37; O2SAT 93–100; BMI 19.2; BMI 18.1
--- NOTE | 2023-03-11 16:02 | PC.NURSE ---
pt waiting in lobby until a room is available in ER, pt verbalized understanding that staff will be out to check on pt and if there are any issues to let registration staff know alert ER staff.
--- NOTE | 2023-03-11 16:20 | PC.NURSE ---
Patient moved to room 09. Assumed pt care. Pt assisted to stretcher and placed on O2 NC, 1L (home use).
--- NOTE | 2023-03-11 16:26 | XR_ITS ---
PROCEDURE INFORMATION: Exam: XR Right Hip Exam date and time: 03/11/23 04:29 PM Age: 62 years old Clinical indication: Injury or trauma; Blunt trauma (contusions or hematomas); Patient HX: Patient has fallen twice on two different occasions recently. Right hip pain. ; Additional info: Fall, pain TECHNIQUE: Imaging protocol: Radiologic exam of the right hip. Views: 2 or 3 views hip with pelvis when performed. COMPARISON: CT HIP RT WO CON 01/19/20 01:42 PM FINDINGS: Bones/joints: Intramedullary jesus with Bonilla screw left femur. Subacute appearing fractures of the right superior and inferior pubic ramus. Soft tissues: Unremarkable. IMPRESSION: Subacute appearing fractures of the right superior and inferior pubic ramus.
--- NOTE | 2023-03-11 16:27 | HMH.EDGENADL ---
Discharge Plan Disposition Patient Disposition: Admitted Condition: Fair Prescriptions Prescriptions: No Action methylprednisolone [Medrol (Dario)] 4 mg tablets,dose pack See Rx Instructions PO PER PKG DIR Qty: 21 0RF Rx Instructions: PO PER PKG DIR Breo Ellipta 100-25 mcg/dose blister with device 1 inh IH DAILY Qty: 60 2RF albuterol sulfate 90 mcg/actuation HFA aerosol inhaler 2 puff INHALATION Q4-6H PRN (Reason: shortness of breath or wheezing) Qty: 8.5 2RF alendronate 70 mg tablet 70 mg PO WEEKLY Qty: 12 0RF hydrocodone-acetaminophen 5-325 mg tablet 1 tab PO DAILY Qty: 30 0RF metoprolol succinate 50 mg tablet extended release 24 hr See Rx Instructions .ROUTE .COMPLEX Qty: 30 0RF Dose Instruction: TAKE ONE TABLET BY MOUTH ONCE A DAY Rx Instructions: TAKE ONE TABLET BY MOUTH ONCE A DAY cyclobenzaprine 10 mg tablet See Rx Instructions .ROUTE .COMPLEX Qty: 30 0RF Dose Instruction: TAKE ONE TABLET BY MOUTH AT BEDTIME NEEDED FOR MUSCLE SPASMS Rx Instructions: TAKE ONE TABLET BY MOUTH AT BEDTIME NEEDED FOR MUSCLE SPASMS azithromycin 250 MG tablet 250 mg PO UD DOSE PK Qty: 6 0RF Rx Instructions: Take two (2) tablets today, then one (1) tablet days #2 thru #5 prednisone 20 MG tablet 20 mg PO DAILY Qty: 5 0RF Referrals Follow up/Referrals: Dmitriy Diaz MD [Primary Care Provider] - See instructions Clinical Impressions Clinical Impression: Hyponatremia, Closed pelvic fracture Discharge ED Provider: Christiana Szymanski Adult HPI General Chief complaint: PAIN Stated complaint: abd pain Time Seen by Provider: 03/11/23 16:15 Mode of Arrival: Wheelchair Source of Information: Patient Limitations: No Limitations Description of Symptoms (Recalled from ER Triage Doc. by RN): Pt reports pain in R groin area, pt reports pain has been present for 3-4 weeks. Pt reports pain is worse when she moves around. Pt denies n/v/d or fevers. History of Present Illness HPI narrative: 62-year-old female presenting to the emergency department with right hip, groin pain after falls. Initial fall happened about 3 weeks ago. She simply lost her balance in her kitchen and fell onto her hardwood floor. She was she landed on her bottom, right side. She had immediate pain. Was able to get up with help. She had an additional fall 2 weeks ago. That time she also landed on the right side. Has been having difficulty walking. Using a wheelchair. Pain seems to be located near her groin. No radiation. No pain in her femur, knee, lower leg. No medications prior to arrival. She feels like she may be dehydrated. Has not been eating or drinking much recently. Denies preceding chest pain, palpitations, headache, vision changes before her falls. Related Data Previous Rx's Medication Instructions Recorded albuterol sulfate 90 mcg/actuation 2 puff inhalation Q4-6H PRN 07/01/21 aerosol inhaler shortness of breath or wheezing #8.5 grams alendronate 70 mg tablet 70 mg PO WEEKLY OSTEOPOROSIS 07/01/21 PREVENTION #12 tabs fluticasone furoate 100 1 inh inhalation DAILY #60 ea 02/21/22 mcg-vilanterol 25 mcg/dose inhalation powder (Breo Ellipta) methylprednisolone 4 mg tablets in See Rx Instructions PO PER PKG DIR 02/21/22 a dose pack (Medrol (Dario)) #21 tabs hydrocodone 5 mg-acetaminophen 325 1 tab PO DAILY #30 tabs 05/02/22 mg tablet azithromycin 250 mg tablet 250 mg PO UD DOSE PK #6 tabs 05/24/22 prednisone 20 mg tablet 20 mg PO DAILY #5 tabs 05/24/22 cyclobenzaprine 10 mg tablet See Rx Instructions .Route 02/28/23 .COMPLEX #30 tabs metoprolol succinate 50 mg See Rx Instructions .Route 02/28/23 tablet,extended release 24 hr .COMPLEX #30 tabs Allergies Allergy/AdvReac Type Severity Reaction Status Date / Time NSAIDS (Non-Steroidal Allergy Unknown HURTS Verified 02/21/22 15:10 Anti-Inflamma STOMACH prednisolone Allergy Verified
--- NOTE | 2023-03-11 16:37 | PC.NURSE ---
Patient heading to XR
[2023-03-11 17:11] LABS: Basophils % 0.5 % (0.1-2.0); Eosinophils # 0.1 K/mm3 (0.0-0.4); Eosinophils % 1.5 % (0.1-12.0); Hematocrit 39.7 % (37.0-47.0); Hemoglobin 12.5 g/dL (12.2-16.2); Lymphocytes # 2.1 K/mm3 (0.7-4.5); Lymphocytes % 35.7 % (10-50); Mean Corpuscular HGB Conc 31.5 g/dL (31.8-35.4); Mean Corpuscular Hemoglobin 31.7 pg (27.0-31.2); Mean Corpuscular Volume 100.7 fl (81-99); Mean Platelet Volume 7.8 fl (7.4-10.4); Monocytes # 0.3 K/mm3 (0.1-1.0); Monocytes % 4.9 % (1.7-9.3); Neutrophils # 3.4 K/mm3 (1.8-7.8); Neutrophils % 57.5 % (37.0-80.0); Platelet Count 362 K/mm3 (142-424); Red Blood Count 3.94 M/mm3 (4.20-5.40); Red Cell Distribution Width 14.8 % (11.5-17.5); White Blood Count 5.8 K/mm3 (4.8-10.8)
--- NOTE | 2023-03-11 17:12 | PC.NURSE ---
Rounded on patient; informed patient we still need a urine sample patient states she is not able to at this time. Call cross within reach of patient
--- NOTE | 2023-03-11 17:17 | PC.NURSE ---
Patient's BP 178/122. Patient states she has hx of htn BP meds taken this morning. MD notified will continue to monitor.
[2023-03-11 17:18] LABS: Chloride 86 mmol/L (98-107); Potassium 4.1 mmoL/L (3.5-5.1); Sodium 121 mmol/L (136-145)
[2023-03-11 17:21] LABS: Alanine Aminotransferase 23 U/L (12-78); Albumin Level 3.7 g/dl (3.5-5.0); Albumin/Globulin Ratio 1.4 (1.1-1.8); Alkaline Phosphatase 116 U/L (38-126); Anion Gap 15.1 mEq/L (5-15); Aspartate Amino Transferase 44 U/L (14-36); Blood Urea Nitrogen 4 mg/dl (7-17); Carbon Dioxide 24 mmol/L (22.0-30.0); Creatinine Clearance Estimated 43 mL/min (50-200); Estimated Glomerular Filt Rate 224 ml/min (>60); GFR (African American) 271 ML/MIN (>60); Globulin 2.6 g/dL (1.3-3.2); Total Protein,Serum 6.3 g/dl (6.3-8.2)
[2023-03-11 17:22] LABS: Calcium 8.7 mg/dl (8.4-10.2); Glucose 97 mg/dl (74-100)
--- NOTE | 2023-03-11 17:22 | CT_ITS ---
PROCEDURE INFORMATION: Exam: CT Pelvis Without Contrast; Skeletal Exam date and time: 03/11/23 05:49 PM Age: 62 years old Clinical indication: Pelvic pain; Additional info: Fall, pain TECHNIQUE: Imaging protocol: Computed tomography of the pelvis without contrast. Exam focused on the skeleton. Radiation optimization: All CT scans at this facility use at least one of these dose optimization techniques: automated exposure control; mA and/or kV adjustment per patient size (includes targeted exams where dose is matched to clinical indication); or iterative reconstruction. REPORTING DATA: Count of CT and Cardiac NM exams in prior 12 months: This patient has received 0 known CTs and 0 known cardiac nuclear medicine studies in the 12 months prior to the current study. COMPARISON: CR XR HIP RT 2-3V W/PELVIS 03/11/23 04:29 PM FINDINGS: Bones/joints: Subacute fractures of the right superior and inferior pubic rami. Internal fixation left hip. Soft tissues: Unremarkable. IMPRESSION: Subacute fractures of the right superior and inferior pubic rami.
[2023-03-11 17:23] LABS: Bilirubin,Total 0.1 mg/dl (0.2-1.3)
--- NOTE | 2023-03-11 17:40 | PC.NURSE ---
notified rad of CT order
--- NOTE | 2023-03-11 17:50 | PC.NURSE ---
pt gone to ct
[2023-03-11 18:58] LABS: Coronavirus 19, PCR Not Detected (NotDetected); Influenza A, PCR Not Detected (NotDetected); Influenza B, PCR Not Detected (NotDetected)
--- NOTE | 2023-03-11 18:58 | PC.NURSE ---
Bladder scan performed greater than 400 mL. Patient assisted to bathroom urine specimen collected. Patient assisted back to bed. Updated on plan of care; admission.
--- NOTE | 2023-03-11 19:02 | PC.NURSE ---
Report handed off to night shift manager.
[2023-03-11 19:10] LABS: Microscopic, Urine URINE MICROSCOPIC (MICROSCOPIC)
[2023-03-11 19:15] LABS: Appearance,Urine CLEAR (Clear); Bilirubin,Urine Negative (Negative); Blood, Urine Negative (Negative); Color,Urine YELLOW (Yellow); Glucose,Urine (UA) Negative (Negative); Ketones,Urine Negative (Negative); Leukocyte Esterase,Urine TRACE (Negative); Nitrate,Urine POSITIVE (Negative); Protein,Urine Negative (Negative); Urobilinogen,Urine 0.2 EU/dl (0.2)
[2023-03-11 19:25] LABS: Bacteria,Urine 3+ /lpf; Squamous Epithelial Cell,Urine Occasional #/hpf (0-5); WBC,Urine Occasional #/hpf (0-3)
--- NOTE | 2023-03-11 19:39 | XR_ITS ---
PROCEDURE INFORMATION: Exam: XR Chest Exam date and time: 03/11/23 07:43 PM Age: 62 years old Clinical indication: Chest wall pain; Additional info: Right sided rib pain TECHNIQUE: Imaging protocol: Radiologic exam of the chest. Views: 1 view. COMPARISON: CR XR CHEST PORTABLE 05/24/22 10:45 AM FINDINGS: Lungs: Unremarkable. No consolidation. Pleural spaces: Unremarkable. No pleural effusion. No pneumothorax. Heart/Mediastinum: Unremarkable. No cardiomegaly. Bones/joints: Unremarkable. IMPRESSION: No acute findings.
--- NOTE | 2023-03-11 19:41 | EXP.HP ---
History of Present Illness *Admission Date: 03/11/23 *Reason for visit:: Fall, right groin pain *History of present illness: Ms. Padilla is a 62-year-old female with a past medical history of COPD, home oxygen dependent at 2L, chronic hyponatremia, HTN and OA. She presents to [facility] due to a fall 3-4 weeks ago that has resulted in right groin pain and difficulty ambulating. In the ER she underwent a CT of the pelvis that showed a subacute fracture of the right superior and inferior public rami. CBC was unremarkble, CMP showed a Na of 121. Most recent baseline sodium in 05/2022 was 128. Urinalysis was unremarkable. In the ER the patient was placed on normal saline with repeat BMP. The patient is admitted with initial impression: Hyponatremia and Closed Pubic Fracture. [facility] Disclaimer: The information contained in this section may have been updated after the patient was seen, as this information can be updated by other users. Medical History (Updated 03/11/23 @ 19:50 by Keyshawn Miramontes DNP) Chronic hyponatremia COPD (chronic obstructive pulmonary disease) Hypertension Surgical History (Updated 03/11/23 @ 19:47 by Keyshwan Miramontes DNP) History of thoracotomy Social History (Updated 03/11/23 @ 21:11 by Zakia Shafer RN) Smoking Status: Current every day smoker tobacco type: cigarettes packs per day: 1 second hand exposure: No alcohol intake: current substance use type: denies use current occupational status: disabled Travel in the last 8 weeks: None household members: other housing: house current occupational exposures/hazards: No caffeine: Yes Review of Systems Review of Systems Review of systems:: pertinent systems reviewed and negative unless documented below Constitutional Constitutional: Reports system reviewed and no additional complaints, except as documented Eyes Eyes: Reports system reviewed and no additional complaints, except as documented ENT Ears, Nose, Mouth, and Throat: Reports system reviewed and no additional complaints, except as documented *Cardiovascular Cardiovascular: Reports system reviewed and no additional complaints, except as documented *Respiratory Respiratory: Reports system reviewed and no additional complaints, except as documented *Gastrointestinal Gastrointestinal: Reports system reviewed and no additional complaints, except as documented *Genitourinary Genitourinary: Reports system reviewed and no additional complaints, except as documented *Musculoskeletal Musculoskeletal: Reports abnormal gait, Reports arthralgias and Reports limited range of motion Integumentary/Breasts Skin/Breast: Reports system reviewed and no additional complaints, except as documented *Neurologic Neurologic: Reports abnormal gait Psychiatric Psychiatric: Reports system reviewed and no additional complaints, except as documented Endocrine Endocrine: Reports system reviewed and no additional complaints, except as documented Hematologic/Lymphatic Hematologic/Lymphatic: Reports system reviewed and no additional complaints, except as documented Allergic/Immunologic Allergic/Immunologic: Reports system reviewed and no additional complaints, except as documented Meds Home Medications and Allergies Home Medications Medication Instructions Recorded Confirmed Type cyclobenzaprine 10 mg tablet 10 mg PO HSP PRN Muscle Spasm 03/11/23 03/12/23 History metoprolol succinate 50 mg 50 mg PO DAILY Hypertension 03/11/23 03/12/23 History tablet,extended release 24 hr acetaminophen 325 mg capsule 650 mg PO QID PRN pain #60 caps 03/12/23 Rx (Tylenol) New Prescriptions to Start Prescriptions: acetaminophen [Tylenol] Abel Acevedo Allergies Allergy/AdvReac Type Severity Reaction Status Date / Time NSAIDS (Non-Steroidal Allergy Unknown HURTS Verified 02/21/22 15:10 Anti-Inflamma STOMACH prednisolone Allergy Verified 05/26/22 12:39
--- NOTE | 2023-03-11 20:54 | PC.NURSE ---
pt arrived to the floor at 20:49
[2023-03-11 22:19] LABS: Chloride 87 mmol/L (98-107)
[2023-03-11 22:20] LABS: Potassium 3.6 mmoL/L (3.5-5.1); Sodium 124 mmol/L (136-145)
[2023-03-11 22:22] LABS: Blood Urea Nitrogen 4 mg/dl (7-17); Creatinine Clearance Estimated 40 mL/min (50-200); Estimated Glomerular Filt Rate 224 ml/min (>60); GFR (African American) 271 ML/MIN (>60)
[2023-03-11 22:23] LABS: Anion Gap 11.6 mEq/L (5-15); Calcium 8.5 mg/dl (8.4-10.2); Carbon Dioxide 29 mmol/L (22.0-30.0); Glucose 84 mg/dl (74-100)
--- NOTE | 2023-03-11 22:23 | PC.NURSE ---
RECEIVED PHONE REPORT FROM JHONATHAN/ED NURSE AT 2024. PATIENT ARRIVED TO THE FLOOR AT 2049 VIA STRETCHER. ADMISSION DX: HYPONATREMIA/ S/P FALL 3 WEEKS AGO RESULTING IN CLOSED FRACTURE OF PELVIS.
--- NOTE | 2023-03-12 03:14 | PC.NURSE ---
PATIENT HAS NOT RESTED WELL. IV SITE HURTS HER. IV SITE PATENT, NO S/S OF INFECTION OR INFILTRATION. RECEIVED NORCO 5/325MG 1 TAB PO AT 2338 WHICH HELPED ALOT. REPORTED THROBBING PAIN IN RIGHT SIDE/RIBS. 02 AT 2LNC, 02 SAT 100%.
[2023-03-12 04:00] VITALS: BP 164/49; PULSE 78; RESP 20; TEMP 36.4; O2SAT 90; BMI 18.1
--- NOTE | 2023-03-12 07:10 | HMH.PHAINT1 ---
Pharmacy Intervention Comments: MEDICATION RECONCILIATION COMPLETED ON PATIENT USING EXTERNAL FILL HISTORY FROM PHARMACY AND [facility] REPORT. -FAYE ZULETA, RAINED
[2023-03-12 07:48] VITALS: BP 157/88; PULSE 86; RESP 18; TEMP 36.4; O2SAT 91
--- NOTE | 2023-03-12 09:51 | HMH.PTEV ---
Physical Therapy Evaluation Rehab PT IP Evaluation Start: 03/12/23 06:49 Freq: ONCE Status: Active Protocol: Document 03/12/23 09:39 SHIELA (Rec: 03/12/23 09:51 HWADE [id number]) Subjective/History History History Pt is a 62 year old female that presented to [facility] ED on 03/11/2023 with reports of R sided groin pain and difficulty walking s/p fall 3-4 weeks ago . While in ED, pt underwent CT of pelvis that revealed a subacute fracture of the right superior and inferior public rami. Pt is FWB. CBC was unremarkble, CMP showed a Na of 121. PMH: COPD, home oxygen dependent at 2L, chronic hyponatremia, HTN and OA. Subjective Subjective Pt presents seated upright in bed, pleasant and agreeable to therapy evaluation. Pt reports she is having R sided rib and hip pain at rest. Pt reports she is very anxious and has panic attacks. Pt reports she lives alone in a [facility] with 3 [address]. Pt reports that she has friends and a retail parts pro that assist with all B/IADL's at baseline. Pt reports she uses a w/c and a walker for ambulation within the home. Pt reports she would like to return home following discharge. Pt performed supine to sit on EOB with supervision assistance, performed sit to stand with AIR CONDITIONER INSTALLER HELPER and performed step transfer to bedside chair with AIR CONDITIONER INSTALLER HELPER. Following evaluation, pt left seated in bedside chair with call light and all needs within reach. Rehab PT IP Eval Objective Appearance Patient Behavior Appropriate,Anxious Patient Orientation Person,Place,Time,Situation Difficulty following instructions none Speech Pattern Clear,Appropriate Ambulation Patient Able to Ambulate No Balance Ability to Ronald
--- NOTE | 2023-03-12 09:55 | HMH.OTEV ---
OT Inpatient Evaluation Rehab OT IP Evaluation Start: 03/12/23 07:16 Freq: ONCE Status: Active Protocol: Document 03/12/23 09:47 MOIRA (Rec: 03/12/23 09:55 [facility] [id number]) Rehab OT IP Assessment Subjective History Pt oriented x 3 on arrival. Pt agreeable to engage in therapy evaluation. Pt was admitted on 03/11/23 due to a fall with a closed pubic fx. Pt reports prior to being in the hospital, she lived at home alone. Pt utilizes a wheelchair for functional mobility tasks, but is able to transfer to and from w/c independently. Pt claims she is independent with dressing and bathing, but does have someone assist her getting in and out of shower for safety. She is able to cook small meals for herself. She has a house keeper that comes 2-3x's a week that completes cleaning, cooking, and grocery shopping. Pt has a past medical history of: Chronic hyponatremia COPD (chronic obstructive pulmonary disease) Hypertension Subjective I am in pain right now. Pt completed bed mobility and went from supine to sitting at eob with sba. Pt stood from eob with sba. Pt transferred from bed to chair with cga. pt sat down in chair with cga. Pt was left resting in chair with call cross and all other needs in reach. Objective Patient Orientation Person,Place,Birthday Upper Extremity Gross ROM WFL Bed Mobility bed mobility-scooting,bed mobility - supine/sit,bed mobility - rolling Assist Level Supervision/Stand by Transfer Training Sit/Stand Transfer Assist Level Contact Guard/Hand Hold Chair Transfer Ability Contact Guard/Hand Hold Chair Transfer Technique S
--- NOTE | 2023-03-12 10:04 | SW/DCPLANNER ---
Addendum entered by Dana Cordova 03/12/23 12:57: Gena smiley/ [facility] stated that services will begin this week for this patient. Original Note: I spoke with patient regarding plans once medically stable for discharge. Patient stated that she resides at home alone but does have a house keeper that comes in once a week. PT/OT evaluted this patient and recommended home w/ home health if patient had family present 30/04. I had a lengthy discussion with patient regarding the need for placement at time of discharge due to not having any assistance at home. Patient is not agreeable to placement at this time and is adamant to return home with home health services through [facility]. I will continue to follow up with this patient regarding discharge plans until patient is medically stable for discharge. Discharge date is unknown at this time.
--- NOTE | 2023-03-12 10:24 | EXP.DC.SUM ---
General Admission date:: 03/11/23 Discharge date: 03/12/23 HPI HPI HPI: Ms. Padilla is a 62-year-old female with a past medical history of COPD, home oxygen dependent at 2L, chronic hyponatremia, HTN and OA. She presents to [facility] due to a fall 3-4 weeks ago that has resulted in right groin pain and difficulty ambulating. In the ER she underwent a CT of the pelvis that showed a subacute fracture of the right superior and inferior public rami. CBC was unremarkable, CMP showed a Na of 121. Most recent baseline sodium in 05/2022 was 128. Urinalysis was unremarkable. In the ER the patient was placed on normal saline with repeat BMP. Repeat BMP demonstrated Na of 124. Ortho is consulted to see if they would like to see the patient inpatient or set up for outpatient. Physical therapy evaluated patient and stated she would be okay to return home with help from family and home health follow up. Hospital Course Hospital Course Hospital Course: Ms. Padilla is a 62-year-old female with a past medical history of COPD, home oxygen dependent at 2L, chronic hyponatremia, alcoholism, HTN and OA. She presents to [facility] due to a fall 3-4 weeks ago that has resulted in right groin pain and difficulty ambulating. In the ER she underwent a CT of the pelvis that showed a subacute fracture of the right superior and inferior public rami. CBC was unremarkable, CMP showed a Na of 121. Most recent baseline sodium in 05/2022 was 128. Urinalysis was unremarkable. In the ER the patient was placed on normal saline with repeat BMP. Repeat BMP demonstrated Na of 124. Ortho is consulted to see if they would like to see the patient inpatient or set up for outpatient. Physical therapy evaluated patient and stated she would be okay to return home with help from family and home health follow up. Patient refused rehab placement. She states her house keeper will be home to assist her. Denies any SOB, chest pain, or further oxygen requirements. She is on 3 L of oxygen at home. Will have home health see her. Follow up with Dr. Cabrera as an outpatient. Rounded on patient with nurse practitioner. Personally examined and interviewed patient. Agree with exam findings and care plan as documented. Have expressed significant concern to patient about her going home by herself and her safety. Patient is of sound mind and and is adamant about going home. She states she has what she needs, gets around with a wheelchair that she can get herself to when she is home. She will therefore be discharged home under her own recognizance with strong reservation. High risk of readmission Exam Data for Last 24 hours Vital signs and Labs for Last 24 Hours: Temp Pulse Resp BP Pulse Ox 97.6 F 86 18 157/88 H 91 L 03/12/23 07:48 03/12/23 07:48 03/12/23 07:48 03/12/23 07:48 03/12/23 07:48 Laboratory Results - last 24 hr 03/11/23 16:59: WBC 5.8, RBC 3.94 L, Hgb 12.5, Hct 39.7, MCV 100.7 H, MCH 31.7 H, MCHC 31.5 L, RDW 14.8, Plt Count 362, MPV 7.8, Neut % (Auto) 57.5, Lymph % (Auto) 35.7, [place] % (Auto) 4.9, Eos % (Auto) 1.5, Baso % (Auto) 0.5, Neut # (Auto) 3.4, Lymph # (Auto) 2.1, [place] # (Auto) 0.3, Eos # (Auto) 0.1, Baso # (Auto) 0.0 03/11/23 16:59: Sodium 121 L, Potassium 4.1, Chloride 86 L, Carbon Dioxide 24, Anion Gap 15.1 H, BUN 4 L, Creatinine 0.30 L, Estimated Creat Clear 43, Estimated GFR 224, Est GFR ( Amer) 271, Glucose 97, Calcium 8.7, Total Bilirubin 0.1 L, AST 44 H, ALT 23, Alkaline Phosphatase 116, Total Protein 6.3, Albumin 3.7, Globulin 2.6, Albumin/Globulin Ratio 1.4 03/11/23 18:46: SARS-CoV-2 (PCR) Not detected, Influenza A Untype (PCR) Not detected, Influenza Type B (PCR) Not detected 03/11/23 18:49: Urine Color Yellow, Urine Appearance Clear, Urine pH 6.0, Ur Specific [place] 1.010, Urine Protein Negative, Urine Glucose (UA) Negative, Urine Ketones Negative, Urine Blood Negative, Urine Nitrate Positive, Urine Bilirubin Negative, Urin
--- NOTE | 2023-03-12 13:06 | HMH.PHAINT1 ---
Pharmacy Intervention Comments: Discharge medication counseling completed. A prescription for Tylenol was being sent in for the patient (650 mg QID prn). Patient claimed that she had a large bottle of Tylenol at home already and asked if she could take those rather than picking up the new script. I assured her that that was fine and to take her home meds using the directions sent in on the new script. Patient verbalized understanding and had no further questions.
--- NOTE | 2023-03-13 12:44 | CARE MANAGER ---
CM attempted to call patient, but her number has been disconnected. Unable to reach patient to discuss recent discharge.
== END 2023-03-12 15:22 | disposition home health service (06) | DRG 536 ==
LOC: ER 19:03 → 2ND 20:34
PROVIDERS: Nurse Practitioner Family; Admitting Provider Internal Medicine Adolescent Medicine; Emergency Provider Emergency Medicine; PCP Emergency Medicine; Visit Provider Internal Medicine Adolescent Medicine
DX: S32.511A Fracture of superior rim of right pubis, initial encounter for closed fracture (principal); E87.1 Hypo-osmolality and hyponatremia; F17.210 Nicotine dependence, cigarettes, uncomplicated; J44.9 Chronic obstructive pulmonary disease, unspecified; I10 Essential (primary) hypertension; W19.XXXA Unspecified fall, initial encounter; Z99.81 Dependence on supplemental oxygen
CPT/HCPCS: 36415; 71045; 72192; 73502; 80048; 80053; 81001; 85025; 87086; 87186; 87636; 97110; 97162; 97166; 99285; C9803; U0003; U0005

== ENCOUNTER 2023-04-02 22:16 | Emergency (ER) | payer MEDICARE, SELFPAY ==
[2023-04-02 22:16] VITALS: BP 148/93; PULSE 89; RESP 26; TEMP 36.9; O2SAT 97; BMI 17.6
[2023-04-02 22:20] VITALS: BMI 17.6
--- NOTE | 2023-04-02 22:21 | XR_ITS ---
PROCEDURE INFORMATION: Exam: XR Chest Exam date and time: 04/02/2023 10:34 PM Age: 62 years old Clinical indication: Injury or trauma; Fall; Blunt trauma (contusions or hematomas); Additional info: Fall, R shuolder/rib pain TECHNIQUE: Imaging protocol: Radiologic exam of the chest. Views: 1 view. COMPARISON: CR XR CHEST PORTABLE 03/11/2023 7:43 PM FINDINGS: Lungs: Mild atelectasis in the right lower lobe. Granulomatous change. No consolidation. Pleural spaces: Unremarkable. No pleural effusion. No pneumothorax. Heart/Mediastinum: Unremarkable. No cardiomegaly. Bones/joints: Unremarkable. IMPRESSION: No acute findings.
--- NOTE | 2023-04-02 22:21 | XR_ITS ---
PROCEDURE INFORMATION: Exam: XR Pelvis Exam date and time: 04/02/2023 10:36 PM Age: 62 years old Clinical indication: Injury or trauma; Fall; Blunt trauma (contusions or hematomas); Does not apply; Pelvic region; Prior surgery; Surgery date: 6+ months; Surgery type: Left hip; Additional info: Fall, R shuolder/rib pain TECHNIQUE: Imaging protocol: Radiologic exam of the pelvis. Views: 1 or 2 view. COMPARISON: CT PELVIS WO CON 03/11/2023 5:49 PM FINDINGS: Bones/joints: Chronic right superior and inferior pubic ramus fracture. Intramedullary jesus and dynamic compression screw fixation of the left hip. No acute fracture. Soft tissues: Unremarkable. IMPRESSION: No acute findings.
--- NOTE | 2023-04-02 22:21 | XR_ITS ---
PROCEDURE INFORMATION: Exam: XR Right Clavicle, Complete Exam date and time: 04/02/2023 10:37 PM Age: 62 years old Clinical indication: Injury or trauma; Fall; Blunt trauma (contusions or hematomas); Shoulder; Right; Additional info: Fall, R shoulder/rib pain TECHNIQUE: Imaging protocol: Radiologic exam of the right clavicle. Complete exam. Views: Any number of views. COMPARISON: CR XR SHOULDER RT MIN 2V 04/02/2023 10:35 PM FINDINGS: Bones/joints: Normal. Soft tissues: Normal. IMPRESSION: No acute findings.
--- NOTE | 2023-04-02 22:21 | XR_ITS ---
PROCEDURE INFORMATION: Exam: XR Right Shoulder Exam date and time: 04/02/2023 10:35 PM Age: 62 years old Clinical indication: Injury or trauma; Fall; Blunt trauma (contusions or hematomas); Shoulder; Right; Additional info: Fall, R shuolder/rib pain TECHNIQUE: Imaging protocol: Radiologic exam of the right shoulder. Views: 2 or more views. COMPARISON: CR XR CHEST PORTABLE 04/02/2023 10:34 PM FINDINGS: Bones/joints: Normal. Soft tissues: Normal. IMPRESSION: No acute findings.
--- NOTE | 2023-04-02 22:21 | CT_ITS ---
PROCEDURE INFORMATION: Exam: CT Chest Without Contrast; Diagnostic Exam date and time: 04/02/2023 10:39 PM Age: 62 years old Clinical indication: Injury or trauma; Fall; Additional info: Fall, R shoulder/rib pain TECHNIQUE: Imaging protocol: Diagnostic computed tomography of the chest without contrast. Radiation optimization: All CT scans at this facility use at least one of these dose optimization techniques: automated exposure control; mA and/or kV adjustment per patient size (includes targeted exams where dose is matched to clinical indication); or iterative reconstruction. REPORTING DATA: Count of CT and Cardiac NM exams in prior 12 months: This patient has received [address] and 0 known cardiac nuclear medicine studies in the 12 months prior to the current study. COMPARISON: CT CHEST WO CON 08/14/2020 4:36 PM FINDINGS: Lungs: Mild bronchiectasis in the right lower lobe. No consolidation. Pleural base nodule posterior right upper lobe 5 mm. Pleural spaces: Mild right pleural effusion. Heart: Unremarkable. No cardiomegaly. No pericardial effusion. Lymph nodes: Unremarkable. No enlarged lymph nodes. Vasculature: Unremarkable. No aortic aneurysm. Bones/joints: Nondisplaced fractures of the right lateral 6 and 8th ribs. A few chronic thoracic spine fractures. Kyphosis. Soft tissues: Unremarkable. 1.8 cm hyperdense nodule upper pole right kidney could reflect proteinaceous or hemorrhagic cyst. IMPRESSION: No acute cardiopulmonary process Nondisplaced fractures of the right lateral 6th and 8th ribs. For patients at low risk (minimal or absent history of smoking and of other known risk factors), no routine follow-up is indicated. For patients at high risk (history of smoking or of other known risk factors), consider optional CT at 12 months. (mayra Steel., [employer], 2017)
[2023-04-02 22:30] VITALS: BP 123/89; PULSE 109; RESP 22; O2SAT 98
--- NOTE | 2023-04-02 23:18 | HMH.EDFALL ---
Discharge Plan Disposition Patient Disposition: Home, Self-Care Chief Complaint: Fall Prescriptions Prescriptions: No Action hydrocodone-acetaminophen 5-325 mg tablet 1 tab PO BID Qty: 60 0RF sulfamethoxazole-trimethoprim 800-160 mg tablet 1 tab PO BID 10 Days Qty: 20 0RF metoprolol succinate 50 mg tablet extended release 24 hr See Rx Instructions .ROUTE .COMPLEX Qty: 30 0RF Dose Instruction: TAKE ONE TABLET BY MOUTH ONCE A DAY Rx Instructions: TAKE ONE TABLET BY MOUTH ONCE A DAY cyclobenzaprine 10 mg tablet See Rx Instructions .ROUTE .COMPLEX Qty: 30 0RF Dose Instruction: TAKE ONE TABLET BY MOUTH AT BEDTIME NEEDED FOR MUSCLE SPASMS Rx Instructions: TAKE ONE TABLET BY MOUTH AT BEDTIME NEEDED FOR MUSCLE SPASMS acetaminophen [Tylenol] 325 mg capsule 650 mg PO QID PRN (Reason: pain) Qty: 60 0RF Referrals Follow up/Referrals: Dmitriy Diaz MD [Primary Care Provider] - See instructions Clinical Impressions Clinical Impression: Closed rib fracture Instructions Patient Instructions: DI for Rib Fracture Discharge ED Provider: Emily (ED)Dmitriy Fall HPI General Chief Complaint: Fall Stated Complaint: Fall, R rib & shoulder pain 2 day ago Time Seen by Provider: 04/02/23 22:45 Mode of Arrival: EMS Source of Information: Patient, EMS and Medical Record Limitations: No Limitations Description of Symptoms (Recalled from ER Triage Doc. by RN): Pt c/o R shoulder and Rib pain from a fall 2 days ago. States she was walking to the bathroom without wearing her home O2, she is Oxygen dependant @ 2.5LPM NC. States I got a little dizzy and guess I loss my balance . States she fell into the bath-tub striking her R side. Denies any ABD pain, soft & non-tender. Denies hitting her head, no LOC, and no neck or spine pain. History of Present Illness HPI Narrative: fell about 2 days ago with rt rib and rt shoulder pain - has ongoing rib/shoulder pain complaint: fall Onset (ago): day(s) Fall from: standing Fall witnessed: no Place fall occurred: home Loss of consciousness: none Prolonged down time: no Symptoms prior to fall: lightheadedness Context: tripped/slipped Location of injury: chest Location of injury - extremities: Right: shoulder Severity: moderate Associated symptoms (after fall): denies Related Data Previous Rx's Medication Instructions Recorded acetaminophen 325 mg capsule 650 mg PO QID PRN pain #60 caps 03/12/23 (Tylenol) sulfamethoxazole 800 1 tab PO BID ESBL 10 days #20 tabs 03/15/23 mg-trimethoprim 160 mg tablet hydrocodone 5 mg-acetaminophen 325 1 tab PO BID #60 tabs 03/16/23 mg tablet cyclobenzaprine 10 mg tablet See Rx Instructions .Route 03/27/23 .COMPLEX #30 tabs metoprolol succinate 50 mg See Rx Instructions .Route 03/27/23 tablet,extended release 24 hr .COMPLEX #30 tabs Allergies Allergy/AdvReac Type Severity Reaction Status Date / Time NSAIDS (Non-Steroidal Allergy Unknown HURTS Verified 03/16/23 09:06 Anti-Inflamma STOMACH prednisolone Allergy Verified 03/16/23 09:06 [facility] Disclaimer: The information contained in this section may have been updated after the patient was seen, as this information can be updated by other users. Medical History Acute anxiety Acute bronchitis Acute exacerbation of chronic obstructive airways disease Alcohol abuse Alcohol withdrawal delirium Alcoholism Anxiety Aspiration pneumonia Benzodiazepine (tranquilizer) overdose Benzodiazepine abuse Change in mental status Chronic anxiety Chronic hyponatremia Chronic left ventricular systolic dysfunction Chronic pain Closed left hip fracture Closed pelvic fracture Closed right hip fracture COPD (chronic obstructive pulmonary disease) COPD (chronic obstructive pulmonary disease) COPD (chronic obstructive pulmonary disease) COPD exacerbation Dehydration Facial contusion Fa
[2023-04-02 23:30] VITALS: BP 135/90; PULSE 93; RESP 18; O2SAT 100
[2023-04-03] VITALS: BP 138/87; PULSE 87; RESP 19; O2SAT 99
--- NOTE | 2023-04-03 00:56 | PC.NURSE ---
Notified resp. pt would need incentive spirometer
[2023-04-03 01:49] VITALS: BP 128/81; PULSE 89; RESP 20; TEMP 36.7; O2SAT 99
== END 2023-04-03 02:07 | disposition home or self-care (01) ==
PROVIDERS: Emergency Provider Emergency Medicine; PCP Emergency Medicine
DX: S22.41XA Multiple fractures of ribs, right side, initial encounter for closed fracture (principal); J44.9 Chronic obstructive pulmonary disease, unspecified; F41.9 Anxiety disorder, unspecified; E87.1 Hypo-osmolality and hyponatremia; F17.210 Nicotine dependence, cigarettes, uncomplicated; W18.2XXA Fall in (into) shower or empty bathtub, initial encounter
CPT/HCPCS: 71045; 71250; 72170; 73000; 73030; 99284; 99285

== ENCOUNTER 2023-04-08 14:21 | Inpatient (IN) | payer MEDICARE, SELFPAY ==
[2023-04-08] VITALS (10 sets, daily range): BP systolic 107–129; BP diastolic 57–85; PULSE 70–141; RESP 17–27; TEMP 36.1–36.7; O2SAT 91–100; BMI 18.1; BMI 17.1
--- NOTE | 2023-04-08 14:21 | XR_ITS ---
PROCEDURE INFORMATION: Exam: XR Chest Exam date and time: 04/08/2023 2:23 PM Age: 62 years old Clinical indication: Shortness of breath; Additional info: SOA TECHNIQUE: Imaging protocol: Radiologic exam of the chest. Views: 1 view. COMPARISON: CT CHEST WO CON 04/02/2023 10:39 PM FINDINGS: Lungs: Interstitial opacities and peribronchial thickening have developed in the left upper lobe. No airspace consolidation. Surgical clips are present along the posterior left lower lobe near the diaphragm. Pleural spaces: No pleural effusion. No pneumothorax. Heart/Mediastinum: No abnormalities. No cardiomegaly. No pulmonary vascular congestion. Bones/joints: No fractures or bone lesions. IMPRESSION: Left upper lobe pneumonia. Chest x-ray follow-up is recommended within 8 weeks to document resolution.
--- NOTE | 2023-04-08 14:26 | HMH.EDGIBL ---
Discharge Plan Disposition Patient Disposition: Admitted Condition: Serious Chief Complaint: Abdominal Pain Prescriptions Prescriptions: No Action hydrocodone-acetaminophen 5-325 mg tablet 1 tab PO BID Qty: 60 0RF sulfamethoxazole-trimethoprim 800-160 mg tablet 1 tab PO BID 10 Days Qty: 20 0RF cyclobenzaprine 10 mg tablet See Rx Instructions .ROUTE .COMPLEX Qty: 30 0RF Dose Instruction: TAKE ONE TABLET BY MOUTH AT BEDTIME NEEDED FOR MUSCLE SPASMS Rx Instructions: TAKE ONE TABLET BY MOUTH AT BEDTIME NEEDED FOR MUSCLE SPASMS metoprolol succinate 50 mg tablet extended release 24 hr See Rx Instructions .ROUTE .COMPLEX Qty: 30 0RF Dose Instruction: TAKE ONE TABLET BY MOUTH ONCE A DAY Rx Instructions: TAKE ONE TABLET BY MOUTH ONCE A DAY acetaminophen [Tylenol] 325 mg capsule 650 mg PO QID PRN (Reason: pain) Qty: 60 0RF Referrals Follow up/Referrals: Provider,Referral, MD [Primary Care Provider] - See instructions Clinical Impressions Clinical Impression: Acute GI bleeding Pneumonia Qualifiers: Pneumonia type: due to unspecified organism Laterality: left Lung location: upper lobe of lung Qualified Code(s): J18.9 - Pneumonia, unspecified organism Anemia Qualifiers: Anemia type: unspecified type Qualified Code(s): D64.9 - Anemia, unspecified Discharge ED Provider: Zachary Daugherty GI Bleed HPI General Chief complaint: Abdominal Pain Stated complaint: SOA, black stools Time Seen by Provider: 04/08/23 14:23 Mode of Arrival: EMS Source of Information: Patient History of Present Illness HPI Narrative: The patient presents to the emergency department complaining of dark stools and spitting up blood. Related Data Previous Rx's Medication Instructions Recorded acetaminophen 325 mg capsule 650 mg PO QID PRN pain #60 caps 03/12/23 (Tylenol) sulfamethoxazole 800 1 tab PO BID ESBL 10 days #20 tabs 03/15/23 mg-trimethoprim 160 mg tablet hydrocodone 5 mg-acetaminophen 325 1 tab PO BID #60 tabs 03/16/23 mg tablet cyclobenzaprine 10 mg tablet See Rx Instructions .Route 04/04/23 .COMPLEX #30 tabs metoprolol succinate 50 mg See Rx Instructions .Route 04/04/23 tablet,extended release 24 hr .COMPLEX #30 tabs Allergies Allergy/AdvReac Type Severity Reaction Status Date / Time NSAIDS (Non-Steroidal Allergy Unknown HURTS Verified 03/16/23 09:06 Anti-Inflamma STOMACH prednisolone Allergy Verified 03/16/23 09:06 [facility] Disclaimer: The information contained in this section may have been updated after the patient was seen, as this information can be updated by other users. Medical History Acute anxiety Acute bronchitis Acute exacerbation of chronic obstructive airways disease Alcohol abuse Alcohol withdrawal delirium Alcoholism Anxiety Aspiration pneumonia Benzodiazepine (tranquilizer) overdose Benzodiazepine abuse Change in mental status Chronic anxiety Chronic hyponatremia Chronic left ventricular systolic dysfunction Chronic pain Closed left hip fracture Closed pelvic fracture Closed right hip fracture COPD (chronic obstructive pulmonary disease) COPD (chronic obstructive pulmonary disease) COPD (chronic obstructive pulmonary disease) COPD exacerbation Dehydration Facial contusion Fall Has run out of medications Hip injury Hypertension Hypokalemia Hyponatremia Hyponatremia Intertrochanteric fracture of left femur Left against medical advice Low body mass index (BMI) Muscle spasm Nausea and vomiting in adult Pain Recurrent vomiting Rhabdomyolysis Rib fracture Urinary tract infection Surgical History History of thoracotomy Social History Smoking Status: Former smoker pack-years: 40 second hand exposure: No alcohol intake: current substance use typ
--- NOTE | 2023-04-08 14:50 | PC.NURSE ---
Dry stool noted on patient. [facility] provided with assistance into gown. Pt placed on telemetry and remains at 3L NC (home O2). Warm blankets provided x 2. Pt updated on plan of care. Call cross within reach.
--- NOTE | 2023-04-08 14:59 | ECG_ITS ---
APPROVED REPORT Exam: Resting ECG HR:131 bpm ECG Measurements Heart Rate 131 AXES DE 165 P 82 QRSd 82 QRS 54 QT 262 T 79 QTc 339 Conclusion SINUS TACHYCARDIA WITH OCCASIONAL ECTOPIC PREMATURE COMPLEXES ABNORMAL RHYTHM ECG UNCONFIRMED REPORT Electronically signed by : Luis Plummer MD 04/09/2023 08:16:04
[2023-04-08 15:03] LABS: Basophils % 0.1 % (0.1-2.0); Eosinophils # 0.1 K/mm3 (0.0-0.4); Eosinophils % 0.5 % (0.1-12.0); Hematocrit 26.6 % (37.0-47.0); Hemoglobin 8.4 g/dL (12.2-16.2); Lymphocytes # 0.7 K/mm3 (0.7-4.5); Lymphocytes % 4.5 % (10-50); Mean Corpuscular HGB Conc 31.5 g/dL (31.8-35.4); Mean Corpuscular Hemoglobin 30.7 pg (27.0-31.2); Mean Corpuscular Volume 97.6 fl (81-99); Mean Platelet Volume 7.1 fl (7.4-10.4); Monocytes # 0.4 K/mm3 (0.1-1.0); Monocytes % 2.9 % (1.7-9.3); Neutrophils # 13.6 K/mm3 (1.8-7.8); Platelet Count 600 K/mm3 (142-424); Red Blood Count 2.72 M/mm3 (4.20-5.40); Red Cell Distribution Width 15.3 % (11.5-17.5); White Blood Count 14.8 K/mm3 (4.8-10.8)
[2023-04-08 15:05] LABS: MANUAL DIFFERENTIAL MANUAL DIFFERENTIAL (MANUAL DIFF)
[2023-04-08 15:11] LABS: Chloride 76 mmol/L (98-107); Potassium 4.3 mmoL/L (3.5-5.1); Sodium 117 mmol/L (136-145)
[2023-04-08 15:13] LABS: Alanine Aminotransferase 22 U/L (12-78); Alkaline Phosphatase 121 U/L (38-126); Aspartate Amino Transferase 56 U/L (14-36); Blood Urea Nitrogen 31 mg/dl (7-17); Creatinine Clearance Estimated 42 mL/min (50-200); Estimated Glomerular Filt Rate 161 ml/min (>60); GFR (African American) 194 ML/MIN (>60)
[2023-04-08 15:14] LABS: Albumin Level 3.2 g/dl (3.5-5.0); Albumin/Globulin Ratio 1.2 (1.1-1.8); Anion Gap 14.3 mEq/L (5-15); Calcium 8.3 mg/dl (8.4-10.2); Carbon Dioxide 31 mmol/L (22.0-30.0); Globulin 2.6 g/dL (1.3-3.2); Glucose 107 mg/dl (74-100); Lipase 89 U/L (23-300); Total Protein,Serum 5.8 g/dl (6.3-8.2)
[2023-04-08 15:15] LABS: Bilirubin,Total < 0.1 mg/dl (0.2-1.3)
[2023-04-08 15:16] LABS: INR 0.95 (0.9-1.1); Prothrombin Time 10.3 seconds (10.1-12.5)
[2023-04-08 15:21] LABS: Hypochromasia 1+; Lymphocytes % 5 % (10-50); Monocytes % 1 % (2-9); Neutrophils % 94 % (42-76); Platelet Estimate Moderate Increase; Total Cells Counted 100
[2023-04-08 15:23] LABS: NT Pro Brain Natriuretic Pep. 1670 pg/mL (0-125)
--- NOTE | 2023-04-08 15:27 | PC.NURSE ---
Unable to locate patients phone kapok machine operator, contacted ambulance service they verified that it was not picked up and brought with patient. Patient informed
[2023-04-08 15:42] LABS: Lactic Acid 0.8 mmol/L (0.7-2.1)
--- NOTE | 2023-04-08 16:00 | PC.NURSE ---
Rounded on patient; emesis bag given for spit. Updated on plan of care nothing needed at this time. Call cross within reach.
--- NOTE | 2023-04-08 16:02 | PC.NURSE ---
Rounded on patient call light; provided patient warm blanket.
[2023-04-08 16:03] LABS: Occult Blood,Stool Positive (Negative)
--- NOTE | 2023-04-08 16:13 | PC.NURSE ---
COVID swab obtained and sent to lab
[2023-04-08 16:17] LABS: Coronavirus 19, PCR Not Detected (NotDetected); Influenza A, PCR Not Detected (NotDetected); Influenza B, PCR Not Detected (NotDetected)
--- NOTE | 2023-04-08 16:23 | EXP.HP ---
History of Present Illness *Admission Date: 04/08/23 *Reason for visit:: weakness and shortness of breath *History of present illness: Ms. Garza is a 62-year-old female who presented to the ER because of worsening weakness, nausea, hematemesis and melena for the past 4 to 6 days. Denies maris fever at home. States she has had progressive weakness. Complains of precordial chest pain, reproducible on exam. Also has had increased shortness of breath and cough. Denies any syncope, trauma, history of ulcers. Does not take NSAIDs. Takes hydrocodone and Tylenol for chronic pain. Initial work-up in the ER with multiple abnormalities. Chest imaging with finding of right upper lobe pneumonia. Labs and vitals concerning for sepsis with leukocytosis of 14,000, tachycardia greater than 130, oxygen requirement tachypnea, and focal infection finding. Also noted to have marked anemia with a drop of 4 points in her hemoglobin over the past month. Stool occult positive. Given her multiple abnormalities, medicine consulted for admission for treatment of sepsis, pneumonia, GI bleed and hyponatremia. Received 1 L normal saline in the ER, second liter initiated before transfer. Treated with Zosyn and Levaquin for pneumonia. Typed and crossed for transfusion. Above threshold however at this time. Is an mild distress. Remains tachycardic but stable on 2 L nasal cannula oxygen. Is afebrile. Complaining of pain with swallowing and burning in her chest and epigastrium., [facility] Disclaimer: The information contained in this section may have been updated after the patient was seen, as this information can be updated by other users. Medical History Acute anxiety Acute bronchitis Acute exacerbation of chronic obstructive airways disease Alcohol abuse Alcohol withdrawal delirium Alcoholism Anxiety Aspiration pneumonia Benzodiazepine (tranquilizer) overdose Benzodiazepine abuse Change in mental status Chronic anxiety Chronic hyponatremia Chronic left ventricular systolic dysfunction Chronic pain Closed left hip fracture Closed pelvic fracture Closed right hip fracture COPD (chronic obstructive pulmonary disease) COPD (chronic obstructive pulmonary disease) COPD (chronic obstructive pulmonary disease) COPD exacerbation Dehydration Facial contusion Fall Has run out of medications Hip injury Hypertension Hypokalemia Hyponatremia Hyponatremia Intertrochanteric fracture of left femur Left against medical advice Low body mass index (BMI) Muscle spasm Nausea and vomiting in adult Pain Recurrent vomiting Rhabdomyolysis Rib fracture Urinary tract infection Surgical History History of thoracotomy Social History Smoking Status: Former smoker pack-years: 40 second hand exposure: No alcohol intake: current substance use type: denies use current occupational status: disabled Travel in the last 8 weeks: None household members: other housing: house current occupational exposures/hazards: No caffeine: Yes Meds Home Medications and Allergies Home Medications Medication Instructions Recorded Confirmed Type acetaminophen 325 mg capsule 650 mg PO QID PRN pain #60 caps 03/12/23 04/08/23 Rx (Tylenol) cyclobenzaprine 10 mg tablet 10 mg PO HS muscle spasm 04/08/23 04/08/23 History hydrocodone 5 mg-acetaminophen 325 1 tab PO DAILY PRN Pain 04/08/23 04/08/23 History mg tablet metoprolol succinate 50 mg 50 mg PO DAILY Hypertension 04/08/23 04/08/23 History tablet,extended release 24 hr New Prescriptions to Start Prescriptions: Allergies Allergy/AdvReac Type Severity Reaction Status Date / Time NSAIDS (Non-Steroidal Allergy Unknown HURTS Verified 03/16/23 09:06 Anti-Inflamma STOMACH prednisolone Allergy Verified 03/16/23 09:06 Exam Data for Last 2
--- NOTE | 2023-04-08 17:06 | PC.NURSE ---
Report called to Angie JEAN
--- NOTE | 2023-04-08 17:25 | PC.NURSE ---
Patient being transported to floor via stretcher by hospital staff
[2023-04-08 23:04] LABS: Hematocrit 22.4 % (37.0-47.0)
[2023-04-08 23:09] LABS: Hemoglobin 7.2 g/dL (12.2-16.2)
[2023-04-08 23:10] LABS: Chloride 84 mmol/L (98-107); Sodium 120 mmol/L (136-145)
[2023-04-08 23:11] LABS: Potassium 4.1 mmoL/L (3.5-5.1)
[2023-04-08 23:13] LABS: Blood Urea Nitrogen 20 mg/dl (7-17); Creatinine Clearance Estimated 39 mL/min (50-200); Estimated Glomerular Filt Rate 161 ml/min (>60); GFR (African American) 194 ML/MIN (>60)
[2023-04-08 23:14] LABS: Calcium 7.4 mg/dl (8.4-10.2); Carbon Dioxide 31 mmol/L (22.0-30.0); Glucose 114 mg/dl (74-100)
[2023-04-08 23:15] LABS: Anion Gap 9.1 mEq/L (5-15)
[2023-04-09] VITALS (35 sets, daily range): BP systolic 100–141; BP diastolic 51–89; PULSE 70–124; RESP 16–118; TEMP 36.2–36.8; O2SAT 94–100; BMI 18.5; BMI 18.4
--- NOTE | 2023-04-09 06:35 | EXP.SURG.CON ---
History of Present Illness *Admission Date: 04/08/23 *Reason for visit:: GI Bleed, Possible EGD *History of present illness: Patient is a 62-year-old female with oxygen dependent COPD. She had sustained a fall at home when ambulating on approximately 03/31/2023. She was evaluated in the emergency department on 04/02/2023. She had also been hospitalized after she had sustained a fall on 03/12/[address] scan revealed subacute fracture of the right superior and inferior pubic rami. She has a history of tobacco abuse, COPD (home oxygen dependent), hypertension, hyponatremia, osteoporosis. She presented to the emergency department yesterday on 04/08/2023 with several day history of worsening weakness, nausea, reported hematemesis and melena along with increased shortness of breath and cough. Patient is on hydrocodone and Tylenol for chronic pain. Evaluation in the emergency department revealed tachycardia and leukocytosis. She was also noted to be anemic with hemoglobin of 8.4, down from 12.5 on 03/11/23. However, patient did have a hemoglobin of 7.9 on 05/24/2022. She also has a prior history of hemoglobin of 6.8 in 2019 at which time she underwent transfusion of 2 units. I see no record of prior endoscopic evaluation. BUN is above her baseline. Chest x-ray revealed findings of right upper lobe pneumonia. Stool for occult blood is positive. Patient was admitted for inpatient management for pneumonia and GI blood loss. She has had some symptoms of burning in her chest and epigastrium. According to the record there is a prior history of heavy alcohol consumption. Of note, sodium on admission is 117. She has evidence of chronic hyponatremia for years. Her PT/INR is normal. Follow-up hemoglobin yesterday evening is 7.2. Platelet count is 600,000. [facility] Disclaimer: The information contained in this section may have been updated after the patient was seen, as this information can be updated by other users. Medical History Acute anxiety Acute bronchitis Acute exacerbation of chronic obstructive airways disease Alcohol abuse Alcohol withdrawal delirium Alcoholism Anxiety Aspiration pneumonia Benzodiazepine (tranquilizer) overdose Benzodiazepine abuse Change in mental status Chronic anxiety Chronic hyponatremia Chronic left ventricular systolic dysfunction Chronic pain Closed left hip fracture Closed pelvic fracture Closed right hip fracture COPD (chronic obstructive pulmonary disease) COPD (chronic obstructive pulmonary disease) COPD (chronic obstructive pulmonary disease) COPD exacerbation Dehydration Facial contusion Fall Has run out of medications Hip injury Hypertension Hypokalemia Hyponatremia Hyponatremia Intertrochanteric fracture of left femur Left against medical advice Low body mass index (BMI) Muscle spasm Nausea and vomiting in adult Pain Recurrent vomiting Rhabdomyolysis Rib fracture Urinary tract infection Surgical History History of thoracotomy Social History Smoking Status: Former smoker pack-years: 40 second hand exposure: No alcohol intake: current substance use type: denies use current occupational status: disabled Travel in the last 8 weeks: None household members: other housing: house current occupational exposures/hazards: No caffeine: Yes Meds Home Medications and Allergies Home Medications Medication Instructions Recorded Confirmed Type acetaminophen 325 mg capsule 650 mg PO QID PRN pain #60 caps 03/12/23 04/08/23 Rx (Tylenol) cyclobenzaprine 10 mg tablet 10 mg PO HS Muscle Spasm 04/08/23 04/08/23 History hydrocodone 5 mg-acetaminophen 325 1 tab PO DAILY PRN Pain 04/08/23 04/08/23 History mg tablet metoprolol succinate 50 mg 50 mg PO DAILY Blood Pressure 04/08/23 04/08/23 History tablet,extended re
--- NOTE | 2023-04-09 07:25 | HMH.PHAINT1 ---
Pharmacy Intervention Comments: Patient's home medication reviewed and verified with external pharmacy. -Juan Francisco Dawkins, Pharm Student
[2023-04-09 08:36] LABS: Basophils % 0.1 % (0.1-2.0); Eosinophils # 0.2 K/mm3 (0.0-0.4); Eosinophils % 1.3 % (0.1-12.0); Hematocrit 31.7 % (37.0-47.0); Lymphocytes # 0.7 K/mm3 (0.7-4.5); Lymphocytes % 6.2 % (10-50); Mean Corpuscular HGB Conc 31.8 g/dL (31.8-35.4); Mean Corpuscular Hemoglobin 30.1 pg (27.0-31.2); Mean Corpuscular Volume 94.9 fl (81-99); Monocytes # 0.5 K/mm3 (0.1-1.0); Neutrophils # 10.6 K/mm3 (1.8-7.8); Neutrophils % 88.5 % (37.0-80.0); Platelet Count 329 K/mm3 (142-424); Red Blood Count 3.34 M/mm3 (4.20-5.40)
[2023-04-09 09:16] LABS: Hemoglobin 10.1 g/dL (12.2-16.2); MANUAL DIFFERENTIAL MANUAL DIFFERENTIAL (MANUAL DIFF)
[2023-04-09 09:18] LABS: Chloride 85 mmol/L (98-107)
[2023-04-09 09:19] LABS: Potassium 3.7 mmoL/L (3.5-5.1); Sodium 120 mmol/L (136-145)
[2023-04-09 09:21] LABS: Alanine Aminotransferase 22 U/L (12-78); Aspartate Amino Transferase 37 U/L (14-36); Blood Urea Nitrogen 16 mg/dl (7-17); Creatinine Clearance Estimated 42 mL/min (50-200); Estimated Glomerular Filt Rate 224 ml/min (>60); GFR (African American) 271 ML/MIN (>60)
[2023-04-09 09:22] LABS: Albumin Level 2.8 g/dl (3.5-5.0); Albumin/Globulin Ratio 1.1 (1.1-1.8); Alkaline Phosphatase 111 U/L (38-126); Anion Gap 9.7 mEq/L (5-15); Carbon Dioxide 29 mmol/L (22.0-30.0); Globulin 2.6 g/dL (1.3-3.2); Glucose 116 mg/dl (74-100); Magnesium 1.2 mg/dl (1.6-2.3); Total Protein,Serum 5.4 g/dl (6.3-8.2)
[2023-04-09 09:23] LABS: Bilirubin,Total 0.1 mg/dl (0.2-1.3)
--- NOTE | 2023-04-09 09:51 | SW/DCPLANNER ---
Addendum entered by Dana [place] 04/11/23 09:48: The plan for this patient is to discharge to [facility] level of care today: [facility] agreeable with plan. Addendum entered by Dana [place] 04/09/23 12:36: [facility] can accept this patient once medically stable for discharge. Marley stated that she will start precert today. Addendum entered by Dana [place] 04/09/23 09:57: [facility] does not currently have any beds available. Original Note: PT/OT evaluated patient and recommended home w/ HH and family assistance 30/04 or SNF. Patient resides at home alone and would not have any assistance. Patient is interested in SNF placement once medically stable for discharge. [facility] are NOT in network w/ patient's insurance. Per patient request: I will fax patient information to [facility], [facility] and [facility]. Discharge date is unknown at this time. I will continue to follow up with: patient, MD and facilities.
--- NOTE | 2023-04-09 09:58 | HMH.OTEV ---
OT Inpatient Evaluation Rehab OT IP Evaluation Start: 04/09/23 07:48 Freq: ONCE Status: Active Protocol: Document 04/09/23 09:50 [facility] (Rec: 04/09/23 09:58 [facility] [id number]) Rehab OT IP Assessment Subjective History Pt oriented x 3 on arrival. Pt admitted on 04/08/23 due weakness and PNA. Prior to being in the hospital, pt lived at home alone. Pt claims she was independent with dressing, bathing, and feeding. She does have a house keeper that comes twice a week to assist with all IADLs. Her house keeper also completes her grocery shopping for her. Pt normally stays in a wheelchair but claims she is able to transfer herself independently to and from surfaces. Pt uses oxygen 2L at all times. Pt has past medical history of : Acute anxiety Acute bronchitis Acute exacerbation of chronic obstructive airways disease Alcohol abuse Alcohol withdrawal delirium Alcoholism Anxiety Aspiration pneumonia Benzodiazepine (tranquilizer) overdose Benzodiazepine abuse Change in mental status Chronic anxiety Chronic hyponatremia Chronic left ventricular systolic dysfunction Chronic pain Closed left hip fracture Closed pelvic fracture Closed right hip fracture COPD (chronic obstructive pulmonary disease) COPD (chronic obstructive pulmonary disease) COPD (chronic obstructive pulmonary disease) COPD exacerbation Dehydration
[2023-04-09 10:48] LABS: Lymphocytes % 10 % (10-50); Monocytes % 4 % (2-9); Neutrophils % 86 % (42-76); Platelet Estimate Normal; RBC Morphology Normal; Total Cells Counted 100
--- NOTE | 2023-04-09 11:11 | PC.NURSE ---
pt yelling out for ice chips/water. educated the pt on the reasoning for NPO status. pt states she understands.
--- NOTE | 2023-04-09 11:21 | PC.NURSE ---
pt left floor for scope
--- NOTE | 2023-04-09 11:51 | HMH.PTEV ---
Physical Therapy Evaluation Rehab PT IP Evaluation Start: 04/09/23 07:48 Freq: ONCE Status: Active Protocol: Document 04/09/23 09:20 PHORNISA (Rec: 04/09/23 11:51 PHORNE [id number]) Subjective/History History History 62 yowf adm to [facility] with PNA, GIB, Nausea, dizziness and generalized weakness. Pt was found to be anemic, as well. She has hx of COPD and uses 2 L/min O2 via NC at all times. She reports she lives alone, no steps to enter the home, uses a w/c for all mobility and she can transfer to her w/ c independently at baseline. Subjective Subjective Pt c/o feeling tired and weak this am, but agrees to treatment. Rehab PT IP Eval Objective Appearance Patient Behavior Appropriate Patient Orientation Person,Place,Time Difficulty following instructions none Speech Pattern Clear Ambulation Patient Able to Ambulate No Balance Ability to Arise Able, uses arms to help Sitting Balance Steady, safe Standing Balance Steady, wide stance Dynamic Sitting Balance Ability Good Dynamic Standing Balance Ability Fair Transfers Bed Transfer Ability Supervision/Stand by Chair Transfer Ability Contact Guard/Hand Hold Sit to Stand Bed Transfer Ability Contact Guard/Hand Hold Sit to Stand Chair Transfer Ability Contact Guard/Hand Hold ROM All Extremities PT ROM Status WFL MMT All Extremities PT MMT WFL Rehab PT IP prob,goals,plan Problems Date of Evaluation: 04/09/23 PT IP Problems Bed Mobility,Transfers Rehab Potential Rehab Potential Good Plan PT Intervention Plan Bed Mobility,Transfers, Therapeutic Exercise PT Plan Frequency Daily Duration LOS Discharge Goals Bed Transfer Ability Supervision/Stand by Sit to Stand Chair Transfer Ability Supervision/Stand by Discharge Plan PT Discharge Plan Pt is currently most appropriate for rehab placement once medically stable for d/c. G -code Required No Eval Complexity Eval Charge Codes 94451 - High Complexity PHYSICIAN CERTIFICATION: I certify the specified therapy services for Christian Padilla are required, authorized,
--- NOTE | 2023-04-09 11:55 | P.PN_ITS ---
[facility] Disclaimer: The information contained in this section may have been updated after the patient was seen, as this information can be updated by other users. Medical History Acute anxiety Acute bronchitis Acute exacerbation of chronic obstructive airways disease Alcohol abuse Alcohol withdrawal delirium Alcoholism Anxiety Aspiration pneumonia Benzodiazepine (tranquilizer) overdose Benzodiazepine abuse Change in mental status Chronic anxiety Chronic hyponatremia Chronic left ventricular systolic dysfunction Chronic pain Closed left hip fracture Closed pelvic fracture Closed right hip fracture COPD (chronic obstructive pulmonary disease) COPD (chronic obstructive pulmonary disease) COPD (chronic obstructive pulmonary disease) COPD exacerbation Dehydration Facial contusion Fall Has run out of medications Hip injury Hypertension Hypokalemia Hyponatremia Hyponatremia Intertrochanteric fracture of left femur Left against medical advice Low body mass index (BMI) Muscle spasm Nausea and vomiting in adult Pain Recurrent vomiting Rhabdomyolysis Rib fracture Urinary tract infection Surgical History History of thoracotomy Social History Smoking Status: Former smoker pack-years: 40 second hand exposure: No alcohol intake: current substance use type: denies use current occupational status: disabled Travel in the last 8 weeks: None household members: other housing: house current occupational exposures/hazards: No caffeine: Yes [facility] Anesthesia Checklist Patient Identification Patient Identification: Arm Band Structural Data Admitted From: Inpatient Planned Operative Procedure/s: EGD Consent for Planned Operative Procedure(s) Verified: Yes Verified Documents: Surgical Consent and History and Physical NPO Status Verified Time NPO: 00:00 Additional verifications Anesthesia Reactions: No Airway Assessment C-Spine Mobility Assessed: Yes TMJ Mobility Assessed: Yes Dentition: Dentures-good fit Neurological Assessment Level of Consciousness: Awake and Alert Anesthesia Plan Anesthesia Risk discussed: Yes Anesthesia Plan: Verified ASA Class: III Anesthesia Type: MAC
--- NOTE | 2023-04-09 12:15 | HMH.SCOPE ---
Procedure: Date: 04/09/23 Patient Date of :: 1960 Procedure Performed:: Esophagogastroduodenoscopy with submucosal injection of epinephrine for assurance of hemostasis Indications:: Patient is a 62-year-old female with oxygen dependent COPD. She has recently had several falls at home. She has a history of tobacco abuse, COPD (home oxygen dependent), hypertension, hyponatremia, osteoporosis. She presented to the emergency department yesterday on 04/08/2023 with several day history of worsening weakness, nausea, reported hematemesis and melena along with increased shortness of breath and cough. Patient is on hydrocodone and Tylenol for chronic pain. Evaluation in the emergency department revealed tachycardia and leukocytosis. She was also noted to be anemic with hemoglobin of 8.4, down from 12.5 on 03/11/23. However, patient did have a hemoglobin of 7.9 on 05/24/2022. She also has a prior history of hemoglobin of 6.8 in 2019 at which time she underwent transfusion of 2 units. I see no record of prior endoscopic evaluation. BUN is above her baseline. Chest x-ray revealed findings of right upper lobe pneumonia. Stool for occult blood is positive. Patient was admitted for inpatient management for pneumonia and GI blood loss. She has had some symptoms of burning in her chest and epigastrium. According to the record there is a prior history of heavy alcohol consumption. Of note, sodium on admission is 117. She has evidence of chronic hyponatremia for years. Her PT/INR is normal. Follow-up hemoglobin yesterday evening is 7.2. Platelet count is 600,000. She underwent transfusion with good response. Plan was made for upper endoscopy for diagnostic and possibly therapeutic purposes. Performing Provider:: Gama Self MD Referring Provider:: Zach Leong Sedation:: MAC sedation Procedure:: Patient history was obtained and appropriate physical examination was performed. Patient's medications and allergies were reviewed. Informed consent was obtained after explaining the benefits, alternatives, and risks of the procedure including, but not limited to, bleeding, perforation, missed lesions, and adverse reaction to anesthesia medications. Patient was transported to endoscopy procedure room. Patient was connected to monitoring devices. Throughout the procedure the patient's blood pressure, pulse, and oxygen saturations were monitored continuously. Patient identification and planned procedure were verified by the staff. Patient was positioned in semi-lateral decubitus position. Olympus endoscope was inserted via the oropharynx. At approximately 15 cm significant exudative erosive esophagitis was noted which continued throughout the esophagus. Gastroesophageal junction was encountered at approximately 35 cm from the incisors. Stomach was cannulated and insufflated. Retroflexion revealed a small to moderate sliding hiatal hernia. There is diffuse gastropathy. The pylorus was traversed. Within the duodenal bulb there was a large deep ulcer noted with some old clot. There is a smaller more shallow ulcer adjacent to this. With irrigation this old clot was removed. There is a large deep acute ulcer base. No evidence of any visible vessel was able to be clearly identified. Epinephrine was injected submucosally circumferentially around the ulcer is much as could be done feasibly as access to the ulcer was somewhat difficult due to its large size and location. There was good blanching around the ulcer. There was no clearly identifiable site on the ulcer that could be clipped. No evidence of any bleeding. The endoscope was able to be advanced beyond this and the distal duodenum appeared unremarkable. Endoscope was once again withdrawn into the gastric lumen. Stomach was desufflated and the endoscope was withdrawn. Findings:: Diffuse widespread severe erosive exudative esophagitis Gastroesophageal junction at 35 cm No evidence of any visi
--- NOTE | 2023-04-09 12:40 | SUR.PHASEII ---
report called to elisabet on second floor.
--- NOTE | 2023-04-09 13:32 | ECG_ITS ---
APPROVED REPORT Exam: Resting ECG HR:83 bpm ECG Measurements Heart Rate 83 AXES QRSd 86 QRS 11 QT 349 T 54 QTc 389 Conclusion NSR with sinus arrythmia and pacs. Late R wave progression Abn ECG Electronically signed by : Luis Plummer MD 04/09/2023 19:34:28
--- NOTE | 2023-04-09 14:08 | PC.NURSE ---
1300: notified by charge nurse of ST elevations noted in tele. stat EKG obtained, reviewed and okayed EKG.
--- NOTE | 2023-04-09 14:16 | EXP.ACUTE.PN ---
Subjective *Date: 04/09/23 *Time: 14:16 Interval history: Patient having slight improvement in chest discomfort and epigastric discomfort with GI cocktail overnight. Hemoglobin dropped overnight necessitating transfusion. Stable shortness of breath on 2 L. No syncope or change in mentation. Medical Exam Vital signs and Labs for Last 24 Hours: Vital Signs Temp Pulse Pulse Resp BP BP Pulse Ox 04/09/23 12:59 90 04/09/23 12:52 83 19 133/89 100 04/09/23 12:40 85 17 139/84 100 04/09/23 12:30 84 17 141/85 H 100 04/09/23 12:20 97.2 F L 82 17 122/76 99 04/09/23 08:00 120 H 04/09/23 08:00 97.4 F L 116 H 20 111/65 98 04/09/23 04:00 100 H 04/09/23 06:17 98.0 F 104 H 18 123/60 98 04/09/23 05:15 97.9 F 102 H 18 114/70 100 04/09/23 04:55 97.9 F 99 H 18 109/74 L 99 04/09/23 04:55 98.0 F 99 H 18 109/74 L 99 04/09/23 01:00 124 H 04/09/23 03:55 97.9 F 110 H 16 108/64 L 100 04/09/23 00:00 98.3 F 70 22 108/56 L 97 04/09/23 02:55 98.0 F 107 H 18 105/67 L 100 04/09/23 02:40 97.7 F 118 H 18 116/69 99 04/09/23 02:25 112 H 18 106/61 L 100 04/09/23 02:10 97.7 F 106 H 20 103/58 L 100 04/09/23 02:05 97.9 F 106 H 20 104/64 L 100 04/09/23 02:00 97.8 F 118 H 18 103/59 L 100 04/09/23 01:55 97.8 F 118 H 118 H 100/56 L 100 04/09/23 01:52 97.8 F 115 H 20 103/60 L 99 04/08/23 20:00 100 04/08/23 23:15 04/08/23 23:15 70 04/08/23 23:15 71 07/02/23 20:00 98.1 F 141 H 20 112/66 100 04/08/23 17:45 98 F 133 H 17 110/63 96 04/08/23 17:00 138 H 24 118/64 96 04/08/23 16:30 136 H 25 H 107/57 L 94 L 04/08/23 16:00 126 H 23 116/70 94 L 04/08/23 15:30 24 129/79 04/08/23 15:00 137 H 26 H 110/63 91 L 04/08/23 17:09 97 F L 137 H 23 118/64 04/08/23 14:21 97 F L 137 H 27 H 107/85 L 91 L FiO2 04/09/23 12:59 04/09/23 12:52 04/09/23 12:40 04/09/23 12:30 04/09/23 12:20 04/09/23 08:00 04/09/23 08:00 04/09/23 04:00 04/09/23 06:17 04/09/23 05:15 04/09/23 04:55 04/09/23 04:55 04/09/23 01:00 04/09/23 03:55 04/09/23 00:00 04/09/23 02:55 04/09/23 02:40 04/09/23 02:25 04/09/23 02:10 04/09/23 02:05 04/09/23 02:00 04/09/23 01:55 04/09/23 01:52 04/08/23 20:00 04/08/23 23:15 28 04/08/23 23:15 04/08/23 23:15 04/08/23 20:00 04/08/23 17:45 04/08/23 17:00 04/08/23 16:30 04/08/23 16:00 04/08/23 15:30 04/08/23 15:00 04/08/23 17:09 04/08/23 14:21 Intake and Output 04/08/23 04/09/23 04/09/23 23:59 07:59 15:59 Intake Total 1400 / 1400 Output Total 0 / 0 500 / 600 100 / 600 Balance 0 / 0 900 / 800 -100 / 800 Intake: Intake, Total IV Amount 1150 / 1150 0.9 % Sodium Chloride 1000ML 1, 1000 / 1000 000 ml @ 999 mls/hr IV .Q1H1M [facility] Rx#:[id number] Erythromycin Lactobionate 250 100 / 100 mg In 0.9 % Sodium Chloride 100 ml @ 100 mls/hr IV ONCE ONE Rx #:[id number] Pipercillin/Tazo 3.375 gm In 0. 50 / 50 9 % Sodium Chloride 50 ml @ 100 mls/hr IV Q8H [facility] Rx#:[id number] Intake (Blood Product) Amt 250 / 250 Red Blood Cells Unit 250 / 250 [id number] Output: Output, Urine Amount 0 / 0 500 / 600 100 / 600 Other: Number of Unmeasured Voids 0 1 Weight 43.8 kg 47.344 kg Patient Weight 04/09/23 23:59 Weight 47.344 kg Laboratory Results - last 24 hr 04/08/23 14:41: WBC 14.8 H, RBC 2.72 L, Hgb 8.4 L, Hct 26.6 L, MCV 97.6, MCH 30.7, MCHC 31.5 L, RDW 15.3, Plt Count 600 H, MPV 7.1 L, Neut % (Auto) 92.0 H, Lymph % (Auto) 4.5 L, Antelope % (Auto) 2.9, Eos % (Auto) 0.5, Baso % (Auto) 0.1, Neut # (Auto) 13.6 H, Lymph # (Auto) 0.7, Antelope # (Auto) 0.4, Eos # (Auto) 0.1, Baso # (Auto) 0.0, Total Counted 100, Neutrophils % (Manual) 94 H, Lymp
[2023-04-09 16:58] LABS: Hematocrit 29.7 % (37.0-47.0); Hemoglobin 9.4 g/dL (12.2-16.2)
[2023-04-09 17:06] LABS: Chloride 84 mmol/L (98-107)
[2023-04-09 17:07] LABS: Potassium 3.7 mmoL/L (3.5-5.1); Sodium 121 mmol/L (136-145)
[2023-04-09 17:09] LABS: Blood Urea Nitrogen 13 mg/dl (7-17); Creatinine Clearance Estimated 42 mL/min (50-200); Estimated Glomerular Filt Rate 161 ml/min (>60); GFR (African American) 194 ML/MIN (>60)
[2023-04-09 17:10] LABS: Anion Gap 8.7 mEq/L (5-15); Carbon Dioxide 32 mmol/L (22.0-30.0); Glucose 99 mg/dl (74-100)
--- NOTE | 2023-04-09 18:22 | PC.NURSE ---
pt has Done well this shift. no signs of bleeding. VSS. pt has used IS frequently. cb within reach no questions or concerns at this time.
[2023-04-09 18:38] LABS: Basophils % 0.1 % (0.1-2.0); Eosinophils % 0.3 % (0.1-12.0); Lymphocytes # 0.9 K/mm3 (0.7-4.5); Lymphocytes % 8.3 % (10-50); Mean Corpuscular HGB Conc 32.1 g/dL (31.8-35.4); Mean Corpuscular Hemoglobin 30.5 pg (27.0-31.2); Mean Platelet Volume 7.3 fl (7.4-10.4); Monocytes # 0.4 K/mm3 (0.1-1.0); Monocytes % 3.8 % (1.7-9.3); Neutrophils # 8.9 K/mm3 (1.8-7.8); Neutrophils % 87.4 % (37.0-80.0); Platelet Count 439 K/mm3 (142-424); Red Blood Count 3.27 M/mm3 (4.20-5.40); Red Cell Distribution Width 16.3 % (11.5-17.5); White Blood Count 10.2 K/mm3 (4.8-10.8)
[2023-04-09 18:39] LABS: MANUAL DIFFERENTIAL MANUAL DIFFERENTIAL (MANUAL DIFF)
[2023-04-09 18:46] LABS: Chloride 85 mmol/L (98-107); Sodium 120 mmol/L (136-145)
[2023-04-09 18:47] LABS: Potassium 3.8 mmoL/L (3.5-5.1)
[2023-04-09 18:49] LABS: Alanine Aminotransferase 19 U/L (12-78); Albumin Level 2.6 g/dl (3.5-5.0); Alkaline Phosphatase 99 U/L (38-126); Anion Gap 7.8 mEq/L (5-15); Aspartate Amino Transferase 35 U/L (14-36); Blood Urea Nitrogen 12 mg/dl (7-17); Calcium 7.9 mg/dl (8.4-10.2); Carbon Dioxide 31 mmol/L (22.0-30.0); Creatinine Clearance Estimated 42 mL/min (50-200); Estimated Glomerular Filt Rate 224 ml/min (>60); GFR (African American) 271 ML/MIN (>60); Globulin 2.5 g/dL (1.3-3.2); Glucose 109 mg/dl (74-100); Total Protein,Serum 5.1 g/dl (6.3-8.2)
[2023-04-09 18:52] LABS: Bilirubin,Total < 0.1 mg/dl (0.2-1.3)
[2023-04-09 18:58] LABS: Lymphocytes % 16 % (10-50); Monocytes % 3 % (2-9); Neutrophils % 81 % (42-76); Total Cells Counted 100
[2023-04-09 18:59] LABS: Hypochromasia 1+; Ovalocytes 1+; Platelet Estimate Normal
--- NOTE | 2023-04-09 23:25 | PC.NURSE ---
RT NOTE: SPUTUM COLLECTED AND SENT TO LAB.
[2023-04-10] VITALS (16 sets, daily range): BP systolic 96–133; BP diastolic 55–75; PULSE 87–130; RESP 16–18; TEMP 36.4–36.8; O2SAT 88–98
--- NOTE | 2023-04-10 01:20 | PC.NURSE ---
SHIRT SEWER NOTIFIED BY THIS RN FOR PT HR IN THE 130'S; SHIRT SEWER ORDERED LOPRESSOR 50MG PO ONCE; SEE NEW ORDERS AND MAR
[2023-04-10 07:13] LABS: Basophils % 0.1 % (0.1-2.0); Eosinophils % 0.4 % (0.1-12.0); Hematocrit 29.9 % (37.0-47.0); Hemoglobin 9.6 g/dL (12.2-16.2); Lymphocytes # 1.2 K/mm3 (0.7-4.5); Lymphocytes % 11.8 % (10-50); Mean Corpuscular HGB Conc 32.3 g/dL (31.8-35.4); Mean Corpuscular Hemoglobin 30.6 pg (27.0-31.2); Mean Corpuscular Volume 94.7 fl (81-99); Mean Platelet Volume 7.4 fl (7.4-10.4); Monocytes # 0.5 K/mm3 (0.1-1.0); Monocytes % 5.2 % (1.7-9.3); Neutrophils # 8.3 K/mm3 (1.8-7.8); Neutrophils % 82.6 % (37.0-80.0); Platelet Count 480 K/mm3 (142-424); Red Blood Count 3.15 M/mm3 (4.20-5.40); Red Cell Distribution Width 15.9 % (11.5-17.5); White Blood Count 10.1 K/mm3 (4.8-10.8)
[2023-04-10 07:24] LABS: Chloride 84 mmol/L (98-107); Potassium 3.6 mmoL/L (3.5-5.1); Sodium 121 mmol/L (136-145)
[2023-04-10 07:27] LABS: Alanine Aminotransferase 19 U/L (12-78); Albumin Level 2.6 g/dl (3.5-5.0); Alkaline Phosphatase 101 U/L (38-126); Anion Gap 8.6 mEq/L (5-15); Aspartate Amino Transferase 30 U/L (14-36); Blood Urea Nitrogen 9 mg/dl (7-17); Calcium 8.2 mg/dl (8.4-10.2); Carbon Dioxide 32 mmol/L (22.0-30.0); Creatinine Clearance Estimated 42 mL/min (50-200); Estimated Glomerular Filt Rate 224 ml/min (>60); GFR (African American) 271 ML/MIN (>60); Globulin 2.5 g/dL (1.3-3.2); Glucose 93 mg/dl (74-100); Magnesium 1.4 mg/dl (1.6-2.3); Total Protein,Serum 5.1 g/dl (6.3-8.2)
[2023-04-10 07:30] LABS: Bilirubin,Total < 0.1 mg/dl (0.2-1.3)
--- NOTE | 2023-04-10 10:26 | EXP.SURG.PN ---
Subjective Narrative: spoke with nursing... no new issues...patient stable Exam Data for Last 24 hours Vital signs and Labs for Last 24 Hours: Temp Pulse Resp BP Pulse Ox FiO2 97.8 F 116 H 16 96/57 L 88 L 28 04/10/23 07:25 04/10/23 07:25 04/10/23 07:25 04/10/23 07:25 04/10/23 08:47 04/08/23 23:15 Laboratory Results - last 24 hr 04/09/23 06:20: Total Counted 100, Neutrophils % (Manual) 86 H, Lymphocytes % (Manual) 10, Monocytes % (Manual) 4, Platelet Estimate Normal, RBC Morphology Normal 04/09/23 16:00: Hgb 9.4 L, Hct 29.7 L, Sodium 121 L, Potassium 3.7, Chloride 84 L, Carbon Dioxide 32 H, Anion Gap 8.7, BUN 13, Creatinine 0.40 L D, Estimated Creat Clear 42, Estimated GFR 161, Est GFR ( Amer) 194 D, Glucose 99, Calcium 8.0 L 04/09/23 18:15: WBC 10.2, RBC 3.27 L, Hgb 10.0 L, Hct 31.0 L, MCV 95.0, MCH 30.5, MCHC 32.1, RDW 16.3, Plt Count 439 H D, MPV 7.3 L, Neut % (Auto) 87.4 H, Lymph % (Auto) 8.3 L, [place] % (Auto) 3.8, Eos % (Auto) 0.3, Baso % (Auto) 0.1, Neut # (Auto) 8.9 H, Lymph # (Auto) 0.9, [place] # (Auto) 0.4, Eos # (Auto) 0.0, Baso # (Auto) 0.0, Total Counted 100, Neutrophils % (Manual) 81 H, Lymphocytes % (Manual) 16, Monocytes % (Manual) 3, Platelet Estimate Normal, Hypochromasia 1+, Ovalocytes 1+, Sodium 120 L, Potassium 3.8, Chloride 85 L, Carbon Dioxide 31 H, Anion Gap 7.8, BUN 12, Creatinine 0.30 L D, Estimated Creat Clear 42, Estimated GFR 224, Est GFR ( Amer) 271 D, Glucose 109 H, Calcium 7.9 L, Total Bilirubin < 0.1 L, AST 35, ALT 19, Alkaline Phosphatase 99, Total Protein 5.1 L, Albumin 2.6 L, Globulin 2.5, Albumin/Globulin Ratio 1.0 L 04/10/23 06:14: WBC 10.1, RBC 3.15 L, Hgb 9.6 L, Hct 29.9 L, MCV 94.7, MCH 30.6, MCHC 32.3, RDW 15.9, Plt Count 480 H, MPV 7.4, Neut % (Auto) 82.6 H, Lymph % (Auto) 11.8, [place] % (Auto) 5.2, Eos % (Auto) 0.4, Baso % (Auto) 0.1, Neut # (Auto) 8.3 H, Lymph # (Auto) 1.2, [place] # (Auto) 0.5, Eos # (Auto) 0.0, Baso # (Auto) 0.0, Sodium 121 L, Potassium 3.6, Chloride 84 L, Carbon Dioxide 32 H, Anion Gap 8.6, BUN 9, Creatinine 0.30 L, Estimated Creat Clear 42, Estimated GFR 224, Est GFR ( Amer) 271, Glucose 93, Calcium 8.2 L, Magnesium 1.4 L D, Total Bilirubin < 0.1 L, AST 30, ALT 19, Alkaline Phosphatase 101, Total Protein 5.1 L, Albumin 2.6 L, Globulin 2.5, Albumin/Globulin Ratio 1.0 L I & O for Last 24 hours: Intake & Output 04/07/23 04/08/23 04/09/23 04/10/23 11:59 11:59 11:59 11:59 Intake Total 1400 / 1400 240 / 240 Output Total 600 / 600 200 / 200 Balance 800 / 800 40 / 40 Weight 104 lb 6 oz 104 lb 4.458 oz Constitutional Comments: defer to primary Progress Note: A&P Assessment and plan (1) Acute GI bleeding: Status: Acute Assessment and plan: secondary to duodenal ulcerations Forwarded from EGD performed yesterday: Findings:: Diffuse widespread severe erosive exudative esophagitis Gastroesophageal junction at 35 cm No evidence of any visible esophageal varices Diffuse gastropathy At least 2 ulcers within the proximal duodenum. Larger ulcer with some clot which was evacuated. No active bleeding. Epinephrine injected for a total of approximately 7.5 cc. Recommendations:: Continue medical management. Observe hemoglobin for stability (2) Duodenal ulcer: Status: Acute Assessment and plan: (see #1 above) (3) Anemia: Status: Acute Assessment and plan: HGB 9.6 (stable) this AM
--- NOTE | 2023-04-10 10:32 | EXP.ACUTE.PN ---
Subjective *Date: 04/10/23 *Time: 10:32 Interval history: Stable this morning. Still having pain, chronic. Pain with swallowing, will try viscous lidocaine today. No nausea or vomiting. No bloody stools per report. Pleasant on exam. Medical Exam Vital signs and Labs for Last 24 Hours: Vital Signs Temp Pulse Pulse Resp BP Pulse Ox 04/10/23 08:47 88 L 04/10/23 07:25 97.8 F 116 H 16 96/57 L 89 L 04/10/23 06:31 87 04/10/23 06:31 91 H 04/10/23 06:31 98 04/10/23 04:00 90 04/10/23 00:00 130 H 04/09/23 23:50 97.8 F 106 H 20 108/54 L 100 04/09/23 23:14 102 H 04/09/23 23:14 109 H 04/09/23 20:00 90 04/09/23 20:00 97.5 F L 110 H 18 100/51 L 98 04/09/23 18:27 87 04/09/23 18:27 99 H 04/09/23 18:27 98 04/09/23 16:00 100 H 04/09/23 17:00 98.0 F 82 18 112/65 100 04/09/23 16:00 98.0 F 95 H 18 116/70 100 04/09/23 15:00 97.8 F 84 16 110/65 100 04/09/23 14:30 97.9 F 74 16 112/51 L 100 04/09/23 14:00 97.9 F 78 16 111/55 L 100 04/09/23 13:45 98.0 F 82 16 116/65 100 04/09/23 13:30 97.8 F 80 18 117/60 98 04/09/23 13:15 97.7 F 83 16 102/65 L 97 04/09/23 13:00 97.7 F 85 16 119/67 94 L 04/09/23 12:59 90 04/09/23 12:52 83 19 133/89 100 04/09/23 12:40 85 17 139/84 100 04/09/23 12:30 84 17 141/85 H 100 04/09/23 12:20 97.2 F L 82 17 122/76 99 Intake and Output 04/09/23 04/10/23 04/10/23 23:59 07:59 15:59 Intake Total 240 / 1640 0 / 0 Output Total 200 / 800 0 / 0 Balance 40 / 840 0 / 0 Intake: Intake, Oral Amount 240 / 240 0 / 0 Output: Output, Urine Amount 200 / 800 0 / 0 Other: Number of Unmeasured Voids 0 1 Laboratory Results - last 24 hr 04/09/23 06:20: Total Counted 100, Neutrophils % (Manual) 86 H, Lymphocytes % (Manual) 10, Monocytes % (Manual) 4, Platelet Estimate Normal, RBC Morphology Normal 04/09/23 16:00: Hgb 9.4 L, Hct 29.7 L, Sodium 121 L, Potassium 3.7, Chloride 84 L, Carbon Dioxide 32 H, Anion Gap 8.7, BUN 13, Creatinine 0.40 L D, Estimated Creat Clear 42, Estimated GFR 161, Est GFR ( Amer) 194 D, Glucose 99, Calcium 8.0 L 04/09/23 18:15: WBC 10.2, RBC 3.27 L, Hgb 10.0 L, Hct 31.0 L, MCV 95.0, MCH 30.5, MCHC 32.1, RDW 16.3, Plt Count 439 H D, MPV 7.3 L, Neut % (Auto) 87.4 H, Lymph % (Auto) 8.3 L, [place]ie % (Auto) 3.8, Eos % (Auto) 0.3, Baso % (Auto) 0.1, Neut # (Auto) 8.9 H, Lymph # (Auto) 0.9, [place] # (Auto) 0.4, Eos # (Auto) 0.0, Baso # (Auto) 0.0, Total Counted 100, Neutrophils % (Manual) 81 H, Lymphocytes % (Manual) 16, Monocytes % (Manual) 3, Platelet Estimate Normal, Hypochromasia 1+, Ovalocytes 1+, Sodium 120 L, Potassium 3.8, Chloride 85 L, Carbon Dioxide 31 H, Anion Gap 7.8, BUN 12, Creatinine 0.30 L D, Estimated Creat Clear 42, Estimated GFR 224, Est GFR ( Amer) 271 D, Glucose 109 H, Calcium 7.9 L, Total Bilirubin < 0.1 L, AST 35, ALT 19, Alkaline Phosphatase 99, Total Protein 5.1 L, Albumin 2.6 L, Globulin 2.5, Albumin/Globulin Ratio 1.0 L 04/10/23 06:14: WBC 10.1, RBC 3.15 L, Hgb 9.6 L, Hct 29.9 L, MCV 94.7, MCH 30.6, MCHC 32.3, RDW 15.9, Plt Count 480 H, MPV 7.4, Neut % (Auto) 82.6 H, Lymph % (Auto) 11.8, [place]ie % (Auto) 5.2, Eos % (Auto) 0.4, Baso % (Auto) 0.1, Neut # (Auto) 8.3 H, Lymph # (Auto) 1.2, [place] # (Auto) 0.5, Eos # (Auto) 0.0, Baso # (Auto) 0.0, Sodium 121 L, Potassium 3.6, Chloride 84 L, Carbon Dioxide 32 H, Anion Gap 8.6, BUN 9, Creatinine 0.30 L, Estimated Creat Clear 42, Estimated GFR 224, Est GFR ( Amer) 271, Glucose 93, Calcium 8.2 L, Magnesium 1.4 L D, Total Bilirubin < 0.1 L, AST 30, ALT 19, Alkaline Phosphatase 101, Total Protein 5.1 L, Albumin 2.6 L, Globulin 2.5, Albumin/Globulin Ratio 1.0 L I & O for Labs for Last 24 Hours: Intake & Output 04/07/23 04/08/23 04/09/23 04/10/23 23:59 23:59 23:59 23:59 Intake Total 1640 / 1640 0 / 0 Output Total 0 / 0 800 / 800 0
--- NOTE | 2023-04-10 17:47 | PC.NURSE ---
A&OX4. TOLERATING RA WELL AT THIS TIME, O2 SAT IN LOW 90S. PT HAS C/O INTERMITTENT GENERALIZED PAIN T/O SHIFT. TREATED PER DEC. EFFECTIVENESS NOTED. PT UP TO BEDSIDE WITH STANDBY ASSIST. NO OTHER NEEDS NOTED THUS FAR, VSS.
[2023-04-10 18:07] LABS: Hematocrit 30.6 % (37.0-47.0); Hemoglobin 9.4 g/dL (12.2-16.2)
--- NOTE | 2023-04-10 21:14 | PC.NURSE ---
Pt's HR fluctuating between upper 120s-low 130s. TENANT RELATIONS COORDINATOR notified with new order for 50mg metoprolol xl, administered per DEC.
--- NOTE | 2023-04-11 00:28 | PC.NURSE ---
MIRANDA ZHENG FROM ER CALLED THE SECOND FLOOR AND SPOKE TO THIS RN ABOUT PT CALLING 911 STATING SHE HAD TO GO TO THE BATHROOM. MIRANDA ZHENG STATED THAT THE OFFICER THAT HAD TALKED TO THE PATIENT HAD STATED THAT THE PATIENT WAS TALKING OUT OF HER HEAD. PRIMARY RN AND TECH SENT INTO PT'S ROOM. PT WAS FOUND TO HAVE CALL LIGHT ON HER LAP AND CELL PHONE IN HAND. PT WAS EDUCATED ON NOT CALLING 911 AND TO USE HER CALL GARVIN FOR ASSISTANCE.
[2023-04-11 01:31] VITALS: PULSE 100
[2023-04-11 04:00] VITALS: BP 128/76; PULSE 110; PULSE 60; RESP 18; TEMP 36.6; O2SAT 90; BMI 18.4
[2023-04-11 05:59] LABS: Basophils % 0.1 % (0.1-2.0); Eosinophils # 0.1 K/mm3 (0.0-0.4); Eosinophils % 1.4 % (0.1-12.0); Hematocrit 28.5 % (37.0-47.0); Hemoglobin 8.9 g/dL (12.2-16.2); Lymphocytes # 1.8 K/mm3 (0.7-4.5); Lymphocytes % 18.7 % (10-50); Mean Corpuscular HGB Conc 31.4 g/dL (31.8-35.4); Mean Corpuscular Volume 95.6 fl (81-99); Mean Platelet Volume 7.2 fl (7.4-10.4); Monocytes # 0.6 K/mm3 (0.1-1.0); Monocytes % 6.2 % (1.7-9.3); Neutrophils % 73.6 % (37.0-80.0); Platelet Count 462 K/mm3 (142-424); Red Blood Count 2.98 M/mm3 (4.20-5.40); Red Cell Distribution Width 15.9 % (11.5-17.5); White Blood Count 9.6 K/mm3 (4.8-10.8)
[2023-04-11 06:07] LABS: Alanine Aminotransferase 18 U/L (12-78); Albumin Level 2.3 g/dl (3.5-5.0); Alkaline Phosphatase 110 U/L (38-126); Anion Gap 7.8 mEq/L (5-15); Aspartate Amino Transferase 26 U/L (14-36); Blood Urea Nitrogen 6 mg/dl (7-17); Calcium 7.8 mg/dl (8.4-10.2); Carbon Dioxide 28 mmol/L (22.0-30.0); Chloride 89 mmol/L (98-107); Creatinine Clearance Estimated 42 mL/min (50-200); Estimated Glomerular Filt Rate 224 ml/min (>60); GFR (African American) 271 ML/MIN (>60); Globulin 2.3 g/dL (1.3-3.2); Glucose 102 mg/dl (74-100); Potassium 3.8 mmoL/L (3.5-5.1); Sodium 121 mmol/L (136-145); Total Protein,Serum 4.6 g/dl (6.3-8.2)
[2023-04-11 06:12] VITALS: PULSE 84; PULSE 86; O2SAT 95
[2023-04-11 06:21] LABS: Bilirubin,Total < 0.1 mg/dl (0.2-1.3)
[2023-04-11 06:28] LABS: Magnesium 1.4 mg/dl (1.6-2.3)
--- NOTE | 2023-04-11 07:27 | EXP.DC.SUM ---
General Admission date:: 04/08/23 Discharge date: 04/11/23 HPI HPI HPI: Patient is a 62-year-old female with oxygen dependent COPD. She had sustained a fall at home when ambulating on approximately 03/31/2023. She was evaluated in the emergency department on 04/02/2023. She had also been hospitalized after she had sustained a fall on 03/12/[address] scan revealed subacute fracture of the right superior and inferior pubic rami. She has a history of tobacco abuse, COPD (home oxygen dependent), hypertension, hyponatremia, osteoporosis. She presented to the emergency department yesterday on 04/08/2023 with several day history of worsening weakness, nausea, reported hematemesis and melena along with increased shortness of breath and cough. Patient is on hydrocodone and Tylenol for chronic pain. Evaluation in the emergency department revealed tachycardia and leukocytosis. She was also noted to be anemic with hemoglobin of 8.4, down from 12.5 on 03/11/23. However, patient did have a hemoglobin of 7.9 on 05/24/2022. She also has a prior history of hemoglobin of 6.8 in 2019 at which time she underwent transfusion of 2 units. I see no record of prior endoscopic evaluation. BUN is above her baseline. Chest x-ray revealed findings of right upper lobe pneumonia. Stool for occult blood is positive. Patient was admitted for inpatient management for pneumonia and GI blood loss. She has had some symptoms of burning in her chest and epigastrium. According to the record there is a prior history of heavy alcohol consumption. Of note, sodium on admission is 117. She has evidence of chronic hyponatremia for years. Her PT/INR is normal. Follow-up hemoglobin yesterday evening is 7.2. Platelet count is 600,000. Hospital Course Hospital Course Hospital Course: 62-year-old female who presents with weakness and fatigue. Found to have right upper lobe pneumonia, acute blood loss anemia secondary to GI bleed, and hyponatremia. Clinically stable. Remained stable. Meeting criteria for discharge. No further significant bloody stools or melena. Afebrile and hemodynamically stable for 48 hours. Problems addressed as follows: Sepsis, resolving Pneumonia, RUL -Sepsis criteria with tachycardia, tachypnea, leukocytosis of 14,000, and infection on chest imaging with pneumonia on presentation. PSI/port score of at least 114, making her risk class IV. Will transition to Augmentin to complete antibiotics at time of discharge. Will complete 7 days total given her severity of presentation, last dose due on 04/15/23. Continue DuoNebs every 6 hours. Was initially on oxygen. Has been able to wean to room air. Sats 90% and higher on room air. Had been on oxygen prior to admission, may necessitate supplemental oxygen if sats drop. Previously was on 1 to 2 L at home prior to admission. GI bleed Blood loss anemia -Hemoglobin stable after transfusion. Hemoglobin 8.9 this morning. No other significant bleeding. Transfusion threshold is a hemoglobin less than 7. We will continue Protonix with 40 mg twice daily for the next 2 weeks, decrease to daily thereafter. Continue sucralfate for the next week for her esophagitis. Stable to discharge to the next site of care. Follow-up with surgery in the next 1 to 2 weeks. Repeat CBC and CMP in 1 week Hyponatremia - Baseline sodium per chart review chronically between 124 and 128. Level 117 on arrival. Improved to 121 this morning on labs. Suspect secondary to alcoholism. Treated with normal saline during admission. Repeat monitoring 1 week. Would benefit from sodium tablet daily to help normalize her hyponatremia. As patient's blood pressure is normal, continue home metoprolol 50 mg daily for hypertension and tachycardia Continue home hydrocodone. Had been taking 1-2 times a day at home. Requiring twice a day during admitted. Anticipate improvement in her chest pain/epigastric pain as her esophagitis resolves. 3-day pr
[2023-04-11 07:40] VITALS: BP 140/97; PULSE 115; RESP 18; TEMP 36.7; O2SAT 90
--- NOTE | 2023-04-11 07:53 | CARE MANAGER ---
Vital Signs - 24 hr 04/10/23 08:47 04/10/23 11:05 04/10/23 12:29 Temperature 97.6 F Pulse Rate 104 H Pulse Rate [Left] 104 H Respiratory Rate 18 Blood Pressure [Right Arm] 97/55 L 02 Sat by Pulse Oximetry 88 L 91 L 04/10/23 12:29 04/10/23 08:00 04/10/23 12:00 Temperature Pulse Rate 108 H 120 H 100 H Pulse Rate [Left] Respiratory Rate Blood Pressure [Right Arm] 02 Sat by Pulse Oximetry 04/10/23 15:04 04/10/23 16:00 04/10/23 18:54 Temperature 98.2 F Pulse Rate 100 H Pulse Rate [Left] 106 H Respiratory Rate 18 Blood Pressure [Right Arm] 113/66 02 Sat by Pulse Oximetry 93 L 92 L 04/10/23 18:54 04/10/23 18:54 04/10/23 19:55 Temperature 98.0 F Pulse Rate 104 H 99 H Pulse Rate [Left] 124 H Respiratory Rate 18 Blood Pressure [Right Arm] 120/75 02 Sat by Pulse Oximetry 90 L 04/10/23 20:00 04/10/23 23:09 04/10/23 23:09 Temperature Pulse Rate 120 H 112 H Pulse Rate [Left] Respiratory Rate Blood Pressure [Right Arm] 02 Sat by Pulse Oximetry 91 L 04/10/23 23:09 04/10/23 23:45 04/11/23 01:31 Temperature 97.8 F Pulse Rate 110 H 100 H Pulse Rate [Left] 116 H Respiratory Rate 18 Blood Pressure [Right Arm] 133/72 02 Sat by Pulse Oximetry 91 L 04/11/23 04:00 04/11/23 06:12 04/11/23 06:12 Temperature Pulse Rate 60 86 Pulse Rate [Left] Respiratory Rate Blood Pressure [Right Arm] 02 Sat by Pulse Oximetry 95 04/11/23 06:12 04/11/23 04:00 04/11/23 07:40 Temperature 97.9 F 98.0 F Pulse Rate 84 Pulse Rate [Left] 110 H 115 H Respiratory Rate 18 18 Blood Pressure [Right Arm] 128/76 140/97 H 02 Sat by Pulse Oximetry 90 L 90 L
[2023-04-11 08:00] VITALS: PULSE 120
--- NOTE | 2023-04-11 08:00 | EXP.PHA.PN ---
Subjective *Date: 04/11/23 *Time: 08:00 Medical Exam Vital signs and Labs for Last 24 Hours: Vital Signs Temp Pulse Pulse Resp BP Pulse Ox 04/11/23 07:40 98.0 F 115 H 18 140/97 H 90 L 04/11/23 04:00 97.9 F 110 H 18 128/76 90 L 04/11/23 06:12 84 04/11/23 06:12 86 04/11/23 06:12 95 04/11/23 04:00 60 04/11/23 01:31 100 H 04/10/23 23:45 97.8 F 116 H 18 133/72 91 L 04/10/23 23:09 110 H 04/10/23 23:09 112 H 04/10/23 23:09 91 L 04/10/23 20:00 120 H 04/10/23 19:55 98.0 F 124 H 18 120/75 90 L 04/10/23 18:54 99 H 04/10/23 18:54 104 H 04/10/23 18:54 92 L 04/10/23 16:00 100 H 04/10/23 15:04 98.2 F 106 H 18 113/66 93 L 04/10/23 12:00 100 H 04/10/23 12:29 108 H 04/10/23 12:29 104 H 04/10/23 11:05 97.6 F 104 H 18 97/55 L 91 L 04/10/23 08:47 88 L Intake and Output 04/10/23 04/11/23 04/11/23 23:59 07:59 15:59 Intake Total 240 / 640 340 / 340 Output Total 0 / 200 0 / 0 Balance 240 / 440 340 / 340 Intake: Intake, Oral Amount 240 / 540 240 / 240 Intake, Total IV Amount 100 / 100 Pipercillin/Tazo 3.375 gm In 0. 100 / 100 9 % Sodium Chloride 50 ml @ 100 mls/hr IV Q8H [facility] Rx#:[id number] Output: Output, Urine Amount 0 / 200 0 / 0 Other: Number of Unmeasured Voids 1 2 Weight 47.174 kg Patient Weight 04/11/23 23:59 Weight 47.174 kg Laboratory Results - last 24 hr 04/10/23 17:55: Hgb 9.4 L, Hct 30.6 L 04/11/23 05:47: WBC 9.6, RBC 2.98 L, Hgb 8.9 L, Hct 28.5 L, MCV 95.6, MCH 30.0, MCHC 31.4 L, RDW 15.9, Plt Count 462 H, MPV 7.2 L, Neut % (Auto) 73.6, Lymph % (Auto) 18.7, [place] % (Auto) 6.2, Eos % (Auto) 1.4, Baso % (Auto) 0.1, Neut # (Auto) 7.0, Lymph # (Auto) 1.8, [place] # (Auto) 0.6, Eos # (Auto) 0.1, Baso # (Auto) 0.0, Sodium 121 L, Potassium 3.8, Chloride 89 L, Carbon Dioxide 28, Anion Gap 7.8, BUN 6 L D, Creatinine 0.30 L, Estimated Creat Clear 42, Estimated GFR 224, Est GFR ( Amer) 271, Glucose 102 H, Calcium 7.8 L, Magnesium 1.4 L, Total Bilirubin < 0.1 L, AST 26, ALT 18, Alkaline Phosphatase 110, Total Protein 4.6 L, Albumin 2.3 L D, Globulin 2.3, Albumin/Globulin Ratio 1.0 L I & O for Labs for Last 24 Hours: Intake & Output 04/08/23 04/09/23 04/10/23 04/11/23 23:59 23:59 23:59 23:59 Intake Total 1640 / 1640 540 / 640 340 / 340 Output Total 0 / 0 800 / 800 200 / 200 0 / 0 Balance 0 / 0 840 / 840 340 / 440 340 / 340 Weight 43.8 kg 47.3 kg 47.174 kg Microbiology Reports for the Last 24 Hours: Microbiology 04/08/23 23:14 Sputum - Expectorated Sputum Gram Stain - Final 04/08/23 23:14 Sputum - Expectorated Sputum Sputum Culture - Preliminary 04/08/23 14:41 Blood Blood Culture - Preliminary NO GROWTH AFTER 48 HOURS 04/08/23 14:41 Blood Blood Culture - Preliminary NO GROWTH AFTER 48 HOURS The patient's infection will respond to the chosen ABx?: Yes (SPUTUM CULTURE PENDING, WBC NORMAL, AFEBRILE) Is the patient receiving the right drug, dose, and route?: Yes Could a more targeted ABx be ordered?: No
--- NOTE | 2023-04-11 08:42 | P.PN_ITS ---
Subjective Patient reports: no new complaints Narrative: She has noticed no additional melena or bright red blood per rectum. No hematemesis. Exam Data for Last 24 hours Vital signs and Labs for Last 24 Hours: Temp Pulse Resp BP Pulse Ox FiO2 98.0 F 115 H 18 140/97 H 90 L 28 04/11/23 07:40 04/11/23 07:40 04/11/23 07:40 04/11/23 07:40 04/11/23 07:40 04/08/23 23:15 Laboratory Results - last 24 hr 04/10/23 17:55: Hgb 9.4 L, Hct 30.6 L 04/11/23 05:47: WBC 9.6, RBC 2.98 L, Hgb 8.9 L, Hct 28.5 L, MCV 95.6, MCH 30.0, MCHC 31.4 L, RDW 15.9, Plt Count 462 H, MPV 7.2 L, Neut % (Auto) 73.6, Lymph % (Auto) 18.7, [place] % (Auto) 6.2, Eos % (Auto) 1.4, Baso % (Auto) 0.1, Neut # (Auto) 7.0, Lymph # (Auto) 1.8, [place] # (Auto) 0.6, Eos # (Auto) 0.1, Baso # (Auto) 0.0, Sodium 121 L, Potassium 3.8, Chloride 89 L, Carbon Dioxide 28, Anion Gap 7.8, BUN 6 L D, Creatinine 0.30 L, Estimated Creat Clear 42, Estimated GFR 224, Est GFR ( Amer) 271, Glucose 102 H, Calcium 7.8 L, Magnesium 1.4 L, Total Bilirubin < 0.1 L, AST 26, ALT 18, Alkaline Phosphatase 110, Total Protein 4.6 L, Albumin 2.3 L D, Globulin 2.3, Albumin/Globulin Ratio 1.0 L I & O for Last 24 hours: Intake & Output 04/08/23 04/09/23 04/10/23 04/11/23 11:59 11:59 11:59 11:59 Intake Total 1400 / 1400 240 / 240 880 / 880 Output Total 600 / 600 200 / 200 200 / 200 Balance 800 / 800 40 / 40 680 / 680 Weight 104 lb 6 oz 104 lb 4.458 oz 104 lb Microbiology Reports for the Last 24 Hours: Microbiology 04/08/23 23:14 Sputum - Expectorated Sputum Gram Stain - Final 04/08/23 23:14 Sputum - Expectorated Sputum Sputum Culture - Preliminary 04/08/23 14:41 Blood Blood Culture - Preliminary NO GROWTH AFTER 48 HOURS 04/08/23 14:41 Blood Blood Culture - Preliminary NO GROWTH AFTER 48 HOURS Constitutional Constitutional: no acute distress *Routine Respiratory Exam Respiratory: Absent respiratory distress *Routine Cardiovascular Exam Cardiovascular: Present tachycardia Progress Note: A&P Assessment and plan (1) Acute GI bleeding: Status: Acute Assessment and plan: No definitive evidence of ongoing blood loss. (2) Duodenal ulcer: Status: Acute Assessment and plan: Continue medical management. Okay from surgical standpoint for discharge home with close outpatient follow-up (Dr. Self). (3) Anemia: Status: Acute Assessment and plan: Hemoglobin 8.9 this morning (9.4 yesterday). Note hemoglobin of 7.2 on April 08. Initial response to 1 unit transfusion from a laboratory standpoint was significantly higher than anticipated . She is likely continuing to equilibra te. No definitive evidence of ongoing loss.
--- NOTE | 2023-04-14 14:03 | EXP.SEPSISRE ---
[facility] Tissue Perfusion Eval Sepsis Re-Evaluation Performed: Yes Date Performed: 04/08/23 Time Performed: 18:30
== END 2023-04-11 11:13 | disposition home or self-care (01) | DRG 871 ==
LOC: ER 16:18 → 2ND 16:20
PROVIDERS: Surgery; Admitting Provider Internal Medicine Adolescent Medicine; Emergency Provider Emergency Medicine; Visit Provider Internal Medicine Adolescent Medicine
PROC: 0DJ08ZZ Inspection of Upper Intestinal Tract, Via Natural or Artificial Opening Endoscopic (ICD-10-PCS; CPT 43235; principal; 2023-04-09 10:30)
DX: A41.9 Sepsis, unspecified organism (principal); J18.9 Pneumonia, unspecified organism; K26.4 Chronic or unspecified duodenal ulcer with hemorrhage; E87.1 Hypo-osmolality and hyponatremia; D62 Acute posthemorrhagic anemia; Z72.0 Tobacco use; F41.9 Anxiety disorder, unspecified; J44.9 Chronic obstructive pulmonary disease, unspecified; I10 Essential (primary) hypertension; Z99.81 Dependence on supplemental oxygen; G89.29 Other chronic pain
CPT/HCPCS: 36415; 71045; 80048; 80053; 82272; 83605; 83690; 83735; 83880; 85007; 85014; 85018; 85025; 85610; 86850; 87040; 87070; 87205; 87636; 93005; 94640; 94760; 94761; 97110; 97163; 97166; 97530; 99285; C9803; G0328; J1364; J1956; J2543; J3475; P9016; U0003; U0005